=== PATIENT | female | born 1950 | race Caucasian/White ===

== ENCOUNTER 2019-03-01 14:46 | Observation (INO) | payer MEDICARE, SELFPAY ==
[2019-03-01] VITALS (13 sets, daily range): BP systolic 102–142; BP diastolic 45–73; PULSE 90–108; RESP 18–23; TEMP 36.6–36.9; O2SAT 86–96; BMI 23.9; BMI 24.2
--- NOTE | 2019-03-01 15:15 | EKG12_ITS ---
Test Reason : SOB Blood Pressure : / mmHG Vent. Rate : 088 BPM Atrial Rate : 088 BPM P-R Int : 128 ms QRS Dur : 094 ms QT Int : 372 ms P-R-T Axes : -06 075 066 degrees QTc Int : 450 ms Sinus rhythm with Premature supraventricular complexes Otherwise normal ECG Confirmed by LOCO VERONICA, ANGIE ([id number]), video editor ORLANDO REYNAGA ([id number]) on 03/03/2019 10:52:37 AM Referred By: DARRIN Confirmed By:ANGIE ADAN MD
[2019-03-01] MEDS: 0.9% Normal Saline 1,000 ML 150 ML IV (15:28)
[2019-03-01] MEDS: MethylPREDNISolone 125 MG/2 ML Vial IV (15:29)
--- NOTE | 2019-03-01 15:29 | ED.VISSUMM ---
- ER Visit Summary Date of Service: 03/01/19 Chief Complaint: [Shortness of breath] History of Present Illness: The patient is a 69 F [resents the emergency department shortness of breath that started 2 to 3 weeks ago. Patient's been coughing and bringing up mostly clear sputum. She denies any fevers. Patient denies any chest pain. She denies recent travel or surgery. Patient was seen in urgent care today and referred to the emergency department because of a O2 saturation of 86%. Patient is not on home O2. Patient has history of diabetes, hypertension, and she states mild COPD. Patient continues to smoke.] Physical Examination: [HEENT-PERRLA, EOMI. Cranial nerves II through XII grossly intact. TMs clear. Mucous membranes moist. No adenopathy. Cardiovascular-regular rate and rhythm without murmur or ectopy Lungs-diminished bilaterally. Patient has coarse rhonchi and diffuse expiratory wheezes bilaterally. Patient has some mild tachypnea. No accessory muscle use or retractions. Abdomen-normoactive bowel sounds, soft, nontender, no rebound or rigidity, no peritoneal signs. Extremities-intact ?4, normal range of motion, normal pulses, atraumatic] Test Results: [CBC with 0.5, hemoglobin 14, hematocrit 42, placed 194. Chemistries unremarkable. Lactate pending. Chest x-ray obtained showed mild increased markings bilateral the right infrahilar region consistent with scarring.] Emergency Department Course and Treatment: [Patient was given DuoNeb aerosol as well as Solu-Medrol 125 mg IV.] Treatment Plan: [Admit for further management of COPD and hypoxia.] Disposition: [Admit] Impression: [COPD exacerbation Hypoxemia] This note was generated with [employer] dictation software. It may contain incorrect words, spelling, and punctuation that were not noted in review of the chart prior to signing ED Disposition - Plan for ED Patient: Referrals: Krish Cárdenas, KITA-C [Primary Care Provider] -
--- NOTE | 2019-03-01 15:35 | RAD_ITS ---
STUDY: X-RAY CHEST REASON FOR EXAM: Female, 69 years old. Shortness of breath. Cough. TECHNIQUE: PA and lateral views of the chest. COMPARISON: Comparison is made with prior chest radiograph dated January 15, 2017. FINDINGS: EKG electrodes are seen. Hyperinflation. Mild increased markings are seen in the right infrahilar region most likely secondary to scarring following prior pneumonia. Residual blunting of the right costophrenic angle. Normal size heart. Normal mediastinum and hardik. Normal visualized pulmonary arteries. There is atherosclerotic calcification of the aortic arch with tortuosity. There are diffuse degenerative changes of the visualized thoracic spine. Normal visualized ribs, clavicles, and shoulders. There is no demonstrated abnormality of the visualized soft tissue structures of the upper abdomen. RAD/Chest PA and Lateral IMPRESSION: Mild increased markings in the right infrahilar region suggestive of scarring. Blunting of the right costophrenic angle. Electronically Signed: Mitch Garza, at 15:48 EDT , Service support ,
[2019-03-01 15:40] LABS: Absolute Lymphocyte Count 2.38 X10^3/ul (0.83-4.51); Absolute Neutrophil Count 6.7 X10^3/uL (2.0-7.7); Basophil# 0.03 X10^3/uL; Basophil% 0.3 % (0-1); Eosinophil# 0.26 X10^3/uL; Eosinophils% 2.5 % (0-5); Hematocrit 41.8 % (37-47); Hemoglobin 14.1 g/dl (12.0-15.0); Lymphocyte # 2.38 X10^3/ul (4.0); Lymphocyte % 22.8 % (19-41); Mean Corp Hgb Conc 33.7 g/gl (32-36); Mean Corpuscular Hgb 36.2 pg (27.0-32.0); Mean Corpuscular Volume 107.2 fL (81-99); Mean Platelet Vol. 12.1 fl (6.2-12.0); Monocyte# 0.94 X10^3/uL; Neutrophil # 6.73 X10^3/uL (2.7-7.7); Neutrophil % 64.3 % (47-70); POSITIVE COUNT NO; POSITIVE DIFFERENTIAL NO; POSITIVE MORPHOLOGY NO; Platelet Count 194 K/mm3 (150-450); RBC Distribution Width CV 14.1 % (11.6-14.6); RBC Distribution Width SD 55.2 fl (35.1-43.9); White Blood Count 10.5 K/mm3 (4.4-11.0)
[2019-03-01 15:44] LABS: Anion Gap 6 (5-15); BUN 32 mg/dL (7-18); BUN/Creat Ratio 34.9 RATIO (10-20); Chloride 105 mmol/L (98-107); Creatinine, Serum 0.92 mg/dL (0.55-1.02); EST Glomerular Filtration Rate 65 mL/min (>60); Est Glom Filt Rate - Afr Amer 78 mL/min (>60); Estimated Creatinine Clearance 48.41 ml/min; Glucose 103 mg/dL (74-106); Potassium 4.1 mmol/L (3.5-5.1); Sodium Level 141 mmol/L (136-145)
[2019-03-01] MEDS: Ipratropium/Albuterol Sulfate 3 ML AMPUL.NEB INHALATION ×2 (15:52→19:25)
[2019-03-01] MEDS: Albuterol 2.5 MG/3 ML VIAL.NEB. INHALATION (15:55)
[2019-03-01 15:56] LABS: Lactic Acid 0.7 mmol/L (0.4-2.0)
--- NOTE | 2019-03-01 16:02 | NURSING ---
DR RONDON FOR DR CONCEPCION
--- NOTE | 2019-03-01 16:12 | PCM.HP.STD ---
<Destiny Harding - Last Filed: 03/01/19 16:30> Problem List (1) Acute respiratory failure with hypoxemia Status: Acute (2) Tobacco dependence Status: Chronic (3) DM2 (diabetes mellitus, type 2) Status: Chronic (4) Essential (primary) hypertension Status: Chronic (5) Hyperlipemia Status: Chronic History of Present Illness Date of Admission: 03/01/19 Chief Complaint: Shortness of breath. The patient is a 69 year old F who presents emergency room due to increased shortness of breath. She reports she has had increased shortness of breath over the past 2 to 3 weeks, worse with exertion. Reports cough, productive of clear sputum. She does report she has intermittent cough at baseline. Denies fever, chills. Denies chest pain. Denies lower extremity swelling or weight gain. She was evaluated at urgent care today and noted to be hypoxic and was referred to the emergency room for further evaluation. She currently smokes 2 packs/day. She reports she was told she had COPD based on prior imaging and smoking history however she has not had formal testing or work-up. Her past medical history includes type 2 diabetes mellitus, hypertension, hyperlipidemia, tobacco dependence. Past Medical History Past Medical History (Chronic Problems): Chronic Problems Hyperlipemia (Chronic) Tobacco dependence (Chronic) DM2 (diabetes mellitus, type 2) (Chronic) Essential (primary) hypertension (Chronic) Allergies Penicillins Allergy (Verified 01/15/17 16:17) Angioedema Home Medications: Ambulatory Orders Medication Instructions Recorded Amlodipine Besylate 10 mg PO DAILY 01/15/17 Citalopram Hydrobromide 40 mg PO DAILY 01/15/17 [Citalopram HBr] Hydrochlorothiazide 12.5 mg PO DAILY 01/15/17 Lisinopril 40 mg PO DAILY 01/15/17 Loperamide [Imodium] 1 mg PO BID 01/15/17 Lovastatin 20 mg PO QHS 01/15/17 Metformin HCl [Metformin HCl ER] 500 mg PO BID 01/15/17 Pnv No.95/Ferrous Fum/Folic AC 1 each PO DAILY 01/15/17 [ Vitamins Tablet] Albuterol Aerosols [Ventolin 2.5 mg INHALATION Q2H PRN PRN #0 01/18/17 Aerosols] vial.neb. Cyanocobalamin (Vitamin B-12) 2,500 mcg SL DAILY 03/01/19 [Vitamin B-12] Surgical History: - - Right eye retinal detachment repair Psychiatric History: Depression EMPLOYMENT SERVICES DIRECTOR History: No pertinent EMPLOYMENT SERVICES DIRECTOR history Lives: - - with friend Smoking Status: Current every day smoker Tobacco Use: Cigarettes - 2 PPD Alcohol: Heavy Drugs: None - *Family History Maternal History Items: Diabetes Paternal History Items: - - Denies known paternal medical history including cardiac history. Reports he young. Review of Systems Constitutional: Denies: Chills, Fever, Weight Change HEENT: Denies: Head Aches, Sinus Congestion, Sinus Drainage Cardiovascular: Denies: Chest Pain, Edema, Light Headedness, Palpitations, Syncope Respiratory: Reports: Cough, Shortness of Breath, Wheezing Gastrointestinal: Denies: Abdominal Pain, Nausea, Vomiting Genitourinary: Denies: Dysuria Musculoskeletal: Denies: Joint Pain, Joint Tenderness Skin: Denies: Rash, Wounds Neurological: Denies: Numbness, Tingling, Focal weakness Psychiatric: Reports: Depression. Denies: Anxiety, Homicidal Ideations, Suicidal Ideations Hematologic/ Lymphatic: Denies: Easy Bruising, Easy Bleeding VTE Information - Inpt Only VTE Present on Admission: No VTE Mechan Device Prophylaxis: None VTE Pharm Prophylaxis ordered?: Yes - Physical Exam General: Alert, Oriented x3, Cooperative HEENT: Atraumatic, PERRLA, EOMI, Normocephalic Neck: Supple, No JVD, Negative Carotid Bruits Lungs: Diminished, Wheezes Cardiovascular: Regular rate, Regular Rhythm, Normal S1, Normal S2, No murmurs Abdomen: Bowel Sounds Present, Soft, Non Tender, Non-Distended Extremities: No clubbing, No cyanosis, No edema Skin: No rashes, No breakdown Musculoskeletal: No Tenderness to Palpation of Joints or Extremities Neurological: Cranial nerves II-XII grossly intact, Neuro grossly intact Psych/Mental Status: Normal Affect, Appropriate Vital Signs Temp Pulse Resp BP Pulse Ox 97.9 F 90 23 H 102/73 95 03/01/19 14:57 03/01/19 15:53 03/01/19 15:53 03/01/19 15:46 03/01/19 15:46 Oxygen Flow Rate (L/min) 3 Oxygen Delivery Method Nasal Cannula Weight: 135 lb Body Mass Index (BMI) 23.9 Laboratory Tests Past 24 Hrs 03/01/19 03/01/19 03/01/19 15:15 15:15 15:15 WBC 10.5 RBC 3.90 L Hgb 14.1 Hct 41.8 MCV 107.2 H MCH 36.2 H MCHC 33.7 RDW 14.1 RDW Differential 55.2 H Plt Count 194 MPV 12.1 H Immature Gran % (Auto) 1.100 H Neut % (Auto) 64.3 Lymph % (Auto) 22.8 [place] % (Auto) 9.0 Eos % (Auto) 2.5 Baso % (Auto) 0.3 Absolute Neuts (auto) 6.7 Absolute Lymphs (auto) 2.38 Total Counted Not Reportable Sodium 141 Potassium 4.1 Chloride 105 Carbon Dioxide 30.0 Anion Gap 6 BUN 32 H Creatinine 0.92 Estim Creat Clear Calc 48.41 Est GFR (MDRD) Af Amer 78 Est GFR (MDRD) Non-Af 65 BUN/Creatinine Ratio 34.9 H Glucose 103 Lactic Acid 0.7 Calcium 9.0 Assessment/Plan All Active Problems Acute respiratory failure with hypoxemia (Acute) 1. Acute hypoxic respiratory insufficiency secondary to exacerbation of COPD-afebrile, no leukocytosis. Chest x-ray with mild increased markings in the right infrahilar region suggestive of scarring. Check respiratory panel. IV Solu-Medrol. Albuterol and DuoNeb aerosols. Continue supplement oxygen to maintain O2 at or above 90%. Walking pulse ox prior to discharge. Recommend follow-up with pulmonary medicine as outpatient for pulmonary function testing and further management of COPD. 2. Type 2 diabetes mellitus-hold metformin regimen. Accu-Cheks ACHS with sliding scale insulin. 3. Hypertension-stable, continue amlodipine, hydrochlorothiazide, lisinopril regimen. 4. Hyperlipidemia-continue statin. 5. Tobacco dependence-2 pack/day smoker. Encourage cessation. Nicotine replacement patch. 6. Alcohol dependence-patient reports she drinks approximately 6 to 9 ounces of vodka every night. CIWA/Ativan protocol. 7. Depression-continue citalopram regimen. DVT prophylaxis-Lovenox subcu This patient was seen by KASSANDRA Briggs under the supervision of Dr. Kennedy. <Kira Kennedy - Last Filed: 03/01/19 17:07> History of Present Illness The patient is a 69 year old F [] Past Medical History Allergies Penicillins Allergy (Verified 01/15/17 16:17) Angioedema - Physical Exam Vital Signs Temp Pulse Resp BP Pulse Ox 98.0 F 93 18 126/69 H 94 03/01/19 16:11 03/01/19 16:11 03/01/19 16:11 03/01/19 16:11 03/01/19 16:11 Oxygen Flow Rate (L/min) 3 Oxygen Delivery Method Room Air Weight: 61.235 kg Body Mass Index (BMI) 23.9 Laboratory Tests Past 24 Hrs 03/01/19 03/01/19 03/01/19 15:15 15:15 15:15 WBC 10.5 RBC 3.90 L Hgb 14.1 Hct 41.8 MCV 107.2 H MCH 36.2 H MCHC 33.7 RDW 14.1 RDW Differential 55.2 H Plt Count 194 MPV 12.1 H Immature Gran % (Auto) 1.100 H Neut % (Auto) 64.3 Lymph % (Auto) 22.8 [place] % (Auto) 9.0 Eos % (Auto) 2.5 Baso % (Auto) 0.3 Absolute Neuts (auto) 6.7 Absolute Lymphs (auto) 2.38 Total Counted Not Reportable Sodium 141 Potassium 4.1 Chloride 105 Carbon Dioxide 30.0 Anion Gap 6 BUN 32 H Creatinine 0.92 Estim Creat Clear Calc 48.41 Est GFR (MDRD) Af Amer 78 Est GFR (MDRD) Non-Af 65 BUN/Creatinine Ratio 34.9 H Glucose 103 Lactic Acid 0.7 Calcium 9.0 Assessment/Plan This patient was seen in conjunction with Destiny Harding. I have independently interviewed and examined the patient and reviewed pertinent historical, laboratory, and other data. I have reviewed her note and concur with her documentation CC: Shortness of breath, cough - 3 weeks HPI: 69-year-old female with past medical history of COPD, not on oxygen, type II DM, hypertension, hyperlipidemia, chronic smoker who comes in with cough ongoing for 3 weeks. Cough is productive of whitish fever. Denies any fever or chills or chest pain or palpitation. She went to the urgent care today and her SPO2 was 86% on room air.She did admits to feeling better now. PMHX: As above PSHx: S/p right retina detachment FHX: Mother had diabetes SHX: Lives with a friend, smokes 2 packs a day, drinks alcohol heavily, denies any illicit drug use Physical Exam: Vitals: Temperature is 98.0 F, heart rate is 90, blood pressure 116/45, respiratory rate is 20, SPO2 is 96% on 3 L oxygen Gen: Comfortable, on 3L oxygen, not pale, not jaundiced CVS:HS I +II, regular, no murmurs RESP: Diminished all over, wheezes ++ GI: BS present and normal, soft, nontender, no palpable organs EXT:No edema Labs: WBC count 10.5, hemoglobin 14.1, platelet count 194, BMP is unremarkable except for slight elevation in BUN ASSESSMENT: 1. Acute hypoxic respiratory failure secondary to acute COPD exacerbation 2. Acute COPD exacerbation 3. Nicotine dependence 4. Alcohol dependence 5. Hypertension 6. Hyperlipidemia 7. Depression Plan: Admit to MedSurg, continue on breathing treatments, IV steroids Nicotine replacement Will put on alcohol withdrawal protocol Continue home meds, repeat blood work in a.m. Patient may need discharge with oxygen Recommend outpatient pulmonology follow-up on discharge Code Visit Inpatient E&M: [id number] Init Hosp L3
--- NOTE | 2019-03-01 16:17 | NURSING ---
PCU ACUTE COPD EXAC PAINTSIL
--- NOTE | 2019-03-01 16:31 | NURSING ---
MED SURG NOT PCU
[2019-03-01 17:21] LABS: Bedside Glucose 103 mg/dL (70-110)
[2019-03-01] MEDS: Atorvastatin Calcium 10 MG Tablet 5 MG PO (22:29)
[2019-03-01] MEDS: Heparin Injection (Vial) 5,000 UNIT/ML VIAL 5000 UNIT SC (22:30)
[2019-03-01] MEDS: 0.9% NaCl Peripheral Flush Adult/Peds IV (22:30)
[2019-03-01] MEDS: amLODIPine 10 MG Tablet PO (22:30)
[2019-03-01] MEDS: Insulin Lispro 100 UNIT/ML INSULN.PEN SQ (22:34)
[2019-03-01 23:01] LABS: Bedside Glucose 250 mg/dL (70-110)
[2019-03-02] MEDS: Zolpidem Tartrate 5 MG Tablet PO (00:23)
[2019-03-02 04:00] VITALS: BP 142/64; PULSE 78; RESP 18; TEMP 36.6; O2SAT 93
[2019-03-02] MEDS: Heparin Injection (Vial) 5,000 UNIT/ML VIAL 5000 UNIT SC (05:54)
[2019-03-02] MEDS: 0.9% NaCl Peripheral Flush Adult/Peds IV ×2 (05:55→15:26)
[2019-03-02 06:10] LABS: Absolute Lymphocyte Count 0.97 X10^3/ul (0.83-4.51); Absolute Neutrophil Count 9.8 X10^3/uL (2.0-7.7); Basophil# 0.01 X10^3/uL; Basophil% 0.1 % (0-1); Hematocrit 41.9 % (37-47); Hemoglobin 13.9 g/dl (12.0-15.0); Lymphocyte # 0.97 X10^3/ul (4.0); Lymphocyte % 8.8 % (19-41); Mean Corp Hgb Conc 33.2 g/gl (32-36); Mean Corpuscular Hgb 35.5 pg (27.0-32.0); Mean Corpuscular Volume 106.9 fL (81-99); Mean Platelet Vol. 12.1 fl (6.2-12.0); Monocyte# 0.15 X10^3/uL; Monocyte% 1.4 % (0-10); Neutrophil # 9.78 X10^3/uL (2.7-7.7); Neutrophil % 89.2 % (47-70); Platelet Count 185 K/mm3 (150-450); RBC Distribution Width CV 13.6 % (11.6-14.6); RBC Distribution Width SD 53.4 fl (35.1-43.9); Red Blood Count 3.92 M/mm3 (4.2-5.4)
[2019-03-02 06:13] LABS: POSITIVE COUNT NO; POSITIVE DIFFERENTIAL NO; POSITIVE MORPHOLOGY NO
[2019-03-02 06:28] LABS: Anion Gap 8 (5-15); BUN 29 mg/dL (7-18); BUN/Creat Ratio 38.5 RATIO (10-20); Calcium,Total 9.1 mg/dL (8.5-10.1); Chloride 103 mmol/L (98-107); Creatinine, Serum 0.75 mg/dL (0.55-1.02); EST Glomerular Filtration Rate 81 mL/min (>60); Est Glom Filt Rate - Afr Amer 98 mL/min (>60); Estimated Creatinine Clearance 44.54 ml/min; Glucose 160 mg/dL (74-106); Potassium 4.3 mmol/L (3.5-5.1); Sodium Level 141 mmol/L (136-145)
[2019-03-02] MEDS: Insulin Lispro 100 UNIT/ML INSULN.PEN SQ ×2 (06:53→11:38)
[2019-03-02 07:00] LABS: Bedside Glucose 207 mg/dL (70-110)
[2019-03-02 07:25] VITALS: PULSE 74; RESP 20; O2SAT 93
[2019-03-02] MEDS: Ipratropium/Albuterol Sulfate 3 ML AMPUL.NEB INHALATION ×3 (07:25→14:46)
[2019-03-02] MEDS: Lisinopril 40 MG Tablet PO (09:19)
[2019-03-02] MEDS: Citalopram 40 MG TABLET PO (09:20)
[2019-03-02] MEDS: hydroCHLOROthiazide 12.5mg 12.5 MG PO (09:20)
[2019-03-02 09:34] VITALS: O2SAT 82; O2SAT 89; O2SAT 92
[2019-03-02 10:00] VITALS: BP 126/58; PULSE 88; RESP 18; TEMP 36.6; O2SAT 92
[2019-03-02 11:11] VITALS: PULSE 90; RESP 20
--- NOTE | 2019-03-02 11:27 | DCINST_ITS ---
- Discharge Diagnoses Current Active Problems: Current Active and Chronic Problems COPD exacerbation You will use the following diet at home:: Cardiac Discharge Activity: Return to Normal Activity Call your doctor if you observe: Shortness of breath, Dizziness, Fainting spells, Chest pain Allergies/Adverse Reactions: Allergies Penicillins Allergy (Verified 01/15/17 16:17) Angioedema Medications to take at Discharge Amlodipine Besylate 10 mg PO DAILY 01/15/17 Citalopram Hydrobromide [Citalopram HBr] 40 mg PO DAILY 01/15/17 Hydrochlorothiazide 12.5 mg PO DAILY 01/15/17 Lisinopril 40 mg PO DAILY 01/15/17 Loperamide [Imodium] 1 mg PO BID 01/15/17 Lovastatin 20 mg PO QHS 01/15/17 Metformin HCl [Metformin HCl ER] 500 mg PO BID 01/15/17 Pnv No.95/Ferrous Fum/Folic AC [ Vitamins Tablet] 1 each PO DAILY 01/15/17 Cyanocobalamin (Vitamin B-12) [Vitamin B-12] 2,500 mcg SL DAILY 03/01/19 Albuterol Aerosols [Ventolin Aerosols] 2.5 mg INHALATION Q2H PRN PRN #120 vial.neb. 03/02/19 Prednisone See Taper PO DAILY #30 tablet 03/02/19 The following prescriptions were given: Albuterol Aerosols [Ventolin Aerosols] 2.5 mg INHALATION Q2H PRN PRN #120 vial.neb. PRN Reason: Shortness of breath Prednisone See Taper PO DAILY #30 tablet Primary Care Physician: Krish Cárdenas, KITA-C [Primary Care Provider] - Please follow up with your Primary Care Physician in: 1 Week Test Results: Test results from this visit will be discussed in further detail at your follow- up appointment, if applicable. Please Follow Up With: Ge Deras MD - Or Dr. Arguelles When: Recommend establishing with Pulmonary Medicine, call for appt Proposed Discharge Date: 03/02/19
--- NOTE | 2019-03-02 11:27 | PCM.DC.SUM ---
<Destiny Harding - Last Filed: 03/02/19 11:37> Discharge Date and Diagnosis - Problem List Patient Problems: Active and Suspected Problems COPD with exacerbation (Suspected) Date of Admission: 03/01/19 Date of Discharge: 03/02/19 - Primary Discharge Diagnosis 1. Acute hypoxic respiratory insufficiency secondary to exacerbation of COPD 2. Type 2 diabetes mellitus 3. Hypertension 4. Hyperlipidemia 5. Tobacco dependence 6. Alcohol dependence 7. Depression - Secondary Discharge Diagnosis Chronic Problems Hyperlipemia (Chronic) Tobacco dependence (Chronic) DM2 (diabetes mellitus, type 2) (Chronic) Essential (primary) hypertension (Chronic) Hospital Course and Treatment Imaging Results: Diagnostic Data Chest X-Ray 03/01/19 15:35 IMPRESSION: Mild increased markings in the right infrahilar region suggestive of scarring. Blunting of the right costophrenic angle. Electronically Signed: Mitch Greg, at 15:48 EDT , Service support , Operations: None Procedures: None Summary of Care Provided: The patient is a 69 year old F admitted 03/01/2019 due to shortness of breath. 1. Acute hypoxic respiratory insufficiency secondary to exacerbation of COPD-afebrile, no leukocytosis. Chest x-ray with mild increased markings in the right infrahilar region suggestive of scarring. Respiratory panel negative. IV Solu-Medrol during admission. Discharged on prednisone taper. Patient has nebulizer at home and she was given refill prescription for albuterol aerosols. Walking pulse ox completed prior to discharge and patient will require supplemental oxygen with ambulation, 2 L. She is ambulatory in the home. Recommend follow-up with pulmonary medicine as outpatient for pulmonary function testing and further management of COPD. Follow-up with primary care provider in 1 week. Follow-up with pulmonary medicine in 1 to 2 weeks to establish. 2. Type 2 diabetes mellitus-continue home metformin regimen. 3. Hypertension-stable, continue amlodipine, hydrochlorothiazide, lisinopril regimen. 4. Hyperlipidemia-continue statin. 5. Tobacco dependence-2 pack/day smoker. Encourage cessation. 6. Alcohol dependence-patient reports she drinks approximately 6 to 9 ounces of vodka every night. CIWA 4. Encouraged reduction in alcohol intake. 7. Depression-continue citalopram regimen. General: Alert, Oriented x3, Cooperative HEENT: Atraumatic, PERRLA, EOMI, Normocephalic Neck: Supple, No JVD, Negative Carotid Bruits Lungs: Diminished, Wheezes Cardiovascular: Regular rate, Regular Rhythm, Normal S1, Normal S2, No murmurs Abdomen: Bowel Sounds Present, Soft, Non Tender, Non-Distended Extremities: No clubbing, No cyanosis, No edema Skin: No rashes, No breakdown Musculoskeletal: No Tenderness to Palpation of Joints or Extremities Neurological: Cranial nerves II-XII grossly intact, Neuro grossly intact Psych/Mental Status: Normal Affect, Appropriate Patient seen and examined prior to discharge. Physical assessment as noted above. Patient is stable for discharge with follow up recommendations as noted above. This patient was seen by KASSANDRA Briggs under the supervision of Dr. Santa. Patient Problems: Active and Suspected Problems COPD with exacerbation (Suspected) - Physical Exam Vital Signs Temp Pulse Resp BP Pulse Ox 97.8 F 90 20 H 126/58 H 92 03/02/19 10:00 03/02/19 11:11 03/02/19 11:11 03/02/19 10:00 03/02/19 10:00 Oxygen Flow Rate (L/min) [ 2 AMBULATION with Oxygen] Oxygen Flow Rate (L/min) 2 Oxygen Delivery Method Room Air Weight: 137 lb 4 oz Body Mass Index (BMI) 24.2 Intake and Output for Last 24 Hours 02/28/19 03/01/19 03/02/19 23:59 23:59 23:59 Intake Total 240 / 240 Balance 240 / 240 Microbiology Past 72 Hours 03/01/19 16:50 Respiratory Panel (PCR) - Final Mucosa - Nasopharyngeal Laboratory Tests Past 24 Hrs 03/01/19 03/01/19 03/01/19 15:15 15:15 15:15 WBC 10.5 RBC 3.90 L Hgb 14.1 Hct 41.8 MCV 107.2 H MCH 36.2 H MCHC 33.7 RDW 14.1 RDW Differential 55.2 H Plt Count 194 MPV 12.1 H Immature Gran % (Auto) 1.100 H Neut % (Auto) 64.3 Lymph % (Auto) 22.8 Stanly % (Auto) 9.0 Eos % (Auto) 2.5 Baso % (Auto) 0.3 Absolute Neuts (auto) 6.7 Absolute Lymphs (auto) 2.38 Total Counted Not Reportable Sodium 141 Potassium 4.1 Chloride 105 Carbon Dioxide 30.0 Anion Gap 6 BUN 32 H Creatinine 0.92 Estim Creat Clear Calc 48.41 Est GFR (MDRD) Af Amer 78 Est GFR (MDRD) Non-Af 65 BUN/Creatinine Ratio 34.9 H Glucose 103 Lactic Acid 0.7 Calcium 9.0 03/02/19 03/02/19 05:46 05:46 WBC 11.0 RBC 3.92 L Hgb 13.9 Hct 41.9 MCV 106.9 H MCH 35.5 H MCHC 33.2 RDW 13.6 RDW Differential 53.4 H Plt Count 185 MPV 12.1 H Immature Gran % (Auto) 0.500 Neut % (Auto) 89.2 H Lymph % (Auto) 8.8 L Stanly % (Auto) 1.4 Eos % (Auto) 0.0 Baso % (Auto) 0.1 Absolute Neuts (auto) 9.8 H Absolute Lymphs (auto) 0.97 Total Counted Not Reportable Sodium 141 Potassium 4.3 Chloride 103 Carbon Dioxide 30.0 Anion Gap 8 BUN 29 H Creatinine 0.75 Estim Creat Clear Calc 44.54 Est GFR (MDRD) Af Amer 98 Est GFR (MDRD) Non-Af 81 BUN/Creatinine Ratio 38.5 H Glucose 160 H Lactic Acid Calcium 9.1 POC Glucose 03/02/19 03/01/19 03/01/19 06:50 22:28 17:14 POC Glucose 207 H 250 H 103 Discharge Diet: Low fat/ Low Cholesterol Discharge Activity: Return to Normal Activity Call your doctor if you observe: Shortness of breath, Dizziness, Fainting spells, Chest pain Home Medications: Medications to take at Discharge Amlodipine Besylate 10 mg PO DAILY 01/15/17 Citalopram Hydrobromide [Citalopram HBr] 40 mg PO DAILY 01/15/17 Hydrochlorothiazide 12.5 mg PO DAILY 01/15/17 Lisinopril 40 mg PO DAILY 01/15/17 Loperamide [Imodium] 1 mg PO BID 01/15/17 Lovastatin 20 mg PO QHS 01/15/17 Metformin HCl [Metformin HCl ER] 500 mg PO BID 01/15/17 Pnv No.95/Ferrous Fum/Folic AC [ Vitamins Tablet] 1 each PO DAILY 01/15/17 Cyanocobalamin (Vitamin B-12) [Vitamin B-12] 2,500 mcg SL DAILY 03/01/19 Albuterol Aerosols [Ventolin Aerosols] 2.5 mg INHALATION Q2H PRN PRN #120 vial.neb. 03/02/19 Prednisone See Taper PO DAILY #30 tablet 03/02/19 Following Prescrptions Were Given to Patient: Albuterol Aerosols [Ventolin Aerosols] 2.5 mg INHALATION Q2H PRN PRN #120 vial.neb. PRN Reason: Shortness of breath Prednisone See Taper PO DAILY #30 tablet Primary Care Physician: Krish Cárdenas NP-C [Primary Care Provider] - Please follow up with your Primary Care Physician in: 1 Week Please Follow Up With: Ge eDras MD - Or Dr. Arguelles When: Recommend establishing with Pulmonary Medicine, call for appt Disposition: Home Minutes spent on discharge:: 35 Patient Condition:: Stable Medical Necessity - Tobacco Use Smoking Status: Current every day smoker Tobacco Use: Cigarettes Meaningful Use Info Meaningful Use Diagnoses (Choose all that apply): None applicable <Saskia Santa - Last Filed: 03/02/19 14:02> Discharge Date and Diagnosis - Primary Discharge Diagnosis Active and Suspected Problems COPD with exacerbation (Suspected) - Secondary Discharge Diagnosis Chronic Problems Hyperlipemia (Chronic) Tobacco dependence (Chronic) DM2 (diabetes mellitus, type 2) (Chronic) Essential (primary) hypertension (Chronic) Hospital Course and Treatment pulmonology- Dr Deras Summary of Care Provided: Patient seen and examined by Destiny Harding under my supervision The patient is a 69 year old F admitted with a complaint of shortness of breath. She had been having increased shortness of breath for the past 2 through 3 weeks prior to admission associated with a cough productive of clear sputum. She also had intermittent cough at baseline and denied any fever or chills. She had a history of smoking about 2 packs daily. SHe was seen at an Urgent Care prior to admission where she was found to have saturation of 87%. CXR done showed mild increased markings in the right infrahilar region suggestive of scarring. She was admitted and managed for acute hypoxic respiratory insufficiency due to COPD exacerbation. She was started on breathing treatments, and IV solumedrol. Shortness of breath resolved and patient felt much better. She had walking pulse ox which showed saturation of 82%, and she required 2L of oxygen to maintain sats at 92%. Pulmonology was consulted to establish a relationship with the patient, for follow up on outpatient basis . She was discharged home on 03/02/19 with a script for PO prednisone and albuterol. Patient seen and examined prior to discharge. He had no complaints nad felt well. Review of systems was otherwise negative. Labs and vitals reviewed. Home medications reviewed and reconciled. o/e: Vital Signs Height 5 ft 3 in Weight: 137 lb 4 oz Weight in Pounds 137.3 lbs Pulse Ox [AMBULATION with 89 Oxygen] Pulse Ox [AMBULATING on Room 82 Air] Pulse Ox [At REST on Room Air] 92 Pulse Ox 92 Temperature 97.8 F Pulse Rate 90 Respiratory Rate 20 Blood Pressure 126/58 Blood Pressure Position Semi-Fowlers General: Alert, Oriented x3, Cooperative HEENT: Atraumatic, PERRLA, EOMI, Normocephalic Neck: Supple, No JVD, Negative Carotid Bruits Lungs: Diminished bibasally, no wheezing or crackles Cardiovascular: Regular rate, Regular Rhythm, Normal S1, Normal S2, No murmurs Abdomen: Bowel Sounds Present, Soft, Non Tender, Non-Distended Extremities: No clubbing, No cyanosis, No edema Skin: No rashes, No breakdown Musculoskeletal: No Tenderness to Palpation of Joints or Extremities Neurological: Cranial nerves II-XII grossly intact, Neuro grossly intact Psych/Mental Status: Normal Affect, Appropriate Plan as above. Rest of management as per Destiny Harding [employer]-C's note, which I have reviewed and endorsed. - Physical Exam Vital Signs Temp Pulse Resp BP Pulse Ox 97.8 F 90 20 H 126/58 H 92 03/02/19 10:00 03/02/19 11:11 03/02/19 11:11 03/02/19 10:03/02/19 10:00 Oxygen Flow Rate (L/min) [ 2 AMBULATION with Oxygen] Oxygen Flow Rate (L/min) 2 Oxygen Delivery Method Room Air Weight: 137 lb 4 oz Body Mass Index (BMI) 24.2 Intake and Output for Last 24 Hours 02/28/19 03/01/19 03/02/19 23:59 23:59 23:59 Intake Total 240 / 240 Balance 240 / 240 Microbiology Past 72 Hours 03/01/19 16:50 Respiratory Panel (PCR) - Final Mucosa - Nasopharyngeal Laboratory Tests Past 24 Hrs 03/01/19 03/01/19 03/01/19 15:15 15:15 15:15 WBC 10.5 RBC 3.90 L Hgb 14.1 Hct 41.8 MCV 107.2 H MCH 36.2 H MCHC 33.7 RDW 14.1 RDW Differential 55.2 H Plt Count 194 MPV 12.1 H Immature Gran % (Auto) 1.100 H Neut % (Auto) 64.3 Lymph % (Auto) 22.8 Stanly % (Auto) 9.0 Eos % (Auto) 2.5 Baso % (Auto) 0.3 Absolute Neuts (auto) 6.7 Absolute Lymphs (auto) 2.38 Total Counted Not Reportable Sodium 141 Potassium 4.1 Chloride 105 Carbon Dioxide 30.0 Anion Gap 6 BUN 32 H Creatinine 0.92 Estim Creat Clear Calc 48.41 Est GFR (MDRD) Af Amer 78 Est GFR (MDRD) Non-Af 65 BUN/Creatinine Ratio 34.9 H Glucose 103 Lactic Acid 0.7 Calcium 9.0 03/02/19 03/02/19 05:46 05:46 WBC 11.0 RBC 3.92 L Hgb 13.9 Hct 41.9 MCV 106.9 H MCH 35.5 H MCHC 33.2 RDW 13.6 RDW Differential 53.4 H Plt Count 185 MPV 12.1 H Immature Gran % (Auto) 0.500 Neut % (Auto) 89.2 H Lymph % (Auto) 8.8 L Stanly % (Auto) 1.4 Eos % (Auto) 0.0 Baso % (Auto) 0.1 Absolute Neuts (auto) 9.8 H Absolute Lymphs (auto) 0.97 Total Counted Not Reportable Sodium 141 Potassium 4.3 Chloride 103 Carbon Dioxide 30.0 Anion Gap 8 BUN 29 H Creatinine 0.75 Estim Creat Clear Calc 44.54 Est GFR (MDRD) Af Amer 98 Est GFR (MDRD) Non-Af 81 BUN/Creatinine Ratio 38.5 H Glucose 160 H Lactic Acid Calcium 9.1 POC Glucose 03/02/19 03/02/19 03/01/19 11:28 06:50 22:28 POC Glucose 244 H 207 H 250 H 03/01/19 17:14 POC Glucose 103 Code Visit Inpatient E&M: 85765 Disch Hosp
--- NOTE | 2019-03-02 11:35 | DS.PCM_ITS ---
<Destiny Harding - Last Filed: 03/02/19 11:37> Discharge Date and Diagnosis - Problem List Patient Problems: Active and Suspected Problems COPD with exacerbation (Suspected) Date of Admission: 03/01/19 Date of Discharge: 03/02/19 - Primary Discharge Diagnosis 1. Acute hypoxic respiratory insufficiency secondary to exacerbation of COPD 2. Type 2 diabetes mellitus 3. Hypertension 4. Hyperlipidemia 5. Tobacco dependence 6. Alcohol dependence 7. Depression - Secondary Discharge Diagnosis Chronic Problems Hyperlipemia (Chronic) Tobacco dependence (Chronic) DM2 (diabetes mellitus, type 2) (Chronic) Essential (primary) hypertension (Chronic) Hospital Course and Treatment Imaging Results: Diagnostic Data Chest X-Ray 03/01/19 15:35 IMPRESSION: Mild increased markings in the right infrahilar region suggestive of scarring. Blunting of the right costophrenic angle. Electronically Signed: Mitch Garza, at 15:48 EDT , Service support , Operations: None Procedures: None Summary of Care Provided: The patient is a 69 year old F admitted 03/01/2019 due to shortness of breath. 1. Acute hypoxic respiratory insufficiency secondary to exacerbation of COPD- afebrile, no leukocytosis. Chest x-ray with mild increased markings in the right infrahilar region suggestive of scarring. Respiratory panel negative. IV Solu-Medrol during admission. Discharged on prednisone taper. Patient has nebulizer at home and she was given refill prescription for albuterol aerosols. Walking pulse ox completed prior to discharge and patient will require supple mental oxygen with ambulation, 2 L. She is ambulatory in the home. Recommend follow-up with pulmonary medicine as outpatient for pulmonary function testing and further management of COPD. Follow-up with primary care provider in 1 week. Follow-up with pulmonary medicine in 1 to 2 weeks to establish. 2. Type 2 diabetes mellitus-continue home metformin regimen. 3. Hypertension-stable, continue amlodipine, hydrochlorothiazide, lisinopril regimen. 4. Hyperlipidemia-continue statin. 5. Tobacco dependence-2 pack/day smoker. Encourage cessation. 6. Alcohol dependence-patient reports she drinks approximately 6 to 9 ounces of vodka every night. CIWA 4. Encouraged reduction in alcohol intake. 7. Depression-continue citalopram regimen. General: Alert, Oriented x3, Cooperative HEENT: Atraumatic, PERRLA, EOMI, Normocephalic Neck: Supple, No JVD, Negative Carotid Bruits Lungs: Diminished, Wheezes Cardiovascular: Regular rate, Regular Rhythm, Normal S1, Normal S2, No murmurs Abdomen: Bowel Sounds Present, Soft, Non Tender, Non-Distended Extremities: No clubbing, No cyanosis, No edema Skin: No rashes, No breakdown Musculoskeletal: No Tenderness to Palpation of Joints or Extremities Neurological: Cranial nerves II-XII grossly intact, Neuro grossly intact Psych/Mental Status: Normal Affect, Appropriate Patient seen and examined prior to discharge. Physical assessment as noted above. Patient is stable for discharge with follow up recommendations as noted above. This patient was seen by KASSANDRA Briggs under the supervision of Dr. Santa. Patient Problems: Active and Suspected Problems COPD with exacerbation (Suspected) - Physical Exam Vital Signs Temp Pulse Resp BP Pulse Ox 97.8 F 90 20 H 126/58 H 92 03/02/19 10:00 03/02/19 11:11 03/02/19 11:11 03/02/19 10:00 03/02/19 10:00 Oxygen Flow Rate (L/min) [ 2 AMBULATION with Oxygen] Oxygen Flow Rate (L/min) 2 Oxygen Delivery Method Room Air Weight: 137 lb 4 oz Body Mass Index (BMI) 24.2 Intake and Output for Last 24 Hours 02/28/19 03/01/19 03/02/19 23:59 23:59 23:59 Intake Total 240 / 240 Balance 240 / 240 Microbiology Past 72 Hours 03/01/19 16:50 Respiratory Panel (PCR) - Final Mucosa - Nasopharyngeal Laboratory Tests Past 24 Hrs 03/01/19 03/01/19 03/01/19 15:15 15:15 15:15 WBC 10.5 RBC 3.90 L Hgb 14.1 Hct 41.8 MCV 107.2 H MCH 36.2 H MCHC 33.7 RDW 14.1 RDW Differential 55.2 H Plt Count 194 MPV 12.1 H Immature Gran % (Auto) 1.100 H Neut % (Auto) 64.3 Lymph % (Auto) 22.8 Ness % (Auto) 9.0 Eos % (Auto) 2.5 Baso % (Auto) 0.3 Absolute Neuts (auto) 6.7 Absolute Lymphs (auto) 2.38 Total Counted Not Reportable Sodium 141 Potassium 4.1 Chloride 105 Carbon Dioxide 30.0 Anion Gap 6 BUN 32 H Creatinine 0.92 Estim Creat Clear Calc 48.41 Est GFR (MDRD) Af Amer 78 Est GFR (MDRD) Non-Af 65 BUN/Creatinine Ratio 34.9 H Glucose 103 Lactic Acid 0.7 Calcium 9.0 03/02/19 03/02/19 05:46 05:46 WBC 11.0 RBC 3.92 L Hgb 13.9 Hct 41.9 MCV 106.9 H MCH 35.5 H MCHC 33.2 RDW 13.6 RDW Differential 53.4 H Plt Count 185 MPV 12.1 H Immature Gran % (Auto) 0.500 Neut % (Auto) 89.2 H Lymph % (Auto) 8.8 L Ness % (Auto) 1.4 Eos % (Auto) 0.0 Baso % (Auto) 0.1 Absolute Neuts (auto) 9.8 H Absolute Lymphs (auto) 0.97 Total Counted Not Reportable Sodium 141 Potassium 4.3 Chloride 103 Carbon Dioxide 30.0 Anion Gap 8 BUN 29 H Creatinine 0.75 Estim Creat Clear Calc 44.54 Est GFR (MDRD) Af Amer 98 Est GFR (MDRD) Non-Af 81 BUN/Creatinine Ratio 38.5 H Glucose 160 H Lactic Acid Calcium 9.1 POC Glucose 03/02/19 03/01/19 03/01/19 06:50 22:28 17:14 POC Glucose 207 H 250 H 103 Discharge Diet: Low fat/ Low Cholesterol Discharge Activity: Return to Normal Activity Call your doctor if you observe: Shortness of breath, Dizziness, Fainting spells, Chest pain Home Medications: Medications to take at Discharge Amlodipine Besylate 10 mg PO DAILY 01/15/17 Citalopram Hydrobromide [Citalopram HBr] 40 mg PO DAILY 01/15/17 Hydrochlorothiazide 12.5 mg PO DAILY 01/15/17 Lisinopril 40 mg PO DAILY 01/15/17 Loperamide [Imodium] 1 mg PO BID 01/15/17 Lovastatin 20 mg PO QHS 01/15/17 Metformin HCl [Metformin HCl ER] 500 mg PO BID 01/15/17 Pnv No.95/Ferrous Fum/Folic AC [ Vitamins Tablet] 1 each PO DAILY 01/15/17 Cyanocobalamin (Vitamin B-12) [Vitamin B-12] 2,500 mcg SL DAILY 03/01/19 Albuterol Aerosols [Ventolin Aerosols] 2.5 mg INHALATION Q2H PRN PRN #120 vial.neb. 03/02/19 Prednisone See Taper PO DAILY #30 tablet 03/02/19 Following Prescrptions Were Given to Patient: Albuterol Aerosols [Ventolin Aerosols] 2.5 mg INHALATION Q2H PRN PRN #120 vial.neb. PRN Reason: Shortness of breath Prednisone See Taper PO DAILY #30 tablet Primary Care Physician: Krish Cárdenas, KITA-C [Primary Care Provider] - Please follow up with your Primary Care Physician in: 1 Week Please Follow Up With: Ge Deras MD - Or Dr. Arguelles When: Recommend establishing with Pulmonary Medicine, call for appt Disposition: Home Minutes spent on discharge:: 35 Patient Condition:: Stable Medical Necessity - Tobacco Use Smoking Status: Current every day smoker Tobacco Use: Cigarettes Meaningful Use Info Meaningful Use Diagnoses (Choose all that apply): None applicable <Saskia Santa - Last Filed: 03/02/19 14:02> Discharge Date and Diagnosis - Primary Discharge Diagnosis Active and Suspected Problems COPD with exacerbation (Suspected) - Secondary Discharge Diagnosis Chronic Problems Hyperlipemia (Chronic) Tobacco dependence (Chronic) DM2 (diabetes mellitus, type 2) (Chronic) Essential (primary) hypertension (Chronic) Hospital Course and Treatment pulmonology- Dr Deras Summary of Care Provided: Patient seen and examined by Destiny Harding under my supervision The patient is a 69 year old F admitted with a complaint of shortness of breath. She had been having increased shortness of breath for the past 2 through 3 weeks prior to admission associated with a cough productive of clear sputum. She also had intermittent cough at baseline and denied any fever or chills. She had a history of smoking about 2 packs daily. SHe was seen at an Urgent Care prior to admission where she was found to have saturation of 87%. CXR done showed mild increased markings in the right infrahilar region suggestive of scarring. She was admitted and managed for acute hypoxic respiratory insufficiency due to COPD exacerbation. She was started on breathing treatments, and IV solumedrol. Shortness of breath resolved and patient felt much better. She had walking pulse ox which showed saturation of 82%, and she required 2L of oxygen to maintain sats at 92%. Pulmonology was consulted to establish a relationship with the patient, for follow up on outpatient basis . She was discharged home on 03/02/19 with a script for PO prednisone and albuterol. Patient seen and examined prior to discharge. He had no complaints nad felt well. Review of systems was otherwise negative. Labs and vitals reviewed. Home medications reviewed and reconciled. o/e: Vital Signs Height 5 ft 3 in Weight: 137 lb 4 oz Weight in Pounds 137.3 lbs Pulse Ox [AMBULATION with 89 Oxygen] Pulse Ox [AMBULATING on Room 82 Air] Pulse Ox [At REST on Room Air] 92 Pulse Ox 92 Temperature 97.8 F Pulse Rate 90 Respiratory Rate 20 Blood Pressure 126/58 Blood Pressure Position Semi-Fowlers General: Alert, Oriented x3, Cooperative HEENT: Atraumatic, PERRLA, EOMI, Normocephalic Neck: Supple, No JVD, Negative Carotid Bruits Lungs: Diminished bibasally, no wheezing or crackles Cardiovascular: Regular rate, Regular Rhythm, Normal S1, Normal S2, No murmurs Abdomen: Bowel Sounds Present, Soft, Non Tender, Non-Distended Extremities: No clubbing, No cyanosis, No edema Skin: No rashes, No breakdown Musculoskeletal: No Tenderness to Palpation of Joints or Extremities Neurological: Cranial nerves II-XII grossly intact, Neuro grossly intact Psych/Mental Status: Normal Affect, Appropriate Plan as above. Rest of management as per Destiny Harding [employer]-C's note, which I have reviewed and endorsed. - Physical Exam Vital Signs Temp Pulse Resp BP Pulse Ox 97.8 F 90 20 H 126/58 H 92 03/02/19 10:00 03/02/19 11:11 03/02/19 11:11 03/02/19 10:00 03/02/19 10:00 Oxygen Flow Rate (L/min) [ 2 AMBULATION with Oxygen] Oxygen Flow Rate (L/min) 2 Oxygen Delivery Method Room Air Weight: 137 lb 4 oz Body Mass Index (BMI) 24.2 Intake and Output for Last 24 Hours 02/28/19 03/01/19 03/02/19 23:59 23:59 23:59 Intake Total 240 / 240 Balance 240 / 240 Microbiology Past 72 Hours 03/01/19 16:50 Respiratory Panel (PCR) - Final Mucosa - Nasopharyngeal Laboratory Tests Past 24 Hrs 03/01/19 03/01/19 03/01/19 15:15 15:15 15:15 WBC 10.5 RBC 3.90 L Hgb 14.1 Hct 41.8 MCV 107.2 H MCH 36.2 H MCHC 33.7 RDW 14.1 RDW Differential 55.2 H Plt Count 194 MPV 12.1 H Immature Gran % (Auto) 1.100 H Neut % (Auto) 64.3 Lymph % (Auto) 22.8 Ness % (Auto) 9.0 Eos % (Auto) 2.5 Baso % (Auto) 0.3 Absolute Neuts (auto) 6.7 Absolute Lymphs (auto) 2.38 Total Counted Not Reportable Sodium 141 Potassium 4.1 Chloride 105 Carbon Dioxide 30.0 Anion Gap 6 BUN 32 H Creatinine 0.92 Estim Creat Clear Calc 48.41 Est GFR (MDRD) Af Amer 78 Est GFR (MDRD) Non-Af 65 BUN/Creatinine Ratio 34.9 H Glucose 103 Lactic Acid 0.7 Calcium 9.0 03/02/19 03/02/19 05:46 05:46 WBC 11.0 RBC 3.92 L Hgb 13.9 Hct 41.9 MCV 106.9 H MCH 35.5 H MCHC 33.2 RDW 13.6 RDW Differential 53.4 H Plt Count 185 MPV 12.1 H Immature Gran % (Auto) 0.500 Neut % (Auto) 89.2 H Lymph % (Auto) 8.8 L Ness % (Auto) 1.4 Eos % (Auto) 0.0 Baso % (Auto) 0.1 Absolute Neuts (auto) 9.8 H Absolute Lymphs (auto) 0.97 Total Counted Not Reportable Sodium 141 Potassium 4.3 Chloride 103 Carbon Dioxide 30.0 Anion Gap 8 BUN 29 H Creatinine 0.75 Estim Creat Clear Calc 44.54 Est GFR (MDRD) Af Amer 98 Est GFR (MDRD) Non-Af 81 BUN/Creatinine Ratio 38.5 H Glucose 160 H Lactic Acid Calcium 9.1 POC Glucose 03/02/19 03/02/19 03/01/19 11:28 06:50 22:28 POC Glucose 244 H 207 H 250 H 03/01/19 17:14 POC Glucose 103 Code Visit Inpatient E&M: [id number] Disch Hosp
[2019-03-02 11:36] LABS: Bedside Glucose 244 mg/dL (70-110)
--- NOTE | 2019-03-02 11:48 | CON.PCM_ITS ---
Problem List (1) COPD with exacerbation Status: Suspected (2) Hyperlipemia Status: Chronic (3) Tobacco dependence Status: Chronic (4) DM2 (diabetes mellitus, type 2) Status: Chronic Qualifiers: (5) Essential (primary) hypertension Status: Chronic Reason for Consult Date of Consultation: 03/02/19 Reason for Consultation: COPD exacerbation History of Present Illness: The patient is a 69 year old F, with medical history listed below, who presented to [facility] on 03/01/2019 secondary to progressive shortness of breath. Patient reports that she has had shortness of breath for several years and this is been progressively getting worse. Patient states that over the last 2 to 3 weeks she started to have an increased cough that was productive of clear sputum. Patient does have a cough productive of clear sputum at baseline, but thought this was getting worse. Patient denied any lower extremity edema, chest pain, nausea or vomiting. She had gone to the urgent care center was noted to be hypoxic, so was her to the emergency department for evaluation. In the emergency department, patient was noted to have a saturation of 86% on room air. Patient was noted to have rhonchi and diffuse wheezing bilaterally, but no accessory muscle use noted. Patient was placed on Solu-Medrol, bronchodilators and admitted to the hospital. A pulmonary consult was obtained for outpatient follow-up and concern for COPD Patient does report an extensive smoking history. Patient states she is been smoking since age 15 for a pack to 2 packs/day. Patient states that she might have had pulmonary function tests in the past and was told that she had mild COPD. Patient reports that she does have Flovent at home, which subjectively led to significant improvement in shortness of breath. Patient does report subjective improvement to albuterol therapy. Patient did not feel that she needed to be hospitalized, because nebulizers typically work for me. Patient does drink alcohol on a routine basis, but was not very forthcoming with volumes. Patient denies any illicit drug use. Patient denies any environmental exposures. Patient does report she has increased stress at home secondary to her significant other being worked up for unintentional weight loss. Review of systems otherwise negative x10 systems. Past Medical History Past Medical History (Chronic Problems): Chronic Problems Hyperlipemia (Chronic) Tobacco dependence (Chronic) DM2 (diabetes mellitus, type 2) (Chronic) Essential (primary) hypertension (Chronic) Allergies Penicillins Allergy (Verified 01/15/17 16:17) Angioedema Home Medications: Ambulatory Orders Medication Instructions Recorded Amlodipine Besylate 10 mg PO DAILY 01/15/17 Citalopram Hydrobromide 40 mg PO DAILY 01/15/17 [Citalopram HBr] Hydrochlorothiazide 12.5 mg PO DAILY 01/15/17 Lisinopril 40 mg PO DAILY 01/15/17 Loperamide [Imodium] 1 mg PO BID 01/15/17 Lovastatin 20 mg PO QHS 01/15/17 Metformin HCl [Metformin HCl ER] 500 mg PO BID 01/15/17 Pnv No.95/Ferrous Fum/Folic AC 1 each PO DAILY 01/15/17 [ Vitamins Tablet] Cyanocobalamin (Vitamin B-12) 2,500 mcg SL DAILY 03/01/19 [Vitamin B-12] Albuterol Aerosols [Ventolin 2.5 mg INHALATION Q2H PRN PRN #120 03/02/19 Aerosols] vial.neb. 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 Reports he young. Review of Systems Comment: See HPI Patient Problems: Active and Suspected Problems COPD with exacerbation (Suspected) Objective: Chest x-ray was personally reviewed and does show some hyperinflation, but no infiltrates. - Physical Exam General: Alert, Oriented x3, Cooperative, No apparent distress, - - Appears older than stated age. Speaking in full sentences. HEENT: Atraumatic, PERRLA, EOMI, Normocephalic, - - No scleral icterus or injection noted. Oral: Moist Mucosa, No Gingival or Mucosal Lesions/ Ulcerations Neck: Supple, No JVD, No Nodes, Trachea Midline Lungs: No rhonchi, No rales, Diminished, Wheezes - Left greater than right, - - Symmetric expansion. No dullness to percussion. Cardiovascular: Regular rate, Regular Rhythm, Normal S1, Normal S2, No murmurs, No rub noted, No Gallop Abdomen: Bowel Sounds Present, Soft, Non Tender, Non-Distended Extremities: No clubbing, No cyanosis, No edema, Capillary Refill Less than 3 Seconds Skin: No rashes, No breakdown Musculoskeletal: No Tenderness to Palpation of Joints or Extremities Lymphatic: No Cervical, Supraclavicular, or Inguinal Adenopathy Neurological: Cranial nerves II-XII grossly intact, Neuro grossly intact, Motor Exam 5/5 strength throughout Psych/Mental Status: Alert and oriented to time, place, person, mood and affect Vital Signs Temp Pulse Resp BP Pulse Ox 36.6 C 90 20 H 126/58 H 92 03/02/19 10:00 03/02/19 11:11 03/02/19 11:11 03/02/19 10:00 03/02/19 10:00 Oxygen Flow Rate (L/min) [ 2 AMBULATION with Oxygen] Oxygen Flow Rate (L/min) 2 Oxygen Delivery Method Room Air Weight: 62.256 kg Body Mass Index (BMI) 24.2 Intake and Output for Last 24 Hours 02/28/19 03/01/19 03/02/19 23:59 23:59 23:59 Intake Total 240 / 240 Balance 240 / 240 Microbiology Past 72 Hours 03/01/19 16:50 Respiratory Panel (PCR) - Final Mucosa - Nasopharyngeal Laboratory Tests Past 24 Hrs 03/01/19 03/01/19 03/01/19 15:15 15:15 15:15 WBC 10.5 RBC 3.90 L Hgb 14.1 Hct 41.8 MCV 107.2 H MCH 36.2 H MCHC 33.7 RDW 14.1 RDW Differential 55.2 H Plt Count 194 MPV 12.1 H Immature Gran % (Auto) 1.100 H Neut % (Auto) 64.3 Lymph % (Auto) 22.8 Meagher % (Auto) 9.0 Eos % (Auto) 2.5 Baso % (Auto) 0.3 Absolute Neuts (auto) 6.7 Absolute Lymphs (auto) 2.38 Total Counted Not Reportable Sodium 141 Potassium 4.1 Chloride 105 Carbon Dioxide 30.0 Anion Gap 6 BUN 32 H Creatinine 0.92 Estim Creat Clear Calc 48.41 Est GFR (MDRD) Af Amer 78 Est GFR (MDRD) Non-Af 65 BUN/Creatinine Ratio 34.9 H Glucose 103 Lactic Acid 0.7 Calcium 9.0 03/02/19 03/02/19 05:46 05:46 WBC 11.0 RBC 3.92 L Hgb 13.9 Hct 41.9 MCV 106.9 H MCH 35.5 H MCHC 33.2 RDW 13.6 RDW Differential 53.4 H Plt Count 185 MPV 12.1 H Immature Gran % (Auto) 0.500 Neut % (Auto) 89.2 H Lymph % (Auto) 8.8 L Meagher % (Auto) 1.4 Eos % (Auto) 0.0 Baso % (Auto) 0.1 Absolute Neuts (auto) 9.8 H Absolute Lymphs (auto) 0.97 Total Counted Not Reportable Sodium 141 Potassium 4.3 Chloride 103 Carbon Dioxide 30.0 Anion Gap 8 BUN 29 H Creatinine 0.75 Estim Creat Clear Calc 44.54 Est GFR (MDRD) Af Amer 98 Est GFR (MDRD) Non-Af 81 BUN/Creatinine Ratio 38.5 H Glucose 160 H Lactic Acid Calcium 9.1 POC Glucose 03/02/19 03/02/19 03/01/19 11:28 06:50 22:28 POC Glucose 244 H 207 H 250 H 03/01/19 17:14 POC Glucose 103 Clinical Impression(s) from Imaging Studies Chest X-Ray 03/01/19 15:35 IMPRESSION: Mild increased markings in the right infrahilar region suggestive of scarring. Blunting of the right costophrenic angle. Electronically Signed: Mitch Garza, at 15:48 EDT , Service support , Assessment/Plan All Active Problems Acute respiratory failure with hypoxemia (Acute) RECOMMENDATIONS: 1. Transition to prednisone therapy and wean over the next 12 to 14 days 2. Walking oximetry prior to discharge 3. Encourage smoking cessation 4. Outpatient complete PFT IMPRESSIONS: 1. Probable COPD exacerbation Patient's viral studies have come back as negative. Patient does report progression over the last 2 to 3 years. Unclear if patient is developing an element of cor pulmonale. Patient can have an echocardiogram as an outpatient, but a walking oximetry should be obtained prior to discharge. Supplemental oxygen should be provided if indicated. Patient can have follow-up with nurse practitioner in 2 weeks after discharge. Outpatient complete pulmonary function test for quantification and clarification of lung function would be indicated. Long discussion with patient about the importance of smoking cessation and the overall disease plan of care. 2. Hypertension/diabetes mellitus type 2/tobacco abuse/hyperlipidemia Complicates care, management, recovery and prognosis. Patient will likely need to be watching blood sugars closely given concomitant steroid therapy and diabetes mellitus. Code Visit Inpatient E&M: 25958 Init Hosp L2
--- NOTE | 2019-03-02 12:30 | CASEMGMT ---
RN CM Face to Face with patient for initial transition planning/care coordination assessment. RN CM introduced self and role at [facility]. Patient lying in bed, alert and oriented. Patient willing to participate in assessment and is able to answer all questions appropriately. Care providers, pharmacy, and demographics verified. Patient wishes to discharge home, denies need for home health at this time. Patient states she has no further needs or concerns at this time. Patient qualified for home oxgyen and agreeable to [facility] for home oxgyen. Referral sent and arranged for delivery of portable oxygen to [facility] prior to discharge. CM to follow for discharge planning needs that may arise. 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 Transportation: self/sister DME/HHC: Patient has cane and walker. Disposition Plan: Patient to discharge home with home oxygen, family support, and follow-up plans in place. Shakira KAPLAN, RN, CM
[2019-03-02 14:47] VITALS: PULSE 90; RESP 20
--- NOTE | 2019-03-02 14:47 | CPS ---
Two doses of med used first one spilled on floor.
--- NOTE | 2019-03-02 15:32 | CHAPLAIN ---
Type of Pastoral Visit _x__ Initial Visit ___ Follow-up Visit ___ On-call Visit ___ General Patient Visit ___ Spiritual Assessment ___ Family Conference ___ Bereavement ___ Rapid Response ___ Code Blue ___ Other (describe below) Pastoral Care Referral From _x__ Patient ___ Family ___ Nurse ___ Physician ___ Bonding Equipment Operator ___ Formal Waiter/Waitress ___ Other (describe below) Sacrament/Intervention _x__ Active listening ___ Anointing ___ Mormon ___ Bereavement ___ Communion ___ Tricia exploration ___ _x__ Life review _x__ Prayer ___ Reconciliation ___ Sacrament of Sick _x__ Supportive presence ___ Wedding ___ Other (describe below) Pastoral Comments
== END 2019-03-02 15:51 | disposition home or self-care (01) ==
LOC: ED 15:21 → MS3 16:33
PROVIDERS: Admitting Provider Internal Medicine; Emergency Provider Emergency Medicine; Family Provider Nurse Practitioner Family; PCP Nurse Practitioner Family; Visit Provider Student in an Organized Health Care Education/Training Program
DX: J44.1 Chronic obstructive pulmonary disease with (acute) exacerbation (principal); J96.01 Acute respiratory failure with hypoxia; E11.9 Type 2 diabetes mellitus without complications; I10 Essential (primary) hypertension; E78.5 Hyperlipidemia, unspecified; F10.20 Alcohol dependence, uncomplicated; F17.210 Nicotine dependence, cigarettes, uncomplicated; F32.9 Major depressive disorder, single episode, unspecified; Z79.899 Other long term (current) drug therapy; Z79.84 Long term (current) use of oral hypoglycemic drugs
CPT/HCPCS: 36415; 71046; 80048; 82962; 83605; 85025; 87040; 87633; 93005; 94640; 96372; 96374; 96376; 99218; 99251; 99285; 99406; J7030; A4216; G0378; G0463

== ENCOUNTER → 2019-05-07 12:20 | Outpatient (CLI) | payer MEDICARE, SELFPAY ==
[2019-04-09 12:57] VITALS: BMI 24.2
--- NOTE | 2019-05-07 12:24 | ECHOD_ITS ---
Reason For Study: SOB Procedure This was a 2D Doppler, Color Flow transthoracic echocardiogram. Exam performed in department. Left Ventricle Normal size and thickness. The estimated ejection fraction is 70 %. Stage 1 diastolic dysfunction. No regional wall motion abnormalities noted. Right Ventricle Normal size and thickness. Normal systolic function. Atria Normal left atrium. Normal right atrium. Normal atrial septum. Mitral Valve The mitral valve is structurally normal. No prolapse or stenosis seen. Trivial mitral valve insufficiency. Tricuspid Valve Normal tricuspid valve. Mild to moderate (1-2+) tricuspid valve insufficiency. Right ventricular systolic pressure estimated to be 67 mmHg. Severe pulmonary hypertension. Aortic Valve Normal aortic valve. Trisinus/trileaflet aortic valve. Pulmonic Valve Normal pulmonic valve. Great Vessels Normal aortic root. Normal arch. Normal inferior vena cava. Inferior vena cava collapse with sniff. Pericardium/Pleural No pericardial effusion. MMode/2D Measurements & Calculations LVIDd: 4.2 cm IVSd: 0.94 cm Ao root diam: 2.6 cm LVIDs: 2.7 cm LVPWd: 1.0 cm RVDd: 3.1 cm FS: 35.0 % LAV(MOD-bp): 43.2 ml LA A4 area: 16.4 cm2 LA dimension(2D): 3.7 cm LAV(MOD-bp) Indexed: 25.4 ml/m2 LAV(MOD-sp2): 42.1 ml LAV(MOD-sp4): 39.8 ml RA A4 area: 12.6 cm2 Time Measurements MV dec time: 0.23 sec Doppler Measurements & Calculations MV E max harjit: 63.5 cm/sec Lat Peak E' Harjit: 7.5 cm/sec Med Peak E' Harjit: 6.6 cm/sec MV A max harjit: 100.1 cm/sec E/E' lat: 8.5 E/E' med: 9.6 MV E/A: 0.63 Ao V2 max: 188.1 cm/sec LV V1 max: 163.3 cm/sec PA V2 max: 146.4 cm/sec Ao max P.2 mmHg LV V1 max P.7 mmHg Ao V2 mean: 134.4 cm/sec LV V1 mean P.3 mmHg Ao mean P.9 mmHg LV V1 mean: 120.8 cm/sec Ao V2 VTI: 35.0 cm LV V1 VTI: 27.8 cm TR max harjit: 372.1 cm/sec TR max P.9 mmHg Interpretation Summary The estimated ejection fraction is 70 %. Stage 1 diastolic dysfunction. Trivial mitral valve insufficiency. Mild to moderate (1-2+) tricuspid valve insufficiency. Right ventricular systolic pressure estimated to be 67 mmHg. Severe pulmonary hypertension. There is no comparison study available. Ordering Physician: Shruthi Drake Referring Physician: Krish Cárdenas Performed By: Daniela George, RUTH, RVT
[2019-05-07 12:55] VITALS: PULSE 105; PULSE 106; PULSE 111; PULSE 119; PULSE 120; PULSE 124; O2SAT 87; O2SAT 89; O2SAT 90; O2SAT 91; O2SAT 92; O2SAT 96
--- NOTE | 2019-05-07 12:58 | CPS ---
Patient does have oxygen setup at home and is prescribed to wear it while ambulating. She states that she does not use it because she still works and is active outside the home and she only has E tanks for portability and they are too cumbersome for her. Patient started testing on room air and then required 2 lpm O2 by the second minute for the rest of the test.
--- NOTE | 2019-05-08 07:58 | PCM.PSN.6M ---
PSN 6 Minute Walk Test - 6 Minute Walk Test 6 Minute Walk Test: 6 Minute Walk Test PSN:6-Minute Walk Test Start: 05/07/19 12:55 Freq: Status: Active Protocol: [id number].6MINW Document 05/07/19 12:55 RIVAS (Rec: 05/07/19 13:00 RIVAS [id number]) 6 Minute Walk Test Date Performed 05/07/19 Time Performed 12:30 Height 5 ft 3.5 in Weight: 140 lb Weight in Pounds 140.[address]: Ge Deras Assistive device used: None Pre-test Oxygen Delivery Method Room Air Pulse Ox (%) 92 Pulse Rate (60-100 beats/min) 105 H Dyspnea Kvng Scale (0-10) 0 Exertion Kvng Scale (6-20) 6 1st minute Oxygen Delivery Method Room Air Pulse Ox (%) 89 Pulse Rate (60-100 beats/min) 106 H 2nd minute Oxygen Delivery Method Room Air Pulse Ox (%) 87 Pulse Rate (60-100 beats/min) 111 H 3rd minute Oxygen Flow Rate (L/min) (L/min) 2 Oxygen Delivery Method Nasal Cannula Pulse Ox (%) 92 Pulse Rate (60-100 beats/min) 105 H 4th minute Oxygen Flow Rate (L/min) (L/min) 2 Oxygen Delivery Method Nasal Cannula Pulse Ox (%) 91 Pulse Rate (60-100 beats/min) 120 H Number of Rests Taken 1 5th minute Oxygen Flow Rate (L/min) (L/min) 2 Oxygen Delivery Method Nasal Cannula Pulse Ox (%) 90 Pulse Rate (60-100 beats/min) 124 H 6th minute Oxygen Flow Rate (L/min) (L/min) 2 Oxygen Delivery Method Nasal Cannula Pulse Ox (%) 90 Pulse Rate (60-100 beats/min) 119 H Dyspnea Kvng Scale (0-10) 3 Exertion Kvng Scale (6-20) 13 Post-test Oxygen Flow Rate (L/min) (L/min) 2 Oxygen Delivery Method Nasal Cannula Pulse Ox (%) 96 Pulse Rate (60-100 beats/min) 106 H Full Laps Walked 10 Partial Lap, Number of Tiles Walked 30 Total Distance Walked (ft) 620 05/07/19 12:58 Cardiopulmonary Services by Damari Feliciano Patient does have oxygen setup at home and is prescribed to wear it while ambulating. She states that she does not use it because she still works and is active outside the home and she only has E tanks for portability and they are too cumbersome for her. Patient started testing on room air and then required 2 lpm O2 by the second minute for the rest of the test. Initialized on 05/07/19 12:58 - END OF NOTE - Interpretation Interpretation: The patient ambulated 620 feet over the course of 6 minutes beginning on room air without assistive devices or breaks. Pretesting oxygen saturation was noted to be 92% on room air. With ambulation, the claudia oxygen saturation was 87%. 2 L/min of supplemental oxygen was applied and the patient was able to complete the remainder of the test while maintaining appropriate oxygen saturations. - Recommendations Recommendations: 2 L/min of supplemental oxygen should be utilized with exertion.
== END ==
PROVIDERS: Family Provider Nurse Practitioner Family; PCP Nurse Practitioner Family; Referring Provider Nurse Practitioner Acute Care; Visit Provider Nurse Practitioner Acute Care
DX: J44.9 Chronic obstructive pulmonary disease, unspecified (principal); R06.02 Shortness of breath
CPT/HCPCS: 93306; 94618

== ENCOUNTER → 2019-06-17 10:51 | Outpatient (CLI) | payer MEDICARE, SELFPAY ==
[2019-04-09 12:57] VITALS: BMI 24.2
[2019-05-13 13:24] VITALS: BMI 24.2
--- NOTE | 2019-06-18 08:14 | PFT ---
INTRODUCTION: The patient is a 69-year-old female that presents for pulmonary function studies secondary to a diagnosis of COPD. Respiratory therapy reports good patient effort. Bronchodilators were used during testing. INTERPRETATION: Forced expiration spirometry demonstrates the presence of a severe large airways obstructive ventilatory defect. There was no significant response to aerosolized bronchodilators. Spirograms are of good quality and do not plateau indicating slow emptying of the lungs. Body plethysmography was performed and reveals an elevated RV to 181% of predicted, indicative of underlying air trapping. Diffusing capacity by single breath CO is reduced at 47% of predicted. IMPRESSION: Irreversible severe large airways obstructive ventilatory defect with associated air trapping and symmetric reduction in diffusing capacity.
== END ==
PROVIDERS: Family Provider Nurse Practitioner Family; PCP Nurse Practitioner Family; Referring Provider Nurse Practitioner Acute Care; Visit Provider Nurse Practitioner Acute Care
DX: J44.9 Chronic obstructive pulmonary disease, unspecified (principal)
CPT/HCPCS: 94060; 94726; 94729

== ENCOUNTER 2019-12-06 09:31 | Inpatient (IN) | payer MEDICARE, SELFPAY ==
[2019-10-15 11:26] VITALS: BMI 25.8
[2019-12-06] VITALS (37 sets, daily range): BP systolic 71–153; BP diastolic 42–71; PULSE 70–99; RESP 12–36; TEMP 36.2–37.4; O2SAT 88–98; BMI 27.4; BMI 26.1
--- NOTE | 2019-12-06 09:39 | RAD_ITS ---
STUDY: X-RAY CHEST REASON FOR EXAM: Female, 69 years old. COPD, SOB, temp 101, productive cough TECHNIQUE: Single AP portable view of the chest. COMPARISON: Comparison is made with prior examination dated March 01, 2019. FINDINGS: EKG electrode traversing. Hyperinflation. Mild elevation of the right hemidiaphragm. This is unchanged. There is no demonstrated pleural abnormality. Normal size heart. Normal mediastinum and hardik. There is prominence of the pulmonary hilar arteries without peripheral pulmonary vascular congestion, suggesting pulmonary hypertension. There is atherosclerotic calcification of the aortic arch with tortuosity. Normal visualized thoracic spine. There is degenerative osteoarthritis of the bilateral shoulders. Possible calcific tendinitis of the left shoulder. There is no demonstrated abnormality of the visualized soft tissue structures of the upper abdomen. RAD/Chest 1 View (Portable) IMPRESSION: Hyperinflation. No acute infiltrate is seen. Electronically Signed: Mitch Garza, at 10:10 EDT , Service support ,
--- NOTE | 2019-12-06 09:40 | EKG12_ITS ---
Test Reason : SOB Blood Pressure : / mmHG Vent. Rate : 092 BPM Atrial Rate : 092 BPM P-R Int : 130 ms QRS Dur : 102 ms QT Int : 350 ms P-R-T Axes : 071 078 055 degrees QTc Int : 432 ms Normal sinus rhythm Normal ECG Confirmed by JOSH VERONICA, ROCCO ([id number]), social media editor ANNEMARIE LOOMIS ([id number]) on 12/13/2019 1:21:00 PM Referred By: CARLINE Confirmed By:MYKE MORENO MD
--- NOTE | 2019-12-06 09:48 | ED.VIS.GEN ---
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 She is never smoked. Patient presents with temperature of 101.0 ?F, respiratory symptoms with cough of clear sputum. She also reports shortness of breath with difficulty breathing. She is on oxygen continuously at home. She is increased her oxygen because of drop in pulse ox. She states she has not been on prednisone in the last 3 to 6 months. She denies headache, ocular, visual auditory symptoms. She does report mild congestion. Denies sore throat. She denies chest discomfort. She denies GI symptoms. Denies symptoms. She denies myalgias or arthralgias. She denies leg swelling. Prior similar symptoms: Yes - COPD exacerbation Recent Illness/Hospitalization: No - Past Medical History (1) Acute respiratory failure with hypoxemia Status: Acute (2) History of pneumonia Status: Acute (3) COPD (chronic obstructive pulmonary disease) Status: Chronic (4) DM2 (diabetes mellitus, type 2) Status: Chronic (5) Depression Status: Chronic (6) Essential (primary) hypertension Status: Chronic (7) Hyperlipemia Status: Chronic (8) Tobacco dependence Status: Chronic Past Medical History - Allergies and Home Meds Allergies/Adverse Reactions: Allergies Penicillins Allergy (Verified 12/06/19 09:41) Angioedema Primary Care Physician: Krish Cárdenas NP-C [Primary Care Provider] - Surgical History: - - Right eye retinal detachment repair Lives: Alone Smoking Status: Current every day smoker Alcohol: None Drugs: None - Family History Maternal Family History: Family History (Last Reviewed 10/15/19 @ 13:08 by KASSANDRA Mathews) Father Cirrhosis Mother Uterine cancer Grandmother Uterine cancer Family History: Reports: Diabetes Paternal Family History: Family History (Last Reviewed 10/15/19 @ 13:08 by KASSANDRA Mathews) Father Cirrhosis Mother Uterine cancer Grandmother Uterine cancer Family History: Reports: - - Denies known paternal medical history including cardiac history. Reports he young. Review of Systems General: Reports: Chills, Fever, Malaise. Denies: Subjective, Sweats Eyes: Denies: Visual changes - bilaterally, Blurred Vision - bilaterally ENT: Reports: Rhinorrhea. Denies: Bilateral ear pain, Sore throat Cardiovascular: Denies: Chest pain, Palpitations Respiratory: Reports: Dyspnea, Cough, Sputum, Dyspnea on exertion. Denies: Orthopnea, Paroxysmal nocturnal dyspnea Gastrointestinal: Denies: Abdominal pain, Nausea, Vomiting, Diarrhea, Melena, Hematochezia Genitourinary: Denies: Dysuria, Hematuria, Frequency Musculoskeletal: Reports: Myalgias. Denies: Arthralgias, Neck pain, Back pain, Swelling, Extremity Pain, -, - Skin: Denies: Rash, Wounds Neurological: Denies: Headache, Weakness, Numbness Psych: Reports: Depression. Denies: Anxiety Hematologic: Denies: Easy bruising, Easy bleeding Physical Exam Vital Signs/Narrative: Vital Signs Temp Pulse Resp BP Pulse Ox 12/06/19 09:33 98.6 F 99 24 H 133/64 H 91 Inital Vital Signs reviewed: Yes - Patient's O2 saturation on 3 L is 89%. Petros rate greater than 24 General: Well nourished, Well developed, Cachectic, Acute Distress Head: Normocephalic, Atraumatic Eyes: Perrl, EOMI. Negative for: Pale conjunctiva, Scleral icterus ENT: Moist mucous membranes, TM's clear, Nasal congestion. Negative for: No rhinorrhea, Sinus tenderness Neck: Supple, Nontender, No lymphadenopathy, No JVD Cardiovascular: Regular rhythm, No murmurs, Normal S1, Tachycardia Respiratory: Chest nontender, Wheezing - High-pitched wheezing noted end of expiration. Patient is moving minimal amount of air.. Negative for: No distress, CTA bilaterally Abdomen: Soft, Nontender, Nondistended, Normal bowel sounds, No masses Rectal: Deferred Back: Nontender, Normal Inspection. Negative for: CVA tenderness Extremities: Nontender, No edema Skin: Normal color, No rash, No Trauma. Negative for: Cyanosis, Diaphoresis, Jaundice Neurological: Alert, Oriented x3, Cranial nerves II-XII grossly intact, Normal Strength, Normal Sensation Psychological: Normal affect, Normal Mood Diagnostic/Tx/Re-eval Chest X-Ray - ED: 1 View, Read by ED Physician, Normal, Heart, Mediastinum, Bony Structures, No Acute Disease, Chronic Changes, - - There is hyper aeration. There is no effusion or infiltrate noted. There is no evidence of pneumothorax. Impressions Chest X-Ray 12/06/19 09:39 IMPRESSION: Hyperinflation. No acute infiltrate is seen. Electronically Signed: Mitch Garza, at 10:10 EDT , Service support , 12/06/19 09:39 Chest 1 View (Portable) [RAD] Stat 12/06/19 10:20 Mucosa - Nasopharyngeal Influenza Types A,B Direct FA (SAMANTHA) - Final Influenzae A Laboratory Results 12/06/19 12/06/19 12/06/19 10:05 10:12 10:12 WBC 12.5 H RBC 3.79 L Hgb 13.6 Hct 39.9 MCV 105.3 H MCH 35.9 H MCHC 34.1 RDW Std Deviation 50.6 H RDW Coeff of [place] 13.2 Plt Count 167 MPV 11.4 Immature Gran % (Auto) 2.400 H Neut % (Auto) 80.3 H Lymph % (Auto) 8.9 L Irwin % (Auto) 7.9 Eos % (Auto) 0.0 Baso % (Auto) 0.5 Absolute Neuts (auto) 10.1 H Absolute Lymphs (auto) 1.12 Nucleated RBC % 0 Specimen Type ART Sample Site R Radial pH 7.25 L Bicarbonate Actual 27.0 H POC Total CO2 29 Base Excess 0 O2 Saturation 91 L ABG pCO2 61.2 H ABG pO2 72 L Norris Test POS O2 Delivery Device Nasal Can Liter Flow 3.0 Blood Gas Notified Whom ED Blood Gas Notified Time 1005 Sodium 133 L Potassium 4.5 Chloride 100 Carbon Dioxide 27.0 Anion Gap 6 BUN 28 H Creatinine 0.85 Estim Creat Clear Calc 52.40 Est GFR (MDRD) Af Amer 86 Est GFR (MDRD) Non-Af 71 BUN/Creatinine Ratio 33.0 H Glucose 99 Lactic Acid Calcium 9.0 12/06/19 10:12 WBC RBC Hgb Hct MCV MCH MCHC RDW Std Deviation RDW Coeff of [place] Plt Count MPV Immature Gran % (Auto) Neut % (Auto) Lymph % (Auto) Irwin % (Auto) Eos % (Auto) Baso % (Auto) Absolute Neuts (auto) Absolute Lymphs (auto) Nucleated RBC % Specimen Type Sample Site pH Bicarbonate Actual POC Total CO2 Base Excess O2 Saturation ABG pCO2 ABG pO2 Norris Test O2 Delivery Device Liter Flow Blood Gas Notified Whom Blood Gas Notified Time Sodium Potassium Chloride Carbon Dioxide Anion Gap BUN Creatinine Estim Creat Clear Calc Est GFR (MDRD) Af Amer Est GFR (MDRD) Non-Af BUN/Creatinine Ratio Glucose Lactic Acid 1.9 Calcium Patient has source of infection i.e. influenza type A. Since she is on BiPAP which would indicate endorgan failure she has by definition severe sepsis. Hospitalist has been called for admission. Since patient is on BiPAP will recommend admission to ICU. - EKG Initial EKG Interpretation: Sinus Rhythm - Sinus rhythm with a ventricular rate of 92. [place] interval is 130 ms. QRS duration 102 ms. QT duration 350 ms. The axis is normal. There is motion artifact. The EKG is normal. - Medical Decision Making Patient presents with exacerbation COPD. Need to determine whether this is due to viral illness versus pneumonia versus other cause. Chest x-ray was obtained to assess for pneumonia and rule out pneumothorax. Since patient is tachycardic tachypneic and has documented temperature 101.0 ?F CBC, BMP and lactate were obtained to rule stratify patient with regards to sepsis. Patient arterial blood gas reveals respiratory failure with hypoxia and hypercapnia. There is acute on chronic CO2 retention. She was placed on BiPAP. - Critical Care Time Critical care time (excluding procedures): 30-74 minutes, Discussing w/Patient &/or Family/Bank Compliance Officer, Discussing w/Consultants, Arranging Admission or Transfer - Critical care time 32 minutes ED Disposition - Plan for ED Patient: Disposition: Acute Care Hospital [facility] Diagnosis: Respiratory failure with hypercapnia, Hypotension, Influenza A, Acute exacerbation of chronic obstructive pulmonary disease (COPD), Severe sepsis Referrals: Krish Cárdenas, KITA-C [Primary Care Provider] -
[2019-12-06] MEDS: Ipratropium/Albuterol Sulfate 3 ML AMPUL.NEB INHALATION ×3 (09:50→19:09)
[2019-12-06] MEDS: Albuterol 2.5 MG/3 ML VIAL.NEB. INHALATION ×2 (10:04→11:11)
[2019-12-06 10:11] LABS: Allen Test POS; Base Excess 0 mmol/L (-2 to +2); Blood Gas Specimen Type ART; O2 Delivery Device Nasal Can; PO2 72 mmHG (75-100); SITE R Radial; SO2 91 % (95-99); Time Given 1005; Total Carbon Dioxide 29 mmol/L; pCO2 61.2 mmHg (35-45); pH 7.25 (7.35-7.45)
[2019-12-06 10:28] LABS: Absolute Lymphocyte Count 1.12 X10^3/uL (0.83-4.51); Absolute Neutrophil Count 10.1 X10^3/uL (2.0-7.7); Basophil# 0.06 X10^3/uL; Basophil% 0.5 % (0-1); Hematocrit 39.9 % (37-47); Hemoglobin 13.6 g/dL (12.0-15.0); Lymphocyte # 1.12 X10^3/ul (4.0); Lymphocyte % 8.9 % (19-41); Mean Corp Hgb Conc 34.1 g/dL (32-36); Mean Corpuscular Hgb 35.9 pg (27.0-32.0); Mean Corpuscular Volume 105.3 fL (81-99); Mean Platelet Vol. 11.4 fl (6.2-12.0); Monocyte# 0.99 X10^3/uL; Monocyte% 7.9 % (0-10); NRBC Flagged by Analyzer 0 % (0-5); Neutrophil # 10.05 X10^3/uL (2.7-7.7); Neutrophil % 80.3 % (47-70); Platelet Count 167 K/mm3 (150-450); RBC Distribution Width CV 13.2 % (11.6-14.6); RBC Distribution Width SD 50.6 fl (35.1-43.9); Red Blood Count 3.79 M/mm3 (4.2-5.4); White Blood Count 12.5 K/mm3 (4.4-11.0)
[2019-12-06] MEDS: MethylPREDNISolone 125 MG/2 ML Vial 60 MG IV (10:35)
[2019-12-06 10:42] LABS: Anion Gap 6 (5-15); BUN 28 mg/dL (7-18); Chloride 100 mmol/L (98-107); Creatinine, Serum 0.85 mg/dL (0.55-1.02); EST Glomerular Filtration Rate 71 mL/min (>60); Est Glom Filt Rate - Afr Amer 86 mL/min (>60); Glucose 99 mg/dL (74-106); Potassium 4.5 mmol/L (3.5-5.1); Sodium Level 133 mmol/L (136-145)
[2019-12-06 10:52] LABS: Lactic Acid 1.9 mmol/L (0.4-1.9)
[2019-12-06] MEDS: 0.9% Normal Saline 1,000 ML 1000 ML IV ×2 (11:05→12:14)
[2019-12-06] MEDS: Oseltamivir Phosphate 75 MG Capsule PO (11:05)
--- NOTE | 2019-12-06 11:14 | PCM.HP.STD ---
History of Present Illness Date of Admission: 12/06/19 Chief Complaint: Shortness of breath The patient is a 69 year old F with a PMH as below who presents to the hospital with shortness of breath. She states that it started on Friday and has slowly worsened and to the point of being so short of breath she felt she had to come to the ER. She presented to the hospital with wheezing and significant shortness of breath. She did test positive for influenza in the ER and has an elevated white count as well as a fever to 101. An ABG in the ER demonstrated hypercapnia which is acute on chronic for her, and she was little bit hypoxic initially on admission and had to be placed on BiPAP. She states that her partner as well as her [id number] have both been sick with something similar though not to the extent that she has. She does have a history of COPD. She denies any lightheadedness or dizziness or myalgias. Past Medical History Past Medical History (Chronic Problems): Chronic Problems (Last Reviewed 10/15/19 @ 13:08 by Shruthi Drake NP-C) Acute exacerbation of chronic obstructive pulmonary disease (COPD) (Chronic) COPD (chronic obstructive pulmonary disease) (Chronic) Depression (Chronic) Hyperlipemia (Chronic) Tobacco dependence (Chronic) DM2 (diabetes mellitus, type 2) (Chronic) Essential (primary) hypertension (Chronic) Medical History: Medical History (Last Reviewed 10/15/19 @ 13:08 by Shruthi Drake NP-C) History of bronchitis (Acute) Z87.09 COPD (chronic obstructive pulmonary disease) (Chronic) J44.9 History of pneumonia (Acute) Z87.01 Depression (Chronic) F32.9 Retinal detachment (Resolved) H33.20 Bilateral carpal tunnel syndrome (Resolved) G56.03 Hyperlipemia (Chronic) E78.5 COPD with exacerbation (Suspected) J44.1 Acute respiratory failure with hypoxemia (Acute) J96.01 Tobacco dependence (Chronic) F17.200 DM2 (diabetes mellitus, type 2) (Chronic) E11.9 Essential (primary) hypertension (Chronic) I10 Allergies Penicillins Allergy (Verified 12/06/19 09:41) Angioedema Home Medications: Ambulatory Orders Medication Instructions Recorded Amlodipine Besylate 10 mg PO DAILY 01/15/17 Citalopram Hydrobromide 40 mg PO DAILY 01/15/17 [Citalopram HBr] Hydrochlorothiazide 12.5 mg PO DAILY 01/15/17 Lisinopril 40 mg PO DAILY 01/15/17 Loperamide [Imodium] 2 mg PO BID 01/15/17 Lovastatin 20 mg PO QHS 01/15/17 Metformin HCl [Metformin HCl ER] 500 mg PO BID 01/15/17 Albuterol Aerosols [Ventolin 2.5 mg INHALATION Q2H PRN PRN #120 03/02/19 Aerosols] vial.neb. 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 Reports he young. Review of Systems Constitutional: Reports: Chills, Fever, Malaise. Denies: Weight Change HEENT: Denies: Head Aches, Sinus Congestion, Sinus Drainage Cardiovascular: Denies: Chest Pain, Palpitations Respiratory: Reports: Cough, Shortness of Breath, Sputum production. Denies: Shortness of breath at rest Gastrointestinal: Denies: Abdominal Pain, Nausea, Vomiting Genitourinary: Denies: Dysuria Musculoskeletal: Denies: Joint Pain, Joint Tenderness Skin: Denies: Rash, Wounds Neurological: Denies: Numbness, Tingling, Focal weakness Psychiatric: Denies: Anxiety, Depression Hematologic/ Lymphatic: Denies: Easy Bruising, Easy Bleeding VTE Information - Inpt Only VTE Present on Admission: No Patient Problems: Active and Suspected Problems (Last Reviewed 10/15/19 @ 13:08 by Shruthi Drake NP-C) Respiratory failure with hypercapnia (Acute) Hypotension (Acute) Influenza A (Acute) Severe sepsis (Acute) - Physical Exam Vitals/I&O's: Vital Signs Temp Pulse Resp BP Pulse Ox 98.3 F 79 36 H 97/50 L 94 12/06/19 11:09 12/06/19 11:12 12/06/19 11:12 12/06/19 11:09 12/06/19 11:12 Oxygen Flow Rate (L/min) 3.5 Oxygen Delivery Method Bi-pap Weight: 154 lb 15.759 oz Body Mass Index (BMI) 27.4 General: Alert, Oriented x3, Cooperative, - - Wearing BiPAP HEENT: Atraumatic, PERRLA, EOMI, Normocephalic Oral: Dry Mucosa Neck: Supple, No JVD Lungs: No rhonchi, No rales, Diminished, Wheezes Cardiovascular: Regular rate, Regular Rhythm, Normal S1, Normal S2, No murmurs Abdomen: Soft, Non Tender, Non-Distended, No Hepato-splenomegaly Extremities: No edema, Capillary Refill Less than 3 Seconds Skin: No rashes, No breakdown Neurological: Neuro grossly intact, Sensory exam intact to light touch and pain Psych/Mental Status: Normal Affect, Appropriate Microbiology Past 72 Hours 12/06/19 10:20 Mucosa - Nasopharyngeal Influenza Types A,B Direct FA (SAMANTHA) - Final Influenzae A Laboratory Results 12/06/19 10:05: Specimen Type ART, Sample Site R Radial, pH 7.25 L, Bicarbonate Actual 27.0 H, POC Total CO2 29, Base Excess 0, O2 Saturation 91 L, ABG pCO2 61.2 H, ABG pO2 72 L, Norris Test POS, O2 Delivery Device Nasal Can, Liter Flow 3.0, Blood Gas Notified Whom ED , Blood Gas Notified Time 1005 12/06/19 10:12: WBC 12.5 H, RBC 3.79 L, Hgb 13.6, Hct 39.9, MCV 105.3 H, MCH 35.9 H, MCHC 34.1, RDW Std Deviation 50.6 H, RDW Coeff of [place] 13.2, Plt Count 167, MPV 11.4, Immature Gran % (Auto) 2.400 H, Neut % (Auto) 80.3 H, Lymph % (Auto) 8.9 L, Bibb % (Auto) 7.9, Eos % (Auto) 0.0, Baso % (Auto) 0.5, Absolute Neuts (auto) 10.1 H, Absolute Lymphs (auto) 1.12, Nucleated RBC % 0 12/06/19 10:12: Sodium 133 L, Potassium 4.5, Chloride 100, Carbon Dioxide 27.0, Anion Gap 6, BUN 28 H, Creatinine 0.85, Estim Creat Clear Calc 52.40, Est GFR (MDRD) Af Amer 86, Est GFR (MDRD) Non-Af 71, BUN/Creatinine Ratio 33.0 H, Glucose 99, Calcium 9.0 12/06/19 10:12: Lactic Acid 1.9 Current Medications Sodium Chloride () 1,000 mls @ 1,000 mls/hr IV .Q1H ONE Stop: 12/06/19 11:51 Last Admin: 12/06/19 11:05 Dose: 1,000 mls/hr Documented by: Sodium Chloride () 1,000 mls @ 1,000 mls/hr IV .Q1H ONE Stop: 12/06/19 11:56 Assessment/Plan All Active Problems (Last Reviewed 10/15/19 @ 13:08 by Shruthi Drake NP-C) Respiratory failure with hypercapnia (Acute) Hypotension (Acute) Influenza A (Acute) Severe sepsis (Acute) History of bronchitis (Acute) History of pneumonia (Acute) Retinal detachment (Resolved) H/O cataract removal with insertion of prosthetic lens (Resolved) H/O tubal ligation (Resolved) Bilateral carpal tunnel syndrome (Resolved) History of bilateral carpal tunnel release (Resolved) Exertional shortness of breath (Acute) Acute respiratory failure with hypoxemia (Acute) 1. Sepsis secondary to influenza A with acute hypoxic respiratory failure and acute on chronic hypercapnic respiratory failure/COPD exacerbation -We will admit to ICU and continue with BiPAP therapy -Since onset of symptoms were yesterday, will start Tamiflu -We will continue with steroids and breathing treatments -Lactic acid is less than 2 however her blood pressures were soft in the ER at 1 point down to the 70 systolic therefore we will continue with IV fluids and will finish up the fluid boluses from the ER. -We will hold her blood pressure medications -We will continue with her budesonide twice daily 2. DM 2 -We will place her on a sliding scale insulin as well as Lantus 5 units nightly -Accu-Cheks AC at bedtime -We will hold her home medications 3. HTN/HLD -We will continue with her lovastatin -Given her soft blood pressures will hold her hydrochlorothiazide, Norvasc, and lisinopril for today -Can potentially restart in the morning if she is stable 4. Anxiety/depression -Stable -Continue with citalopram DVT: Lovenox Inpatient E&M: 55643 Init Hosp L3
[2019-12-06] MEDS: 0.9% Normal Saline 1,000 ML 126 ML IV ×2 (12:28→19:06)
--- NOTE | 2019-12-06 13:56 | PCM.CON.CC ---
Problem List (1) Respiratory failure with hypercapnia Status: Acute Qualifiers: Chronicity: acute on chronic Qualified Code(s): J96.22 - Acute and chronic respiratory failure with hypercapnia (2) Hypotension Status: Acute (3) Influenza A Status: Acute (4) Acute exacerbation of chronic obstructive pulmonary disease (COPD) Status: Acute (5) Depression Status: Chronic (6) Retinal detachment Status: Resolved (7) H/O cataract removal with insertion of prosthetic lens Status: Resolved (8) H/O tubal ligation Status: Resolved (9) History of bilateral carpal tunnel release Status: Resolved (10) Hyperlipemia Status: Chronic (11) DM2 (diabetes mellitus, type 2) Status: Chronic Qualifiers: (12) Essential (primary) hypertension Status: Chronic Reason for Consult Date of Consultation: 12/06/19 Reason for Consultation: Acute on chronic respiratory failure History of Present Illness: The patient is a 69 year old F, with past medical history listed below and known to me from previous hospitalization, who presented with [facility] on 12/06/2019 secondary to fever, shortness of breath and a cough productive of clear sputum. Patient is normally on 2 L nasal cannula at home and had noticed a drop in her pulse oximetry. Patient denied any arthralgias, myalgias, leg swelling, chest pain, abdominal pain, nausea or vomiting. Patient has had some mild congestion. In the ER, patient had chest x-ray showing hyperinflation with no acute infiltrates. Patient had marginal saturations on baseline 3 L nasal cannula oxygen. EKG showed no ST segment elevation. Patient was noted to be in sinus tachycardia with a fever of 101.0 ?F. ABG showed hypercarbic respiratory failure and patient was placed on BiPAP therapy. CBC did show a leukocytosis of 12.5. Renal function was within normal limits. Lactate was also within normal limits. On evaluation in the intensive care unit, patient was resting comfortably on BiPAP therapy. Patient was unable to provide any additional information, and had significant conversational dyspnea. Patient's blood pressure was low and did receive a fluid bolus. Patient was unable to provide any review of systems at this time. Past Medical History Past Medical History (Chronic Problems): Chronic Problems (Last Reviewed 10/15/19 @ 13:08 by KASSANDRA Mathews) Depression (Chronic) Hyperlipemia (Chronic) Tobacco dependence (Chronic) DM2 (diabetes mellitus, type 2) (Chronic) Essential (primary) hypertension (Chronic) Medical History: Medical History (Last Reviewed 10/15/19 @ 13:08 by Shruthi Drake NP-C) History of bronchitis (Acute) Z87.09 COPD (chronic obstructive pulmonary disease) (Chronic) J44.9 History of pneumonia (Acute) Z87.01 Depression (Chronic) F32.9 Retinal detachment (Resolved) H33.20 Bilateral carpal tunnel syndrome (Resolved) G56.03 Hyperlipemia (Chronic) E78.5 COPD with exacerbation (Suspected) J44.1 Acute respiratory failure with hypoxemia (Acute) J96.01 Tobacco dependence (Chronic) F17.200 DM2 (diabetes mellitus, type 2) (Chronic) E11.9 Essential (primary) hypertension (Chronic) I10 Allergies Penicillins Allergy (Verified 12/06/19 09:41) Angioedema Home Medications: Ambulatory Orders Medication Instructions Recorded Amlodipine Besylate 10 mg PO DAILY 01/15/17 Citalopram Hydrobromide 40 mg PO DAILY 01/15/17 [Citalopram HBr] Hydrochlorothiazide 12.5 mg PO DAILY 01/15/17 Lisinopril 40 mg PO DAILY 01/15/17 Loperamide [Imodium] 2 mg PO BID 01/15/17 Lovastatin 20 mg PO QHS 01/15/17 Metformin HCl [Metformin HCl ER] 500 mg PO BID 01/15/17 Albuterol Aerosols [Ventolin 2.5 mg INHALATION Q2H PRN PRN #120 03/02/19 Aerosols] vial.neb. budesonide 0.5 mg/2 mL suspension 0.5 mg INHALATION BID 05/13/19 for nebulization ipratropium bromide 0.02 % 0.5 mg INHALATION BID ml 05/13/19 solution for inhalation Pnv,Calcium 72/Iron,Carb/Folic 1 ea PO QHS 12/06/19 [ Plus Iron Tablet] Surgical History: Surgical History (Last Reviewed 10/15/19 @ 13:08 by Shruthi Drake NP-C) H/O cataract removal with insertion of prosthetic lens (Resolved) Z98.49, Z96.1 H/O tubal ligation (Resolved) Z98.51 History of bilateral carpal tunnel release (Resolved) Z98.890 Surgical History: - - Right eye retinal detachment repair Psychiatric History: Depression ARCHIVIST History: No pertinent ARCHIVIST history Lives: Alone Smoking Status: Current every day smoker Tobacco Use: Cigarettes Alcohol: None Drugs: None - *Family History Maternal Family History: Family History (Last Reviewed 10/15/19 @ 13:08 by KASSANDRA Mathews) Father Cirrhosis Mother Uterine cancer Grandmother Uterine cancer History Items: Diabetes Paternal Family History: Family History (Last Reviewed 10/15/19 @ 13:08 by KASSANDRA Mathews) Father Cirrhosis Mother Uterine cancer Grandmother Uterine cancer History Items: - - Denies known paternal medical history including cardiac history. Reports he young. Review of Systems Unable to obtain accurate/complete ROS d/t: See HPI Patient Problems: Active and Suspected Problems (Last Reviewed 10/15/19 @ 13:08 by KASSANDRA Mathews) Respiratory failure with hypercapnia (Acute) Hypotension (Acute) Influenza A (Acute) Acute exacerbation of chronic obstructive pulmonary disease (COPD) (Acute) Severe sepsis (Acute) Objective: Chest x-ray was personally reviewed and I agree with formal interpretation. Complete PFT (06/17/2019): Irreversible severe large airways obstructive ventilatory defect resulting in air trapping with a symmetric reduction diffusing capacity (FVC 73%, FEV1 49%, TLC 115%, DLCO 47%) Echocardiogram (05/07/2019): EF 70% with stage I diastolic dysfunction and severe pulmonary hypertension at 67 mmHg. No significant atrial enlargement noted. - Physical Exam Vitals/I&O's: Vital Signs Temp Pulse Resp BP Pulse Ox 36.8 C 85 32 H 102/55 L 95 12/06/19 11:09 12/06/19 12:05 12/06/19 12:05 12/06/19 11:46 12/06/19 11:46 Oxygen Flow Rate (L/min) 3.5 Oxygen Delivery Method Bi-pap Weight: 66.9 kg Body Mass Index (BMI) 26.1 Intake and Output for Last 24 Hours 12/04/19 12/05/19 12/06/19 23:59 23:59 23:59 Intake Total 1000 / 1000 Balance 1000 / 1000 General: Disoriented, Lethargic, Non-Cooperative, - - Appears older than stated age. Significant dyspnea noted. HEENT: Atraumatic, PERRLA, EOMI, Normocephalic, - - Slight scleral injection Oral: No Gingival or Mucosal Lesions/ Ulcerations, Dry Mucosa Neck: Supple, No JVD, No Nodes, Trachea Midline Lungs: No rales, Diminished, Rhonchi - Right base, Wheezes, - - Symmetric expansion. Cardiovascular: Regular rate, Regular Rhythm, Normal S1, Normal S2, No murmurs, No rub noted, No Gallop Abdomen: Bowel Sounds Present, Soft, Non Tender, Non-Distended, Obese Extremities: No clubbing, No cyanosis, Edema - Trace lower extremity Skin: No rashes, No breakdown Musculoskeletal: No Tenderness to Palpation of Joints or Extremities Lymphatic: No Cervical, Supraclavicular, or Inguinal Adenopathy Neurological: Cranial nerves II-XII grossly intact, Neuro grossly intact, Motor Exam 5/5 strength throughout, - - Marginally cooperative with exam. Spontaneously moves all extremities. Psych/Mental Status: Flat Affect Microbiology Past 72 Hours 12/06/19 10:20 Mucosa - Nasopharyngeal Influenza Types A,B Direct FA (SAMANTHA) - Final Influenzae A Laboratory Results 12/06/19 10:05: Specimen Type ART, Sample Site R Radial, pH 7.25 L, Bicarbonate Actual 27.0 H, POC Total CO2 29, Base Excess 0, O2 Saturation 91 L, ABG pCO2 61.2 H, ABG pO2 72 L, Norris Test POS, O2 Delivery Device Nasal Can, Liter Flow 3.0, Blood Gas Notified Whom ED MD, Blood Gas Notified Time 1005 12/06/19 10:12: WBC 12.5 H, RBC 3.79 L, Hgb 13.6, Hct 39.9, MCV 105.3 H, MCH 35.9 H, MCHC 34.1, RDW Std Deviation 50.6 H, RDW Coeff of [place] 13.2, Plt Count 167, MPV 11.4, Immature Gran % (Auto) 2.400 H, Neut % (Auto) 80.3 H, Lymph % (Auto) 8.9 L, [place] % (Auto) 7.9, Eos % (Auto) 0.0, Baso % (Auto) 0.5, Absolute Neuts (auto) 10.1 H, Absolute Lymphs (auto) 1.12, Nucleated RBC % 0 12/06/19 10:12: Sodium 133 L, Potassium 4.5, Chloride 100, Carbon Dioxide 27.0, Anion Gap 6, BUN 28 H, Creatinine 0.85, Estim Creat Clear Calc 52.40, Est GFR (MDRD) Af Amer 86, Est GFR (MDRD) Non-Af 71, BUN/Creatinine Ratio 33.0 H, Glucose 99, Calcium 9.0 12/06/19 10:12: Lactic Acid 1.9 Current Medications Acetaminophen (Tylenol) 650 mg PO Q6H PRN PRN PRN Reason: Pain Score 1-10/Temp > 100.7 F Albuterol/Ipratropium (Duoneb) 3 ml INHALATION Q4HWA.RT ATUL Atorvastatin Calcium (Lipitor) 5 mg PO QHS [facility] Citalopram Hydrobromide (Celexa) 40 mg PO DAILY ATUL Enoxaparin Sodium (Lovenox) 40 mg SC DAILY ATUL Glucagon () 1 mg IM .X1 PRN PRN Reason: Hypoglycemia Sodium Chloride () 1,000 mls @ 126 mls/hr IV .[id number] [facility] Last Admin: 12/06/19 12:28 Dose: 126 mls/hr Documented by: Dextrose (Dextrose 10%-Water) 250 mls @ 999 mls/hr IV .Q16M PRN; Protocol PRN Reason: HYPOGLYCEMIA Sodium Chloride () 250 mls @ 15 mls/hr IV .[id number] PRN PRN Reason: Saline Flush Sodium Chloride () 250 mls @ 15 mls/hr IV .[id number] PRN PRN Reason: Additional IVPB Infusion Lactated Ringer's () 1,000 mls @ 999 mls/hr IV .Q1H1M [facility] Stop: 12/06/19 14:55 Insulin Glargine (Lantus (Bkc)) 5 units SC QHS [facility] Insulin Human Lispro (Humalog Kwikpen (Bk)) 0 unit SC ACHS ATUL; Protocol Melatonin (Melatonin) 3 mg PO QHS PRN PRN PRN Reason: INSOMNIA Methylprednisolone (Solu-Medrol) 40 mg IV Q8 ATUL Ondansetron HCl (Zofran) 4 mg IV Q8H PRN PRN PRN Reason: NAUSEA/VOMITING Oseltamivir Phosphate (Tamiflu) 30 mg PO BID [facility] Stop: 12/10/19 22:01 Sodium Chloride () 10 - 40 ml IV UD PRN PRN Reason: SALINE FLUSH Clinical Impression(s) from Imaging Studies Chest X-Ray 12/06/19 09:39 IMPRESSION: Hyperinflation. No acute infiltrate is seen. Electronically Signed: Mitch Garza, at 10:10 EDT , Service support , Assessment/Plan Active and Suspected Problems (Last Reviewed 10/15/19 @ 13:08 by Shruthi Drake, KITA-C) Respiratory failure with hypercapnia (Acute) Hypotension (Acute) Influenza A (Acute) Acute exacerbation of chronic obstructive pulmonary disease (COPD) (Acute) Severe sepsis (Acute) RECOMMENDATIONS: 1. Bolus as needed for blood pressure. Cannot exclude need for pressors 2. Recheck ABG on BiPAP therapy 3. Wean oxygen as tolerated 4. Agree with Tamiflu, Solu-Medrol and bronchodilators 5. Check every 6 blood sugars with sliding scale insulin coverage IMPRESSIONS: 1. Acute on chronic combined respiratory failure secondary to COPD exacerbation secondary to influenza A Patient with significant respiratory acidosis noted on ABG on presentation. Patient is currently on BiPAP therapy and is not waking up significantly on exam. Will repeat ABG. If patient is not improving, intubation may be necessary. CODE STATUS cannot be confirmed at this time, so we will proceed as a default to full code. Patient is currently on steroids, bronchodilators and Tamiflu. 2. Severe sepsis secondary to influenza A Patient with decreased mental status secondary to probable metabolic encephalopathy from CO2 retention. Blood pressures have been marginal. Patient will receive fluid boluses. Will check blood cultures to evaluate for superinfection. Empiric coverage for 48 hours with Merrem would be appropriate. Will check nasal MRSA. Patient does have a reported anaphylaxis to penicillins, but unable to verify at this time. Patient appears to have received ceftriaxone in the past 3. Insulin-dependent diabetes mellitus type 2 Anticipate increased blood sugars given steroid therapy. Will check every 6 blood sugars and cover with sliding scale insulin. Patient may need to have increasing insulin glargine. Do anticipate decreased p.o. intake given patient's respiratory status. May need higher coverage if tube feeds are initiated. 4. Hypertension/hyperlipidemia/anxiety/depression Complicates care, management, recovery and prognosis. Discontinue baseline antihypertensive medications. If mental status improves, antidepressant can be given along with statin. TIME: 35 minutes critical care time spent addressing patient's acute on chronic respiratory failure, severe sepsis, diabetes, review of all data and collaboration with care team (1 PM to 2:18 PM) [phone]: [id number] Critical care first hour
[2019-12-06] MEDS: Lactated Ringers 1,000 ML 999 ML IV (14:06)
[2019-12-06 14:31] LABS: Allen Test POS; Base Excess -3 mmol/L (-2 to +2); Blood Gas Specimen Type ART; EPAP 7; FI02 35; IPAP 14; PO2 85 mmHG (75-100); SITE R Radial; SO2 95 % (95-99); Time Given 1423; Total Carbon Dioxide 26 mmol/L; pCO2 50.8 mmHg (35-45); pH 7.28 (7.35-7.45)
[2019-12-06 16:01] LABS: Bedside Glucose 130 mg/dL (70-110)
[2019-12-06 18:05] LABS: M R Staph aureus DNA By PCR Negative (Negative); Probe Check PASS; Specimen Processing Control PASS
[2019-12-06] MEDS: Oseltamivir Phosphate 30 MG Capsule PO (21:48)
[2019-12-06] MEDS: Benzonatate 100 MG Capsule PO (21:48)
[2019-12-06] MEDS: Atorvastatin Calcium 10 MG Tablet 5 MG PO (21:48)
[2019-12-06] MEDS: Insulin Lispro 100 UNIT/ML INSULN.PEN SC (21:48)
[2019-12-06 23:10] LABS: Bedside Glucose 273 mg/dL (70-110)
[2019-12-07] VITALS (26 sets, daily range): BP systolic 106–153; BP diastolic 50–77; PULSE 59–110; RESP 12–26; TEMP 36.1–36.9; O2SAT 20–98
[2019-12-07] MEDS: 0.9% Normal Saline 1,000 ML 126 ML IV ×3 (03:00→21:36)
[2019-12-07 05:00] LABS: Absolute Lymphocyte Count 0.61 X10^3/uL (0.83-4.51); Basophil# 0.02 X10^3/uL; Basophil% 0.3 % (0-1); Hematocrit 36.7 % (37-47); Hemoglobin 12.4 g/dL (12.0-15.0); Lymphocyte # 0.61 X10^3/ul (4.0); Lymphocyte % 8.6 % (19-41); Mean Corp Hgb Conc 33.8 g/dL (32-36); Mean Corpuscular Hgb 35.7 pg (27.0-32.0); Mean Corpuscular Volume 105.8 fL (81-99); Mean Platelet Vol. 11.6 fl (6.2-12.0); Monocyte# 0.37 X10^3/uL; Monocyte% 5.2 % (0-10); NRBC Flagged by Analyzer 0 % (0-5); Neutrophil # 5.99 X10^3/uL (2.7-7.7); Neutrophil % 84.6 % (47-70); POSITIVE MORPHOLOGY YES; Platelet Count 153 K/mm3 (150-450); RBC Distribution Width CV 13.1 % (11.6-14.6); RBC Distribution Width SD 50.9 fl (35.1-43.9); Red Blood Count 3.47 M/mm3 (4.2-5.4); White Blood Count 7.1 K/mm3 (4.4-11.0)
[2019-12-07 05:04] LABS: Differential Indicated SCAN CRITERIA MET
[2019-12-07 05:12] LABS: Anion Gap 7 (5-15); BUN 25 mg/dL (7-18); BUN/Creat Ratio 34.6 RATIO (10-20); Calcium,Total 7.9 mg/dL (8.5-10.1); Chloride 105 mmol/L (98-107); Creatinine, Serum 0.72 mg/dL (0.55-1.02); EST Glomerular Filtration Rate 85 mL/min (>60); Est Glom Filt Rate - Afr Amer 103 mL/min (>60); Estimated Creatinine Clearance 42.59 ml/min; Glucose 145 mg/dL (74-106); Potassium 4.5 mmol/L (3.5-5.1); Sodium Level 139 mmol/L (136-145)
[2019-12-07 05:43] LABS: Anisocytosis 1+; Macrocytosis 1+; Platelet Estimate ADEQUATE (ADEQ); Red Cell Morphology N CHROM NORMAL (NORM C&C)
[2019-12-07] MEDS: Ipratropium/Albuterol Sulfate 3 ML AMPUL.NEB INHALATION ×5 (07:26→22:40)
--- NOTE | 2019-12-07 07:43 | PCM.PN.INT ---
Subjective: Patient did okay overnight. Patient was on BiPAP throughout the evening, but was able to be dropped to 4 L this morning. Patient reports subjective improvement in overall condition. Patient continues to have a cough, but reporting variable production. No additional fluid boluses were required overnight. No allergic symptomatology reported from nursing after infusion of meropenem. General: Alert, Oriented x3, Cooperative, - - Mild conversational dyspnea. HEENT: Atraumatic, PERRLA, EOMI, Normocephalic, - - No scleral icterus or injection noted Oral: Moist Mucosa, No Gingival or Mucosal Lesions/ Ulcerations Neck: Supple, No JVD, No Nodes, Trachea Midline Lungs: No rhonchi, No rales, Diminished, Wheezes, - - Symmetric expansion. No dullness to percussion. Cardiovascular: Regular rate, Regular Rhythm, Normal S1, Normal S2, No murmurs, No rub noted, No Gallop Abdomen: Bowel Sounds Present, Soft, Non Tender, Non-Distended Extremities: No clubbing, No cyanosis, No edema, Capillary Refill Less than 3 Seconds Skin: No rashes, No breakdown Musculoskeletal: No Tenderness to Palpation of Joints or Extremities Lymphatic: No Cervical, Supraclavicular, or Inguinal Adenopathy Neurological: Cranial nerves II-XII grossly intact, Neuro grossly intact, Motor Exam 5/5 strength throughout Psych/Mental Status: Alert and oriented to time, place, person, mood and affect Vital Signs Temp Pulse Resp BP Pulse Ox 36.6 C 69 24 H 132/61 H 95 12/07/19 04:00 12/07/19 06:00 12/07/19 06:00 12/07/19 06:00 12/07/19 06:00 Oxygen Flow Rate (L/min) 4 Oxygen Delivery Method Nasal Cannula Weight: 67.9 kg Body Mass Index (BMI) 26.1 Intake and Output for Last 24 Hours 12/05/19 12/06/19 12/07/19 23:59 23:59 23:59 Intake Total 4315.8 / 5173.2 1637.7 / 1637.7 Output Total 1750 / 1750 Balance 4315.8 / 3973.2 -112.3 / -112.3 Labs (Last 48 Hours) 12/06/19 12/06/19 12/06/19 10:05 10:12 10:12 WBC 12.5 H RBC 3.79 L Hgb 13.6 Hct 39.9 MCV 105.3 H MCH 35.9 H MCHC 34.1 RDW Std Deviation 50.6 H RDW Coeff of [place] 13.2 Plt Count 167 MPV 11.4 Immature Gran % (Auto) 2.400 H Neut % (Auto) 80.3 H Lymph % (Auto) 8.9 L [place] % (Auto) 7.9 Eos % (Auto) 0.0 Baso % (Auto) 0.5 Absolute Neuts (auto) 10.1 H Absolute Lymphs (auto) 1.12 Nucleated RBC % 0 Diff Path Review Platelet Estimate RBC Morphology Anisocytosis Macrocytosis Specimen Type ART Sample Site R Radial pH 7.25 L Bicarbonate Actual 27.0 H POC Total CO2 29 Base Excess 0 O2 Saturation 91 L O2 % ABG pCO2 61.2 H ABG pO2 72 L Norris Test POS O2 Delivery Device Nasal Can Liter Flow 3.0 EPAP IPAP Blood Gas Notified Whom ED MD Blood Gas Notified Time 1005 Sodium 133 L Potassium 4.5 Chloride 100 Carbon Dioxide 27.0 Anion Gap 6 BUN 28 H Creatinine 0.85 Estim Creat Clear Calc 52.40 Est GFR (MDRD) Af Amer 86 Est GFR (MDRD) Non-Af 71 BUN/Creatinine Ratio 33.0 H Glucose 99 Lactic Acid Calcium 9.0 MRSA (PCR) POC Glucose 12/06/19 12/06/19 12/06/19 10:12 14:25 15:15 WBC RBC Hgb Hct MCV MCH MCHC RDW Std Deviation RDW Coeff of [place] Plt Count MPV Immature Gran % (Auto) Neut % (Auto) Lymph % (Auto) [place] % (Auto) Eos % (Auto) Baso % (Auto) Absolute Neuts (auto) Absolute Lymphs (auto) Nucleated RBC % Diff Path Review Platelet Estimate RBC Morphology Anisocytosis Macrocytosis Specimen Type ART Sample Site R Radial pH 7.28 L Bicarbonate Actual 24.0 POC Total CO2 26 Base Excess -3 L O2 Saturation 95 O2 % 35 ABG pCO2 50.8 H ABG pO2 85 Norris Test POS O2 Delivery Device Bi / C PAP Liter Flow EPAP 7 IPAP 14 Blood Gas Notified Whom ICU MD Blood Gas Notified Time 1423 Sodium Potassium Chloride Carbon Dioxide Anion Gap BUN Creatinine Estim Creat Clear Calc Est GFR (MDRD) Af Amer Est GFR (MDRD) Non-Af BUN/Creatinine Ratio Glucose Lactic Acid 1.9 Calcium MRSA (PCR) Negative POC Glucose 12/06/19 12/06/19 12/07/19 15:51 21:47 04:45 WBC 7.1 RBC 3.47 L Hgb 12.4 Hct 36.7 L MCV 105.8 H MCH 35.7 H MCHC 33.8 RDW Std Deviation 50.9 H RDW Coeff of [place] 13.1 Plt Count 153 MPV 11.6 Immature Gran % (Auto) 1.300 H Neut % (Auto) 84.6 H Lymph % (Auto) 8.6 L [place] % (Auto) 5.2 Eos % (Auto) 0.0 Baso % (Auto) 0.3 Absolute Neuts (auto) 6.0 Absolute Lymphs (auto) 0.61 L Nucleated RBC % 0 [address] Review May foll Platelet Estimate ADEQUATE RBC Morphology N CHROM Anisocytosis 1+ Macrocytosis 1+ Specimen Type Sample Site pH Bicarbonate Actual POC Total CO2 Base Excess O2 Saturation O2 % ABG pCO2 ABG pO2 Norris Test O2 Delivery Device Liter Flow EPAP IPAP Blood Gas Notified Whom Blood Gas Notified Time Sodium Potassium Chloride Carbon Dioxide Anion Gap BUN Creatinine Estim Creat Clear Calc Est GFR (MDRD) Af Amer Est GFR (MDRD) Non-Af BUN/Creatinine Ratio Glucose Lactic Acid Calcium MRSA (PCR) POC Glucose 130 H 273 H 12/07/19 04:45 WBC RBC Hgb Hct MCV MCH MCHC RDW Std Deviation RDW Coeff of [place] Plt Count MPV Immature Gran % (Auto) Neut % (Auto) Lymph % (Auto) [place] % (Auto) Eos % (Auto) Baso % (Auto) Absolute Neuts (auto) Absolute Lymphs (auto) Nucleated RBC % Diff Path Review Platelet Estimate RBC Morphology Anisocytosis Macrocytosis Specimen Type Sample Site pH Bicarbonate Actual POC Total CO2 Base Excess O2 Saturation O2 % ABG pCO2 ABG pO2 Norris Test O2 Delivery Device Liter Flow EPAP IPAP Blood Gas Notified Whom Blood Gas Notified Time Sodium 139 Potassium 4.5 Chloride 105 Carbon Dioxide 27.0 Anion Gap 7 BUN 25 H Creatinine 0.72 Estim Creat Clear Calc 42.59 Est GFR (MDRD) Af Amer 103 Est GFR (MDRD) Non-Af 85 BUN/Creatinine Ratio 34.6 H Glucose 145 H Lactic Acid Calcium 7.9 L MRSA (PCR) POC Glucose Microbiology 12/06/19 10:20 Mucosa - Nasopharyngeal Influenza Types A,B Direct FA (SAMANTHA) - Final Influenzae A Clinical Impression(s) from Imaging Studies Chest X-Ray 12/06/19 09:39 IMPRESSION: Hyperinflation. No acute infiltrate is seen. Electronically Signed: Mitch Garza, at 10:10 EDT , Service support , Medical Necessity - Tobacco Use Smoking Status: Current every day smoker Tobacco Use: Cigarettes Assessment/Plan All Active Problems (Last Reviewed 10/15/19 @ 13:08 by Shruthi Drake NP-C) Respiratory failure with hypercapnia (Acute) Hypotension (Acute) Influenza A (Acute) Acute exacerbation of chronic obstructive pulmonary disease (COPD) (Acute) Severe sepsis (Acute) History of bronchitis (Acute) COPD (chronic obstructive pulmonary disease) (Acute) History of pneumonia (Acute) Retinal detachment (Resolved) H/O cataract removal with insertion of prosthetic lens (Resolved) H/O tubal ligation (Resolved) Bilateral carpal tunnel syndrome (Resolved) History of bilateral carpal tunnel release (Resolved) Exertional shortness of breath (Acute) Acute respiratory failure with hypoxemia (Acute) RECOMMENDATIONS: 1. Continue empiric antibiotics until cultures negative at 48 hours 2. Okay to transition to BiPAP as needed and with sleep 3. Wean oxygen as tolerated 4. Agree with Tamiflu and bronchodilators. Wean steroid therapy 5. Check every 6 blood sugars with sliding scale insulin coverage 6. Okay to leave the intensive care unit from my perspective IMPRESSIONS: 1. Acute on chronic combined respiratory failure secondary to COPD exacerbation secondary to influenza A Patient with significant respiratory acidosis noted on ABG on presentation. Patient has been taken off of BiPAP this morning and appears to be tolerating well. Patient is currently on bronchodilators and Tamiflu. Would continue meropenem until cultures negative at 48 hours as patient would be at risk for superinfection given repeated hospitalizations. Will wean steroid therapy. Possibly transition to prednisone tomorrow. 2. Severe sepsis secondary to influenza A Patient with decreased mental status secondary to probable metabolic encephalopathy from CO2 retention. Blood pressures were marginal on original presentation, but these appear to be improving. Empiric coverage for 48 hours with Merrem would be appropriate. Nasal MRSA was negative, so vancomycin is likely not indicated. Patient does have a reported anaphylaxis to penicillins, but appears to be tolerating meropenem with no difficulties. 3. Insulin-dependent diabetes mellitus type 2 Anticipate increased blood sugars given steroid therapy. Will check every 6 blood sugars and cover with sliding scale insulin. Patient may need to have increasing insulin glargine. Sugars may increase with initiation of p.o. diet. May need higher coverage if tube feeds are initiated. 4. Hypertension/hyperlipidemia/anxiety/depression Complicates care, management, recovery and prognosis. Discontinue baseline antihypertensive medications. Okay to give baseline medications Inpatient E&M: [id number] [facility]
[2019-12-07] MEDS: Oseltamivir Phosphate 30 MG Capsule PO ×2 (08:23→21:42)
[2019-12-07] MEDS: Enoxaparin 40 MG/0.4 ML Syringe SC (08:23)
[2019-12-07] MEDS: Citalopram 40 MG TABLET PO (08:23)
[2019-12-07 09:41] LABS: Pathologist Review Reviewed
--- NOTE | 2019-12-07 10:08 | PN_ITS ---
Patient Problems: Active and Suspected Problems (Last Reviewed 10/15/19 @ 13:08 by Shruthi Drake NP-C) Respiratory failure with hypercapnia (Acute) Hypotension (Acute) Influenza A (Acute) Acute exacerbation of chronic obstructive pulmonary disease (COPD) (Acute) Severe sepsis (Acute) Subjective: She is feeling much better today, she is off of BiPAP in the room and on nasal cannula at 4 L maintaining a sat of 92 to 94% Vitals/I&O's: Vital Signs Temp Pulse Resp BP Pulse Ox 97.9 F 102 H 18 115/58 L 12/07/19 04:00 12/07/19 09:00 12/07/19 09:00 12/07/19 09:00 12/07/19 09:00 Oxygen Flow Rate (L/min) 2.5 Oxygen Delivery Method Nasal Cannula Weight: 149 lb 11.102 oz Body Mass Index (BMI) 26.1 Intake and Output for Last 24 Hours 12/05/19 12/06/19 12/07/19 23:59 23:59 23:59 Intake Total 4315.8 / 5173.2 1637.7 / 1637.7 Output Total 1750 / 1750 Balance 4315.8 / 3973.2 -112.3 / -112.3 General: Alert, Oriented x3, Cooperative HEENT: Atraumatic, PERRLA, EOMI, Normocephalic Oral: Dry Mucosa Neck: Supple, No JVD Lungs: No rhonchi, No rales, Diminished, Wheezes Cardiovascular: Regular rate, Regular Rhythm, Normal S1, Normal S2, No murmurs Abdomen: Soft, Non Tender, Non-Distended, No Hepato-splenomegaly Extremities: No edema, Capillary Refill Less than 3 Seconds Skin: No rashes, No breakdown Neurological: Neuro grossly intact, Sensory exam intact to light touch and pain Psych/Mental Status: Normal Affect, Appropriate Microbiology Past 72 Hours 12/06/19 10:20 Mucosa - Nasopharyngeal Influenza Types A,B Direct FA (SAMANTHA) - Final Influenzae A Laboratory Results 12/06/19 10:05: Specimen Type ART, Sample Site R Radial, pH 7.25 L, Bicarbonate Actual 27.0 H, POC Total CO2 29, Base Excess 0, O2 Saturation 91 L, ABG pCO2 61.2 H, ABG pO2 72 L, Norris Test POS, O2 Delivery Device Nasal Can, Liter Flow 3.0, Blood Gas Notified Whom ED , Blood Gas Notified Time 1005 12/06/19 10:12: WBC 12.5 H, RBC 3.79 L, Hgb 13.6, Hct 39.9, MCV 105.3 H, MCH 35.9 H, MCHC 34.1, RDW Std Deviation 50.6 H, RDW Coeff of [place] 13.2, Plt Count 167, MPV 11.4, Immature Gran % (Auto) 2.400 H, Neut % (Auto) 80.3 H, Lymph % (Auto) 8.9 L, Haakon % (Auto) 7.9, Eos % (Auto) 0.0, Baso % (Auto) 0.5, Absolute Neuts (auto) 10.1 H, Absolute Lymphs (auto) 1.12, Nucleated RBC % 0 12/06/19 10:12: Sodium 133 L, Potassium 4.5, Chloride 100, Carbon Dioxide 27.0, Anion Gap 6, BUN 28 H, Creatinine 0.85, Estim Creat Clear Calc 52.40, Est GFR (MDRD) Af Amer 86, Est GFR (MDRD) Non-Af 71, BUN/Creatinine Ratio 33.0 H, Glucose 99, Calcium 9.0 12/06/19 10:12: Lactic Acid 1.9 12/06/19 14:25: Specimen Type ART, Sample Site R Radial, pH 7.28 L, Bicarbonate Actual 24.0, POC Total CO2 26, Base Excess -3 L, O2 Saturation 95, O2 % 35, ABG pCO2 50.8 H, ABG pO2 85, Norris Test POS, O2 Delivery Device Bi / C PAP, EPAP 7, IPAP 14, Blood Gas Notified Whom ICU MD, Blood Gas Notified Time 1423 12/06/19 15:15: MRSA (PCR) Negative 12/06/19 15:51: POC Glucose 130 H 12/06/19 21:47: POC Glucose 273 H 12/07/19 04:45: WBC 7.1, RBC 3.47 L, Hgb 12.4, Hct 36.7 L, MCV 105.8 H, MCH 35.7 H, MCHC 33.8, RDW Std Deviation 50.9 H, RDW Coeff of [place] 13.1, Plt Count 153, MPV 11.6, Immature Gran % (Auto) 1.300 H, Neut % (Auto) 84.6 H, Lymph % (Auto) 8.6 L, Haakon % (Auto) 5.2, Eos % (Auto) 0.0, Baso % (Auto) 0.3, Absolute Neuts (auto) 6.0, Absolute Lymphs (auto) 0.61 L, Nucleated RBC % 0, Diff Path Review Reviewed, Platelet Estimate ADEQUATE, RBC Morphology N CHROM, Anisocytosis 1+, Macrocytosis 1+ 12/07/19 04:45: Sodium 139, Potassium 4.5, Chloride 105, Carbon Dioxide 27.0, Anion Gap 7, BUN 25 H, Creatinine 0.72, Estim Creat Clear Calc 42.59, Est GFR (MDRD) Af Amer 103, Est GFR (MDRD) Non-Af 85, BUN/Creatinine Ratio 34.6 H, Glucose 145 H, Calcium 7.9 L Current Medications Acetaminophen (Tylenol) 650 mg PO Q6H PRN PRN PRN Reason: Pain Score 1-10/Temp > 100.7 F Albuterol/Ipratropium (Duoneb) 3 ml INHALATION Q4HWA.RT [facility] Last Admin: 12/07/19 07:26 Dose: 3 ml Documented by: Atorvastatin Calcium (Lipitor) 5 mg PO QHS [facility] Last Admin: 12/06/19 21:48 Dose: 5 mg Documented by: Benzonatate (Tessalon Perle) 100 mg PO Q8H PRN PRN PRN Reason: COUGH Last Admin: 12/06/19 21:48 Dose: 100 mg Documented by: Citalopram Hydrobromide (Celexa) 40 mg PO DAILY [facility] Last Admin: 12/07/19 08:23 Dose: 40 mg Documented by: Enoxaparin Sodium (Lovenox) 40 mg SC DAILY [facility] Last Admin: 12/07/19 08:23 Dose: 40 mg Documented by: Glucagon () 1 mg IM .X1 PRN PRN Reason: Hypoglycemia Sodium Chloride () 1,000 mls @ 126 mls/hr IV .[id number] [facility] Last Infusion: 12/07/19 05:43 Dose: 126 mls/hr Documented by: Dextrose (Dextrose 10%-Water) 250 mls @ 999 mls/hr IV .Q16M PRN; Protocol PRN Reason: HYPOGLYCEMIA Sodium Chloride () 250 mls @ 15 mls/hr IV .[id number] PRN PRN Reason: Saline Flush Sodium Chloride () 250 mls @ 15 mls/hr IV .[id number] PRN PRN Reason: Additional IVPB Infusion Meropenem 500 mg/ Sodium (Chloride) 60 mls @ 100 mls/hr IV Q6 [facility] Last Infusion: 12/07/19 06:27 Dose: Infused Documented by: Insulin Glargine (Lantus (Bk)) 5 units SC QHS [facility] Last Admin: 12/06/19 21:52 Dose: 5 u Documented by: Insulin Human Lispro (Humalog Kwikpen ([facility])) 0 unit SC ACHS [facility]; Protocol Last Admin: 12/07/19 08:20 Dose: Not Given Documented by: Melatonin (Melatonin) 3 mg PO QHS PRN PRN PRN Reason: INSOMNIA Methylprednisolone (Solu-Medrol) 40 mg IV Q12 [facility] Nicotine (Nicoderm Cq ([facility])) 14 mg TRANSDERM. DAILY [facility] Last Admin: 12/07/19 08:36 Dose: 14 mg Documented by: Ondansetron HCl (Zofran) 4 mg IV Q8H PRN PRN PRN Reason: NAUSEA/VOMITING Oseltamivir Phosphate (Tamiflu) 30 mg PO BID [facility] Stop: 12/10/19 22:01 Last Admin: 12/07/19 08:23 Dose: 30 mg Documented by: Sodium Chloride () 10 - 40 ml IV UD PRN PRN Reason: SALINE FLUSH STROKE Vital Signs/Narrative: Vital Signs Pulse Resp BP Pulse Ox 12/07/19 09:00 102 H 18 115/58 L 20 12/07/19 08:00 83 26 H 114/63 91 12/07/19 07:00 78 23 H 133/66 H 93 12/07/19 06:46 81 Medical Necessity - Tobacco Use Smoking Status: Current every day smoker Tobacco Use: Cigarettes Assessment/Plan All Active Problems (Last Reviewed 10/15/19 @ 13:08 by ALEXIS MathewsC) Respiratory failure with hypercapnia (Acute) Hypotension (Acute) Influenza A (Acute) Acute exacerbation of chronic obstructive pulmonary disease (COPD) (Acute) Severe sepsis (Acute) History of bronchitis (Acute) COPD (chronic obstructive pulmonary disease) (Acute) History of pneumonia (Acute) Retinal detachment (Resolved) H/O cataract removal with insertion of prosthetic lens (Resolved) H/O tubal ligation (Resolved) Bilateral carpal tunnel syndrome (Resolved) History of bilateral carpal tunnel release (Resolved) Exertional shortness of breath (Acute) Acute respiratory failure with hypoxemia (Acute) 1. Sepsis secondary to influenza A with acute hypoxic respiratory failure and acute on chronic hypercapnic respiratory failure/COPD exacerbation -Continue with BiPAP as needed, will transfer to PCU -Continue with Tamiflu -We will continue with steroids and breathing treatments will likely transition to prednisone tomorrow -Continue with IV fluids -We will hold her blood pressure medications -We will continue with her budesonide twice daily -We will continue with meropenem until blood cultures are negative there was concern for possible coinfection 2. DM 2 -We will place her on a sliding scale insulin as well as Lantus 5 units nightly -Accu-Cheks AC at bedtime -We will hold her home medications 3. HTN/HLD -We will continue with her lovastatin -Given her soft blood pressures will hold her hydrochlorothiazide, Norvasc, and lisinopril for today -Can potentially restart in the morning if she is stable 4. Anxiety/depression -Stable -Continue with citalopram DVT: Lovenox Inpatient E&M: 82539 Subs Hosp L2
[2019-12-07 10:20] LABS: Bedside Glucose 145 mg/dL (70-110)
--- NOTE | 2019-12-07 12:25 | CASEMGMT ---
RN CM Assessment Note Presentation: COPD, Influenza A Intro role of CM and purpose of RN CM assessment to patient's . 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 Demographics, PCP and Pharmacy verified. Pt states she is independent, no care needs at home. She plans to stay with her sister, Swati Templeton. Address verified with Swati and is in demographics. Pt may need oxygen on discharge. Discussed with pt. She already uses [facility] for Home oxygen and is agreeable to continue. PCP: KASSANDRA Cárdenas Specialists: Dr. Deras Preferred Pharmacy: [facility] Insurance: [employer] [facility] PPO Prescription Benefit: yes LNOK : Sister, Swati Templeton. [address], [place], [place] Living Arrangements: Lives independently in own home. Plans to go to sister's home on discharge. Sister is agreeable to patient coming there. Aware, home oxygen may need to be set up in her home if pt requires on dc. Transportation: Pt drives, sister is able to assist if needed. DME: portable oxygen only per pt through [facility]. HHC: none Patient DC goals: Home with her sister DC PLAN: Home. Home oxygen testing recommended if pt still requires oxygen on dc. RN CM advised to contact cm for any concerns/needs that may arise. Fabian KAPLAN RN ACM
[2019-12-07] MEDS: Insulin Lispro 100 UNIT/ML INSULN.PEN SC ×3 (13:28→21:36)
[2019-12-07] MEDS: 0.9% Saline Lock 10 ML Syringe IV (13:29)
[2019-12-07 15:11] LABS: Bedside Glucose 265 mg/dL (70-110)
[2019-12-07 18:15] LABS: Bedside Glucose 152 mg/dL (70-110)
[2019-12-07 21:26] LABS: Bedside Glucose 154 mg/dL (70-110)
[2019-12-07] MEDS: Benzonatate 100 MG Capsule PO (21:42)
[2019-12-07] MEDS: Atorvastatin Calcium 10 MG Tablet 5 MG PO (21:42)
[2019-12-08] VITALS (8 sets, daily range): BP systolic 123–140; BP diastolic 57–66; PULSE 77–91; RESP 18–20; TEMP 36.6–36.9; O2SAT 87–93
[2019-12-08] MEDS: Ipratropium/Albuterol Sulfate 3 ML AMPUL.NEB INHALATION ×3 (03:00→11:08)
[2019-12-08] MEDS: 0.9% Normal Saline 1,000 ML 126 ML IV (05:20)
[2019-12-08 06:36] LABS: Bedside Glucose 169 mg/dL (70-110)
--- NOTE | 2019-12-08 07:30 | PCM.PN.PUL ---
Patient Problems: Active and Suspected Problems (Last Reviewed 10/15/19 @ 13:08 by Shruthi Drake NP-C) Respiratory failure with hypercapnia (Acute) Hypotension (Acute) Influenza A (Acute) Acute exacerbation of chronic obstructive pulmonary disease (COPD) (Acute) Severe sepsis (Acute) Subjective: Patient did well overnight. Patient did not utilize BiPAP with sleeping, but feels that she is approaching her baseline. Patient able to walk to the bathroom without difficulty and is on her baseline nasal cannula oxygen. Patient reportedly has been able to tolerate p.o. intake. - Physical Exam Vitals/I&O's: Vital Signs Temp Pulse Resp BP Pulse Ox 36.9 C 87 18 140/66 H 93 12/08/19 01:50 12/08/19 06:53 12/08/19 03:00 12/08/19 01:50 12/08/19 01:50 Oxygen Flow Rate (L/min) 3 Oxygen Delivery Method Nasal Cannula Weight: 68.4 kg Body Mass Index (BMI) 26.1 Intake and Output for Last 24 Hours 12/06/19 12/07/19 12/08/19 23:59 23:59 23:59 Intake Total 4315.8 / 5173.2 4614.3 / 4614.3 729.9 / 729.9 Output Total 1750 / 1750 Balance 4315.8 / 3973.2 2864.3 / 2864.3 729.9 / 729.9 General: Alert, Oriented x3, Cooperative, - - Mild conversational dyspnea. Appears older than stated age. HEENT: Atraumatic, PERRLA, EOMI, Normocephalic, - - No scleral icterus or injection noted Oral: Moist Mucosa, No Gingival or Mucosal Lesions/ Ulcerations Neck: Supple, No JVD, No Nodes, Trachea Midline Lungs: No rhonchi, No rales, Diminished, Wheezes - Improved air exchange compared to yesterday Cardiovascular: Regular rate, Regular Rhythm, Normal S1, Normal S2, No murmurs, No rub noted, No Gallop Abdomen: Bowel Sounds Present, Soft, Non Tender, Non-Distended Extremities: No clubbing, No cyanosis, No edema, Capillary Refill Less than 3 Seconds Skin: No rashes, No breakdown Musculoskeletal: No Tenderness to Palpation of Joints or Extremities Lymphatic: No Cervical, Supraclavicular, or Inguinal Adenopathy Neurological: Cranial nerves II-XII grossly intact, Neuro grossly intact, Motor Exam 5/5 strength throughout Psych/Mental Status: Alert and oriented to time, place, person, mood and affect Microbiology Past 72 Hours 12/06/19 10:20 Mucosa - Nasopharyngeal Influenza Types A,B Direct FA (SAMANTHA) - Final Influenzae A Laboratory Results 12/07/19 04:45: Diff Path Review Reviewed 12/07/19 08:18: POC Glucose 145 H 12/07/19 13:09: POC Glucose 265 H 12/07/19 17:09: POC Glucose 152 H 12/07/19 21:20: POC Glucose 154 H 12/08/19 06:30: POC Glucose 169 H Current Medications Acetaminophen (Tylenol) 650 mg PO Q6H PRN PRN PRN Reason: Pain Score 1-10/Temp > 100.7 F Albuterol/Ipratropium (Duoneb) 3 ml INHALATION Q4HWA.RT [facility] Last Admin: 12/08/19 07:10 Dose: 3 ml Documented by: Atorvastatin Calcium (Lipitor) 5 mg PO QHS [facility] Last Admin: 12/07/19 21:42 Dose: 5 mg Documented by: Benzonatate (Tessalon Perle) 100 mg PO Q8H PRN PRN PRN Reason: COUGH Last Admin: 12/07/19 21:42 Dose: 100 mg Documented by: Citalopram Hydrobromide (Celexa) 40 mg PO DAILY [facility] Last Admin: 12/07/19 08:23 Dose: 40 mg Documented by: Enoxaparin Sodium (Lovenox) 40 mg SC DAILY [facility] Last Admin: 12/07/19 08:23 Dose: 40 mg Documented by: Glucagon () 1 mg IM .X1 PRN PRN Reason: Hypoglycemia Sodium Chloride () 1,000 mls @ 126 mls/hr IV .Q7H57M [facility] Last Infusion: 12/08/19 05:20 Dose: 0 mls/hr Documented by: Dextrose (Dextrose 10%-Water) 250 mls @ 999 mls/hr IV .Q16M PRN; Protocol PRN Reason: HYPOGLYCEMIA Sodium Chloride () 250 mls @ 15 mls/hr IV .[id number] PRN PRN Reason: Saline Flush Sodium Chloride () 250 mls @ 15 mls/hr IV .[id number] PRN PRN Reason: Additional IVPB Infusion Meropenem 500 mg/ Sodium (Chloride) 60 mls @ 100 mls/hr IV Q6 [facility] Last Admin: 12/08/19 05:20 Dose: 100 mls/hr Documented by: Insulin Glargine (Lantus (Bk)) 10 units SC QHS [facility] Last Admin: 12/07/19 21:36 Dose: 10 u Documented by: Insulin Human Lispro (Humalog Kwikpen (Bk)) 0 unit SC ACHS [facility]; Protocol Last Admin: 12/07/19 21:36 Dose: 2 u Documented by: Melatonin (Melatonin) 3 mg PO QHS PRN PRN PRN Reason: INSOMNIA Nicotine (Nicoderm Cq ([facility])) 14 mg TRANSDERM. DAILY [facility] Last Admin: 12/07/19 08:36 Dose: 14 mg Documented by: Ondansetron HCl (Zofran) 4 mg IV Q8H PRN PRN PRN Reason: NAUSEA/VOMITING Oseltamivir Phosphate (Tamiflu) 30 mg PO BID [facility] Stop: 12/10/19 22:01 Last Admin: 12/07/19 21:42 Dose: 30 mg Documented by: Prednisone () 40 mg PO DAILY@0800 [facility] Sodium Chloride () 10 - 40 ml IV UD PRN PRN Reason: SALINE FLUSH Last Admin: 12/07/19 13:29 Dose: 10 ml Documented by: Medical Necessity - Tobacco Use Smoking Status: Current every day smoker Tobacco Use: Cigarettes Assessment/Plan All Active Problems (Last Reviewed 10/15/19 @ 13:08 by Shruthi Drake NP-C) Respiratory failure with hypercapnia (Acute) Hypotension (Acute) Influenza A (Acute) Acute exacerbation of chronic obstructive pulmonary disease (COPD) (Acute) Severe sepsis (Acute) History of bronchitis (Acute) COPD (chronic obstructive pulmonary disease) (Acute) History of pneumonia (Acute) Retinal detachment (Resolved) H/O cataract removal with insertion of prosthetic lens (Resolved) H/O tubal ligation (Resolved) Bilateral carpal tunnel syndrome (Resolved) History of bilateral carpal tunnel release (Resolved) Exertional shortness of breath (Acute) Acute respiratory failure with hypoxemia (Acute) RECOMMENDATIONS: 1. Okay to discontinue empiric antibiotics from my perspective 2. Transition to p.o. steroid therapy 3. Wean oxygen as tolerated 4. Agree with Tamiflu for 5 days and bronchodilators. 5. Walking oximetry prior to discharge 6. Follow-up with nurse practitioner 2 weeks after discharge to ensure improvement. IMPRESSIONS: 1. Acute on chronic combined respiratory failure secondary to COPD exacerbation secondary to influenza A Patient with significant respiratory acidosis noted on ABG on presentation. Patient did not use BiPAP therapy overnight, but appears to be tolerating this well. Patient is currently on bronchodilators and Tamiflu. Tamiflu should be continued for a total of 5 days. Will discontinue antibiotics for now. If cultures would come back positive later today, this could be reinitiated. Transition to p.o. steroids and wean over the next 12 to 14 days. 2. Severe sepsis secondary to influenza A Patient with decreased mental status secondary to probable metabolic encephalopathy from CO2 retention. Blood pressures were marginal on original presentation, but these have normalized. Completed empiric coverage for 48 hours with Merrem. Patient does have a reported anaphylaxis to penicillins, but appears to be tolerating meropenem with no difficulties. 3. Insulin-dependent diabetes mellitus type 2 Anticipate increased blood sugars given steroid therapy. Will check blood sugars before meals and at bedtime. Patient may need to have increasing insulin glargine in the interim. 4. Hypertension/hyperlipidemia/anxiety/depression Complicates care, management, recovery and prognosis. Okay to give baseline medications Inpatient E&M: 97754 Subs Hosp L2
--- NOTE | 2019-12-08 08:14 | PCM.DC ---
- Discharge Diagnoses Current Active Problems: Current Active and Chronic Problems (Last Reviewed 10/15/19 @ 13:08 by KASSANDRA Mathews) Respiratory failure with hypercapnia (Acute) Hypotension (Acute) Influenza A (Acute) Acute exacerbation of chronic obstructive pulmonary disease (COPD) (Acute) Severe sepsis (Acute) You will use the following diet at home:: Calorie/Carbohydrate Controlled (specify 1200, 1400, etc) Your food should be the consistency of: Regular Your liquids should be the consistency of: Regular/Thin Discharge Activity: Return to Normal Activity Call your doctor if you observe: Fever of 101 or Higher, Shortness of breath, Dizziness, Fainting spells, Swelling in the ankles, Chest pain, Increased palpitations (irregular heartbeat) Allergies/Adverse Reactions: Allergies Penicillins Allergy (Verified 12/06/19 09:41) Angioedema Medications to take at Discharge Amlodipine Besylate 10 mg PO DAILY 01/15/17 Citalopram Hydrobromide [Citalopram HBr] 40 mg PO DAILY 01/15/17 Hydrochlorothiazide 12.5 mg PO DAILY 01/15/17 Lisinopril 40 mg PO DAILY 01/15/17 Loperamide [Imodium] 2 mg PO BID 01/15/17 Lovastatin 20 mg PO QHS 01/15/17 Metformin HCl [Metformin HCl ER] 500 mg PO BID 01/15/17 Albuterol Aerosols [Ventolin Aerosols] 2.5 mg INHALATION Q2H PRN PRN #120 vial.neb. 03/02/19 budesonide 0.5 mg/2 mL suspension for nebulization 0.5 mg INHALATION BID 05/13/19 ipratropium bromide 0.02 % solution for inhalation 0.5 mg INHALATION BID ml 05/13/19 Pnv,Calcium 72/Iron,Carb/Folic [ Plus Iron Tablet] 1 ea PO QHS 12/06/19 Oseltamivir Phosphate [Tamiflu] 30 mg PO BID #10 cap 12/08/19 predniSONE tablet 40 mg PO DAILY@0800 #14 tab 12/08/19 The following prescriptions were given: predniSONE tablet 40 mg PO DAILY@0800 #14 tab Transmission Status: Pending to [facility] Oseltamivir Phosphate [Tamiflu] 30 mg PO BID #10 cap Transmission Status: Pending to [facility] Primary Care Physician: [place],Krish Alvaro, INSTRUMENT ROOM TECHNICIAN-C [Primary Care Provider] - Please follow up with your Primary Care Physician in: 3-5 days Test Results: Test results from this visit will be discussed in further detail at your follow-up appointment, if applicable. Please Follow Up With: Pulmonology When: 2-4 weeks
[2019-12-08] MEDS: Enoxaparin 40 MG/0.4 ML Syringe SC (08:22)
[2019-12-08] MEDS: predniSONE 20 MG Tablet 40 MG PO (08:22)
[2019-12-08] MEDS: Citalopram 40 MG TABLET PO (08:22)
[2019-12-08] MEDS: Oseltamivir Phosphate 30 MG Capsule PO (08:22)
[2019-12-08] MEDS: Benzonatate 100 MG Capsule PO (08:22)
--- NOTE | 2019-12-08 10:29 | PCM.DC.SUM ---
Discharge Date and Diagnosis - Problem List Patient Problems: Active and Suspected Problems (Last Reviewed 10/15/19 @ 13:08 by KASSANDRA Mathews) Respiratory failure with hypercapnia (Acute) Hypotension (Acute) Influenza A (Acute) Acute exacerbation of chronic obstructive pulmonary disease (COPD) (Acute) Severe sepsis (Acute) Date of Admission: 12/06/19 Date of Discharge: 12/08/19 - Primary Discharge Diagnosis Active and Suspected Problems (Last Reviewed 10/15/19 @ 13:08 by KASSANDRA Mathews) Respiratory failure with hypercapnia (Acute) Hypotension (Acute) Influenza A (Acute) Acute exacerbation of chronic obstructive pulmonary disease (COPD) (Acute) Severe sepsis (Acute) - Secondary Discharge Diagnosis Chronic Problems (Last Reviewed 10/15/19 @ 13:08 by KASSANDRA Mathews) Depression (Chronic) Hyperlipemia (Chronic) Tobacco dependence (Chronic) DM2 (diabetes mellitus, type 2) (Chronic) Essential (primary) hypertension (Chronic) Hospital Course and Treatment Imaging Results: CXR: IMPRESSION: Hyperinflation. No acute infiltrate is seen. Consults: Pulmonology Operations: None Procedures: None Summary of Care Provided: Per HPI: The patient is a 69 year old F with a PMH as below who presents to the hospital with shortness of breath. She states that it started on Friday and has slowly worsened and to the point of being so short of breath she felt she had to come to the ER. She presented to the hospital with wheezing and significant shortness of breath. She did test positive for influenza in the ER and has an elevated white count as well as a fever to 101. An ABG in the ER demonstrated hypercapnia which is acute on chronic for her, and she was little bit hypoxic initially on admission and had to be placed on BiPAP. She states that her partner as well as her [id number] have both been sick with something similar though not to the extent that she has. She does have a history of COPD. She denies any lightheadedness or dizziness or myalgias. Hospital Course: 1. Sepsis secondary to influenza A with acute hypoxic respiratory failure and acute on chronic hypercapnic respiratory failure/COPD [id number] female with a history of COPD presents to the hospital with shortness of breath. She states that difficulty breathing had started on Friday and has slowly worsened. She had come in contact with sick people including her partner and her [id number]. She tested positive for influenza A and was started on Tamiflu and admitted initially to the ICU because the necessity of BiPAP therapy and her hypoxia. Lactic acid was less than 2 on admission and she did have some hypotension with a transient systolic blood pressure in the 70s down in the ER. Fluids were able to be discontinued fairly quickly into her hospitalization and as a precaution she was also started on meropenem in case there is a superinfection however blood cultures are negative and that was discontinued. She was decreased quickly on her steroids as she is a diabetic, and she will be discharged home with 7 days of prednisone as well as 5 days of Tamiflu. She will need to follow-up with her primary care doctor in 3 to 5 days as well as pulmonology as an outpatient. I did discuss with her that she should continue to use her nebulizer at home 3-4 times a day until steroids kick in. Also she is on oxygen at home, normally at 2 to 3 L which she has been maintained that here and she was able to stay off of the BiPAP for over 24 hours at this point. I did discuss the risks and benefits of discharge home and she expressed understanding and would like to go home today. 2. Her other medical diagnoses were evaluated and her home medications were continued where appropriate Patient Problems: Active and Suspected Problems (Last Reviewed 10/15/19 @ 13:08 by Shruthi Drake [employer]ATIVE RE[employer]UITER-C) Respiratory failure with hypercapnia (Acute) Hypotension (Acute) Influenza A (Acute) Acute exacerbation of chronic obstructive pulmonary disease (COPD) (Acute) Severe sepsis (Acute) - Physical Exam Vitals/I&O's: Vital Signs Temp Pulse Resp BP Pulse Ox 97.8 F 79 20 H 123/57 H 87 12/08/19 07:50 12/08/19 07:50 12/08/19 07:50 12/08/19 07:50 12/08/19 09:22 Oxygen Flow Rate (L/min) [ 3 AMBULATION with Oxygen] Oxygen Flow Rate (L/min) [ 2 AMBULATING on Room Air] Oxygen Flow Rate (L/min) 2.5 Oxygen Delivery Method Nasal Cannula Weight: 150 lb 12.739 oz Body Mass Index (BMI) 26.1 Intake and Output for Last 24 Hours 12/06/19 12/07/19 12/08/19 23:59 23:59 23:59 Intake Total 4315.8 / 5173.2 4614.3 / 4614.3 1186.8 / 1186.8 Output Total 1750 / 1750 Balance 4315.8 / 3973.2 2864.3 / 2864.3 1186.8 / 1186.8 General: Alert, Oriented x3, Cooperative HEENT: Atraumatic, PERRLA, EOMI, Normocephalic Oral: Dry Mucosa Neck: Supple, No JVD Lungs: No rhonchi, No rales, Diminished, Wheezes Cardiovascular: Regular rate, Regular Rhythm, Normal S1, Normal S2, No murmurs Abdomen: Soft, Non Tender, Non-Distended, No Hepato-splenomegaly Extremities: No edema, Capillary Refill Less than 3 Seconds Skin: No rashes, No breakdown Neurological: Neuro grossly intact, Sensory exam intact to light touch and pain Psych/Mental Status: Normal Affect, Appropriate Microbiology Past 72 Hours 12/06/19 10:20 Mucosa - Nasopharyngeal Influenza Types A,B Direct FA (SAMANTHA) - Final Influenzae A Laboratory Results 12/07/19 13:09: POC Glucose 265 H 12/07/19 17:09: POC Glucose 152 H 12/07/19 21:20: POC Glucose 154 H 12/08/19 06:30: POC Glucose 169 H Current Medications Acetaminophen (Tylenol) 650 mg PO Q6H PRN PRN PRN Reason: Pain Score 1-10/Temp > 100.7 F Albuterol/Ipratropium (Duoneb) 3 ml INHALATION Q4HWA.RT [facility] Last Admin: 12/08/19 07:10 Dose: 3 ml Documented by: Atorvastatin Calcium (Lipitor) 5 mg PO QHS [facility] Last Admin: 12/07/19 21:42 Dose: 5 mg Documented by: Benzonatate (Tessalon Perle) 100 mg PO Q8H PRN PRN PRN Reason: COUGH Last Admin: 12/08/19 08:22 Dose: 100 mg Documented by: Citalopram Hydrobromide (Celexa) 40 mg PO DAILY [facility] Last Admin: 12/08/19 08:22 Dose: 40 mg Documented by: Enoxaparin Sodium (Lovenox) 40 mg SC DAILY [facility] Last Admin: 12/08/19 08:22 Dose: 40 mg Documented by: Glucagon () 1 mg IM .X1 PRN PRN Reason: Hypoglycemia Sodium Chloride () 1,000 mls @ 126 mls/hr IV .Q7H57M [facility] Last Infusion: 12/08/19 09:29 Dose: Infused Documented by: Dextrose (Dextrose 10%-Water) 250 mls @ 999 mls/hr IV .Q16M PRN; Protocol PRN Reason: HYPOGLYCEMIA Sodium Chloride () 250 mls @ 15 mls/hr IV .[id number] PRN PRN Reason: Saline Flush Sodium Chloride () 250 mls @ 15 mls/hr IV .[id number] PRN PRN Reason: Additional IVPB Infusion Insulin Glargine (Lantus ([facility])) 10 units SC QHS [facility] Last Admin: 12/07/19 21:36 Dose: 10 u Documented by: Insulin Human Lispro (Humalog Kwikpen ([facility])) 0 unit SC ACHS [facility]; Protocol Last Admin: 12/08/19 08:23 Dose: Not Given Documented by: Melatonin (Melatonin) 3 mg PO QHS PRN PRN PRN Reason: INSOMNIA Nicotine (Nicoderm Cq (Pbkc)) 14 mg TRANSDERM. DAILY [facility] Last Admin: 12/08/19 08:23 Dose: Not Given Documented by: Ondansetron HCl (Zofran) 4 mg IV Q8H PRN PRN PRN Reason: NAUSEA/VOMITING Oseltamivir Phosphate (Tamiflu) 30 mg PO BID [facility] Stop: 12/10/19 22:01 Last Admin: 12/08/19 08:22 Dose: 30 mg Documented by: Prednisone () 40 mg PO DAILY@0800 [facility] Last Admin: 12/08/19 08:22 Dose: 40 mg Documented by: Sodium Chloride () 10 - 40 ml IV UD PRN PRN Reason: SALINE FLUSH Last Admin: 12/07/19 13:29 Dose: 10 ml Documented by: Discharge Activity: Return to Normal Activity Call your doctor if you observe: Fever of 101 or Higher, Shortness of breath, Dizziness, Fainting spells, Swelling in the ankles, Chest pain, Increased palpitations (irregular heartbeat) Home Medications: Medications to take at Discharge Amlodipine Besylate 10 mg PO DAILY 01/15/17 Citalopram Hydrobromide [Citalopram HBr] 40 mg PO DAILY 01/15/17 Hydrochlorothiazide 12.5 mg PO DAILY 01/15/17 Lisinopril 40 mg PO DAILY 01/15/17 Loperamide [Imodium] 2 mg PO BID 01/15/17 Lovastatin 20 mg PO QHS 01/15/17 Metformin HCl [Metformin HCl ER] 500 mg PO BID 01/15/17 Albuterol Aerosols [Ventolin Aerosols] 2.5 mg INHALATION Q2H PRN PRN #120 vial.neb. 03/02/19 budesonide 0.5 mg/2 mL suspension for nebulization 0.5 mg INHALATION BID 05/13/19 ipratropium bromide 0.02 % solution for inhalation 0.5 mg INHALATION BID ml 05/13/19 Pnv,Calcium 72/Iron,Carb/Folic [ Plus Iron Tablet] 1 ea PO QHS 12/06/19 Oseltamivir Phosphate [Tamiflu] 30 mg PO BID #10 cap 12/08/19 predniSONE tablet 40 mg PO DAILY@0800 #14 tab 12/08/19 Following Prescrptions Were Given to Patient: predniSONE tablet 40 mg PO DAILY@0800 #14 tab Transmission Status: Received by [facility] Oseltamivir Phosphate [Tamiflu] 30 mg PO BID #10 cap Transmission Status: Received by [facility] Primary Care Physician: Krish Cárdenas NP-C [Primary Care Provider] - Please follow up with your Primary Care Physician in: 3-5 days Please Follow Up With: Pulmonology When: 2-4 weeks Disposition: Home Minutes spent on discharge:: 35 Patient Condition:: Stable Medical Necessity - Tobacco Use Smoking Status: Current every day smoker Tobacco Use: Cigarettes Meaningful Use Info Meaningful Use Diagnoses (Choose all that apply): None applicable Inpatient E&M: 17166 Disch Hosp
--- NOTE | 2019-12-08 10:46 | PHA.DC.MR ---
Pharmacy Service has performed discharge medication reconciliation for this patient. The patient's discharge medication list was reviewed for discrepancies and discrepancies were resolved. Home Medications Amlodipine Besylate 10 mg PO DAILY 01/15/17 Citalopram Hydrobromide [Citalopram HBr] 40 mg PO DAILY 01/15/17 Hydrochlorothiazide 12.5 mg PO DAILY 01/15/17 Lisinopril 40 mg PO DAILY 01/15/17 Loperamide [Imodium] 2 mg PO BID 01/15/17 Lovastatin 20 mg PO QHS 01/15/17 Metformin HCl [Metformin HCl ER] 500 mg PO BID 01/15/17 Albuterol Aerosols [Ventolin Aerosols] 2.5 mg INHALATION Q2H PRN PRN #120 vial.neb. 03/02/19 budesonide 0.5 mg/2 mL suspension for nebulization 0.5 mg INHALATION BID 05/13/19 ipratropium bromide 0.02 % solution for inhalation 0.5 mg INHALATION BID ml 05/13/19 Pnv,Calcium 72/Iron,Carb/Folic [ Plus Iron Tablet] 1 ea PO QHS 12/06/19 Oseltamivir Phosphate [Tamiflu] 30 mg PO BID #10 cap 12/08/19 predniSONE tablet 40 mg PO DAILY@0800 #14 tab 12/08/19
[2019-12-08 13:11] LABS: Bedside Glucose 142 mg/dL (70-110)
--- NOTE | 2019-12-09 14:57 | CASEMGMT ---
FABIÁN KLEIN Discharge Follow-up Phone Call: MUKULIsabel: Srinivas Strata: 3 Call Date: 12/09/19 Discharge Date: 12/08/19 Time of Call: 1455 Duration: 4 min Admitting Diagnosis: Sepsis From Influenza FABIÁN KLEIN completed follow-up phone call after hospitalization. Patient states she is much better. Patient has follow-up appt with back maker scheduled. Patient was able to fill prescriptions without any issues. Patient had no questions regarding discharge instructions. Patient denies further needs or concerns at this time.
== END 2019-12-08 11:47 | disposition home or self-care (01) | DRG 871 ==
LOC: ED 10:57 → ICU 11:49 → PCU 12-07 12:19
PROVIDERS: Internal Medicine Critical Care Medicine; Admitting Provider Family Medicine; Emergency Provider Emergency Medicine; PCP Nurse Practitioner Family; Visit Provider Family Medicine
DX: A41.89 Other specified sepsis (principal); J96.22 Acute and chronic respiratory failure with hypercapnia; J96.01 Acute respiratory failure with hypoxia; G93.41 Metabolic encephalopathy; J44.1 Chronic obstructive pulmonary disease with (acute) exacerbation; R65.20 Severe sepsis without septic shock; J10.1 Influenza due to other identified influenza virus with other respiratory manifestations; F32.9 Major depressive disorder, single episode, unspecified; E78.5 Hyperlipidemia, unspecified; F17.210 Nicotine dependence, cigarettes, uncomplicated; E11.9 Type 2 diabetes mellitus without complications; I10 Essential (primary) hypertension; Z79.84 Long term (current) use of oral hypoglycemic drugs; Z99.81 Dependence on supplemental oxygen; I95.9 Hypotension, unspecified
CPT/HCPCS: 36600; 71045; 80048; 82803; 82962; 83605; 85025; 87040; 87641; 87804; 93005; 94002; 94003; 94640; 97162; 97166; 99251; 99285; 99406; J2185; J7030; J7120; A4216; G0463

== ENCOUNTER → 2021-01-25 10:39 | Outpatient (CLI) | payer MEDICARE, SELFPAY ==
[2021-01-04 10:12] VITALS: BMI 26.4
--- NOTE | 2021-01-26 14:01 | PFTCOMP ---
INTRODUCTION: The patient is a 70-year-old female that presents for pulmonary function studies secondary to a diagnosis of COPD. Respiratory therapy reports good patient effort. Bronchodilators were used during testing. INTERPRETATION: Forced expiration spirometry demonstrates the presence of a moderately severe large airways obstructive ventilatory defect. There was no significant response to aerosolized bronchodilators. Spirograms are of fair quality but do not plateau indicating slow emptying of the lungs. Body plethysmography was performed and revealed an elevated TLC and RV, indicative of underlying hyperinflation and air trapping. Diffusing capacity by single breath CO was reduced at 48% of predicted. IMPRESSION: Irreversible moderately severe large airways obstructive ventilatory defect with associated hyperinflation, air trapping and symmetric reduction in diffusing capacity.
== END ==
PROVIDERS: PCP Nurse Practitioner Family; Referring Provider Nurse Practitioner Acute Care; Visit Provider Nurse Practitioner Acute Care
DX: J44.9 Chronic obstructive pulmonary disease, unspecified (principal)
CPT/HCPCS: 94060; 94726; 94729

== ENCOUNTER → 2023-02-20 | Outpatient (CLI) | payer MEDICARE, SELFPAY ==
--- NOTE | 2023-02-21 10:26 | PFT ---
INTRODUCTION: The patient is a 73-year-old female that presents for pulmonary function studies secondary to a diagnosis of COPD. Respiratory therapy reported good patient effort. Bronchodilators were used during testing. INTERPRETATION: Forced expiration spirometry demonstrates the presence of a severe large airways obstructive ventilatory defect. There was a significant response to aerosolized bronchodilators. Spirograms are of fair quality but do not plateau indicating slow emptying of the lungs. Body plethysmography was performed and revealed evidence of hyperinflation and air trapping. Diffusing capacity by single breath CO was reduced to 57% of predicted. IMPRESSION: Partially reversible severe large airways obstructive ventilatory defect with associated hyperinflation, air trapping and symmetric reduction in diffusing capacity.
== END | disposition home or self-care (01) ==
LOC: PSN 12:36
PROVIDERS: PCP Nurse Practitioner Family; Referring Provider Internal Medicine Critical Care Medicine; Visit Provider Internal Medicine Critical Care Medicine
DX: J44.1 Chronic obstructive pulmonary disease with (acute) exacerbation (principal)
CPT/HCPCS: 94060; 94726; 94729

== ENCOUNTER → 2023-03-12 | Outpatient (CLI) | payer MEDICARE, SELFPAY ==
--- NOTE | 2023-03-12 13:29 | CT_ITS ---
STUDY: LOW DOSE CT LUNG CANCER SCREENING REASON FOR EXAM: Female, 73 years old. 2 pack per day smoker x50 years, hypertension RADIATION DOSAGE (If Supplied By Facility): CTDIvol = ( 2.01 ) mGy, DLP = ( 71.48 ) mGycm TECHNIQUE: No contrast was administered. Low dose technique was utilized (average mAS-38 and kVp 120). 1.25 mm axial source images with a slice interval of 1.25-mm were reconstructed in lung windows. 2.5 mm axial source images with a slice interval of 2.5-mm were reconstructed in lung windows. 5.0 mm axial source images with a slice interval of 5.0-mm were reconstructed in soft tissue windows. COMPARISON: Previous plain films FINDINGS: The lung windows show the lungs to be hyperexpanded with emphysematous blebs noted throughout both lung cooper. There is bronchiectatic change in the right upper lobe with scarring and groundglass opacifications. I suspect this likely represents sequela from a previous inflammatory process. There is no organized infiltrate, effusion, or suspicious noncalcified mass or nodule. Limited soft tissue windows show normal-appearing thyroid gland. No suspicious axillary, mediastinal, or perihilar adenopathy. Peripheral calcifications in the thoracic aorta without aneurysm. There are calcified coronary vessels. Limited cuts through the upper abdomen do not show any suspicious abnormality. Bony structures show degenerative change CT/Low Dose CT Lung Screening IMPRESSION: Lung-RADS category 2 - Continue annual screening with LDCT in 12 months. IMPORTANT NOTES FOR USE: ACR Lung-RADS Version 1.1 Assessment Categories Release Date: 2018 Category: Coded 0-4 bases on nodule(s) with highest degree of suspicion. Negative screen is defined as categories 1 and 2; a positive screen is defined as categories 3 and 4. Category 3 and 4A nodules that are unchanged on interval CT should be coded as category 2, and individuals returned to screening in 12 months. Category 4X: Category 3 or 4 nodules with additional imaging findings that increase the suspicion of lung cancer, such as spiculation, GGN that doubles in size in 1 year, enlarged lymph notes, etc. Category Modifiers: S (significant finding unrelated to lung cancer) Electronically Signed: Genaro Aguilar MD at 9:23 EDT ,
== END | disposition home or self-care (01) ==
LOC: CT 13:28
PROVIDERS: PCP Nurse Practitioner Family; Referring Provider Nurse Practitioner Acute Care; Visit Provider Nurse Practitioner Acute Care
DX: F17.210 Nicotine dependence, cigarettes, uncomplicated (principal)
CPT/HCPCS: 71271

== ENCOUNTER 2023-04-30 15:11 | Inpatient (IN) | payer MEDICARE, SELFPAY ==
[2023-04-30] VITALS (8 sets, daily range): BP systolic 141–170; BP diastolic 59–105; PULSE 77–90; RESP 13–20; TEMP 36.2–37.4; O2SAT 94–99; BMI 22.6; BMI 23.4
--- NOTE | 2023-04-30 15:32 | CT_ITS ---
STUDY: CT BRAIN WITHOUT CONTRAST REASON FOR EXAM: Female, 73 years old. weakness RADIATION DOSAGE (If Supplied By Facility): CTDIvol = ( 44.99 ) mGy, DLP = ( 745.49 ) mGycm TECHNIQUE: Transaxial CT imaging of the brain was performed without administration of intravenous contrast material. Individualized dose optimization techniques were used for this CT. COMPARISON: No relevant priors. FINDINGS: Normal soft tissue structures. Normal calvarium. There is mild cerebral atrophy with widening of the extra-axial spaces and ventricular dilatation. Normal white matter tracts of the cerebral hemispheres. Normal basal ganglia and thalami. Normal brainstem. Normal cerebellum. There is no intracranial hemorrhage. There are no findings of an acute ischemic infarction. Mild mucosal thickening in the maxillary sinuses. CT/Brain/Head without Contrast IMPRESSION: Chronic involutional changes of the brain. Trace chronic sinusitis. Electronically Signed: Stefani Maria MD at 16:36 EDT Reading Location ID and State: [id number] / Tel , Service support ,
--- NOTE | 2023-04-30 15:35 | EX.ED.DYSGE1 ---
HPI History of Present Illness Chief Complaint: Weakness Narrative Narrative: 73-year-old female presenting with generalized weakness. Patient lives with her and and her son. Her son shares a room with her. He states she was last seen well at 2 AM when she ambulated to the bathroom. His aunt called him and told him about noon that she had never got out of bed and able to check on her. There is a couple of beer cans by the bed but son states that she drinks a beer and a glass of vodka every night before bed. She states she did not drink any more than this. She denies any fall or head injury. She states she cannot get up and walk and she is too weak. She did not have fever. She states she has not any pain anywhere. She does not feel numb anywhere. She does not have a headache. She denies any visual changes. [facility] Medical History Acute respiratory failure with hypoxemia Bilateral carpal tunnel syndrome COPD (chronic obstructive pulmonary disease) COPD with exacerbation Depression DM2 (diabetes mellitus, type 2) Essential (primary) hypertension ETOH abuse History of bronchitis History of pneumonia Hyperlipemia Retinal detachment Tobacco dependence Home Medications citalopram 40 mg tablet 40 mg PO DAILY Check with primary doctor 01/15/17 [History Last Taken 03/01/19] hydrochlorothiazide 12.5 mg tablet 12.5 mg PO DAILY Check with primary doctor 01/15/17 [History Last Taken 03/01/19] lisinopril 40 mg tablet 40 mg PO DAILY Check with primary doctor 01/15/17 [History Last Taken 03/01/19] loperamide 2 mg capsule 2 mg PO BID Check with primary doctor 01/15/17 [History Last Taken 03/01/19] lovastatin 20 mg tablet 20 mg PO QHS Check with primary doctor 01/15/17 [History Last Taken 03/01/19] albuterol sulfate 2.5 mg/3 mL (0.083 %) solution for nebulization 2.5 mg (3 mL) inhalation Q2H PRN PRN Shortness of breath ##120 03/02/19 [Rx Last Taken Unknown] ipratropium bromide 0.02 % solution for inhalation 0.5 mg inhalation BID 05/13/19 [History Last Taken Unknown] vitamins with calcium no.72-iron 29 mg-folic acid 1 mg tablet 1 ea PO QHS SUPP 12/06/19 [History Last Taken Unknown] Disability Placard #1 ea 01/08/21 [Rx Last Taken Unknown] albuterol sulfate 90 mcg/actuation aerosol inhaler 2 puff inhalation Q6H PRN shortness of breath or wheezing 05/09/22 [History Last Taken Unknown] cholecalciferol (vitamin D3) 1,250 mcg (50,000 unit) capsule 1,250 mcg PO QWEEK SUPPLEMENT 05/09/22 [History Last Taken Unknown] metoprolol succinate 50 mg tablet,extended release 24 hr 50 mg PO DAILY htn 05/09/22 [History Last Taken Unknown] fluticasone fur. 100 mcg-umeclid 62.5 mcg-vilant 25 mcg inhalat.powder (Trelegy Ellipta) 1 inh inhalation PRN SOB 04/30/23 [History Last Taken Unknown] Allergy/AdvReac Type Severity Reaction Status Date / Time No Known Drug Allergies Allergy Unknown no known Verified 04/30/23 15:14 allergies Family History Father Cirrhosis Mother Uterine cancer Grandmother Uterine cancer Surgical History H/O cataract removal with insertion of prosthetic lens H/O tubal ligation History of bilateral carpal tunnel release Social History Smoking Status: Current every day smoker tobacco type: cigarettes Tobacco: How many years used: 54 second hand exposure: Yes ROS ROS ED ROS Narrative Generalized weakness Constitutional Constitutional ED: Denies chills, fever(s) or sweats Eyes Eyes: Denies blurry vision or change in vision ENT ENT ED: Denies ear pain or sore throat Cardiovascular Cardiovascular: Denies chest pain, palpitations or racing heartbeat Respiratory/Chest Respiratory/Chest: Denies cough, dyspnea or sputum Gastrointestinal Gastrointestinal: Denies abdominal pain, constipation, diarrhea, nausea or vomiting Genitourinary Genitourinary ED: Denies dysuria, hematuria or urinary frequency Musculoskeletal Musculoskeletal: Denies arthralgias, myalgias or neck pain Integumentary Denies abscess, Abrasions or rash Neurologic Neurologic: Denies headache(s), paresthesias or weakness Psychiatric Psychiatric: Denies anxiety, depression, suicidal ideation or suicidal thoughts Endocrine Endocrinology: Denies polydipsia or polyuria EXAM Physical Exam Const Vital Signs: 04/30/23 15:13 04/30/23 15:22 Temperature 98.3 F Temperature Source Oral Pulse Rate 78 Respiratory Rate 16 Respiratory Effort Normal Non-Labored Blood Pressure 148/59 H Blood Pressure Mean 88 Pulse Ox 96 Oxygen Delivery Method Nasal Cannula Oxygen Flow Rate (L/min) 4 Positive well nourished and unkempt General Appearance ED: unkempt; Negative for pallor HEENT Reports dry mucous membranes Mouth ED: Yes dry mucous membranes Mouth: dry mucous membranes Eyes PERRL and EOMs intact bilaterally Chest Wall inspection of chest normal Resp normal respiratory effort Cardio regular rate and regular rhythm GI normal to inspection, nondistended, normoactive bowel sounds Palpation: soft Neuro oriented x3 Motor Exam: general weakness Psych Psych Narrative: Patient moves all 4 extremities. Appearance: unkempt Skin General Skin Exam: Negative for jaundice or pallor MDM MDM MDM Narrative Medical decision making narrative: Patient presenting with generalized weakness. Other than weakness she does not have any specific complaints. Apparently she drinks a beer and has vodka before bed and is she has on her nightstand and there was a few beer cans left on the floor from previous days. Son states that she was walking to the bathroom fine at 2 AM. He states he knows this because they share a room. Patient was able to ambulate back into her bed and after he went to work this morning apparently his aunt who also lives in the same house told him he had been in bed till noon. Patient states that she is too weak to stand or do anything. Apparently she is had a steady decline over 6 months. She only gets up to go to the bathroom for the most part. Patient is oxygen dependent but still smoking. Differential includes acute coronary syndrome, COPD exacerbation, UTI, pneumonia, dehydration, electrolyte abnormalities, CVA, EtOH intoxication, drug ingestion, patient able to move all 4 extremities on exam. She denies any weakness, numbness, tingling other than generalized weakness. There is nothing focal on exam. CBC was obtained to assess white blood cell count, hemoglobin, platelets. CMP to assess liver function, renal function, electrolytes. EKG and high-sensitivity troponin to assess for ischemia or dysrhythmia. BNP to assess for CHF. Urinalysis to assess for UTI. Chest x-ray was obtained to rule out pneumonia. Patient given a liter of normal saline. She declines analgesia or antiemetics. CBC shows a leukocytosis of 13.1. Hemoglobin stable 14.1. Platelets normal at 206. Renal function appears normal. Slight prerenal azotemia. Electrolytes within normal limits. Glucose 98. High-sensitivity troponin is 5. EtOH and drug screen are negative chest x-ray my interpretation suspicious for right upper lobe pneumonia and her urinalysis is suspicious for UTI. Given her inability to get up and move I did talk to the hospitalist for admission. She is given Rocephin azithromycin which will cover both pneumonia and UTI. Urine culture was sent. Vital signs remained stable. Impression: 1. Generalized weakness 2. UTI 3. Pneumonia Lab Data Labs: Laboratory Results - last 24 hr 04/30/23 15:45 WBC 13.1 H RBC 4.12 L Hgb 14.1 Hct 42.7 MCV 103.6 H MCH 34.2 H MCHC 33.0 RDW Std Deviation 50.1 H RDW Coeff of [place] 13.2 Plt Count 206 MPV 12.3 H Immature Gran % (Auto) 2.100 H Neut % (Auto) 74.0 H Lymph % (Auto) 16.3 L [place] % (Auto) 6.1 Eos % (Auto) 0.9 Baso % (Auto) 0.6 Absolute Neuts (auto) 9.7 H Absolute Lymphs (auto) 2.14 Nucleated RBC % 0 Sodium 140 Potassium 4.0 Chloride 106 Carbon Dioxide 21.0 Anion Gap 13 BUN 21 H Creatinine 0.83 Estim Creat Clear Calc 57.36 Est GFR (MDRD) Af Amer 87 Est GFR (MDRD) Non-Af 72 BUN/Creatinine Ratio 25.3 H Glucose 98 Calcium 9.2 Total Bilirubin 0.40 AST 23 ALT 30 Alkaline Phosphatase 82 Troponin I High Sens 5 B-Natriuretic Peptide 98.4 Total Protein 7.7 Albumin 3.5 Globulin 4.2 Albumin/Globulin Ratio 0.8 L Urine Color Yellow Urine Clarity Sl. Cloudy Urine pH 5.0 Ur Specific [place] 1.015 Urine Protein Negative Urine Glucose (UA) Normal Urine Ketones Negative Urine Occult Blood Negative Urine Nitrite Positive H Urine Bilirubin Negative Urine Urobilinogen Normal Ur Leukocyte Esterase 25 H Urine RBC 0 SEEN Urine WBC 0-5 SEEN Ur Squamous Epith Cells 0-5 SEEN Urine Bacteria 3+ Urine Mucus 0 SEEN Urine Opiates Screen NEGATIVE Urine Methadone Screen NEGATIVE Ur Barbiturates Screen NEGATIVE Ur Phencyclidine Scrn NEGATIVE Ur Amphetamines Screen NEGATIVE MDMA (Ecstasy) Screen NEGATIVE U Benzodiazepines Scrn NEGATIVE Urine Cocaine Screen NEGATIVE U Cannabinoids Screen NEGATIVE Ur Drug Screen Comment Ethyl Alcohol 7.0 Radiography Diagnostic Testing: Clinical Impression(s) from Imaging Studies Brain CT 04/30/23 15:32 IMPRESSION: Chronic involutional changes of the brain. Trace chronic sinusitis. Electronically Signed: Stefani Maria MD at 16:36 EDT Reading Location ID and State: Kai Kessler MD Tel , Service support , Chest X-Ray 04/30/23 16:13 IMPRESSION: Hazy opacity in the right upper lobe suspicious for pneumonia. Follow-up to resolution is recommended to exclude underlying malignancy. Electronically Signed: Stefani Maria MD at 16:38 EDT Reading Location ID and State: Kai Kessler MD Tel , Service support , Discharge Plan Disposition Disposition: Acute Care Hospital [facility] Discharge Date/Time: 04/30/23 18:09
[2023-04-30] MEDS: 0.9% Normal Saline 1,000 ML 1000 ML IV (15:43)
[2023-04-30 15:56] LABS: Mucous, Urine 0 SEEN /hpf (<or=2+); Red Blood Cells-Urine 0 SEEN /hpf (0-5)
[2023-04-30 16:04] LABS: Absolute Lymphocyte Count 2.14 X10^3/uL (0.83-4.51); Absolute Neutrophil Count 9.7 X10^3/uL (2.0-7.7); Basophil# 0.08 X10^3/uL; Basophil% 0.6 % (0-1); Eosinophil# 0.12 X10^3/uL; Eosinophils% 0.9 % (0-5); Hematocrit 42.7 % (37-47); Hemoglobin 14.1 g/dL (12.0-15.0); Lymphocyte # 2.14 X10^3/ul (0.83-4.51); Lymphocyte % 16.3 % (19-41); Mean Corpuscular Hgb 34.2 pg (27.0-32.0); Mean Corpuscular Volume 103.6 fL (81-99); Mean Platelet Vol. 12.3 fl (6.2-12.0); Monocyte% 6.1 % (0-10); NRBC Flagged by Analyzer 0 % (0-5); Neutrophil # 9.71 X10^3/uL (2.7-7.7); Platelet Count 206 K/mm3 (150-450); RBC Distribution Width CV 13.2 % (11.6-14.6); RBC Distribution Width SD 50.1 fl (35.1-43.9); Red Blood Count 4.12 M/mm3 (4.2-5.4); White Blood Count 13.1 K/mm3 (4.4-11.0)
[2023-04-30 16:06] LABS: Color, Urine Yellow (Yellow); Glucose, Dipstick Normal (Normal); Ketone-Dipstick Negative (Negative); Leukocyte Esterase-Dipstick 25 /ul (Negative); Nitrite-Dipstick Positive (Negative); Occult Blood-Urine Negative /ul (Negative); Protein-Dipstick Negative (Negative); Specific Gravity, Urine 1.015 (1.002-1.030); Urine Bilirubin Dipstick Negative (Negative); Urine Clarity Sl. Cloudy (Clear); Urine Urobilinogen Normal (Normal)
--- NOTE | 2023-04-30 16:06 | ED.RN ---
RN AT BEDSIDE TO OBTAIN URINE SAMPLE. SKIN BREAKDOWN ON THE RIGHT HIP NOTED.
[2023-04-30 16:12] LABS: Bacteria 3+ /hpf (None Seen)
[2023-04-30 16:13] LABS: Squamous Epithelial Cells - UA 0-5 SEEN /hpf (5-10); White Blood Cells 0-5 SEEN /hpf (0-5)
--- NOTE | 2023-04-30 16:13 | RAD_ITS ---
INDICATION: weakness EXAMINATION/TECHNIQUE: X-RAY - XR Chest 1 View COMPARISON: 12/06/2019. FINDINGS: LINES/DEVICES: None. LUNGS: Mild hazy opacity in the right upper lobe suspicious for pneumonia. MEDIASTINUM AND CARDIOVASCULAR STRUCTURES: Cardiac silhouette not enlarged. Central airways and mediastinal contour are unremarkable. BONES AND SOFT TISSUES: Unremarkable. RAD/Chest 1 View (Portable) IMPRESSION: Hazy opacity in the right upper lobe suspicious for pneumonia. Follow-up to resolution is recommended to exclude underlying malignancy. Electronically Signed: Stefani Maria MD at 16:38 EDT Reading Location ID and State: [id number] / Tel , Service support ,
[2023-04-30 16:22] LABS: ALB/GLOB Ratio 0.8 RATIO (0.9-2.4); AST(SGOT) 23 U/L (15-37); Alanine Aminotransfer ALT/SGPT 30 U/L (13-56); Albumin, Serum 3.5 g/dL (3.2-5.0); Alkaline Phosphatase 82 U/L (45-117); Anion Gap 13 (5-15); BUN 21 mg/dL (7-18); BUN/Creat Ratio 25.3 RATIO (10-20); Calcium,Total 9.2 mg/dL (8.5-10.1); Chloride 106 mmol/L (98-107); Creatinine, Serum 0.83 mg/dL (0.55-1.02); EST Glomerular Filtration Rate 72 mL/min (>60); Est Glom Filt Rate - Afr Amer 87 mL/min (>60); Estimated Creatinine Clearance 57.36 ml/min; Globulin 4.2 g/dL (2.2-4.2); Glucose 98 mg/dL (74-106); Protein, Total 7.7 g/dL (6.4-8.2); Sodium Level 140 mmol/L (136-145); Troponin-I HS 5 pg/mL (3.0-54.0)
[2023-04-30 16:31] LABS: Amphetamine Urine VISTA NEGATIVE (<1000 ng/mL); BNP,B-Type NATRIURETIC PEPTIDE 98.4 pg/mL (0-100); Barbiturate Urine VISTA NEGATIVE (< 200 ng/mL); Benzodiazepine Urine VISTA NEGATIVE (< 200 ng/mL); Cocaine Urine VISTA NEGATIVE (< 300 ng/mL); Ecstacy Urine VISTA NEGATIVE (< 500 ng/mL); Methadone Urine VISTA NEGATIVE (< 300 ng/mL); PCP Urine VISTA NEGATIVE (< 25 ng/mL); THC Urine VISTA NEGATIVE (< 50 ng/mL); Vista UDS pH Range 5
--- NOTE | 2023-04-30 17:14 | NURSING ---
MED SURG TERDAMI PNA, UTI
[2023-04-30] MEDS: Ceftriaxone 1 GM/50 ML BAG IV (17:42)
--- NOTE | 2023-04-30 18:17 | HP.PCM.HOS_ITS ---
[facility] - General General Date of Admission: 04/30/23 Date of Service: 04/30/23 Chief Complaint: Generalized weakness HPI Narrative ARIE TOTH, is a 73 F who presents to the emergency room at [facility] after being brought in by a family member due to generalized weakness. Patient lives with her son and sister, she usually ambulates in her home and does not get out of the home very often, according to the son, for the last 6 months the patient's ADLs have declined. Patient is on home O2 at home at 4 L, she smokes about a pack of cigarettes a day. Patient denies any chest pain, increased shortness of breath, fever, or chills. Workup in the emergency room included a CBC which showed an elevated white count at 13.1, chemistry profile was remarkable for a BUN of 21, urinalysis showed +3 bacteria, positive nitrites, and positive leukocyte esterase. Patient's chest x-ray showed a hazy opacity in the right upper lobe suspicious for pneumonia, on the patient's CAT scan of the chest which had been done in February there was some abnormality in the right upper lobe at that time also. Patient's brain CT showed chronic involutional changes of the brain, there were no findings of an acute stroke or hemorrhage. Patient will be admitted to [facility] for pneumonia and acute cystitis, she was placed on Rocephin and Zithromax. Additional note: At approximately 6:40 PM, I received a call from PCU stating that the patient had some right facial drooping,'s increased slurred speech, and some left arm numbness, the NIH score was elevated and so I called a stroke alert, I went to the CAT scan area, patient had a CAT scan as well as a CTA of the head and neck, she was seen by teleneurology and they did not feel she was a candidate for tPA. They recommended an MRI scan on the patient, I will order this for tomorrow. At the time of this dictation, patient's CTA is pending, her CT of the brain showed chronic involutional changes and no change compared to a study earlier in the day when she was evaluated in the ER. [facility] Medical History (Updated 04/30/23 @ 19:[address] Estuardo Barfield, ) Acute respiratory failure with hypoxemia Bilateral carpal tunnel syndrome COPD (chronic obstructive pulmonary disease) COPD with exacerbation Depression DM2 (diabetes mellitus, type 2) Essential (primary) hypertension ETOH abuse History of bronchitis History of pneumonia Hyperlipemia Retinal detachment Tobacco dependence Home Medications citalopram 40 mg tablet 40 mg PO DAILY Check with primary doctor 01/15/17 [History Last Taken 03/01/19] hydrochlorothiazide 12.5 mg tablet 12.5 mg PO DAILY Check with primary doctor 01/15/17 [History Last Taken 03/01/19] lisinopril 40 mg tablet 40 mg PO DAILY Check with primary doctor 01/15/17 [History Last Taken 03/01/19] loperamide 2 mg capsule 2 mg PO BID Check with primary doctor 01/15/17 [History Last Taken 03/01/19] lovastatin 20 mg tablet 20 mg PO QHS Check with primary doctor 01/15/17 [History Last Taken 03/01/19] albuterol sulfate 2.5 mg/3 mL (0.083 %) solution for nebulization 2.5 mg (3 mL) inhalation Q2H PRN PRN Shortness of breath ##120 03/02/19 [Rx Last Taken Unknown] ipratropium bromide 0.02 % solution for inhalation 0.5 mg inhalation BID 05/13/19 [History Last Taken Unknown] vitamins with calcium no.72-iron 29 mg-folic acid 1 mg tablet 1 ea PO QHS SUPP 12/06/19 [History Last Taken Unknown] Disability Placard #1 ea 01/08/21 [Rx Last Taken Unknown] albuterol sulfate 90 mcg/actuation aerosol inhaler 2 puff inhalation Q6H PRN shortness of breath or wheezing 05/09/22 [History Last Taken Unknown] cholecalciferol (vitamin D3) 1,250 mcg (50,000 unit) capsule 1,250 mcg PO QWEEK SUPPLEMENT 05/09/22 [History Last Taken Unknown] metoprolol succinate 50 mg tablet,extended release 24 hr 50 mg PO DAILY htn 05/09/22 [History Last Taken Unknown] fluticasone fur. 100 mcg-umeclid 62.5 mcg-vilant 25 mcg inhalat.powder (Trelegy Ellipta) 1 inh inhalation PRN SOB 04/30/23 [History Last Taken Unknown] Allergy/AdvReac Type Severity Reaction Status Date / Time No Known Drug Allergies Allergy Unknown no known Verified 04/30/23 15:14 allergies Family History Father Cirrhosis Mother Uterine cancer Grandmother Uterine cancer Surgical History H/O cataract removal with insertion of prosthetic lens H/O tubal ligation History of bilateral carpal tunnel release Social History Smoking Status: Current every day smoker tobacco type: cigarettes Tobacco: How many years used: 54 second hand exposure: Yes ROS Constitutional Constitutional: Reports weakness; Denies anorexia, change in weight, chills, fatigue, fever(s) or night sweats Eyes Eyes: Denies blurry vision, change in vision, discharge from eye(s) or eye pain Cardiovascular Cardiovascular: Denies chest pain, claudication, dyspnea on exertion, edema, lightheadedness or palpitations Respiratory/Chest Respiratory/Chest: Denies cough, excessive phlegm production, hemoptysis, p roductive cough, shortness of breath at rest or shortness of breath with exertion Gastrointestinal Gastrointestinal: Denies abdominal pain, coffee ground emesis, constipation, diarrhea, dyspepsia, hematemesis, hematochezia, melena, nausea or vomiting Genitourinary Genitourinary: Denies difficulty urinating, dysuria, hematuria, nocturia, urinary frequency, urinary hesitancy, urinary incontinence or urinary urgency Musculoskeletal Musculoskeletal: Denies back pain, joint pain, joint stiffness, joint swelling, myalgias or neck pain Neurologic Neurologic: Reports numbness; Denies abnormal gait, abnormal speech, dizziness, focal weakness, headache(s), loss of vision, other visual disturbances, parest hesias, syncope or tingling Psychiatric Psychiatric: Denies anxiety, cognitive impairment, depression, irritability, mood swings or suicidal ideation Endocrine Endocrinology: Denies change in body appearance, cold intolerance, excessive sweating, heat intolerance, polydipsia or polyuria Hematologic/Lymphatic Hematologic/Lymphatic: Denies none, anemia, easy bleeding, easy bruising or lymphadenopathy Allergic/Immunologic Allergic/Immunologic: Denies rhinitis, urticaria, eczemia or asthma Vital Signs Vital Signs Vital Signs: 04/30/23 15:13 04/30/23 15:22 04/30/23 17:32 Temperature 98.3 F 97.2 F L Temperature Source Oral Temporal Pulse Rate 78 77 Respiratory Rate 16 13 Respiratory Effort Normal Non-Labored Blood Pressure 148/59 H 141/64 H Blood Pressure Mean 88 89 Pulse Ox 96 98 Oxygen Delivery Method Nasal Cannula Nasal Cannula Oxygen Flow Rate (L/min) 4 4 04/30/23 17:33 Temperature Temperature Source Pulse Rate 79 Respiratory Rate 19 H Respiratory Effort Blood Pressure 141/64 H Blood Pressure Mean 89 Pulse Ox 97 Oxygen Delivery Method Nasal Cannula Oxygen Flow Rate (L/min) 4 Weight Weight: 62 kg Body Mass Index (BMI) 23.4 Physical Exam Const alert, oriented x3 and no apparent distress Constitutional Narrative: Patient appears older than her stated age General Appearance: cooperative and well developed Orientation / Consciousness: awake, oriented to person, oriented to place and oriented to time HEENT normocephalic, head/scalp atraumatic, hearing grossly normal bilaterally and moist oral mucous membranes Eyes PERRL, EOMs intact bilaterally and conjunctivae normal Neck supple, no JVD, thyroid normal and no carotid bruits General: trachea midline Resp normal respiratory effort, no retractions and no use of accessory muscles Resp Narrative: Patient has inspiratory rales over the right upper lung field on auscultation, breath sounds are diminished bilaterally, no rhonchi or wheezes are noted Auscultation: Negative for rales, rhonchi or wheezes Cardio regular rate, regular rhythm, S1 normal heart sound, S2 normal heart sound, no murmurs, no rub and no gallops GI normal to inspection, nondistended, normoactive bowel sounds, soft to palpation, non-tender and non-distended Extremity no clubbing, cyanosis or edema Skin no rashes or lesions noted General Skin Exam: no breakdown Neuro oriented x3, CN's II-XII intact bilaterally and no focal motor deficits Neuro Narrative: Patient has a slight slurring of her speech, her voice is very low and faint, she has some right-sided facial drooping noted Sensorium / Orientation: awake, alert, oriented to person, oriented to place and oriented to time Coordination / Balance: [id number] test normal Psych affect normal Results Lab / Micro Data 04/30/23 15:45 04/30/23 15:45 Labs: Laboratory Results - last 24 hr 04/30/23 15:45: WBC 13.1 H, RBC 4.12 L, Hgb 14.1, Hct 42.7, MCV 103.6 H, MCH 34.2 H, MCHC 33.0, RDW Std Deviation 50.1 H, RDW Coeff of [place] 13.2, Plt Count 206, MPV 12.3 H, Immature Gran % (Auto) 2.100 H, Neut % (Auto) 74.0 H, Lymph % (Auto) 16.3 L, [place] % (Auto) 6.1, Eos % (Auto) 0.9, Baso % (Auto) 0.6, Absolute Neuts (auto) 9.7 H, Absolute Lymphs (auto) 2.14, Nucleated RBC % 0, Sodium 140, Potassium 4.0, Chloride 106, Carbon Dioxide 21.0, Anion Gap 13, BUN 21 H, Creatinine 0.83, Estim Creat Clear Calc 57.36, Est GFR (MDRD) Af Amer 87, Est GFR (MDRD) Non-Af 72, BUN/Creatinine Ratio 25.3 H, Glucose 98, Calcium 9.2, Total Bilirubin 0.40, AST 23, ALT 30, Alkaline Phosphatase 82, Troponin I High Sens 5, B-Natriuretic Peptide 98.4, Total Protein 7.7, Albumin 3.5, Globulin 4.2, Albumin/Globulin Ratio 0.8 L, Urine Color Yellow, Urine Clarity Sl. Cloudy, Urine pH 5.0, Ur Specific [place] 1.015, Urine Protein Negative, Urine Glucose (UA) Normal, Urine Ketones Negative, Urine Occult Blood Negative, Urine Nitrite Positive H, Urine Bilirubin Negative, Urine Urobilinogen Normal, Ur Leukocyte Esterase 25 H, Urine RBC 0 SEEN, Urine WBC 0-5 SEEN, Ur Squamous Epith Cells 0-5 SEEN, Urine Bacteria 3+, Urine Mucus 0 SEEN, Urine Opiates Screen NEGATIVE, Urine Methadone Screen NEGATIVE, Ur Barbiturates Screen NEGATIVE, Ur Phencyclidine Scrn NEGATIVE, Ur Amphetamines Screen NEGATIVE, MDMA (Ecstasy) Screen NEGATIVE, U Benzodiazepines Scrn NEGATIVE, Urine Cocaine Screen NEGATIVE, U Cannabinoids Screen NEGATIVE, Ur Drug Screen Comment , Ethyl Alcohol 7.0 Micro: Microbiology 04/30/23 15:45 Nasal Secretion SARS-CoV-2 & FLU Antigen (Rapid) - Final Radiology Impression Brain CT 04/30/23 15:32 IMPRESSION: Chronic involutional changes of the brain. Trace chronic sinusitis. Electronically Signed: Stefani Maria MD at 16:36 EDT Reading Location ID and State: Kai Kessler Tel , Service support , Chest X-Ray 04/30/23 16:13 IMPRESSION: Hazy opacity in the right upper lobe suspicious for pneumonia. Follow-up to resolution is recommended to exclude underlying malignancy. Electronically Signed: Stefani Maria MD at 16:38 EDT Reading Location ID and State: Kai Kessler Tel , Service support , Assessment & Plan Assessment/Plan (1) Generalized weakness: PLAN: Plan 1. Generalized debility-etiology unclear at this point, patient has an infiltrate on her chest x-ray, this may be an area of pneumonia, patient will be admitted to PCU, she will receive Rocephin and Zithromax, breathing treatments were ordered, she will be seen by PT and OT #2 speech difficulty with right-sided facial drooping and left arm paresthesia- etiology unclear at this point, stroke alert was called on the patient, at the time of this dictation, CTA of the head and neck is pending, her CT scan of the brain was unchanged from the one that was done earlier today. Patient will have an MRI ordered, NIH scores will be monitored. I will place the patient on aspirin 81 mg daily, patient is already on a statin. #3 right upper lobe pneumonia-patient will be placed on Zithromax and Rocephin, aerosol treatments were ordered #4 urinary tract infection-again patient will receive Rocephin #5 chronic hypoxic respiratory failure-patient is on home O2 at 4 L, she continues to smoke #6 chronic obstructive pulmonary disease-I do not believe the patient has an exacerbation of COPD at this time, she will receive aerosol treatments #7 essential hypertension-patient is on metoprolol and lisinopril #8 hyperlipidemia-patient is on lovastatin Total clinical time spent by myself addressing the patient's medical issues, reviewing all of her data, and collaborating with patient's care team: 75 minutes Charges/Coding Visit Charges Inpatient E&M: 36740 Init Hosp L3
--- NOTE | 2023-04-30 18:29 | CT_ITS ---
We are attempting to reach an attending provider to discuss findings. An addendum with communication details will be sent when the communication is complete. STUDY: CT BRAIN WITHOUT CONTRAST REASON FOR EXAM: Female, 73 years old. stroke alert RADIATION DOSAGE (If Supplied By Facility): CTDIvol = ( ) mGy, DLP = ( ) mGycm TECHNIQUE: Transaxial CT imaging of the brain was performed without administration of intravenous contrast material. Individualized dose optimization techniques were used for this CT. COMPARISON: 4:10 PM. FINDINGS: Normal soft tissue structures. Normal calvarium. Normal size ventricles and extra-axial spaces for the patient''s age. Normal white matter tracts of the cerebral hemispheres. Normal basal ganglia and thalami. Normal brainstem. Normal cerebellum. There is no intracranial hemorrhage. There are no findings of an acute ischemic infarction. Mild mucosal thickening in the maxillary sinuses. CT/STROKE Brain/Head without Cont IMPRESSION: No change compared to earlier study. Chronic involutional changes of the brain. Trace chronic sinusitis. Electronically Signed: Stefani Maria MD at 18:53 EDT Reading Location ID and State: [id number] / Tel , Service support ,
--- NOTE | 2023-04-30 18:36 | CT_ITS ---
We are attempting to reach an attending provider to discuss findings. An addendum with communication details will be sent when the communication is complete. EXAM: CT ANGIOGRAPHY HEAD AND NECK WITH INTRAVENOUS CONTRAST CLINICAL INDICATION: STROKE TECHNIQUE: [place]/head and neck CT angiography protocol performed with intravenous contrast. This CT exam was performed using one or more of the following dose reduction techniques: automated exposure control, adjustment of the mA and/or kV according to patient size, and/or use of iterative reconstruction technique. MIP reconstructed images were created and reviewed. CONTRAST: IV 100mL [id number] COMPARISON: No relevant prior studies available. FINDINGS: HEAD: RIGHT ANTERIOR CEREBRAL ARTERY: Unremarkable. No significant stenosis at the visualized segments. Anterior communicating artery is present. No aneurysm. RIGHT MIDDLE CEREBRAL ARTERY: Unremarkable. No significant stenosis at the visualized segments. No aneurysm. RIGHT POSTERIOR CEREBRAL ARTERY: Unremarkable. No occlusion or significant stenosis. No aneurysm. Normal visualized right posterior communicating artery. RIGHT INTRACRANIAL INTERNAL CAROTID ARTERY: Unremarkable. No significant stenosis. No dissection or occlusion. RIGHT INTRACRANIAL VERTEBRAL ARTERY: Unremarkable. No significant stenosis. No dissection or occlusion. LEFT ANTERIOR CEREBRAL ARTERY: Unremarkable. No significant stenosis at the visualized segments. No aneurysm. LEFT MIDDLE CEREBRAL ARTERY: Unremarkable. No significant stenosis at the visualized segments. No aneurysm. LEFT POSTERIOR CEREBRAL ARTERY: Unremarkable. No occlusion or significant stenosis. No aneurysm. Normal visualized left posterior communicating artery. LEFT INTRACRANIAL INTERNAL CAROTID ARTERY: Narrowed left petrous and carotid ICA, likely due to reduced flow, with moderate atherosclerotic calcification. LEFT INTRACRANIAL VERTEBRAL ARTERY: Unremarkable. No significant stenosis. No dissection or occlusion. BASILAR ARTERY: Unremarkable. No significant stenosis. No aneurysm. NECK: RIGHT COMMON CAROTID ARTERY: Unremarkable. No significant stenosis. No dissection or occlusion. RIGHT EXTRACRANIAL INTERNAL CAROTID ARTERY: Unremarkable. No significant stenosis. No dissection or occlusion. RIGHT EXTERNAL CAROTID ARTERY: Unremarkable. No occlusion. RIGHT EXTRACRANIAL VERTEBRAL ARTERY: Unremarkable. No significant stenosis. No dissection or occlusion. LEFT COMMON CAROTID ARTERY: Complete occlusion of the left common carotid artery at the origin. Reconstitution at the carotid bulb. LEFT EXTRACRANIAL INTERNAL CAROTID ARTERY: Narrowing of the left internal carotid artery compared to the right, likely due to reduced flow, with moderate atherosclerotic calcification. LEFT EXTERNAL CAROTID ARTERY: Unremarkable. No occlusion. LEFT EXTRACRANIAL VERTEBRAL ARTERY: Unremarkable. No significant stenosis. No dissection or occlusion. THYROID: Homogeneous 0.9 cm left thyroid nodule. BRACHIOCEPHALIC AND SUBCLAVIAN ARTERIES: Unremarkable as visualized. No occlusion or significant stenosis. LUNG APICES: Unremarkable as visualized. HEAD and NECK: BONES/JOINTS: Unremarkable. No discrete lytic or blastic abnormalities. SOFT TISSUES: Unremarkable. CAROTID STENOSIS REFERENCE USING NASCET CRITERIA: % ICA stenosis = (1 - narrowest ICA diameter/diameter of distal cervical ICA) x 100. Mild - <50% stenosis. Moderate - 50-69% stenosis. Severe - 70-94% stenosis. Near occlusion - 95-99% stenosis. Occluded - 100% stenosis. CT/STROKE CTA Head AND Neck W/Con IMPRESSION: 1. Occluded left CCA at the margin with reconstitution at the carotid bulb. 2. Narrowed left intra and extracranial ICA suggests reduced flow compared to the right. Electronically Signed: Stefani Maria MD at 19:13 EDT Reading Location ID and State: [id number] / Tel , Service support ,
[2023-04-30 18:46] LABS: Bedside Glucose 100 mg/dL (74-106)
--- NOTE | 2023-04-30 19:42 | PCM.HOSP.N ---
Hospitalist Note Addendum: I talked with teleneurology by phone tonight about the results of the patient's CTA of her head and neck, there is an occlusion of the left common carotid with reconstitution at the carotid bulb, due to the fact that the patient's last well time was 2 AM this morning, teleneurology does not feel the patient needs to be transported for further care at this time or receive tPA. Patient's NIH scores will be monitored and if anything changes she may have to be transferred. I discussed this with Dr. Garcia.
--- NOTE | 2023-04-30 19:51 | ECHOCS_ITS ---
Reason For Study: TIA/CVA Procedure This was a 2D Doppler, Color Flow transthoracic echocardiogram. The study was technically difficult. Contrast injection was performed. Exam performed portable in patient room. Left Ventricle Normal LV size. The estimated ejection fraction is 70 %. Unable to assess diastolic dysfunction. No regional wall motion abnormalities noted. Right Ventricle Normal RV size. Normal systolic function. Atria Normal left atrium. Normal right atrium. No doppler evidence for ASD. Bubble contrast study negative for right to left interatrial shunt. Mitral Valve There is moderate mitral annular calcification. There is no mitral valve stenosis. No mitral valve insufficiency. Tricuspid Valve There is no tricuspid stenosis. Trivial tricuspid valve insufficiency. Pulmonary artery systolic pressure is 55 mmHg. Aortic Valve Trisinus/trileaflet aortic valve. There is no aortic stenosis. No aortic valve insufficiency. Pulmonic Valve There is no pulmonic valvular stenosis. No pulmonic valve insufficiency. Great Vessels Normal aortic root. Pericardium/Pleural No pericardial effusion. Medication Diluted definity 2.5ml given slow IV push to enhance endocardial definition. Performed a rapid injection of agitated mix of 9 cc saline and 1cc air to assess for atrial septal defect. MMode/2D Measurements & Calculations LVIDd: 3.9 cm IVSd: 0.83 cm Ao root diam: 3.1 cm LVIDs: 2.1 cm LVPWd: 0.87 cm LA dimension: 3.4 cm FS: 44.5 % RA A4 area: 14.6 cm2 Time Measurements MV dec time: 0.34 sec Doppler Measurements & Calculations MV E max harjit: 78.1 cm/sec Lat Peak E' Harjit: 6.1 cm/sec Med Peak E' Harjit: 6.8 cm/sec MV A max harjit: 99.9 cm/sec E/E' lat: 12.8 E/E' med: 11.5 MV E/A: 0.78 MV V2 max: 115.9 cm/sec MV P1/2t max harjit: 109.0 cm/sec Ao V2 max: 117.3 cm/sec MV max P.4 mmHg MV P1/2t: 108.1 msec Ao max P.5 mmHg MV V2 mean: 63.9 cm/sec MV dec slope: 295.5 cm/sec2 Ao V2 mean: 81.9 cm/sec MV mean P.0 mmHg Ao mean P.1 mmHg MV V2 VTI: 31.7 cm MVA(P1/2t): 2.0 cm2 Ao V2 VTI: 27.1 cm AV (velocity ratio): 0.95 LV V1 max: 111.1 cm/sec PA V2 max: 157.9 cm/sec TR max harjit: 368.3 cm/sec LV V1 max P.9 mmHg PA V2 mean: 93.4 cm/sec TR max P.3 mmHg LV V1 mean P.6 mmHg LV V1 mean: 75.2 cm/sec LV V1 VTI: 25.8 cm ECHO/Echo Complete W/ Contrast Interpretation Summary The estimated ejection fraction is 70 %. Unable to assess diastolic dysfunction. Ordering Physician: Estuardo Barfield Performed By: Bonilla Pitt RCS
[2023-04-30] MEDS: Heparin Injection (Vial) 5,000 UNIT/ML VIAL 5000 UNIT SC (20:46)
[2023-04-30] MEDS: Atorvastatin Calcium 10 MG Tablet 5 MG PO (20:46)
[2023-04-30] MEDS: Aspirin E.C. 81 MG Tablet PO (20:46)
--- NOTE | 2023-04-30 23:17 | CPS ---
Pt stated she took her inhalers today and declined aerosol tx shabnam
[2023-05-01 01:32] VITALS: BMI 23.4
[2023-05-01 03:00] VITALS: BP 161/65; PULSE 84; RESP 16; TEMP 36.8; O2SAT 93
[2023-05-01 06:00] VITALS: BP 168/72; PULSE 80; RESP 18; TEMP 36.6; O2SAT 96
[2023-05-01 06:35] LABS: Absolute Lymphocyte Count 2.25 X10^3/uL (0.83-4.51); Basophil# 0.05 X10^3/uL; Basophil% 0.4 % (0-1); Eosinophil# 0.14 X10^3/uL; Eosinophils% 1.2 % (0-5); Hematocrit 40.1 % (37-47); Hemoglobin 13.6 g/dL (12.0-15.0); Lymphocyte # 2.25 X10^3/ul (0.83-4.51); Lymphocyte % 19.3 % (19-41); Mean Corp Hgb Conc 33.9 g/dL (32-36); Mean Corpuscular Hgb 35.3 pg (27.0-32.0); Mean Corpuscular Volume 104.2 fL (81-99); Mean Platelet Vol. 11.7 fl (6.2-12.0); Monocyte# 1.12 X10^3/uL; Monocyte% 9.6 % (0-10); NRBC Flagged by Analyzer 0 % (0-5); Neutrophil # 7.98 X10^3/uL (2.7-7.7); Neutrophil % 68.4 % (47-70); Platelet Count 162 K/mm3 (150-450); RBC Distribution Width CV 13.2 % (11.6-14.6); RBC Distribution Width SD 49.8 fl (35.1-43.9); Red Blood Count 3.85 M/mm3 (4.2-5.4); White Blood Count 11.7 K/mm3 (4.4-11.0)
[2023-05-01 07:07] LABS: Anion Gap 6 (5-15); BUN 18 mg/dL (7-18); BUN/Creat Ratio 27.1 RATIO (10-20); Calcium,Total 8.6 mg/dL (8.5-10.1); Chloride 106 mmol/L (98-107); Creatinine, Serum 0.66 mg/dL (0.55-1.02); EST Glomerular Filtration Rate 93 mL/min (>60); Est Glom Filt Rate - Afr Amer 112 mL/min (>60); Estimated Creatinine Clearance 43.91 ml/min; Glucose 82 mg/dL (74-106); Potassium 3.8 mmol/L (3.5-5.1); Sodium Level 140 mmol/L (136-145)
[2023-05-01 07:25] VITALS: PULSE 82; RESP 18; O2SAT 94
[2023-05-01] MEDS: Ipratropium/Albuterol Sulfate 3 ML AMPUL.NEB INHALATION (07:29)
[2023-05-01] MEDS: Budesonide Respules 0.5 MG/2 ML AMPUL.NEB. INHALATION (07:29)
[2023-05-01 08:37] VITALS: BMI 23.4
--- NOTE | 2023-05-01 09:03 | CASEMGMT ---
Tertiary facilities in-network with patient's insurance: [facility], [facility], [facility] [place], [facility], [facility], [facility], [place],
[2023-05-01 09:25] VITALS: BP 151/91; PULSE 82; RESP 18; TEMP 36.8
[2023-05-01 09:28] VITALS: PULSE 76
[2023-05-01] MEDS: Lisinopril 40 MG Tablet PO (09:28)
[2023-05-01] MEDS: hydroCHLOROthiazide 12.5mg 12.5 MG PO (09:28)
[2023-05-01] MEDS: Metoprolol(XL)Succ 50 MG Tablet PO (09:28)
[2023-05-01] MEDS: Citalopram 40 MG TABLET PO (09:28)
[2023-05-01] MEDS: Aspirin E.C. 81 MG Tablet PO (09:28)
[2023-05-01] MEDS: Heparin Injection (Vial) 5,000 UNIT/ML VIAL 5000 UNIT SC (09:29)
--- NOTE | 2023-05-01 09:40 | NURSING ---
Sumanth, Nurse Practitioner from [facility] called and report given at this time
--- NOTE | 2023-05-01 13:39 | DS.PCM_ITS ---
Providers Date of Admission: 04/30/23 Date of Discharge: 05/01/23 Primary Care Physician: Krish Cárdenas, [facility] OFFICER-C Reason For Visit: GENERALIZEDWEAKNESS, RIGHT UPPER LOBE PNEUMONIA, Diagnosis Discharge Diagnosis (1) Generalized weakness: Status: Acute Code(s): R53.1 - Weakness Medications at Discharge Home Medications citalopram 40 mg tablet 40 mg PO DAILY Check with primary doctor 01/15/17 hydrochlorothiazide 12.5 mg tablet 12.5 mg PO DAILY Check with primary doctor 01/15/17 lisinopril 40 mg tablet 40 mg PO DAILY Check with primary doctor 01/15/17 loperamide 2 mg capsule 2 mg PO BID Check with primary doctor 01/15/17 lovastatin 20 mg tablet 20 mg PO QHS Check with primary doctor 01/15/17 albuterol sulfate 2.5 mg/3 mL (0.083 %) solution for nebulization 2.5 mg (3 mL) inhalation Q2H PRN PRN Shortness of breath ##120 03/02/19 ipratropium bromide 0.02 % solution for inhalation 0.5 mg inhalation BID 05/13/19 vitamins with calcium no.72-iron 29 mg-folic acid 1 mg tablet 1 ea PO QHS SUPP 12/06/19 Disability Placard #1 ea 01/08/21 albuterol sulfate 90 mcg/actuation aerosol inhaler 2 puff inhalation Q6H PRN shortness of breath or wheezing 05/09/22 cholecalciferol (vitamin D3) 1,250 mcg (50,000 unit) capsule 1,250 mcg PO QWEEK SUPPLEMENT 05/09/22 metoprolol succinate 50 mg tablet,extended release 24 hr 50 mg PO DAILY htn 05/09/22 fluticasone fur. 100 mcg-umeclid 62.5 mcg-vilant 25 mcg inhalat.powder (Trelegy Ellipta) 1 inh inhalation PRN SOB 04/30/23 Hospital Course Operations None Procedures None Summary of Care Provided Minutes Spent on Discharge: 55 Hospital Course: Patient is a 73 y/o female with a PMH as outlined who was admitted via the ED on 05/01/2023 with a complaint of generalised weakness. She lives with her son and sister, and didnt get out of the house much. SHe had been declining for the at least 6 months prior to admission according to her family and was not able to carry out activities of daily living. She usually will 4 L of oxygen at home and still smokes about a pack a day. She denied any chest pain, shortness of breath, fever or chills or any other symptoms. Her last known well was 4 AM when she was found by her family. On admission, WBC was 13.1 and urinalysis showed 3+ bacteria with positive nitrites and positive leukocyte esterase. Chest x-ray showed a hazy opacity in the right upper lobe suspicious for pneumonia and CT of the brain showed chronic involutional changes but no acute findings of stroke or hemorrhage. She was admitted and managed for pneumonia and UTI and placed on ceftriaxone and azithromycin. However later in the day at around 6:40 PM, hospitalist was informed that patient had right facial droop with slurred speech and some left arm weakness. Stroke alert was called and she had a CT of the brain which did not show any acute intracranial pathology. She did have a CT of the head and neck which showed occlusion of the left common carotid with reconstitution of the carotid bulb. Patient was seen by [facility] telestroke and was noted to be a candidate for tenecteplase. In addition, [facility] initially did not recommend transfer and stated that if her condition worsen they were to be informed. At this hospitalist took over patient's care on the morning of 05/01/2023. Patient was noted to have profound right-sided facial droop and very slurred speech and confusion. NIH stroke scale was 8. Per her nurse and patient's family, patient had deteriorated significantly overnight. [facility] telestroke was called again and informed about worsening findings inpatient. [facility] telestroke at the excepted patient for transfer. She was transferred emergently to [facility], to the ED. Neurologist recommendation as they wanted to get a CT perfusion of the brain which could be done in the ED. She was transported by [facility] on 05/01/2023. Patient was seen and examined prior to discharge. His son was by her bedside. She had no active complaints but did have significantly slurred speech and right facial droop. Review of systems otherwise negative. Labs and vitals reviewed. Physical Exam HEENT normocephalic, head/scalp atraumatic, hearing grossly normal bilaterally and moist oral mucous membranes Mouth: oral and palatal mucosa normal Neck no lymphadenopathy and supple Resp normal respiratory effort, no retractions and no use of accessory muscles Resp Narrative: on 2L of oxygen Cardio regular rate, regular rhythm, S1 normal heart sound, S2 normal heart sound and no murmurs GI normal to inspection, nondistended, normoactive bowel sounds, soft to palpation and non-tender Extremity normal to inspection, full ROM and no clubbing, cyanosis or edema Skin no rashes or lesions noted, no wounds and skin turgor normal Neuro Neuro Narrative: alert, lethargic, righ sided facial droop, slurred speech. Patient confused. Power on right side is 4-/5, only minimally weak. NIHSS is 8 Weight / BMI Weight Weight: 136 lb 10.986 oz Body Mass Index (BMI) 23.4 ABG / Lab / Microbiology Data 05/01/23 06:26 05/01/23 06:26 Laboratory: Laboratory Results - last 24 hr 04/30/23 15:45: WBC 13.1 H, RBC 4.12 L, Hgb 14.1, Hct 42.7, MCV 103.6 H, MCH 34.2 H, MCHC 33.0, RDW Std Deviation 50.1 H, RDW Coeff of [place] 13.2, Plt Count 206, MPV 12.3 H, Immature Gran % (Auto) 2.100 H, Neut % (Auto) 74.0 H, Lymph % (Auto) 16.3 L, [place] % (Auto) 6.1, Eos % (Auto) 0.9, Baso % (Auto) 0.6, Absolute Neuts (auto) 9.7 H, Absolute Lymphs (auto) 2.14, Nucleated RBC % 0, Sodium 140, Potassium 4.0, Chloride 106, Carbon Dioxide 21.0, Anion Gap 13, BUN 21 H, Creatinine 0.83, Estim Creat Clear Calc 57.36, Est GFR (MDRD) Af Amer 87, Est GFR (MDRD) Non-Af 72, BUN/Creatinine Ratio 25.3 H, Glucose 98, Calcium 9.2, Total Bilirubin 0.40, AST 23, ALT 30, Alkaline Phosphatase 82, Troponin I High Sens 5, B-Natriuretic Peptide 98.4, Total Protein 7.7, Albumin 3.5, Globulin 4.2, Albumin/Globulin Ratio 0.8 L, Urine Color Yellow, Urine Clarity Sl. Cloudy, Urine pH 5.0, Ur Specific [place] 1.015, Urine Protein Negative, Urine Glucose (UA) Normal, Urine Ketones Negative, Urine Occult Blood Negative, Urine Nitrite Positive H, Urine Bilirubin Negative, Urine Urobilinogen Normal, Ur Leukocyte Esterase 25 H, Urine RBC 0 SEEN, Urine WBC 0-5 SEEN, Ur Squamous Epith Cells 0-5 SEEN, Urine Bacteria 3+, Urine Mucus 0 SEEN, Urine Opiates Screen NEGATIVE, Urine Methadone Screen NEGATIVE, Ur Barbiturates Screen NEGATIVE, Ur Phencyclidine Scrn NEGATIVE, Ur Amphetamines Screen NEGATIVE, MDMA (Ecstasy) Screen NEGATIVE, U Benzodiazepines Scrn NEGATIVE, Urine Cocaine Screen NEGATIVE, U Cannabinoids Screen NEGATIVE, Ur Drug Screen Comment , Ethyl Alcohol 7.0 04/30/23 18:21: POC Glucose 100 05/01/23 06:26: WBC 11.7 H, RBC 3.85 L, Hgb 13.6, Hct 40.1, MCV 104.2 H, MCH 35.3 H, MCHC 33.9, RDW Std Deviation 49.8 H, RDW Coeff of [place] 13.2, Plt Count 162, MPV 11.7, Immature Gran % (Auto) 1.100 H, Neut % (Auto) 68.4, Lymph % (Auto ) 19.3, [place] % (Auto) 9.6, Eos % (Auto) 1.2, Baso % (Auto) 0.4, Absolute Neuts (auto) 8.0 H, Absolute Lymphs (auto) 2.25, Nucleated RBC % 0, Sodium 140, Potassium 3.8, Chloride 106, Carbon Dioxide 28.0, Anion Gap 6, BUN 18, Creatinine 0.66, Estim Creat Clear Calc 43.91, Est GFR (MDRD) Af Amer 112, Est GFR (MDRD) Non-Af 93, BUN/Creatinine Ratio 27.1 H, Glucose 82, Calcium 8.6 Microbiology: Microbiology 04/30/23 15:45 Urine Catheter - Catheter Urine Culture - Preliminary Presumptive E. coli 05/01/23 04:25 Urine Catheter - Catheter Legionella Antigen - Final 05/01/23 04:25 Urine Catheter - Catheter Streptococcus pneumoniae Antigen (M - Final 04/30/23 15:45 Nasal Secretion SARS-CoV-2 & FLU Antigen (Rapid) - Final Radiography Diagnostic Testing: Radiology Impression Brain CT 04/30/23 15:32 IMPRESSION: Chronic involutional changes of the brain. Trace chronic sinusitis. Electronically Signed: Stefani Maria MD at 16:36 EDT Reading Location ID and State: [place] MD Tel , Service support , Chest X-Ray 04/30/23 16:13 IMPRESSION: Hazy opacity in the right upper lobe suspicious for pneumonia. Follow-up to resolution is recommended to exclude underlying malignancy. Electronically Signed: Stefani Maria MD at 16:38 EDT Reading Location ID and State: [place] Kessler MD Tel , Service support , Brain CT 04/30/23 18:29 IMPRESSION: No change compared to earlier study. Chronic involutional changes of the brain. Trace chronic sinusitis. Electronically Signed: Stefani Maria MD at 18:53 EDT Reading Location ID and State: [place] Kessler MD Tel , Service support , ADDENDUM: 04/30/23 1928 IMPRESSION: No change compared to earlier study. Chronic involutional changes of the brain. Trace chronic sinusitis. N.B. : The above Results were Read Back by Stefani Maria MD to Elisa Higginbotham MD, and understanding confirmed on 04/30/2023 19:21:53 (ET). Electronically Signed: Stefani Maria MD at 18:53 EDT Reading Location ID and State: Kai Kessler MD Tel , Service support , Head/Neck CTA 04/30/23 18:36 IMPRESSION: 1. Occluded left CCA at the margin with reconstitution at the carotid bulb. 2. Narrowed left intra and extracranial ICA suggests reduced flow compared to the right. Electronically Signed: Stefani Maria MD at 19:13 EDT Reading Location ID and State: [place] / Tel , Service support , ADDENDUM: 04/30/238 IMPRESSION: 1. Occluded left CCA at the margin with reconstitution at the carotid bulb. 2. Narrowed left intra and extracranial ICA suggests reduced flow compared to the right. N.B. : The above Results were Read Back by Stefani Maria MD to Elisa Higginbotham MD, and understanding confirmed on 04/30/2023 19:21:47 (ET). Electronically Signed: Stefani Maria MD at 19:13 EDT Reading Location ID and State: [id number] / Tel , Service support , Echocardiogram 04/30/23 19:51 Interpretation Summary The estimated ejection fraction is 70 %. Unable to assess diastolic dysfunction. Ordering Physician: Estuardo Barfield Performed By: Bonilla Pitt RCS Meaningful Use Info Meaningful Use Diagnoses (Choose all that apply): Ischemic CVA CVA Therapy Assessed for PT,OT and/or ST?: Yes Ischemic Stroke Antithrombotic order at d/c?: No Reason antithrombotic not ordered: Treatment not Indicated (patient transferred to [facility]) Dx of Atrial fib/flutter?: No Anticoagulant at discharge?: No Reason anticoagulant not ordered: Treatment not Indicated Statins at discharge?: No Reason Statin not ordered: Treatment not Indicated (transferred to [facility]) Primary Dx Acute Ischemic CVA?: Yes IV thrombolytic ordered during stay?: No Reason IV thrombolytic not ordered: Treatment not Indicated Discharge Plan Admission Admit Date/Time: 04/30/23 19:14 Attending Provider: Saskia Santa Primary Care Provider: Krish Cárdenas [facility] OFFICER Consulting Providers: Estuardo Barfield Discharge Orders/Prescriptions Prescriptions: No Action ipratropium bromide 0.02 % solution 0.5 mg INHALATION BID (DME) Disability Tay See Rx Instructions .Route .MEDSUPPLY Qty: 1 0RF Rx Instructions: Expires 01/08/2026 metoprolol succinate 50 mg tablet extended release 24 hr 50 mg PO DAILY albuterol sulfate 90 mcg/actuation HFA aerosol inhaler 2 puff inhalation Q6H PRN (Reason: shortness of breath or wheezing) cholecalciferol (vitamin D3) 1,250 mcg (50,000 unit) capsule 1,250 mcg PO QWEEK citalopram 40 MG tablet 40 mg PO DAILY Patient Comments: ANXIETY loperamide 2 MG capsule 2 mg PO BID Patient Comments: IRRITABLE BOWEL lovastatin 20 MG tablet 20 mg PO QHS Patient Comments: CHOLESTEROL LOWERING lisinopril 40 MG tablet 40 mg PO DAILY Patient Comments: BLOOD PRESSURE hydrochlorothiazide 12.5 MG tablet 12.5 mg PO DAILY Patient Comments: WATER PILL albuterol sulfate 2.5 MG/3 ML solution for nebulization 2.5 mg INHALATION Q2H PRN PRN (Reason: Shortness of breath) Qty: 120 0RF PNV,calcium 72-iron,carb-folic 1 EACH tablet 1 ea PO QHS Trelegy Ellipta 100-62.5-25 mcg blister with device 1 inh INHALATION PRN Rx Instructions: administer at approximately the same time(s) each day Referrals / Follow Up: Krish Cárdenas [facility] OFFICER, [facility] OFFICER-C [Primary Care Provider] - Disposition Disposition (needs filled in before D/C Order can be placed): Acute Care Hospital Charges/Coding Visit Charges Inpatient E&M: 23413 Disch Hosp >30min
== END 2023-05-01 10:11 | disposition short-term general hospital (02) | DRG 193 ==
LOC: ED 17:15 → PCU 18:15
PROVIDERS: Admitting Provider Internal Medicine; Emergency Provider Student in an Organized Health Care Education/Training Program; PCP Nurse Practitioner Family; Visit Provider Student in an Organized Health Care Education/Training Program
DX: J18.9 Pneumonia, unspecified organism (principal); I63.232 Cerebral infarction due to unspecified occlusion or stenosis of left carotid arteries; J96.11 Chronic respiratory failure with hypoxia; J44.0 Chronic obstructive pulmonary disease with (acute) lower respiratory infection; N39.0 Urinary tract infection, site not specified; E11.9 Type 2 diabetes mellitus without complications; I10 Essential (primary) hypertension; E78.00 Pure hypercholesterolemia, unspecified; F17.210 Nicotine dependence, cigarettes, uncomplicated; Z99.81 Dependence on supplemental oxygen; R29.708 NIHSS score 8; R20.0 Anesthesia of skin; R47.81 Slurred speech; R29.810 Facial weakness; Z79.51 Long term (current) use of inhaled steroids; Z79.899 Other long term (current) drug therapy
CPT/HCPCS: 36415; 70450; 70496; 70498; 71045; 80048; 80053; 80307; 81001; 82077; 82962; 83880; 84484; 85025; 87086; 87088; 87186; 87428; 87449; 93005; 93306; 94640; 99252; 99285; J7030; Q9957; Q9967; A4216; C8929; G0463

== ENCOUNTER 2023-05-10 19:50 | Emergency (ER) | payer MEDICARE, SELFPAY ==
[2023-05-10 19:51] VITALS: BP 96/58; PULSE 94; RESP 18; TEMP 36.6; O2SAT 90; BMI 23.3
[2023-05-10 20:07] VITALS: BP 115/42; PULSE 96; RESP 24; O2SAT 94
--- NOTE | 2023-05-10 20:08 | EKG12_ITS ---
Test Reason : Blood Pressure : / mmHG Vent. Rate : 083 BPM Atrial Rate : 083 BPM P-R Int : 144 ms QRS Dur : 092 ms QT Int : 408 ms P-R-T Axes : 032 067 050 degrees QTc Int : 479 ms Sinus rhythm with Premature supraventricular complexes Otherwise normal ECG Confirmed by CLARISA FABIAN ([id number]), index editor FELIZ PIZANO ([id number]) on 05/13/2023 8:24:20 AM Referred By: Confirmed By:CLARISA FABIAN
--- NOTE | 2023-05-10 20:09 | EX.ED.DYSGE1 ---
HPI History of Present Illness Chief Complaint: Confusion Informant: patient and EMS Narrative Narrative: Patient was sent in by her nursing facility for confusion. We do not have details related to this. Patient states she feels fine. She had a reasonable day. She has been eating and drinking. She states she did have a stroke recently. She was sent here. She was admitted. She was transferred to [facility]. She has now been at [facility]. She has no pain anywhere. No trouble breathing. No nausea vomiting. No urinary symptoms. She does not know why she was sent in. She states she had a stroke recently but never had a stroke prior to this. She states she had weakness on her face and a thick tongue ever since the stroke. She states the speech has been the hardest issue. I do have a report that the nursing facility was concerned about alcohol withdrawal because evidently the patient used to drink. But she has been hospitalized for the last 10 days and I think this is not as likely. [facility] Medical History (Updated 05/10/23 @ 21:[address] Morgan Zuniga MD) Acute respiratory failure with hypoxemia Bilateral carpal tunnel syndrome COPD (chronic obstructive pulmonary disease) COPD with exacerbation Depression DM2 (diabetes mellitus, type 2) Essential (primary) hypertension ETOH abuse Generalized weakness History of bronchitis History of pneumonia Hyperlipemia Retinal detachment Tobacco dependence Home Medications citalopram 40 mg tablet 40 mg PO DAILY Check with primary doctor 01/15/17 [History Last Taken 03/01/19] hydrochlorothiazide 12.5 mg tablet 12.5 mg PO DAILY Check with primary doctor 01/15/17 [History Last Taken 03/01/19] lisinopril 40 mg tablet 40 mg PO DAILY Check with primary doctor 01/15/17 [History Last Taken 03/01/19] loperamide 2 mg capsule 2 mg PO BID Check with primary doctor 01/15/17 [History Last Taken 03/01/19] lovastatin 20 mg tablet 20 mg PO QHS Check with primary doctor 01/15/17 [History Last Taken 03/01/19] albuterol sulfate 2.5 mg/3 mL (0.083 %) solution for nebulization 2.5 mg (3 mL) inhalation Q2H PRN PRN Shortness of breath ##120 03/02/19 [Rx Last Taken Unknown] ipratropium bromide 0.02 % solution for inhalation 0.5 mg inhalation BID 05/13/19 [History Last Taken Unknown] vitamins with calcium no.72-iron 29 mg-folic acid 1 mg tablet 1 ea PO QHS SUPP 12/06/19 [History Last Taken Unknown] Disability Placchiara #1 ea 01/08/21 [Rx Last Taken Unknown] albuterol sulfate 90 mcg/actuation aerosol inhaler 2 puff inhalation Q6H PRN shortness of breath or wheezing 05/09/22 [History Last Taken Unknown] cholecalciferol (vitamin D3) 1,250 mcg (50,000 unit) capsule 1,250 mcg PO QWEEK SUPPLEMENT 05/09/22 [History Last Taken Unknown] metoprolol succinate 50 mg tablet,extended release 24 hr 50 mg PO DAILY htn 05/09/22 [History Last Taken Unknown] fluticasone fur. 100 mcg-umeclid 62.5 mcg-vilant 25 mcg inhalat.powder (Trelegy Ellipta) 1 inh inhalation PRN SOB 04/30/23 [History Last Taken Unknown] aspirin 81 mg tablet,delayed release (Adult Aspirin Regimen) 81 mg PO DAILY 05/10/23 [History Last Taken Unknown] atorvastatin 40 mg tablet 40 mg PO QHS 05/10/23 [History Last Taken Unknown] clopidogrel 75 mg tablet 75 mg PO DAILY 05/10/23 [History Last Taken Unknown] Allergy/AdvReac Type Severity Reaction Status Date / Time No Known Drug Allergies Allergy Unknown no known Verified 04/30/23 15:14 allergies penicillin G Allergy Unknown PT UNSURE Verified 05/10/23 19:59 OF REACTION Family History Father Cirrhosis Mother Uterine cancer Grandmother Uterine cancer Surgical History H/O cataract removal with insertion of prosthetic lens H/O tubal ligation History of bilateral carpal tunnel release Social History Smoking Status: Current every day smoker tobacco type: cigarettes Tobacco: How many years used: 54 second hand exposure: Yes ROS ROS ED Constitutional Constitutional ED: Denies chills, fever(s) or sweats Eyes Eyes: Denies change in vision ENT ENT ED: Denies sore throat Cardiovascular Cardiovascular: Denies chest pain, palpitations or racing heartbeat Respiratory/Chest Respiratory/Chest: Reports other Details: Patient does have chronic COPD but is not having any complaints related to this. ; Denies cough or dyspnea Gastrointestinal Gastrointestinal: Denies abdominal pain, nausea or vomiting Genitourinary Genitourinary ED: Denies dysuria Musculoskeletal Musculoskeletal: Denies myalgias or neck pain Integumentary Denies rash Neurologic Neurologic: Reports other Details: She has some weakness of the face but no new weakness. She also has some speech difficulties but again this is not new as she had her stroke about 10 days ago. ; Denies headache(s) or paresthesias Psychiatric Psychiatric: Denies depression Endocrine Endocrinology: Denies polydipsia or polyuria Hematologic/Lymphatic Hematologic/Lymphatic: Denies lymphadenopathy Allergic/Immunologic Allergic/Immunologic ED: Denies mouth swelling, tongue swelling or urticaria EXAM Physical Exam Narrative Exam Narrative: Patient sitting calmly in bed. She is pleasant. She is wide awake and alert. HEENT shows no sign of trauma. She does have some right facial droop. No sinus tenderness. Oropharynx is otherwise normal. No nasal drainage or bleeding. Eyes show normal range of motion. No gross visual field deficit. Neck is supple. No JVD. No meningismus. Lungs are clear. Saturations about 92% on her oxygen showing no hypoxia at that level. She does not look dyspneic. Heart is regular. She does have frequent PACs. But no symptoms with these. Abdomen is soft and nontender Extremities show no edema. She has a few small bruises on her arms. Neurologic: Patient is awake alert to person place and location. She is knows she is at [facility] emergency department. She had trouble telling me the year. When I asked her the president she states she does not worry about that and has not watch that in years. She was able to tell me her favorite actor. She has a right facial droop. But no weakness of extremities. She also has some dysarthria. NIH of 4 was the total for not getting the month correct, some right facial droop and dysarthria. However, overall she is alert and responsive and able to tell me more details about her history and current situation and the majority of the patient's ICD. Const Vital Signs: 05/10/23 19:51 05/10/23 20:07 05/10/23 21:00 Temperature 97.9 F Temperature Source Temporal Pulse Rate 94 96 84 Respiratory Rate 18 24 H 15 Blood Pressure 96/58 L 115/42 L 129/47 H Blood Pressure Mean 70 66 74 Pulse Ox 90 94 95 Oxygen Delivery Method Room Air Nasal Cannula Room Air Oxygen Flow Rate (L/min) 2 MDM MDM MDM Narrative Medical decision making narrative: Patient CBC shows mild nonspecific elevation of white count. Platelets hemoglobin are normal. Patient's electrolytes show no marked abnormalities. She does have slightly high BUN to creatinine ratio. Patient's liver function test are normal. Urine shows no sign of infection. Plan depend interpretation the CT does show a little bit of increased density in the left frontal parietal area. This is read as possible blood products versus laminar necrosis. There is evolution of her infarct but we are still in the developing stage. Clinically, the bleeding does not fit with her story. She is awake she is alert. I see no sign of significant confusion. She sounds better than she was when she was in the hospital here. She also has no headache. We are trying to get her images sent to [facility] and we have called to discuss case with neurologist after we get those images. If they feel she needs to be seen again down there we can certainly transfer her. If they feel this is normal development of her stroke we should be able to get her back to the nursing facility. We are pending evaluation of images and discussion with them. Patient is on dual platelet therapy with Plavix and aspirin. No other blood thinners are found when I review her detention medication list. We were able to have the images sent to [facility]. I discussed the case with Dr. Rosemarie Leslie who is one of the stroke neurologists. She was able to bring up the images. 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 We checked the patient again. She is still asymptomatic. Evidently the nursing facility just thought she seemed a little bit more confused. I have no report of acute change in mental status that resolved her seizure. I do not see a reason to keep her in the hospital at this time. Lab Data Attestation: I reviewed the patient's lab results. Labs: Laboratory Results - last 24 hr 05/10/23 05/10/23 20:00 20:15 WBC 13.7 H RBC 3.77 L Hgb 13.0 Hct 40.0 MCV 106.1 H MCH 34.5 H MCHC 32.5 RDW Std Deviation 49.0 H RDW Coeff of [place] 12.4 Plt Count 249 MPV 12.5 H Immature Gran % (Auto) 1.500 H Neut % (Auto) 63.8 Lymph % (Auto) 21.2 [place] % (Auto) 11.1 H Eos % (Auto) 1.5 Baso % (Auto) 0.9 Absolute Neuts (auto) 8.8 H Absolute Lymphs (auto) 2.91 Nucleated RBC % 0 Differential Comment SCANNED Diff Path Review January foll Sodium 139 Potassium 3.9 Chloride 104 Carbon Dioxide 31.0 Anion Gap 4 L BUN 33 H Creatinine 0.85 Estim Creat Clear Calc 51.66 Est GFR (MDRD) Af Amer 85 Est GFR (MDRD) Non-Af 70 BUN/Creatinine Ratio 38.9 H Glucose 105 Calcium 10.1 Total Bilirubin 0.50 AST 31 ALT 54 Alkaline Phosphatase 81 Total Protein 7.6 Albumin 3.2 Globulin 4.4 H Albumin/Globulin Ratio 0.7 L Urine Color Yellow Urine Clarity Sl. Cloudy Urine pH 5.0 Ur Specific [place] 1.020 Urine Protein 15 H Urine Glucose (UA) Normal Urine Ketones Negative Urine Occult Blood Negative Urine Nitrite Negative Urine Bilirubin Negative Urine Urobilinogen Normal Ur Leukocyte Esterase 25 H Urine RBC 0 SEEN Urine WBC 0 SEEN Ur Squamous Epith Cells 10-25 SEEN Urine Bacteria 0 SEEN Urine Mucus 0 SEEN Radiography Diagnostic Testing: Clinical Impression(s) from Imaging Studies Brain CT 05/10/23 20:40 IMPRESSION: Evolving left basal ganglia/periventricular infarction. Left frontal lobe/basal ganglia faint parenchymal blood products versus laminar necrosis. Electronically Signed: Giorgi Hester ([place]), at 20:57 EDT , EKG Initial EKG: Comments: My independent interpretation the patient's EKG shows sinus rhythm with occasional PACs. No PVCs. No acute ST elevation or depression. ID interval, QRS duration are normal. QTc is slightly longer at 479 ms. Discharge Plan Triage Chief Complaint: Confusion ED Provider: Morgan Zuniga Dx/Rx/DC Orders Clinical Impression: History of CVA (cerebrovascular accident) Instructions: ED Stroke, Completed Prescriptions: No Action ipratropium bromide 0.02 % solution 0.5 mg INHALATION BID (DME) Disability Placard See Rx Instructions .Route .MEDSUPPLY Qty: 1 0RF Rx Instructions: Expires 01/08/2026 metoprolol succinate 50 mg tablet extended release 24 hr 50 mg PO DAILY albuterol sulfate 90 mcg/actuation HFA aerosol inhaler 2 puff inhalation Q6H PRN (Reason: shortness of breath or wheezing) cholecalciferol (vitamin D3) 1,250 mcg (50,000 unit) capsule 1,250 mcg PO QWEEK citalopram 40 MG tablet 40 mg PO DAILY Patient Comments: ANXIETY loperamide 2 MG capsule 2 mg PO BID Patient Comments: IRRITABLE BOWEL lovastatin 20 MG tablet 20 mg PO QHS Patient Comments: CHOLESTEROL LOWERING lisinopril 40 MG tablet 40 mg PO DAILY Patient Comments: BLOOD PRESSURE hydrochlorothiazide 12.5 MG tablet 12.5 mg PO DAILY Patient Comments: WATER PILL albuterol sulfate 2.5 MG/3 ML solution for nebulization 2.5 mg INHALATION Q2H PRN PRN (Reason: Shortness of breath) Qty: 120 0RF PNV,calcium 72-iron,carb-folic 1 EACH tablet 1 ea PO QHS Trelegy Ellipta 100-62.5-25 mcg blister with device 1 inh INHALATION PRN Rx Instructions: administer at approximately the same time(s) each day Primary Care Provider: Krish Cárdenas NP Referrals: Krish Cárdenas NP, RN OBSERVATION-C [Primary Care Provider] - Disposition Disposition: Senior Living Facility Discharge Location: [facility]
[2023-05-10 20:16] LABS: Absolute Lymphocyte Count 2.91 X10^3/uL (0.83-4.51); Absolute Neutrophil Count 8.8 X10^3/uL (2.0-7.7); Basophil# 0.12 X10^3/uL; Basophil% 0.9 % (0-1); Eosinophils% 1.5 % (0-5); Lymphocyte # 2.91 X10^3/ul (0.83-4.51); Lymphocyte % 21.2 % (19-41); Mean Corp Hgb Conc 32.5 g/dL (32-36); Mean Corpuscular Hgb 34.5 pg (27.0-32.0); Mean Corpuscular Volume 106.1 fL (81-99); Mean Platelet Vol. 12.5 fl (6.2-12.0); Monocyte# 1.52 X10^3/uL; Monocyte% 11.1 % (0-10); NRBC Flagged by Analyzer 0 % (0-5); Neutrophil # 8.79 X10^3/uL (2.7-7.7); Neutrophil % 63.8 % (47-70); POSITIVE DIFFERENTIAL YES; Platelet Count 249 K/mm3 (150-450); RBC Distribution Width CV 12.4 % (11.6-14.6); Red Blood Count 3.77 M/mm3 (4.2-5.4); White Blood Count 13.7 K/mm3 (4.4-11.0)
[2023-05-10 20:26] LABS: Differential Indicated SCAN CRITERIA MET
[2023-05-10 20:27] LABS: Bacteria 0 SEEN /hpf (None Seen); Mucous, Urine 0 SEEN /hpf (<or=2+); Red Blood Cells-Urine 0 SEEN /hpf (0-5); White Blood Cells 0 SEEN /hpf (0-5)
[2023-05-10 20:32] LABS: Color, Urine Yellow (Yellow); Glucose, Dipstick Normal (Normal); Ketone-Dipstick Negative (Negative); Leukocyte Esterase-Dipstick 25 /ul (Negative); Nitrite-Dipstick Negative (Negative); Occult Blood-Urine Negative /ul (Negative); Protein-Dipstick 15 mg/dl (Negative); Urine Bilirubin Dipstick Negative (Negative); Urine Clarity Sl. Cloudy (Clear); Urine Urobilinogen Normal (Normal)
[2023-05-10 20:36] LABS: ALB/GLOB Ratio 0.7 RATIO (0.9-2.4); AST(SGOT) 31 U/L (15-37); Alanine Aminotransfer ALT/SGPT 54 U/L (13-56); Albumin, Serum 3.2 g/dL (3.2-5.0); Alkaline Phosphatase 81 U/L (45-117); Anion Gap 4 (5-15); BUN 33 mg/dL (7-18); BUN/Creat Ratio 38.9 RATIO (10-20); Calcium,Total 10.1 mg/dL (8.5-10.1); Chloride 104 mmol/L (98-107); Creatinine, Serum 0.85 mg/dL (0.55-1.02); EST Glomerular Filtration Rate 70 mL/min (>60); Est Glom Filt Rate - Afr Amer 85 mL/min (>60); Estimated Creatinine Clearance 51.66 ml/min; Globulin 4.4 g/dL (2.2-4.2); Glucose 105 mg/dL (74-106); Potassium 3.9 mmol/L (3.5-5.1); Protein, Total 7.6 g/dL (6.4-8.2); Sodium Level 139 mmol/L (136-145)
--- NOTE | 2023-05-10 20:40 | CT_ITS ---
STUDY: CT BRAIN WITHOUT CONTRAST REASON FOR EXAM: Female, 73 years old. CVA, confusion RADIATION DOSAGE (If Supplied By Facility): CTDIvol = ( 44.99 ) mGy, DLP = ( 796.11 ) mGycm TECHNIQUE: Transaxial CT imaging of the brain was performed without administration of intravenous contrast material. Individualized dose optimization techniques were used for this CT. COMPARISON: 04/30/2023 FINDINGS: Normal soft tissue structures. Normal calvarium. There is mild cerebral atrophy with widening of the extra-axial spaces and ventricular dilatation. There are areas of decreased attenuation within the white matter tracts of the supratentorial brain, consistent with microvascular disease changes. Normal basal ganglia and thalami. Normal brainstem. Normal cerebellum. Low density in the left basal ganglia and periventricular white matter on image 25 of series 2 likely represents evolution of subacute infarction . Linear hyperdensity along the cortex of the left frontal lobe on image 25 of series 2 is also new, likely representing ill-defined blood product or laminar necrosis. Ill-defined hyperdensity of the left basal ganglia is also new. Normal visualized paranasal sinuses. CT/Brain/Head without Contrast IMPRESSION: Evolving left basal ganglia/periventricular infarction. Left frontal lobe/basal ganglia faint parenchymal blood products versus laminar necrosis. Electronically Signed: Giorgi Hester ([place]), at 20:57 EDT Reading Location ID and State: [facility] / [place] , Service support ,
[2023-05-10 20:44] LABS: Squamous Epithelial Cells - UA 10-25 SEEN /hpf (5-10)
[2023-05-10 20:49] LABS: Differential Comment SCANNED
[2023-05-10 21:00] VITALS: BP 129/47; PULSE 84; RESP 15; O2SAT 95
[2023-05-10 22:00] VITALS: BP 130/43; PULSE 84; RESP 24; O2SAT 91
[2023-05-10 22:08] VITALS: BP 130/43; PULSE 85; RESP 25; O2SAT 92
[2023-05-12 13:21] LABS: Pathologist Review Reviewed
== END 2023-05-11 01:26 | disposition skilled nursing facility (03) ==
PROVIDERS: Emergency Provider Emergency Medicine; PCP Nurse Practitioner Family; Visit Provider Emergency Medicine
DX: I69.322 Dysarthria following cerebral infarction (principal); J44.9 Chronic obstructive pulmonary disease, unspecified; E11.9 Type 2 diabetes mellitus without complications; I69.392 Facial weakness following cerebral infarction; E78.5 Hyperlipidemia, unspecified; I10 Essential (primary) hypertension; F17.210 Nicotine dependence, cigarettes, uncomplicated
CPT/HCPCS: 70450; 80053; 81001; 85025; 87086; 93005; 99285; A4216

== ENCOUNTER 2023-09-16 14:16 | Emergency (ER) | payer MEDICARE, SELFPAY ==
[2023-09-16 14:18] VITALS: PULSE 72; RESP 18; TEMP 35.9; O2SAT 88
[2023-09-16 14:21] VITALS: O2SAT 95
--- NOTE | 2023-09-16 15:13 | VDLE_ITS ---
Reason For Study: edema RIGHT LEFT GSV is normal. GSV is normal. CFV is compressible, spontaneous, phasic, CFV is compressible, spontaneous, phasic, competent and demonstrates normal competent, and demonstrates normal augmentation. augmentation. FV is compressible, spontaneous, phasic, FV is compressible, spontaneous, phasic, competent and demonstrates normal competent and demonstrates normal augmentation. augmentation. POP V is compressible, spontaneous, phasic, POP V is compressible, spontaneous, phasic, competent and demonstrates normal competent and demonstrates normal augmentation. augmentation. T/P Trunk is compressible. T/P Trunk is compressible. PTV is compressible. PTV is compressible. RT PerV is compressible. LT PerV is compressible. Procedure Heterogeneous area behind the knee measuring This is a venous duplex using B-mode, color 1.49 x 1.63 cm in short. Area is nonvascular. flow and spectral Doppler. Exam performed portable in ED. The exam was diagnostic. A preliminary report was called and/or faxed to Dr. Tavera. VL/Venous Duplex US - Sarkis Extrem Interpretation Summary Deep veins of the bilateral lower extremities are patent and compressible segme ntally. There is no evidence of bilateral lower extremity deep vein thrombosis. The bilateral great saphenous veins appear patent and compressible segmentally. Heterogeneous, non-vascular structure in the left popliteal fossa measuring 1.4 9 x 1.63 cm in short. Ordering Physician: Tracy Tavera Performed By: Cecil Naidu RVT
--- NOTE | 2023-09-16 15:20 | RAD_ITS ---
STUDY: X-RAY CHEST REASON FOR EXAM: Female, 73 years old. No evidence of breath. TECHNIQUE: Single frontal view of the chest. COMPARISON: April 30, 2023 FINDINGS: Stable hyperinflation with scattered healed parenchymal granulomatous calcifications. There is no demonstrated pleural abnormality. Stable mild cardiomegaly. Normal mediastinum and hardik. Normal visualized pulmonary arteries. Aortic tortuosity with calcification unchanged. Normal visualized thoracic spine. Normal visualized ribs, clavicles, and shoulders. No abnormality of the visualized soft tissue structures of the upper abdomen. RAD/Chest 1 View (Portable) IMPRESSION: Stable chest with no acute superimposed findings. Electronically Signed: Elvis Shaw MD at 15:35 EST ,
--- NOTE | 2023-09-16 15:27 | EDS_ITS ---
HPI History of Present Illness Chief Complaint: Edema Informant: patient Onset/Context/Timing Onset: Days Narrative Narrative: Patient present secondary to lower extremity edema. She reports noting left lower foot swelling a week ago. She states is only painful if she tries to put a shoe on. Today she noted her right foot is also swollen. No swelling or erythema up into her legs. She has a history of COPD and does not feel any more short of breath than baseline. She has home oxygen that she can use as needed. [facility] Medical History (Updated 09/16/23 @ 15:[address] Tracy Tavera MD) Acute respiratory failure with hypoxemia Bilateral carpal tunnel syndrome COPD (chronic obstructive pulmonary disease) Depression DM2 (diabetes mellitus, type 2) Essential (primary) hypertension ETOH abuse Generalized weakness History of bronchitis History of pneumonia Hyperlipemia Retinal detachment Tobacco dependence Home Medications citalopram 40 mg tablet 40 mg PO DAILY Check with primary doctor 01/15/17 [History Last Taken 03/01/19] lisinopril 40 mg tablet 40 mg PO DAILY Check with primary doctor 01/15/17 [History Last Taken 03/01/19] loperamide 2 mg capsule 2 mg PO BID Check with primary doctor 01/15/17 [History Last Taken 03/01/19] lovastatin 20 mg tablet 20 mg PO QHS Check with primary doctor 01/15/17 [History Last Taken 03/01/19] albuterol sulfate 2.5 mg/3 mL (0.083 %) solution for nebulization 2.5 mg (3 mL) inhalation Q2H PRN PRN Shortness of breath ##120 03/02/19 [Rx Last Taken Unknown] ipratropium bromide 0.02 % solution for inhalation 0.5 mg inhalation BID 05/13/19 [History Last Taken Unknown] vitamins with calcium no.72-iron 29 mg-folic acid 1 mg tablet 1 ea PO QHS SUPP 12/06/19 [History Last Taken Unknown] Disability Placard #1 ea 01/08/21 [Rx Last Taken Unknown] cholecalciferol (vitamin D3) 1,250 mcg (50,000 unit) capsule 1,250 mcg PO QWEEK SUPPLEMENT 05/09/22 [History Last Taken Unknown] metoprolol succinate 50 mg tablet,extended release 24 hr 50 mg PO DAILY htn 05/09/22 [History Last Taken Unknown] aspirin 81 mg tablet,delayed release (Adult Aspirin Regimen) 81 mg PO DAILY 05/10/23 [History Last Taken Unknown] atorvastatin 40 mg tablet 40 mg PO QHS 05/10/23 [History Last Taken Unknown] clopidogrel 75 mg tablet 75 mg PO DAILY 05/10/23 [History Last Taken Unknown] albuterol sulfate 90 mcg/actuation aerosol inhaler 2 puff inhalation Q6H PRN shortness of breath or wheezing #8.5 grams 07/07/23 [Rx Last Taken Unknown] fluticasone fur. 100 mcg-umeclid 62.5 mcg-vilant 25 mcg inhalat.powder (Trelegy Ellipta) 1 inh inhalation DAILY SOB #60 ea 07/07/23 [Rx Last Taken Unknown] furosemide 40 mg tablet (Lasix) 40 mg PO DAILY #4 tabs 09/16/23 [Rx Last Taken Unknown] Allergy/AdvReac Type Severity Reaction Status Date / Time No Known Allergies Allergy Verified 09/16/23 14:17 Family History Father Cirrhosis Mother Uterine cancer Grandmother Uterine cancer Surgical History H/O cataract removal with insertion of prosthetic lens H/O tubal ligation History of bilateral carpal tunnel release Social History Smoking Status: Current every day smoker tobacco type: cigarettes Tobacco: How many years used: 54 second hand exposure: Yes ROS ROS ED Constitutional Constitutional ED: Denies chills or fever(s) Eyes Eyes: Denies change in vision or discharge from eye(s) ENT ENT ED: Denies discharge from eye(s), rhinorrhea or sore throat Cardiovascular Cardiovascular: Denies chest pain Respiratory/Chest Respiratory/Chest: Denies cough or dyspnea Gastrointestinal Gastrointestinal: Denies abdominal pain, nausea or vomiting Genitourinary Genitourinary ED: Denies dysuria Musculoskeletal Musculoskeletal: Denies back pain or extremity pain Integumentary Denies Abrasions or rash Neurologic Neurologic: Denies headache(s) or weakness Psychiatric Psychiatric: Denies anxiety or depression Allergic/Immunologic Allergic/Immunologic ED: Denies lip swelling or urticaria EXAM Physical Exam Const Vital Signs: 09/16/23 14:18 09/16/23 14:21 09/16/23 15:17 Temperature 96.7 F L Temperature Source Temporal Pulse Rate 72 Respiratory Rate 18 Respiratory Effort Normal Respiratory Pattern Tachypnea Pulse Ox 88 95 Oxygen Delivery Method Room Air Nasal Cannula Oxygen Flow Rate (L/min) 2 Positive well nourished and well developed General Appearance ED: well developed HEENT Reports moist mucous membranes Eyes EOMs intact bilaterally Chest Wall inspection of chest normal and palpation of chest normal Resp normal respiratory effort Resp Narrative: Diminished breath sounds bilateral bases. Cardio regular rate and regular rhythm GI non-tender Palpation: soft Extremity Extremity Narrative: Patient has edema noted to both feet bilaterally. No significant edema in the lower legs. No erythema or open wounds. Good distal pulses. Good range of motion at all joints. Neuro oriented x3 and no sensory deficits noted Motor Exam: strength 5/5 throughout Psych mental status grossly normal MDM MDM MDM Narrative Medical decision making narrative: Patient's O2 sat was 88% on room air and she was placed on 2 L nasal cannula here. Portable chest x-ray will be obtained to evaluate for infiltrate, fluid overload. Venous ultrasound of the lower extremities obtained. Venous ultrasound of the patient's legs revealed no evidence of DVT. Portable chest x-ray per my interpretation was chronic changes with possible slight fluid overload. Radiology interpretation reviewed and feels that there are no acute superimposed findings. Test results discussed with the patient. Lino wrap's were applied to the feet bilaterally to help with fluid reabsorption. I will treat her with 4 days of Lasix and a dose here. Patient has oxygen at home that she can use. Return instructions provided. Radiography Diagnostic Testing: Clinical Impression(s) from Imaging Studies Chest X-Ray 09/16/23 15:20 IMPRESSION: Stable chest with no acute superimposed findings. Electronically Signed: Elvis Shaw MD at 15:35 EST , Discharge Plan Triage Chief Complaint: Edema ED Provider: Tracy Tavera Dx/Rx/DC Orders Clinical Impression: Edema Instructions: ED Peripheral Edema, Bilateral Prescriptions: New furosemide [Lasix] 40 mg tablet 40 mg PO DAILY Qty: 4 0RF No Action ipratropium bromide 0.02 % solution 0.5 mg INHALATION BID (DME) Disability Placard See Rx Instructions .Route .MEDSUPPLY Qty: 1 0RF Rx Instructions: Expires 01/08/2026 metoprolol succinate 50 mg tablet extended release 24 hr 50 mg PO DAILY cholecalciferol (vitamin D3) 1,250 mcg (50,000 unit) capsule 1,250 mcg PO QWEEK albuterol sulfate 90 mcg/actuation HFA aerosol inhaler 2 puff inhalation Q6H PRN (Reason: shortness of breath or wheezing) Qty: 8.5 3RF Trelegy Ellipta 100-62.5-25 mcg blister with device 1 inh INHALATION DAILY Qty: 60 11RF Rx Instructions: administer at approximately the same time(s) each day citalopram 40 MG tablet 40 mg PO DAILY Patient Comments: ANXIETY loperamide 2 MG capsule 2 mg PO BID Patient Comments: IRRITABLE BOWEL lovastatin 20 MG tablet 20 mg PO QHS Patient Comments: CHOLESTEROL LOWERING lisinopril 40 MG tablet 40 mg PO DAILY Patient Comments: BLOOD PRESSURE albuterol sulfate 2.5 MG/3 ML solution for nebulization 2.5 mg INHALATION Q2H PRN PRN (Reason: Shortness of breath) Qty: 120 0RF PNV,calcium 72-iron,carb-folic 1 EACH tablet 1 ea PO QHS atorvastatin 40 mg tablet 40 mg PO QHS aspirin [Adult Aspirin Regimen] 81 mg tablet,delayed release (DR/EC) 81 mg PO DAILY clopidogrel 75 mg tablet 75 mg PO DAILY Primary Care Provider: Krish Cárdenas NP Referrals: Krish Cárdenas NP, [facility] [Primary Care Provider] - 1 Week if not improving Disposition Disposition: Home, Self Care
[2023-09-16] MEDS: Furosemide 40 MG Tablet PO (15:52)
[2023-09-16 15:57] VITALS: BP 118/101
== END 2023-09-16 16:11 | disposition home or self-care (01) ==
LOC: ED 16:08
PROVIDERS: Emergency Provider Emergency Medicine; PCP Nurse Practitioner Family; Visit Provider Emergency Medicine
DX: R60.0 Localized edema (principal); J44.9 Chronic obstructive pulmonary disease, unspecified; E11.9 Type 2 diabetes mellitus without complications; F17.210 Nicotine dependence, cigarettes, uncomplicated; I10 Essential (primary) hypertension; E78.5 Hyperlipidemia, unspecified; F32.A Depression, unspecified; Z79.899 Other long term (current) drug therapy; Z79.82 Long term (current) use of aspirin; Z79.02 Long term (current) use of antithrombotics/antiplatelets; Z79.51 Long term (current) use of inhaled steroids
CPT/HCPCS: 71045; 93970; 99282

== ENCOUNTER 2023-12-05 06:02 | Inpatient (IN) | payer MEDICARE, SELFPAY ==
[2023-12-05] VITALS (56 sets, daily range): BP systolic 68–122; BP diastolic 37–81; PULSE 88–113; RESP 14–28; TEMP 16.1–36.8; O2SAT 82–100; BMI 22.5; BMI 22.9
--- NOTE | 2023-12-05 06:27 | CT_ITS ---
STUDY: CTA OF THE ABDOMEN AND PELVIS REASON FOR EXAM: Female, 73 years old. GI bleed RADIATION DOSAGE (If Supplied By Facility): CTDIvol = ( 10.30 ) mGy, DLP = ( 644.02 ) mGycm TECHNIQUE: Axial CT angiography multi-detector data acquisition was obtained from the to the following intravenous administration of IV 100mL Isovue-370. Axial images and MIP images were reconstructed from the axial data set. Post-processing of the angiographic images was performed, with multiplanar reformation and 3D reconstruction. Individualized dose optimization techniques were used for this CT. TECHNICAL QUALITY: Good COMPARISON: None. Descriptors of Narrowing: None (0%) Mild (< 50%) Moderate (50-70%) Severe (70-90%) Subtotal/Total Occlusion (90-100%) Non-Evaluable (technically non-diagnostic FINDINGS: Abdominal aorta: Diffuse calcified atherosclerotic plaque throughout the abdominal aorta and its branches. There is mild diffuse narrowing. Celiac artery: No demonstrated narrowing. Superior mesenteric artery: Moderate to severe atherosclerotic plaque at its origin resulting in severe stenosis. The superior mesenteric artery is normal distal to this origin and normally perfused. There is no evidence of arterial extravasation into the stomach or small or large bowel or active arterial hemorrhaging in these regions. If symptoms persist consider nuclear medicine GI bleeding scan. No high density hemorrhage/fluid is seen within the lumen of the bowel loops on the current study. Inferior mesenteric artery: No demonstrated narrowing. Right renal artery(arteries): Moderate atherosclerotic plaque and origin narrowing but normal distal to the origin. Left renal artery(arteries): Moderate atherosclerotic plaque and origin narrowing but normal distal to the origin. Right common iliac artery: There is moderate diffuse narrowing. Right external iliac artery: There is moderate diffuse narrowing. Right internal iliac artery: There is severe diffuse narrowing. Left common iliac artery: There is moderate diffuse narrowing. Left external iliac artery: There is mild diffuse narrowing. Left internal iliac artery: There is moderate diffuse narrowing. NONVASCULAR FINDINGS: The visualized lung bases are unremarkable. Normal liver. Normal gallbladder and extrahepatic biliary system. Normal spleen. Normal pancreas. Normal bilateral adrenal glands. There is mild cortical atrophy of the right kidney, consistent with chronic medical renal disease. There is mild cortical atrophy of the left kidney, consistent with chronic medical renal disease. Normal visualized stomach. Normal small intestine. There are extensive diverticula of the descending and rectosigmoid colon. Normal remaining colonic loops. No free air or free fluid or inflammatory stranding is present. The appendix is visualized and appears normal. There is diffuse atherosclerotic calcification of the abdominal aorta, without a demonstrated aneurysm. Normal inferior vena cava. Normal retroperitoneum. Normal urinary bladder. There is atrophy of the uterus. Normal abdominal wall. There are diffuse degenerative changes of the visualized lumbar spine. CT/CTA Abd/Pelvis W/WO Contrast IMPRESSION: 1. Superior mesenteric artery: Moderate to severe atherosclerotic plaque at its origin resulting in severe stenosis. The superior mesenteric artery is normal distal to this origin and normally perfused. 2. There is no evidence of arterial extravasation into the stomach or small or large bowel or active arterial hemorrhaging in these regions. If symptoms persist consider nuclear medicine GI bleeding scan. No high density hemorrhage/fluid is seen within the lumen of the bowel loops on the current study. 3. Significant descending and rectosigmoid diverticulosis Electronically Signed: Lam Eid MD at 10:10 EDT ,
[2023-12-05 06:41] LABS: Absolute Lymphocyte Count 3.38 X10^3/uL (0.83-4.51); Absolute Neutrophil Count 15.9 X10^3/uL (2.0-7.7); Basophil# 0.06 X10^3/uL; Basophil% 0.3 % (0-1); Eosinophil# 0.03 X10^3/uL; Eosinophils% 0.1 % (0-5); Hemoglobin 7.3 g/dL (12.0-15.0); Lymphocyte # 3.38 X10^3/ul (0.83-4.51); Lymphocyte % 15.7 % (19-41); Mean Corp Hgb Conc 33.2 g/dL (32-36); Mean Corpuscular Hgb 34.3 pg (27.0-32.0); Mean Corpuscular Volume 103.3 fL (81-99); Mean Platelet Vol. 12.9 fl (6.2-12.0); Monocyte# 1.44 X10^3/uL; Monocyte% 6.7 % (0-10); NRBC Flagged by Analyzer 0 % (0-5); Neutrophil # 15.86 X10^3/uL (2.7-7.7); Neutrophil % 73.7 % (47-70); Platelet Count 167 K/mm3 (150-450); RBC Distribution Width CV 14.3 % (11.6-14.6); RBC Distribution Width SD 54.1 fl (35.1-43.9); Red Blood Count 2.13 M/mm3 (4.2-5.4); White Blood Count 21.5 K/mm3 (4.4-11.0)
[2023-12-05 06:51] LABS: Prothrombin Time (Protime)PT. 13.5 SECONDS (11.7-14.9)
[2023-12-05 06:52] LABS: Partial Thromboplast Time 22.3 Seconds (24.1-36.2)
[2023-12-05 07:12] LABS: AST(SGOT) 13 U/L (15-37); Alanine Aminotransfer ALT/SGPT 15 U/L (13-56); Albumin, Serum 3.1 g/dL (3.2-5.0); Alkaline Phosphatase 38 U/L (45-117); Anion Gap 11 (5-15); BUN 139 mg/dL (7-18); Bilirubin, Direct 0.18 mg/dL (0.00-0.30); Calcium,Total 8.8 mg/dL (8.5-10.1); Chloride 107 mmol/L (98-107); Creatinine, Serum 1.76 mg/dL (0.55-1.02); EST Glomerular Filtration Rate 30 mL/min (>60); Est Glom Filt Rate - Afr Amer 36 mL/min (>60); Globulin 2.7 g/dL (2.2-4.2); Glucose 189 mg/dL (74-106); Lipase 23 U/L (13-75); Potassium 4.4 mmol/L (3.5-5.1); Protein, Total 5.8 g/dL (6.4-8.2); Sodium Level 137 mmol/L (136-145)
--- NOTE | 2023-12-05 07:20 | ED.RN ---
[facility] IS INFUSING --TRAUMA BLOOD.
[2023-12-05] MEDS: Pantoprazole Sodium 80 MG in 0.9% Normal Saline (50mL Bag) 15 ML 420 MG IV BOLUS (07:47)
[2023-12-05] MEDS: Octreotide 0.5 MG in Dextrose 5%-Water (250mL Bag) 249 ML 25 MG CONT INF ×2 (07:53→17:21)
[2023-12-05] MEDS: Folic Acid 1 MG in 0.9% Normal Saline (50mL Bag) 50 ML 200 MG IV (07:57)
[2023-12-05] MEDS: 0.9% Normal Saline (1000mL) 1,000 ML 999 ML IV ×3 (08:06→19:32)
[2023-12-05] MEDS: Octreotide 0.1 MG/ML ML 0.05 MG IV (08:08)
[2023-12-05] MEDS: Pantoprazole Sodium 80 MG in 0.9% Normal Saline (100mL Bag) 80 ML 10 MG CONT INF ×2 (08:09→17:21)
[2023-12-05] MEDS: Thiamine Hydrochloride 100 MG in 0.9% Normal Saline (50mL Bag) 50 ML 200 MG IV (08:14)
[2023-12-05] MEDS: Ceftriaxone 2 GM in 0.9% Normal Saline (50mL MB+) 50 ML IV (08:30)
--- NOTE | 2023-12-05 08:58 | ED.RN ---
DR AWARE 3 CONSECUTIVE MAPS LESS THEN 65. 500 CC BOLUS ORDERED
[2023-12-05] MEDS: 0.9% Normal Saline (500mL Bag) 500 ML 999 ML IV ×2 (09:06→10:17)
--- NOTE | 2023-12-05 09:26 | EDS_ITS ---
HPI History of Present Illness Chief Complaint: GI Bleed Informant: patient, family and EMS Narrative Narrative: Patient is a 73-year-old female with past medical history of of COPD type 2 diabetes previous stroke as well as alcohol abuse. Patient was brought in by EMS which were called by family because she has had increased weakness and fatigue and reportedly had a dark bowel movement at home. Patient denies any history of bleeding disorder or blood thinner use. She does state that her last drink was last night. She also reports that she is a full code at this time. However with her worsening fatigue and now discoloration to stool concerning for GI bleed she was sent in for evaluation [facility] Medical History Acute respiratory failure with hypoxemia Bilateral carpal tunnel syndrome COPD (chronic obstructive pulmonary disease) Depression DM2 (diabetes mellitus, type 2) Essential (primary) hypertension ETOH abuse Generalized weakness History of bronchitis History of pneumonia Hyperlipemia Retinal detachment Tobacco dependence Home Medications citalopram 40 mg tablet 40 mg PO DAILY Check with primary doctor 01/15/17 [History Last Taken 03/01/19] lisinopril 40 mg tablet 40 mg PO DAILY Check with primary doctor 01/15/17 [History Last Taken 03/01/19] loperamide 2 mg capsule 2 mg PO BID Check with primary doctor 01/15/17 [History Last Taken 03/01/19] lovastatin 20 mg tablet 20 mg PO QHS Check with primary doctor 01/15/17 [History Last Taken 03/01/19] albuterol sulfate 2.5 mg/3 mL (0.083 %) solution for nebulization 2.5 mg (3 mL) inhalation Q2H PRN PRN Shortness of breath ##120 03/02/19 [Rx Last Taken Unknown] ipratropium bromide 0.02 % solution for inhalation 0.5 mg inhalation BID 05/13/19 [History Last Taken Unknown] vitamins with calcium no.72-iron 29 mg-folic acid 1 mg tablet 1 ea PO QHS SUPP 12/06/19 [History Last Taken Unknown] Disability Placard #1 ea 01/08/21 [Rx Last Taken Unknown] cholecalciferol (vitamin D3) 1,250 mcg (50,000 unit) capsule 1,250 mcg PO QWEEK SUPPLEMENT 08/18/22 [History Last Taken Unknown] metoprolol succinate 50 mg tablet,extended release 24 hr 50 mg PO DAILY htn 05/09/22 [History Last Taken Unknown] aspirin 81 mg tablet,delayed release (Adult Aspirin Regimen) 81 mg PO DAILY 05/10/23 [History Last Taken Unknown] atorvastatin 40 mg tablet 40 mg PO QHS 05/10/23 [History Last Taken Unknown] clopidogrel 75 mg tablet 75 mg PO DAILY 05/10/23 [History Last Taken Unknown] albuterol sulfate 90 mcg/actuation aerosol inhaler 2 puff inhalation Q6H PRN shortness of breath or wheezing #8.5 grams 07/07/23 [Rx Last Taken Unknown] fluticasone fur. 100 mcg-umeclid 62.5 mcg-vilant 25 mcg inhalat.powder (Trelegy Ellipta) 1 inh inhalation DAILY SOB #60 ea 07/07/23 [Rx Last Taken Unknown] furosemide 40 mg tablet (Lasix) 40 mg PO DAILY #4 tabs 09/16/23 [Rx Last Taken Unknown] Allergy/AdvReac Type Severity Reaction Status Date / Time No Known Allergies Allergy Verified 09/16/23 14:17 Family History Father Cirrhosis Mother Uterine cancer Grandmother Uterine cancer Surgical History H/O cataract removal with insertion of prosthetic lens H/O tubal ligation History of bilateral carpal tunnel release Social History Smoking Status: Current every day smoker tobacco type: cigarettes Tobacco: How many years used: 54 second hand exposure: Yes ROS ROS ED Constitutional Constitutional ED: Denies chills or fever(s) Eyes Eyes: Denies change in vision ENT ENT ED: Denies sore throat Cardiovascular Cardiovascular: Denies chest pain Respiratory/Chest Respiratory/Chest: Denies cough or dyspnea Gastrointestinal Gastrointestinal: Reports abdominal pain, diarrhea and melena; Denies nausea or vomiting Genitourinary Genitourinary ED: Denies dysuria or hematuria Musculoskeletal Musculoskeletal: Denies myalgias Integumentary Denies rash Neurologic Neurologic: Reports weakness; Denies headache(s) or paresthesias Hematologic/Lymphatic Hematologic/Lymphatic: Denies easy bleeding or easy bruising EXAM Physical Exam Const Vital Signs: 12/05/23 06:03 12/05/23 06:18 12/05/23 06:48 Temperature 97.9 F 97.6 F L Temperature Source Oral Oral Pulse Rate 100 100 88 Respiratory Rate 18 25 H 14 Blood Pressure 81/46 L 76/40 L 68/43 L Blood Pressure Mean 57 52 51 Blood Pressure Source Monitor Blood Pressure Position Supine Blood Pressure Location Left Arm Pulse Ox 95 93 Oxygen Delivery Method Room Air Room Air Oxygen Flow Rate (L/min) 12/05/23 07:03 12/05/23 07:03 12/05/23 07:03 Temperature 97.5 F L 97.1 F L Temperature Source Temporal Temporal Pulse Rate 92 89 90 Respiratory Rate 18 18 19 H Blood Pressure 73/55 L 73/55 L 73/55 L Blood Pressure Mean 61 61 61 Blood Pressure Source Monitor Blood Pressure Position Supine Blood Pressure Location Right Arm Pulse Ox 97 98 96 Oxygen Delivery Method Nasal Cannula Nasal Cannula Nasal Cannula Oxygen Flow Rate (L/min) 2 2 12/05/23 08:20 12/05/23 08:35 12/05/23 07:15 Temperature 98.1 F 97.8 F Temperature Source Temporal Temporal Pulse Rate 97 105 H Respiratory Rate 21 H 14 Blood Pressure 104/62 114/45 L 85/60 L Blood Pressure Mean 76 68 69 Blood Pressure Source Blood Pressure Position Blood Pressure Location Pulse Ox 97 99 Oxygen Delivery Method Nasal Cannula Nasal Cannula Oxygen Flow Rate (L/min) 2 2 12/05/23 07:16 12/05/23 07:20 12/05/23 07:30 Temperature Temperature Source Pulse Rate 89 89 89 Respiratory Rate 18 18 20 H Blood Pressure 77/51 L Blood Pressure Mean 59 Blood Pressure Source Blood Pressure Position Blood Pressure Location Pulse Ox 98 Oxygen Delivery Method Oxygen Flow Rate (L/min) 12/05/23 08:00 12/05/23 07:40 12/05/23 07:45 Temperature 98 F Temperature Source Temporal Pulse Rate 90 89 89 Respiratory Rate 18 22 H 23 H Blood Pressure 118/50 L 104/53 L Blood Pressure Mean 72 68 Blood Pressure Source Blood Pressure Position Blood Pressure Location Pulse Ox 100 100 Oxygen Delivery Method Nasal Cannula Oxygen Flow Rate (L/min) 2 12/05/23 07:50 12/05/23 08:00 12/05/23 08:50 Temperature 98 F Temperature Source Temporal Pulse Rate 88 93 107 H Respiratory Rate 15 14 20 H Blood Pressure 118/50 L 95/40 L Blood Pressure Mean 72 58 Blood Pressure Source Blood Pressure Position Blood Pressure Location Pulse Ox 100 100 Oxygen Delivery Method Nasal Cannula Oxygen Flow Rate (L/min) 2 12/05/23 09:05 12/05/23 09:00 12/05/23 08:00 Temperature 98 F Temperature Source Temporal Pulse Rate 107 H 107 H 91 Respiratory Rate 20 H 20 H 14 Blood Pressure 109/43 L 109/43 L 118/50 L Blood Pressure Mean 65 65 69 Blood Pressure Source Blood Pressure Position Blood Pressure Location Pulse Ox 100 100 Oxygen Delivery Method Nasal Cannula Nasal Cannula Oxygen Flow Rate (L/min) 2 12/05/23 08:10 12/05/23 08:15 12/05/23 08:20 Temperature Temperature Source Pulse Rate 96 97 97 Respiratory Rate 21 H 19 H 21 H Blood Pressure 104/62 104/62 Blood Pressure Mean 75 76 Blood Pressure Source Blood Pressure Position Blood Pressure Location Pulse Ox 98 Oxygen Delivery Method Nasal Cannula Oxygen Flow Rate (L/min) 2 12/05/23 08:30 12/05/23 08:40 Temperature Temperature Source Pulse Rate 105 H 106 H Respiratory Rate 14 25 H Blood Pressure 114/45 L 110/47 L Blood Pressure Mean 64 68 Blood Pressure Source Blood Pressure Position Blood Pressure Location Pulse Ox 99 100 Oxygen Delivery Method Nasal Cannula Nasal Cannula Oxygen Flow Rate (L/min) 2 2 Positive well nourished, well developed and unkempt General Appearance ED: unkempt, well developed and pallor HEENT Reports dry mucous membranes HEENT Narrative: Mucous membranes are dry and tacky without secondary changes to suggest infection in the posterior pharynx No airway edema or compromise No dried blood or active bleeding noted in the posterior pharynx Mouth ED: Yes dry mucous membranes Mouth: dry mucous membranes Eyes PERRL and EOMs intact bilaterally General Eye ED: Yes pale conjunctiva and scleral icterus Neck supple Neck Narrative: No nuchal rigidity or meningeal signs noted Chest Wall palpation of chest normal Resp Resp Narrative: Breath sounds are diminished throughout with faint expiratory wheeze consistent with history of COPD but no signs of respiratory distress Cardio regular rate and regular rhythm Rate: other Other Details: Radial and carotid pulses are equal and symmetric GI non-tender and non-distended GI Narrative: Abdomen is soft nontender and nondistended with normal active bowel sounds. No voluntary guarding or rigidity or pulsatile mass Auscultation: normoactive bowel sounds Palpation: soft Narrative: Patient has nonbleeding nonthrombosed external hemorrhoid. Rectal tone is normal. Stool is melanotic in color and Hemoccult positive. Extremity normal to inspection Neuro oriented x3 and CN's II-XII intact bilaterally Sensorium / Orientation: alert Psych Psych Narrative: Patient has a flat affect Appearance: unkempt Skin no rashes or lesions noted Skin Narrative: There is slight jaundice and pallor noted and capillary refill is 3 seconds General Skin Exam: jaundice and pallor MDM MDM MDM Narrative Medical decision making narrative: Patient arrived to the ER hypotensive and reported dark stool at home with history of alcohol abuse. Concern is for esophageal varices versus acute upper GI bleed versus acute blood loss anemia versus diverticular bleeding versus potential colitis versus ischemic colitis. Patient blood work was ordered and multiple IVs. Patient was started on 2 L of IV normal saline based on her hypotension and as she had signs of active GI bleed she was started on trauma blood as well. After receiving 1 unit of trauma blood and 2 L of fluid patient's blood pressure improved. Labs showed leukocytosis at 21.5 and with concern for infection 2 g of Rocephin was started. Hemoglobin has dropped from baseline of approximately 13-7.3. With alcohol use she was started on Protonix bolus and drip as well as octreotide bolus and drip and then given folic acid and thiamine. Case was discussed with gastroenterology DrYuly Curtis and he feels that as long as patient's systolic blood pressure is approximately 90 this is sufficient for him to potentially perform an EGD and/or colonoscopy. The patient's BUN is greatly elevated as well consistent with GI bleed. At this time the patient has had improvement to the multiple medications given as well as fluid and blood resuscitation. CTA is still pending and therefore prior to admission the patient will be signed out to the day physician. However at this time based on her acute anemia her acute GI bleed and history of alcoholism she will be placed in the hospital for further care History & Record Review Discussion w/independent historian: EMS personnel and Patient Lab Data Attestation: I reviewed the patient's lab results. Labs: Laboratory Results - last 24 hr 12/05/23 06:10 WBC 21.5 H RBC 2.13 L Hgb 7.3 L Hct 22.0 L MCV 103.3 H MCH 34.3 H MCHC 33.2 RDW Std Deviation 54.1 H RDW Coeff of [place] 14.3 Plt Count 167 MPV 12.9 H Immature Gran % (Auto) 3.500 H Neut % (Auto) 73.7 H Lymph % (Auto) 15.7 L [place] % (Auto) 6.7 Eos % (Auto) 0.1 Baso % (Auto) 0.3 Absolute Neuts (auto) 15.9 H Absolute Lymphs (auto) 3.38 Nucleated RBC % 0 PT 13.5 INR 1.0 APTT 22.3 L Sodium 137 Potassium 4.4 Chloride 107 Carbon Dioxide 19.0 L Anion Gap 11 BUN 139 H* Creatinine 1.76 H Estim Creat Clear Calc 23.90 Est GFR (MDRD) Af Amer 36 L Est GFR (MDRD) Non-Af 30 L BUN/Creatinine Ratio 79.0 H Glucose 189 H Lactic Acid 3.0 H* Calcium 8.8 Total Bilirubin 0.60 Direct Bilirubin 0.18 AST 13 L ALT 15 Alkaline Phosphatase 38 L Total Protein 5.8 L Albumin 3.1 L Globulin 2.7 Lipase 23 Blood Type A POSITIVE Antibody Screen NEGATIVE Crossmatch See Detail Management Discussion w/another healthcare provider: Hospitalist and Licensed Vocational Nurse Critical Care Time Critical Care Time: Yes Critical care time (excluding procedures): Discussing w/Patient &/or Family/Secondary Connector Armature, Discussing w/Consultants and - (Please note critical care time of 37 minutes) Discharge Plan Triage Chief Complaint: GI Bleed ED Provider: Ronald Driver Dx/Rx/DC Orders Clinical Impression: Acute blood loss anemia, COPD (chronic obstructive pulmonary disease), GI (gastrointestinal bleed), Alcohol abuse Prescriptions: No Action ipratropium bromide 0.02 % solution 0.5 mg INHALATION BID (DME) Disability Placard See Rx Instructions .Route .MEDSUPPLY Qty: 1 0RF Rx Instructions: Expires 01/08/2026 metoprolol succinate 50 mg tablet extended release 24 hr 50 mg PO DAILY cholecalciferol (vitamin D3) 1,250 mcg (50,000 unit) capsule 1,250 mcg PO QWEEK albuterol sulfate 90 mcg/actuation HFA aerosol inhaler 2 puff inhalation Q6H PRN (Reason: shortness of breath or wheezing) Qty: 8.5 3RF Trelegy Ellipta 100-62.5-25 mcg blister with device 1 inh INHALATION DAILY Qty: 60 11RF Rx Instructions: administer at approximately the same time(s) each day citalopram 40 MG tablet 40 mg PO DAILY Patient Comments: ANXIETY loperamide 2 MG capsule 2 mg PO BID Patient Comments: IRRITABLE BOWEL lovastatin 20 MG tablet 20 mg PO QHS Patient Comments: CHOLESTEROL LOWERING lisinopril 40 MG tablet 40 mg PO DAILY Patient Comments: BLOOD PRESSURE albuterol sulfate 2.5 MG/3 ML solution for nebulization 2.5 mg INHALATION Q2H PRN PRN (Reason: Shortness of breath) Qty: 120 0RF PNV,calcium 72-iron,carb-folic 1 EACH tablet 1 ea PO QHS furosemide [Lasix] 40 mg tablet 40 mg PO DAILY Qty: 4 0RF atorvastatin 40 mg tablet 40 mg PO QHS aspirin [Adult Aspirin Regimen] 81 mg tablet,delayed release (DR/EC) 81 mg PO DAILY clopidogrel 75 mg tablet 75 mg PO DAILY Primary Care Provider: Krish Cárdenas NP Referrals: Krish Cárdenas NP, [employer] [Primary Care Provider] - Disposition Disposition: Acute Care Hospital [facility]
--- NOTE | 2023-12-05 10:18 | PCM.HP.STD ---
HPI - General General Date of Admission: 12/05/23 Date of Service: 12/05/23 Chief Complaint: GI bleed HPI Narrative ARIE TOTH, is a 73 F with an extensive PMH as outlined who presents via the ED on 12/05/2023 with a complaint of GI bleed. family noted that she was very weak and lethargic at home and had dark bowel movements also. She had a history of alcohol use disorder and had been actively drinking at home. she denied any chest pain, palpitations, dizziness, nausea, vomiting or any other symptoms. Review of systems is otherwise negative. She was not on any blood thinners. Vitals in the ED at time of review were BP of 109/43, VA if 107, RR of 20 and temp of 98F. She was saturating at 100% on 2L of oxygen by nasal canula. CBC showed hb of 7.3, wbc is 21.5 and platelets of 167. She had associated macrocytosis. INR is 1 an Chemistry showed sodium of 137 with potassium of 4.4 and Cr of 1.76. Lactic acid was 3; liver enzymes were WNL. 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 Her BP was low in the ED, in the 90s systolic, and responded to IVF. She has been admitted to be managed for acute anemia due to GI bleed in the setting of alcohol abuse. [facility] Medical History (Updated 12/05/23 @ 12:10 by Darryl Castro RN) Acute respiratory failure with hypoxemia Bilateral carpal tunnel syndrome COPD (chronic obstructive pulmonary disease) Depression DM2 (diabetes mellitus, type 2) Essential (primary) hypertension ETOH abuse Generalized weakness History of bronchitis History of pneumonia Hyperlipemia Retinal detachment Stroke/cerebrovascular accident Tobacco dependence Home Medications citalopram 40 mg tablet 40 mg PO DAILY anxiety 01/15/17 [History Last Taken 12/03/23] lisinopril 40 mg tablet 40 mg PO DAILY blood pressure 01/15/17 [History Last Taken 12/03/23] loperamide 2 mg capsule 2 mg PO BID IRRITABLE BOWEL 01/15/17 [History Last Taken 12/03/23] lovastatin 20 mg tablet 20 mg PO QHS CHOLESTEROL 01/15/17 [History Last Taken 12/03/23] ipratropium bromide 0.02 % solution for inhalation 0.5 mg inhalation BID 05/13/19 [History Last Taken 12/03/23] Disability Placard #1 ea 01/08/21 [Rx Last Taken Unknown] metoprolol succinate 50 mg tablet,extended release 24 hr 50 mg PO DAILY htn 05/09/22 [History Last Taken 12/03/23] aspirin 81 mg tablet,delayed release (Adult Aspirin Regimen) 81 mg PO DAILY 05/10/23 [History Last Taken 12/03/23] atorvastatin 40 mg tablet 40 mg PO QHS 05/10/23 [History Last Taken 12/03/23] clopidogrel 75 mg tablet 75 mg PO DAILY 05/10/23 [History Last Taken 12/03/23] albuterol sulfate 90 mcg/actuation aerosol inhaler 2 puff inhalation Q6H PRN shortness of breath or wheezing #8.5 grams 07/07/23 [Rx Last Taken 12/03/23] fluticasone fur. 100 mcg-umeclid 62.5 mcg-vilant 25 mcg inhalat.powder (Trelegy Ellipta) 1 inh inhalation DAILY SOB #60 ea 07/07/23 [Rx Last Taken 12/03/23] albuterol sulfate 2.5 mg/3 mL (0.083 %) solution for nebulization 2.5 mg inhalation Q2H PRN Shortness of breath 12/05/23 [History Last Taken 12/03/23] carboxymethylcellulose sodium 1 % eye drops (Artificial Tears (carboxymethylcellulose)) 1 drp EACH EYE DAILY PRN dry eye(s) 12/05/23 [History Last Taken 12/03/23] furosemide 20 mg tablet 20 - 40 mg PO DAILY PRN edema 12/05/23 [History Last Taken 12/03/23] Allergy/AdvReac Type Severity Reaction Status Date / Time No Known Allergies Allergy Verified 09/16/23 14:17 Family History Father Cirrhosis Mother Uterine cancer Grandmother Uterine cancer Surgical History H/O cataract removal with insertion of prosthetic lens H/O tubal ligation History of bilateral carpal tunnel release Social History Smoking Status: Current every day smoker tobacco type: cigarettes Tobacco: How many years used: 54 second hand exposure: Yes ROS Constitutional Constitutional: Reports fatigue, malaise and weakness; Denies anorexia, change in weight, chills or fever(s) Eyes Eyes: Denies change in vision ENT HEENT: Denies dysphagia or headache(s) Cardiovascular Cardiovascular: Denies chest pain, edema, orthopnea, palpitations, paroxysmal nocturnal dyspnea or syncope Respiratory/Chest Respiratory/Chest: Denies cough, shortness of breath at rest or shortness of breath with exertion Gastrointestinal Gastrointestinal: Reports melena, nausea and vomiting; Denies abdominal pain, constipation, diarrhea, dyspepsia, hematemesis or hematochezia Genitourinary Genitourinary: Denies dysuria or hematuria Musculoskeletal Musculoskeletal: Denies back pain Neurologic Neurologic: Denies confusion, dizziness, focal weakness or headache(s) Psychiatric Psychiatric: Denies anxiety or depression Endocrine Endocrinology: Denies change in body appearance Hematologic/Lymphatic Hematologic/Lymphatic: Denies anemia Vital Signs Vital Signs Vital Signs: 12/05/23 06:03 12/05/23 06:18 12/05/23 06:48 Temperature 97.9 F 97.6 F L Temperature Source Oral Oral Pulse Rate 100 100 88 Respiratory Rate 18 25 H 14 Blood Pressure 81/46 L 76/40 L 68/43 L Blood Pressure Mean 57 52 51 Blood Pressure Source Monitor Blood Pressure Position Supine Blood Pressure Location Left Arm Pulse Ox 95 93 Oxygen Delivery Method Room Air Room Air Oxygen Flow Rate (L/min) 12/05/23 07:03 12/05/23 07:03 12/05/23 07:03 Temperature 97.5 F L 97.1 F L Temperature Source Temporal Temporal Pulse Rate 92 89 90 Respiratory Rate 18 18 19 H Blood Pressure 73/55 L 73/55 L 73/55 L Blood Pressure Mean 61 61 61 Blood Pressure Source Monitor Blood Pressure Position Supine Blood Pressure Location Right Arm Pulse Ox 97 98 96 Oxygen Delivery Method Nasal Cannula Nasal Cannula Nasal Cannula Oxygen Flow Rate (L/min) 2 2 12/05/23 08:20 12/05/23 08:35 12/05/23 07:15 Temperature 98.1 F 97.8 F Temperature Source Temporal Temporal Pulse Rate 97 105 H Respiratory Rate 21 H 14 Blood Pressure 104/62 114/45 L 85/60 L Blood Pressure Mean 76 68 69 Blood Pressure Source Blood Pressure Position Blood Pressure Location Pulse Ox 97 99 Oxygen Delivery Method Nasal Cannula Nasal Cannula Oxygen Flow Rate (L/min) 2 2 12/05/23 07:16 12/05/23 07:20 12/05/23 07:30 Temperature Temperature Source Pulse Rate 89 89 89 Respiratory Rate 18 18 20 H Blood Pressure 77/51 L Blood Pressure Mean 59 Blood Pressure Source Blood Pressure Position Blood Pressure Location Pulse Ox 98 Oxygen Delivery Method Oxygen Flow Rate (L/min) 12/05/23 08:00 12/05/23 07:40 12/05/23 07:45 Temperature 98 F Temperature Source Temporal Pulse Rate 90 89 89 Respiratory Rate 18 22 H 23 H Blood Pressure 118/50 L 104/53 L Blood Pressure Mean 72 68 Blood Pressure Source Blood Pressure Position Blood Pressure Location Pulse Ox 100 100 Oxygen Delivery Method Nasal Cannula Oxygen Flow Rate (L/min) 2 12/05/23 07:50 12/05/23 08:00 12/05/23 08:50 Temperature 98 F Temperature Source Temporal Pulse Rate 88 93 107 H Respiratory Rate 15 14 20 H Blood Pressure 118/50 L 95/40 L Blood Pressure Mean 72 58 Blood Pressure Source Blood Pressure Position Blood Pressure Location Pulse Ox 100 100 Oxygen Delivery Method Nasal Cannula Oxygen Flow Rate (L/min) 2 12/05/23 09:05 12/05/23 09:00 12/05/23 08:00 Temperature 98 F Temperature Source Temporal Pulse Rate 107 H 107 H 91 Respiratory Rate 20 H 20 H 14 Blood Pressure 109/43 L 109/43 L 118/50 L Blood Pressure Mean 65 65 69 Blood Pressure Source Blood Pressure Position Blood Pressure Location Pulse Ox 100 100 Oxygen Delivery Method Nasal Cannula Nasal Cannula Oxygen Flow Rate (L/min) 2 12/05/23 08:10 12/05/23 08:15 12/05/23 08:20 Temperature Temperature Source Pulse Rate 96 97 97 Respiratory Rate 21 H 19 H 21 H Blood Pressure 104/62 104/62 Blood Pressure Mean 75 76 Blood Pressure Source Blood Pressure Position Blood Pressure Location Pulse Ox 98 Oxygen Delivery Method Nasal Cannula Oxygen Flow Rate (L/min) 2 12/05/23 08:30 12/05/23 08:40 Temperature Temperature Source Pulse Rate 105 H 106 H Respiratory Rate 14 25 H Blood Pressure 114/45 L 110/47 L Blood Pressure Mean 64 68 Blood Pressure Source Blood Pressure Position Blood Pressure Location Pulse Ox 99 100 Oxygen Delivery Method Nasal Cannula Nasal Cannula Oxygen Flow Rate (L/min) 2 2 Weight Weight: 127 lb 3 oz Body Mass Index (BMI) 22.5 Physical Exam Const alert, oriented x3 and no apparent distress Constitutional Narrative: frail General Appearance: cooperative HEENT normocephalic and head/scalp atraumatic Mouth: dry mucous membranes Eyes PERRL and EOMs intact bilaterally Neck no lymphadenopathy and supple Lymph Lymphatic: no lymphadenopathy noted and no lymphedema noted Resp Resp Narrative: diminished breath sounds bibasally, no wheezes or crackles. On 2L of xygen. Cardio regular rate, regular rhythm, S1 normal heart sound, S2 normal heart sound and no murmurs GI normal to inspection, nondistended, normoactive bowel sounds, soft to palpation and non-tender Extremity normal capillary refill, no clubbing, cyanosis or edema and no calf tenderness General Extremity: no tenderness to palpation of joints or extremities Skin General Skin Exam: no breakdown Neuro CN's II-XII intact bilaterally, no focal motor deficits, no sensory deficits noted and deep tendon reflexes 2+ bilaterally Motor Exam: general weakness Psych thought process normal Mood & Affect: anxious Results Lab / Micro Data 12/05/23 06:10 12/05/23 06:10 Labs: Laboratory Results - last 24 hr 12/05/23 06:10: WBC 21.5 H, RBC 2.13 L, Hgb 7.3 L, Hct 22.0 L, MCV 103.3 H, MCH 34.3 H, MCHC 33.2, RDW Std Deviation 54.1 H, RDW Coeff of [place] 14.3, Plt Count 167, MPV 12.9 H, Immature Gran % (Auto) 3.500 H, Neut % (Auto) 73.7 H, Lymph % (Auto) 15.7 L, [place] % (Auto) 6.7, Eos % (Auto) 0.1, Baso % (Auto) 0.3, Absolute Neuts (auto) 15.9 H, Absolute Lymphs (auto) 3.38, Nucleated RBC % 0, PT 13.5, INR 1.0, APTT 22.3 L, Sodium 137, Potassium 4.4, Chloride 107, Carbon Dioxide 19.0 L, Anion Gap 11, BUN 139 H*, Creatinine 1.76 H, Estim Creat Clear Calc 23.90, Est GFR (MDRD) Af Amer 36 L, Est GFR (MDRD) Non-Af 30 L, BUN/Creatinine Ratio 79.0 H, Glucose 189 H, Lactic Acid 3.0 H*, Calcium 8.8, Total Bilirubin 0.60, Direct Bilirubin 0.18, AST 13 L, ALT 15, Alkaline Phosphatase 38 L, Total Protein 5.8 L, Albumin 3.1 L, Globulin 2.7, Lipase 23, Blood Type A POSITIVE, Antibody Screen NEGATIVE, Crossmatch See Detail Micro: Microbiology 12/05/23 07:24 Mucosa - Nose SARS-CoV-2, Influenza & RSV (PCR) - Final Imaging Radiology Impression Abdomen/Pelvis CTA 12/05/23 06:27 IMPRESSION: 1. Superior mesenteric artery: Moderate to severe atherosclerotic plaque at its origin resulting in severe stenosis. The superior mesenteric artery is normal distal to this origin and normally perfused. 2. There is no evidence of arterial extravasation into the stomach or small or large bowel or active arterial hemorrhaging in these regions. If symptoms persist consider nuclear medicine GI bleeding scan. No high density hemorrhage/fluid is seen within the lumen of the bowel loops on the current study. 3. Significant descending and rectosigmoid diverticulosis Electronically Signed: Lam Eid MD at 10:10 EDT , Assessment & Plan Assessment/Plan (1) GI (gastrointestinal bleed): (2) Acute blood loss anemia: PLAN: Plan #Acute anemia due to Acute GI bleed Admitted with a complaint of GI bleed. She has been having dark stools for several days now. She denied any abdominal pain. She does have a history of strong alcohol intake but denies any history of epic ulcer disease. Hemoglobin was 7.3 on admission with a baseline of around 12-13. Stool for occult blood is positive. Patient started on pantoprazole drip. Keep NPO. Gastroenterology consulted. Type and cross. Transfuse if hemoglobin is less than 7. Hold aspirin and any other blood thinners. Also on Plavix which we will hold. GI to take care for EGD today and EGD showed oozing gastric ulcers with pigmented material which were injected and treated with heater probe. She also had nonbleeding duodenal ulcers with no stigmata of bleeding. #NIKO: Creatinine is 1.76 with a baseline of around 0.6. This is likely due to GI bleed probable dehydration. Hydrate gently with IV fluids. Should improve with hydration. #Type 2 diabetes mellitus: Hold Lantus. Insulin sliding scale. Accu-Cheks every 6. #Hyperlipidemia: On statin #History of chronic alcohol abuse: Last drink was the day before admission. Patient counseled to quit. She drinks a glass of vodka daily. At risk of withdrawal. Will place on alcohol withdrawal protocol with phenobarbital. Monitor CIWA score. Adjunctive meds for symptomatic relief. # Chronic respiratory failure due to COPD: Wears 2 to 3 L of oxygen at home. Breathing treatments bronchodilators. Not in exacerbation. #Anxiety and depression: On citalopram. DVT Prophylaxis; SCDs CODE STATUS: Full code Patient counseled extensively about different types of CODE STATUS including full code, DNR CCA and DNR CCA. Patient elects to be full code. Total [id number] time 17 minutes. Charges/Coding Visit Charges Inpatient E&M: 65131 Init Hosp L3 Procedures Hospitalists Procedures: 40637 Advncd Care Plan 30 Min
[2023-12-05 10:34] LABS: Reflex Lactate? Y
[2023-12-05 11:37] LABS: Lactic Acid 0.9 mmol/L (0.4-1.9)
[2023-12-05] MEDS: 0.9% Normal Saline (1000mL) 1,000 ML 150 ML IV ×2 (12:05→17:01)
--- NOTE | 2023-12-05 12:35 | CON.PCM.GI_ITS ---
HPI Consult Data Date of Consult: 12/05/23 HPI Narrative Reason for Consultation: GI bleed HPI Narrative: 73 F with an extensive PMH such as COPD, type 2 diabetes previous stroke as well as alcohol abuse. Patient was brought in by EMS which were called by family because she has had increased weakness and fatigue and reportedly had a dark bowel movement at home. Patient denies any history of bleeding disorder or blood thinner use. She does state that her last drink was last night. She also reports that she is a full code at this time. as outlined who presents via the ED on 12/05/2023 with a complaint of GI bleed. family noted that she was very weak and lethargic at home and had dark bowel movements also. She had a history of alcohol use disorder and had been actively drinking at home. she denied any chest pain, palpitations, dizziness, nausea, vomiting or any other symptoms. Review of systems is otherwise negative. She was not on any blood thinners. Vitals in the ED at time of review were BP of 109/43, [place] if 107, RR of 20 and temp of 98F. She was saturating at 100% on 2L of oxygen by nasal canula. CBC showed hb of 7.3, wbc is 21.5 and platelets of 167. She had associated macrocytosis. INR is 1 an Chemistry showed sodium of 137 with potassium of 4.4 and Cr of 1.76. Lactic acid was 3; liver enzymes were WNL. 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 Her BP was low in the ED, in the 90s systolic, and responded to IVF. She has been admitted to be managed for acute anemia due to GI bleed in the setting of alcohol abuse. [facility] Medical History (Updated 12/05/23 @ 12:10 by Darryl Castro RN) Acute respiratory failure with hypoxemia Bilateral carpal tunnel syndrome COPD (chronic obstructive pulmonary disease) Depression DM2 (diabetes mellitus, type 2) Essential (primary) hypertension ETOH abuse Generalized weakness History of bronchitis History of pneumonia Hyperlipemia Retinal detachment Stroke/cerebrovascular accident Tobacco dependence Home Medications citalopram 40 mg tablet 40 mg PO DAILY anxiety 01/15/17 [History Last Taken 12/03/23] lisinopril 40 mg tablet 40 mg PO DAILY blood pressure 01/15/17 [History Last Taken 12/03/23] loperamide 2 mg capsule 2 mg PO BID IRRITABLE BOWEL 01/15/17 [History Last Taken 12/03/23] lovastatin 20 mg tablet 20 mg PO QHS CHOLESTEROL 01/15/17 [History Last Taken 12/03/23] ipratropium bromide 0.02 % solution for inhalation 0.5 mg inhalation BID 05/13/19 [History Last Taken 12/03/23] Disability Placard #1 ea 01/08/21 [Rx Last Taken Unknown] metoprolol succinate 50 mg tablet,extended release 24 hr 50 mg PO DAILY htn 05/09/22 [History Last Taken 12/03/23] aspirin 81 mg tablet,delayed release (Adult Aspirin Regimen) 81 mg PO DAILY 05/10/23 [History Last Taken 12/03/23] atorvastatin 40 mg tablet 40 mg PO QHS 05/10/23 [History Last Taken 12/03/23] clopidogrel 75 mg tablet 75 mg PO DAILY 05/10/23 [History Last Taken 12/03/23] albuterol sulfate 90 mcg/actuation aerosol inhaler 2 puff inhalation Q6H PRN shortness of breath or wheezing #8.5 grams 07/07/23 [Rx Last Taken 12/03/23] fluticasone fur. 100 mcg-umeclid 62.5 mcg-vilant 25 mcg inhalat.powder (Trelegy Ellipta) 1 inh inhalation DAILY SOB #60 ea 07/07/23 [Rx Last Taken 12/03/23] albuterol sulfate 2.5 mg/3 mL (0.083 %) solution for nebulization 2.5 mg inhalation Q2H PRN Shortness of breath 12/05/23 [History Last Taken 12/03/23] carboxymethylcellulose sodium 1 % eye drops (Artificial Tears (carboxymethylcellulose)) 1 drp EACH EYE DAILY PRN dry eye(s) 12/05/23 [History Last Taken 12/03/23] furosemide 20 mg tablet 20 - 40 mg PO DAILY PRN edema 12/05/23 [History Last Taken 12/03/23] Allergy/AdvReac Type Severity Reaction Status Date / Time No Known Allergies Allergy Verified 09/16/23 14:17 Family History Father Cirrhosis Mother Uterine cancer Grandmother Uterine cancer Surgical History H/O cataract removal with insertion of prosthetic lens H/O tubal ligation History of bilateral carpal tunnel release Social History Smoking Status: Current every day smoker tobacco type: cigarettes Tobacco: How many years used: 54 second hand exposure: Yes ROS Constitutional Constitutional: Reports weakness; Denies anorexia, change in weight, chills, fatigue, fever(s) or night sweats Eyes Eyes: Denies blurry vision, change in vision, discharge from eye(s) or eye pain Cardiovascular Cardiovascular: Denies chest pain, claudication, dyspnea on exertion, edema, lightheadedness or palpitations Respiratory/Chest Respiratory/Chest: Denies cough, excessive phlegm production, hemoptysis, productive cough, shortness of breath at rest or shortness of breath with exertion Gastrointestinal Gastrointestinal: Denies abdominal pain, coffee ground emesis, constipation, diarrhea, dyspepsia, hematemesis, hematochezia, melena, nausea or vomiting Genitourinary Genitourinary: Denies difficulty urinating, dysuria, hematuria, nocturia, urinary frequency, urinary hesitancy, urinary incontinence or urinary urgency Musculoskeletal Musculoskeletal: Denies back pain, joint pain, joint stiffness, joint swelling, myalgias or neck pain Neurologic Neurologic: Reports numbness; Denies abnormal gait, abnormal speech, dizziness, focal weakness, headache(s), loss of vision, other visual disturbances, paresthesias, syncope or tingling Psychiatric Psychiatric: Denies anxiety, cognitive impairment, depression, irritability, mood swings or suicidal ideation Endocrine Endocrinology: Denies change in body appearance, cold intolerance, excessive sweating, heat intolerance, polydipsia or polyuria Hematologic/Lymphatic Hematologic/Lymphatic: Denies none, anemia, easy bleeding, easy bruising or lymphadenopathy Allergic/Immunologic Allergic/Immunologic: Denies rhinitis, urticaria, eczemia or asthma Physical Exam HEENT normocephalic, head/scalp atraumatic, hearing grossly normal bilaterally and moist oral mucous membranes Mouth: oral and palatal mucosa normal Neck no lymphadenopathy and supple Resp normal respiratory effort, no retractions and no use of accessory muscles Resp Narrative: on 2L of oxygen Cardio regular rate, regular rhythm, S1 normal heart sound, S2 normal heart sound and no murmurs GI normal to inspection, nondistended, normoactive bowel sounds, soft to palpation and non-tender Extremity normal to inspection, full ROM and no clubbing, cyanosis or edema Skin no rashes or lesions noted, no wounds and skin turgor normal Neuro Neuro Narrative: alert, lethargic, righ sided facial droop, slurred speech. Patient confused. Power on right side is 4-/5, only minimally weak. NIHSS is 8 Lab / Micro Data 12/05/23 06:10 12/05/23 06:10 Labs: Laboratory Results - last 24 hr 12/05/23 06:10: WBC 21.5 H, RBC 2.13 L, Hgb 7.3 L, Hct 22.0 L, MCV 103.3 H, MCH 34.3 H, MCHC 33.2, RDW Std Deviation 54.1 H, RDW Coeff of [place] 14.3, Plt Count 167, MPV 12.9 H, Immature Gran % (Auto) 3.500 H, Neut % (Auto) 73.7 H, Lymph % (Auto) 15.7 L, [place] % (Auto) 6.7, Eos % (Auto) 0.1, Baso % (Auto) 0.3, Absolute Neuts (auto) 15.9 H, Absolute Lymphs (auto) 3.38, Nucleated RBC % 0, PT 13.5, INR 1.0, APTT 22.3 L, Sodium 137, Potassium 4.4, Chloride 107, Carbon Dioxide 19.0 L, Anion Gap 11, BUN 139 H*, Creatinine 1.76 H, Estim Creat Clear Calc 23.90, Est GFR (MDRD) Af Amer 36 L, Est GFR (MDRD) Non-Af 30 L, BUN/Creatinine Ratio 79.0 H, Glucose 189 H, Lactic Acid 3.0 H*, Calcium 8.8, Total Bilirubin 0.60, Direct Bilirubin 0.18, AST 13 L, ALT 15, Alkaline Phosphatase 38 L, Total Protein 5.8 L, Albumin 3.1 L, Globulin 2.7, Lipase 23, Blood Type A POSITIVE, Antibody Screen NEGATIVE, Crossmatch See Detail 12/05/23 10:47: Lactic Acid 0.9 12/05/23 14:08: POC Glucose 169 H Micro: Microbiology 03/15/24 06:30 Stool Stool Occult Blood (SAMANTHA) - Final Occult Blood Positive 12/05/23 07:24 Mucosa - Nose SARS-CoV-2, Influenza & RSV (PCR) - Final Imaging Radiology Impression Abdomen/Pelvis CTA 12/05/23 06:27 IMPRESSION: 1. Superior mesenteric artery: Moderate to severe atherosclerotic plaque at its origin resulting in severe stenosis. The superior mesenteric artery is normal distal to this origin and normally perfused. 2. There is no evidence of arterial extravasation into the stomach or small or large bowel or active arterial hemorrhaging in these regions. If symptoms persist consider nuclear medicine GI bleeding scan. No high density hemorrhage/fluid is seen within the lumen of the bowel loops on the current study. 3. Significant descending and rectosigmoid diverticulosis Electronically Signed: Lam Eid MD at 10:10 EDT , Assessment & Plan Assessment/Plan (1) Alcohol abuse: (2) GI (gastrointestinal bleed): (3) Acute blood loss anemia: PLAN: Plan 73-year-old with past medical COPD, alcohol abuse disorder, hyperlipidemia, type 2 diabetes, nicotine addiction presents with hypotension nausea melanotic stools and discovered to have severely elevated BUN/creatinine ratio likely secondary to upper GI bleed. She should undergo an upper endoscopy to evaluate upper GI tract. Her and her family were explained alternatives, risk, benefits including outstanding bleeding, infection, sepsis, perforation, need for emergent urgent . She have an ASA of 3.
[2023-12-05] MEDS: 0.9% Normal Saline (1000mL) 1,000 ML 15 ML IV (14:15)
[2023-12-05 14:26] LABS: Bedside Glucose 169 mg/dL (74-106)
[2023-12-05] MEDS: Ipratropium/Albuterol Sulfate 3 ML AMPUL.NEB INHALATION ×2 (14:58→20:14)
--- NOTE | 2023-12-05 14:59 | CPS ---
Given in AC
--- NOTE | 2023-12-05 15:30 | OP.CCLET_ITS ---
12/05/2023 Krish Cárdenas Re : Upper GI endoscopy procedure for Sumi Villanueva Dear Avi This procedure was performed on Tuesday, December 05, 2023. My impressions and recommendations are as follows: Impressions : - Abnormal esophageal motility, suspicious for achalasia. - Oozing gastric ulcers with pigmented material. Injected. Treated with a heater probe. - Non-bleeding duodenal ulcers with no stigmata of bleeding. - No specimens collected. Recommendations : - [facility]. - Clear liquid diet today. - Continue present medications. - No aspirin, ibuprofen, naproxen, or other non-steroidal anti-inflammatory drugs for 12 days. My findings are described in the full procedure note, which is enclosed. If I can be of further assistance, please feel free to contact me at . Sincerely, Jony Curtis, 12/05/2023 3:30:21 PM This report has been signed electronically.
--- NOTE | 2023-12-05 15:30 | OP.EGD_ITS ---
Patient Name: Sumi Villanueva Procedure Date: 12/05/2023 2:50 PM Date of : 1950 Age: 73 Procedure: Upper GI endoscopy Indications: Iron deficiency anemia, Melena Providers: Jony Curtis DO Medicines: Monitored Anesthesia Care Patient Profile: This is a 73 year old female. Refer to note in patient chart for documentation of history and physical. Patient has symptoms of acute epigastric abdominal pain, acute nausea and acute vomiting. Complications: No immediate complications. Procedure: Pre-Anesthesia Assessment: - Prior to the procedure, a History and Physical was performed, and patient medications and allergies were reviewed. The patient is competent. The risks and benefits of the procedure and the sedation options and risks were discussed with the patient. All questions were answered and informed consent was obtained. Patient identification and proposed procedure were verified by the physician in the pre-procedure area. Mental Status Examination: alert and oriented. Airway Examination: normal oropharyngeal airway and neck mobility. Respiratory Examination: clear to auscultation. CV Examination: normal. Prophylactic Antibiotics: The patient does not require prophylactic antibiotics. Prior Anticoagulants: The patient has taken no anticoagulant or antiplatelet agents. ASA Grade Assessment: IV - A patient with severe systemic disease that is a constant threat to life. After reviewing the risks and benefits, the patient was deemed in satisfactory condition to undergo the procedure. The anesthesia plan was to use monitored anesthesia care (MAC). Immediately prior to administration of medications, the patient was re-assessed for adequacy to receive sedatives. The heart rate, respiratory rate, oxygen saturations, blood pressure, adequacy of pulmonary ventilation, and response to care were monitored throughout the procedure. The physical status of the patient was re-assessed after the procedure. After obtaining informed consent, the endoscope was passed under direct vision. Throughout the procedure, the patient's blood pressure, pulse, and oxygen saturations were monitored continuously. The gastroscope was introduced through the mouth, and advanced to the second part of duodenum. The upper GI endoscopy was accomplished without difficulty. The patient tolerated the procedure well. Scope In: 3:19:07 PM Scope Out: 3:25:11 PM Total Procedure Duration Time 0 hours 6 minutes 4 seconds Findings: Abnormal motility was noted in the lower third of the esophagus. The cricopharyngeus was normal. There is spasticity of the esophageal body. The distal esophagus/lower esophageal sphincter is spastic, but gives up passage to the endoscope. Tertiary peristaltic waves are noted. Many oozing linear gastric ulcers with pigmented material were found in the cardia, on the greater curvature of the stomach and on the lesser curvature of the stomach. The largest lesion was 4 mm in largest dimension. Area was successfully injected with 5 mL of a 0.1 mg/mL solution of epinephrine for drug delivery. Coagulation for hemostasis using heater probe was successful. Estimated blood loss was minimal. Many non-bleeding cratered duodenal ulcers with no stigmata of bleeding were found in the duodenal bulb, in the first portion of the duodenum and in the second portion of the duodenum. The largest lesion was 5 mm in largest dimension. Impression: - Abnormal esophageal motility, suspicious for achalasia. - Oozing gastric ulcers with pigmented material. Injected. Treated with a heater probe. - Non-bleeding duodenal ulcers with no stigmata of bleeding. - No specimens collected. Recommendation: - [facility]. - Clear liquid diet today. - Continue present medications. - No aspirin, ibuprofen, naproxen, or other non-steroidal anti-inflammatory drugs for 12 days. Procedure Code(s): --- Professional --- 85103, Esophagogastroduodenoscopy, flexible, transoral; with control of bleeding, any method 55358, 59,51, Esophagogastroduodenoscopy, flexible, transoral; with directed submucosal injection(s), any substance CPT copyright 2021 [employer]. All rights reserved. The codes documented in this report are preliminary and upon medical records coder review may be revised to meet current compliance requirements. Jony Curtis DO 12/05/2023 3:30:21 PM This report has been signed electronically. Number of Addenda: 0 Note Initiated On: 12/05/2023 2:50 PM
[2023-12-05 17:36] LABS: Bedside Glucose 185 mg/dL (74-106)
[2023-12-05] MEDS: Budesonide Respules 0.5 MG/2 ML AMPUL.NEB. INHALATION (20:14)
[2023-12-05] MEDS: Insulin Lispro 100 UNIT/ML INSULN.PEN SC (23:08)
[2023-12-06] VITALS (16 sets, daily range): BP systolic 85–127; BP diastolic 44–94; PULSE 75–96; RESP 15–20; TEMP 36.1–36.8; O2SAT 90–99
[2023-12-06 00:06] LABS: Bedside Glucose 221 mg/dL (74-106)
[2023-12-06] MEDS: Octreotide 0.5 MG in Dextrose 5%-Water (250mL Bag) 249 ML 25 MG CONT INF ×3 (04:18→23:23)
[2023-12-06] MEDS: Pantoprazole Sodium 80 MG in 0.9% Normal Saline (100mL Bag) 80 ML 10 MG CONT INF ×3 (04:18→23:23)
[2023-12-06 06:13] LABS: Absolute Lymphocyte Count 1.91 X10^3/uL (0.83-4.51); Absolute Neutrophil Count 7.1 X10^3/uL (2.0-7.7); Basophil# 0.03 X10^3/uL; Basophil% 0.3 % (0-1); Eosinophil# 0.11 X10^3/uL; Eosinophils% 1.1 % (0-5); Hematocrit 19.5 % (37-47); Hemoglobin 6.6 g/dL (12.0-15.0); Lymphocyte # 1.91 X10^3/ul (0.83-4.51); Lymphocyte % 18.8 % (19-41); Mean Corp Hgb Conc 33.8 g/dL (32-36); Mean Corpuscular Hgb 33.7 pg (27.0-32.0); Mean Corpuscular Volume 99.5 fL (81-99); Mean Platelet Vol. 12.4 fl (6.2-12.0); Monocyte# 0.81 X10^3/uL; NRBC Flagged by Analyzer 0.2 % (0-5); Neutrophil # 7.08 X10^3/uL (2.7-7.7); Neutrophil % 69.5 % (47-70); POSITIVE MORPHOLOGY YES; Platelet Count 115 K/mm3 (150-450); RBC Distribution Width SD 68.2 fl (35.1-43.9); Red Blood Count 1.96 M/mm3 (4.2-5.4); White Blood Count 10.2 K/mm3 (4.4-11.0)
[2023-12-06 06:18] LABS: Differential Indicated SCAN CRITERIA MET
[2023-12-06] MEDS: Insulin Lispro 100 UNIT/ML INSULN.PEN SC ×4 (06:40→21:47)
[2023-12-06 06:51] LABS: Anion Gap 2 (5-15); BUN 54 mg/dL (7-18); BUN/Creat Ratio 65.7 RATIO (10-20); Calcium,Total 7.5 mg/dL (8.5-10.1); Chloride 123 mmol/L (98-107); Creatinine, Serum 0.82 mg/dL (0.55-1.02); EST Glomerular Filtration Rate 73 mL/min (>60); Est Glom Filt Rate - Afr Amer 88 mL/min (>60); Estimated Creatinine Clearance 53.55 ml/min; Glucose 183 mg/dL (74-106); Potassium 4.2 mmol/L (3.5-5.1); Sodium Level 147 mmol/L (136-145)
[2023-12-06 07:18] LABS: Bedside Glucose 167 mg/dL (74-106)
[2023-12-06 07:39] LABS: Differential Comment SCANNED
[2023-12-06 07:40] LABS: Anisocytosis 3+
[2023-12-06] MEDS: Ipratropium/Albuterol Sulfate 3 ML AMPUL.NEB INHALATION ×3 (08:17→20:03)
[2023-12-06] MEDS: Budesonide Respules 0.5 MG/2 ML AMPUL.NEB. INHALATION ×2 (08:17→20:03)
--- NOTE | 2023-12-06 09:56 | PN_ITS ---
Subjective Subjective Patient seen and examined. She had no complaints and said she felt much better today. She did have EGD yesterday which showed abnormal esophageal motility, suspicious for achalasia, as well as oozing gastric ulcers with pigmented material and nonbleeding duodenal ulcers with no stigmata of bleeding. Her hb is 6.6 today. Objective Data Objective Data Vital Signs: Vital Signs Temp Pulse Resp BP Pulse Ox O2 Del Method O2 Flow Rate 97.7 F L 81 16 112/47 L 97 Nasal Cannula 2 12/06/23 06:45 12/06/23 08:17 12/06/23 08:17 12/06/23 06:45 12/06/23 08:17 12/06/23 08:17 12/06/23 09:03 Oxygen Flow Rate (L/min) 2 Oxygen Delivery Method Nasal Cannula Weight: 133 lb 13.129 oz Body Mass Index (BMI) 22.9 Intake & Output: Intake and Output for Last 24 Hours 12/04/23 12/05/23 12/06/23 23:59 23:59 23:59 Intake Total 3808.17 / 3958.17 1500 / 1500 Output Total 250 / 250 800 / 800 Balance 3558.17 / 3708.17 700 / 700 Lab / Micro Data 12/06/23 05:45 12/06/23 05:45 Labs: Laboratory Results - last 24 hr 12/05/23 06:10: Crossmatch See Detail 12/05/23 06:10: Crossmatch See Detail 12/05/23 10:47: Lactic Acid 0.9 12/05/23 14:08: POC Glucose 169 H 12/05/23 17:16: POC Glucose 185 H 12/05/23 23:04: POC Glucose 221 H 12/06/23 05:45: WBC 10.2, RBC 1.96 L, Hgb 6.6 L, Hct 19.5 L, MCV 99.5 H, MCH 33.7 H, MCHC 33.8, RDW Std Deviation 68.2 H, RDW Coeff of [place] 19.0 H, Plt Count 115 L, MPV 12.4 H, Immature Gran % (Auto) 2.300 H, Neut % (Auto) 69.5, Lymph % (Auto) 18.8 L, [place] % (Auto) 8.0, Eos % (Auto) 1.1, Baso % (Auto) 0.3, Absolute Neuts (auto) 7.1, Absolute Lymphs (auto) 1.91, Nucleated RBC % 0.2, Differential Comment SCANNED, Anisocytosis 3+, Sodium 147 H, Potassium 4.2, Chloride 123 H, Carbon Dioxide 22.0, Anion Gap 2 L, BUN 54 H, Creatinine 0.82, Estim Creat Clear Calc 53.55, Est GFR (MDRD) Af Amer 88, Est GFR (MDRD) Non-Af 73, BUN/Creatinine Ratio 65.7 H, Glucose 183 H, Calcium 7.5 L 12/06/23 06:39: POC Glucose 167 H Micro: Microbiology 12/05/23 06:30 Stool Stool Occult Blood (SAMANTHA) - Final Occult Blood Positive 12/05/23 07:24 Mucosa - Nose SARS-CoV-2, Influenza & RSV (PCR) - Final Radiography Diagnostic Testing: Radiology Impression Abdomen/Pelvis CTA 12/05/23 06:27 IMPRESSION: 1. Superior mesenteric artery: Moderate to severe atherosclerotic plaque at its origin resulting in severe stenosis. The superior mesenteric artery is normal distal to this origin and normally perfused. 2. There is no evidence of arterial extravasation into the stomach or small or large bowel or active arterial hemorrhaging in these regions. If symptoms persist consider nuclear medicine GI bleeding scan. No high density hemorrhage/fluid is seen within the lumen of the bowel loops on the current study. 3. Significant descending and rectosigmoid diverticulosis Electronically Signed: Lam Eid MD at 10:10 EDT Reading Location ID and State: [facility] / [place] , Service support , Physical Exam Const alert, oriented x3 and no apparent distress Constitutional Narrative: frail General Appearance: cooperative HEENT normocephalic and head/scalp atraumatic Eyes PERRL and EOMs intact bilaterally Neck no lymphadenopathy and supple Lymph Lymphatic: no lymphadenopathy noted and no lymphedema noted Resp Resp Narrative: diminished breath sounds bibasally, no wheezes or crackles. On 2L of xygen. Cardio regular rate, regular rhythm, S1 normal heart sound, S2 normal heart sound and no murmurs GI normal to inspection, nondistended, normoactive bowel sounds, soft to palpation and non-tender Extremity normal capillary refill, no clubbing, cyanosis or edema and no calf tenderness General Extremity: no tenderness to palpation of joints or extremities Skin General Skin Exam: no breakdown Neuro CN's II-XII intact bilaterally, no focal motor deficits, no sensory deficits noted and deep tendon reflexes 2+ bilaterally Motor Exam: general weakness Psych thought process normal Appearance: appropriate Assessment & Plan Assessment/Plan (1) GI (gastrointestinal bleed): (2) Acute blood loss anemia: PLAN: Plan #Acute anemia due to Acute GI bleed * Admitted with a complaint of GI bleed. She has been having dark stools for several days now. * She denied any abdominal pain. She does have a history of strong alcohol i ntake but denies any history of epic ulcer disease. Hemoglobin was 7.3 on admission with a baseline of around 12-13. * Stool for occult blood is positive. * Keep NPO. Gastroenterology consulted. Type and cross. Transfuse if hemoglobin is less than 7. * Hold aspirin and any other blood thinners. Also on Plavix which we will hold. * Had EGD showed oozing gastric ulcers with pigmented material which were injected and treated with heater probe. She also had nonbleeding duodenal ulcers with no stigmata of bleeding. * she remains on pantoprazole and octreotide drip * transfuse with 2 units of PRBCs * #NIKO: * Creatinine is 1.76 with a baseline of around 0.6. * This is likely due to GI bleed probable dehydration. * Hydrate gently with IV fluids. Should improve with hydration. * CR is down to 0.82. * # Hyponatremia: Sodium is 147. Likely due to IV fluid administration. Will DC IV fluids. #Type 2 diabetes mellitus: Hold Lantus. Insulin sliding scale. Accu-Cheks every 6. #Hyperlipidemia: On statin #History of chronic alcohol abuse: * Last drink was the day before admission. Patient counseled to quit. * She drinks a glass of vodka daily. At risk of withdrawal. * Will place on alcohol withdrawal protocol with phenobarbital. * Monitor CIWA score. * Adjunctive meds for symptomatic relief. # Chronic respiratory failure due to COPD: Wears 2 to 3 L of oxygen at home. Breathing treatments bronchodilators. Not in exacerbation. #Anxiety and depression: On citalopram. DVT Prophylaxis; SCDs CODE STATUS: Full code * Charges/Coding Visit Charges Inpatient E&M: 37929 Subs Hosp L3
--- NOTE | 2023-12-06 10:45 | CASEMGMT ---
FABIÁN KLEIN Face to Face with patient for initial transition planning/care coordination assessment. RN CM introduced self and role at [facility]. Patient lying in bed, alert and oriented. Patient willing to participate in assessment and is able to answer all questions appropriately. Care providers, pharmacy, and demographics verified. PCP: Jasson WEB OPERATIONS ADMINISTRATOR Specialists: Braeden, utility gelatin maker; Preferred Pharmacy: [facility] Insurance: [employer] Prescription Benefit: yes Living Will/HPOA: none LNOK: son, sister Living Arrangements: Patient states she lives with sister and son in a 2 story home with bed and bath on first floor, 1 step to enter the home. Transportation: Family DME/HHC: Patient states she has shower chair, nebulizer, pulse ox, walker, and home oxygen through [employer] at 2.5 lpm with portability. Patient states she has had HHC in the past but could not recall agency. Patient has been to [facility] in the past. Patient wishes to discharge home but willing to go to SNF if needed. Will monitor progress with therapy.. Patient states she has no further needs or concerns at this time. CM to follow for discharge planning needs that may arise. Disposition Plan: TBD, anticpate SNF vs HHC pending course of treatment and progress with therapy. Shakira KAPLAN, RN, CM
[2023-12-06] MEDS: 0.9% Saline Lock 10 ML Syringe IV ×2 (11:29→17:06)
[2023-12-06] MEDS: Folic Acid 1 MG Tablet PO (12:25)
[2023-12-06] MEDS: Thiamine Hydrochloride 100 MG Tablet PO (12:25)
[2023-12-06 12:41] LABS: Bedside Glucose 178 mg/dL (74-106)
[2023-12-06] MEDS: Dextrose 5%-Water (1000mL Bag) 1,000 ML 75 ML IV (17:01)
[2023-12-06 17:26] LABS: Bedside Glucose 175 mg/dL (74-106)
[2023-12-06 22:17] LABS: Bedside Glucose 182 mg/dL (74-106)
[2023-12-07] VITALS (8 sets, daily range): BP systolic 102–146; BP diastolic 52–64; PULSE 73–92; RESP 16–18; TEMP 36.3–37; O2SAT 92–97
[2023-12-07] MEDS: Morphine 2 MG/ML Syringe IV (01:22)
[2023-12-07 05:38] LABS: Bacteria 0 SEEN /hpf (None Seen); Color, Urine Yellow (Yellow); Glucose, Dipstick Normal (Normal); Ketone-Dipstick Negative (Negative); Leukocyte Esterase-Dipstick Negative /ul (Negative); Mucous, Urine 0 SEEN /hpf (<or=2+); Nitrite-Dipstick Negative (Negative); Occult Blood-Urine Negative /ul (Negative); Protein-Dipstick Negative (Negative); Red Blood Cells-Urine 0 SEEN /hpf (0-5); Squamous Epithelial Cells - UA 0 SEEN /hpf (5-10); Urine Bilirubin Dipstick Negative (Negative); Urine Clarity Clear (Clear); Urine Urobilinogen Normal (Normal); Urine pH 6.5 (5.0 - 8.0); White Blood Cells 0 SEEN /hpf (0-5)
[2023-12-07] MEDS: Insulin Lispro 100 UNIT/ML INSULN.PEN SC (06:17)
[2023-12-07 06:52] LABS: Absolute Lymphocyte Count 2.64 X10^3/uL (0.83-4.51); Absolute Neutrophil Count 5.1 X10^3/uL (2.0-7.7); Basophil# 0.05 X10^3/uL; Basophil% 0.6 % (0-1); Eosinophil# 0.32 X10^3/uL; Eosinophils% 3.6 % (0-5); Hemoglobin 8.5 g/dL (12.0-15.0); Lymphocyte # 2.64 X10^3/ul (0.83-4.51); Lymphocyte % 29.5 % (19-41); Mean Corpuscular Hgb 32.7 pg (27.0-32.0); Mean Corpuscular Volume 96.2 fL (81-99); Mean Platelet Vol. 12.4 fl (6.2-12.0); Monocyte% 7.8 % (0-10); NRBC Flagged by Analyzer 0.2 % (0-5); Neutrophil # 5.13 X10^3/uL (2.7-7.7); Neutrophil % 57.2 % (47-70); Platelet Count 106 K/mm3 (150-450); RBC Distribution Width CV 17.4 % (11.6-14.6); RBC Distribution Width SD 59.7 fl (35.1-43.9)
[2023-12-07 06:54] LABS: Bedside Glucose 197 mg/dL (74-106)
[2023-12-07 07:16] LABS: Anion Gap 4 (5-15); BUN 23 mg/dL (7-18); BUN/Creat Ratio 34.9 RATIO (10-20); Calcium,Total 8.2 mg/dL (8.5-10.1); Chloride 115 mmol/L (98-107); Creatinine, Serum 0.66 mg/dL (0.55-1.02); EST Glomerular Filtration Rate 94 mL/min (>60); Est Glom Filt Rate - Afr Amer 113 mL/min (>60); Estimated Creatinine Clearance 54.89 ml/min; Glucose 202 mg/dL (74-106); Potassium 3.9 mmol/L (3.5-5.1); Sodium Level 141 mmol/L (136-145)
[2023-12-07] MEDS: Ipratropium/Albuterol Sulfate 3 ML AMPUL.NEB INHALATION ×3 (07:27→20:26)
[2023-12-07] MEDS: Budesonide Respules 0.5 MG/2 ML AMPUL.NEB. INHALATION ×2 (07:27→20:26)
[2023-12-07] MEDS: Thiamine Hydrochloride 100 MG Tablet PO (08:19)
[2023-12-07] MEDS: Folic Acid 1 MG Tablet PO (08:20)
[2023-12-07] MEDS: Pantoprazole Sodium 40 MG Tablet PO ×2 (11:22→21:11)
[2023-12-07 12:08] LABS: Bedside Glucose 147 mg/dL (74-106)
--- NOTE | 2023-12-07 13:34 | PN_ITS ---
Subjective Subjective Patient seen and examined. She had no active complaints. Review of systems is otherwise negative. Hemoglobin today is 8.5. She was transfused units of packed red blood cells yesterday. Objective Data Objective Data Vital Signs: Vital Signs Temp Pulse Resp BP Pulse Ox O2 Del Method O2 Flow Rate 97.9 F 78 16 102/63 96 Nasal Cannula 2 12/07/23 08:06 12/07/23 08:06 12/07/23 08:06 12/07/23 08:06 12/07/23 10:55 12/07/23 08:06 12/07/23 11:18 Oxygen Flow Rate (L/min) 2 Oxygen Delivery Method Nasal Cannula Weight: 133 lb 13.129 oz Body Mass Index (BMI) 22.9 Intake & Output: Intake and Output for Last 24 Hours 12/05/23 12/06/23 12/07/23 23:59 23:59 23:59 Intake Total 3808.17 / 3958.17 3054.75 / 3054.75 1350 / 1350 Output Total 250 / 250 2300 / 2300 1000 / 1000 Balance 3558.17 / 3708.17 754.75 / 754.75 350 / 350 Lab / Micro Data 12/07/23 05:19 12/07/23 05:19 Labs: Laboratory Results - last 24 hr 12/05/23 06:10: Crossmatch See Detail 12/06/23 17:04: POC Glucose 175 H 12/06/23 20:50: POC Glucose 182 H 12/07/23 05:19: WBC 9.0, RBC 2.60 L, Hgb 8.5 L, Hct 25.0 L, MCV 96.2, MCH 32.7 H , MCHC 34.0, RDW Std Deviation 59.7 H, RDW Coeff of [place] 17.4 H, Plt Count 106 L, MPV 12.4 H, Immature Gran % (Auto) 1.300 H, Neut % (Auto) 57.2, Lymph % (Auto) 29.5, [place] % (Auto) 7.8, Eos % (Auto) 3.6, Baso % (Auto) 0.6, Absolute Neuts (auto) 5.1, Absolute Lymphs (auto) 2.64, Nucleated RBC % 0.2, Sodium 141, Potassium 3.9, Chloride 115 H, Carbon Dioxide 22.0, Anion Gap 4 L, BUN 23 H, Creatinine 0.66, Estim Creat Clear Calc 54.89, Est GFR (MDRD) Af Amer 113, Est GFR (MDRD) Non-Af 94, BUN/Creatinine Ratio 34.9 H, Glucose 202 H, Calcium 8.2 L, Urine Color Yellow, Urine Clarity Clear, Urine pH 6.5, Ur Specific [place] 1.010, Urine Protein Negative, Urine Glucose (UA) Normal, Urine Ketones Negative, Urine Occult Blood Negative, Urine Nitrite Negative, Urine Bilirubin Negative, Urine Urobilinogen Normal, Ur Leukocyte Esterase Negative, Urine RBC 0 SEEN, Urine WBC 0 SEEN, Ur Squamous Epith Cells 0 SEEN, Urine Bacteria 0 SEEN, Urine Mucus 0 SEEN 12/07/23 06:16: POC Glucose 197 H 12/07/23 11:20: POC Glucose 147 H Micro: Microbiology 12/05/23 06:30 Stool Stool Occult Blood (SAMANTHA) - Final Occult Blood Positive 12/05/23 07:24 Mucosa - Nose SARS-CoV-2, Influenza & RSV (PCR) - Final Physical Exam Const alert, oriented x3 and no apparent distress Constitutional Narrative: frail General Appearance: cooperative HEENT normocephalic and head/scalp atraumatic Eyes PERRL and EOMs intact bilaterally Neck no lymphadenopathy and supple Lymph Lymphatic: no lymphadenopathy noted and no lymphedema noted Resp Resp Narrative: diminished breath sounds bibasally, no wheezes or crackles. On 2L of xygen. Cardio regular rate, regular rhythm, S1 normal heart sound, S2 normal heart sound and no murmurs GI normal to inspection, nondistended, normoactive bowel sounds, soft to palpation and non-tender Extremity normal capillary refill, no clubbing, cyanosis or edema and no calf tenderness General Extremity: no tenderness to palpation of joints or extremities Skin General Skin Exam: no breakdown Neuro CN's II-XII intact bilaterally, no focal motor deficits, no sensory deficits noted and deep tendon reflexes 2+ bilaterally Motor Exam: strength 5/5 throughout and general weakness Psych thought process normal, cooperative and affect normal Appearance: appropriate Assessment & Plan Assessment/Plan (1) GI (gastrointestinal bleed): (2) Acute blood loss anemia: PLAN: Plan #Acute anemia due to Acute GI bleed * Admitted with a complaint of GI bleed. She has been having dark stools for several days now. * She denied any abdominal pain. She does have a history of strong alcohol intake but denies any history of epic ulcer disease. Hemoglobin was 7.3 on admission with a baseline of around 12-13. * Stool for occult blood is positive. * Had EGD showed oozing gastric ulcers with pigmented material which were injected and treated with heater probe. She also had nonbleeding duodenal ulcers with no stigmata of bleeding. * pantoprazole and octreotide drip discontinued today. * transfuse with 2 units of PRBCs yesterday. * Will DC pantoprazole and octreotide drip and switch to p.o. pantoprazole. * #NIKO: * resolved * # Hyponatremia: resolved. Na is 141. #Type 2 diabetes mellitus: Resume Lantus. Accu-Cheks every 6 hourly. #Hyperlipidemia: On statin #History of chronic alcohol abuse: * Last drink was the day before admission. Patient counseled to quit. * She drinks a glass of vodka daily. At risk of withdrawal. * Will place on alcohol withdrawal protocol with phenobarbital. * Monitor CIWA score. * Adjunctive meds for symptomatic relief. # Chronic respiratory failure due to COPD: Wears 2 to 3 L of oxygen at home. Breathing treatments bronchodilators. Not in exacerbation. #Anxiety and depression: On citalopram. DVT Prophylaxis; SCDs CODE STATUS: Full code Disposition: Patient is very weak and frail. She is requiring two-person assistance with physical therapy. Will keep her 1 more day for further optimization of therapy. * Charges/Coding Visit Charges Inpatient E&M: 56455 Subs Hosp L2
[2023-12-07 17:04] LABS: Bedside Glucose 122 mg/dL (74-106)
[2023-12-07] MEDS: traZODone 100 MG Tablet PO (21:11)
[2023-12-07] MEDS: 0.9% Saline Lock 10 ML Syringe IV (21:22)
[2023-12-07 21:30] LABS: Bedside Glucose 144 mg/dL (74-106)
[2023-12-08] MEDS: hydrOXYzine PAM 25 MG Capsule 50 MG PO (01:38)
[2023-12-08 04:24] VITALS: BP 134/56; PULSE 62; RESP 16; TEMP 36.6; O2SAT 93
[2023-12-08 06:27] LABS: Absolute Lymphocyte Count 3.04 X10^3/uL (0.83-4.51); Absolute Neutrophil Count 5.5 X10^3/uL (2.0-7.7); Basophil# 0.06 X10^3/uL; Basophil% 0.6 % (0-1); Eosinophil# 0.62 X10^3/uL; Hemoglobin 10.3 g/dL (12.0-15.0); Lymphocyte # 3.04 X10^3/ul (0.83-4.51); Lymphocyte % 29.5 % (19-41); Mean Corp Hgb Conc 33.2 g/dL (32-36); Mean Corpuscular Volume 96.3 fL (81-99); Mean Platelet Vol. 11.9 fl (6.2-12.0); Monocyte# 0.97 X10^3/uL; Monocyte% 9.4 % (0-10); NRBC Flagged by Analyzer 0 % (0-5); Neutrophil # 5.47 X10^3/uL (2.7-7.7); Neutrophil % 53.2 % (47-70); Platelet Count 158 K/mm3 (150-450); RBC Distribution Width CV 16.5 % (11.6-14.6); RBC Distribution Width SD 57.1 fl (35.1-43.9); Red Blood Count 3.22 M/mm3 (4.2-5.4); White Blood Count 10.3 K/mm3 (4.4-11.0)
[2023-12-08 06:58] LABS: Bedside Glucose 149 mg/dL (74-106)
[2023-12-08 07:06] VITALS: PULSE 78; RESP 16; O2SAT 94
[2023-12-08] MEDS: Budesonide Respules 0.5 MG/2 ML AMPUL.NEB. INHALATION (07:06)
[2023-12-08] MEDS: Ipratropium/Albuterol Sulfate 3 ML AMPUL.NEB INHALATION ×2 (07:07→13:27)
[2023-12-08 07:24] LABS: Anion Gap 5 (5-15); BUN 11 mg/dL (7-18); BUN/Creat Ratio 15.9 RATIO (10-20); Chloride 111 mmol/L (98-107); Creatinine, Serum 0.69 mg/dL (0.55-1.02); EST Glomerular Filtration Rate 89 mL/min (>60); Est Glom Filt Rate - Afr Amer 107 mL/min (>60); Estimated Creatinine Clearance 54.89 ml/min; Glucose 138 mg/dL (74-106); Potassium 3.8 mmol/L (3.5-5.1); Sodium Level 143 mmol/L (136-145)
--- NOTE | 2023-12-08 07:26 | EX.PCM.PN.GI ---
Subjective Subjective Patient is doing well not showing any signs of upper or lower GI bleeding at this time. Objective Data Objective Data Vital Signs: Vital Signs Temp Pulse Resp BP Pulse Ox O2 Del Method O2 Flow Rate 97.8 F 78 16 122/66 H 94 Room Air 2 12/08/23 11:58 12/08/23 13:27 12/08/23 13:27 12/08/23 11:58 12/08/23 11:58 12/08/23 11:58 12/07/23 11:18 Oxygen Flow Rate (L/min) 2 Oxygen Delivery Method Room Air Weight: 133 lb 13.129 oz Body Mass Index (BMI) 22.9 Intake & Output: Intake and Output for Last 24 Hours 12/06/23 12/07/23 12/08/23 23:59 23:59 23:59 Intake Total 3054.75 / 3054.75 1590 / 1590 0 / 0 Output Total 2300 / 2300 1650 / 1650 750 / 750 Balance 754.75 / 754.75 -60 / -60 -750 / -750 Lab / Micro Data 12/08/23 05:45 12/08/23 05:45 Labs: Laboratory Results - last 24 hr 12/07/23 21:08: POC Glucose 144 H 12/08/23 05:45: WBC 10.3, RBC 3.22 L, Hgb 10.3 L, Hct 31.0 L, MCV 96.3, MCH 32.0, MCHC 33.2, RDW Std Deviation 57.1 H, RDW Coeff of [place] 16.5 H, Plt Count 158, MPV 11.9, Immature Gran % (Auto) 1.300 H, Neut % (Auto) 53.2, Lymph % (Auto) 29.5, [place] % (Auto) 9.4, Eos % (Auto) 6.0 H, Baso % (Auto) 0.6, Absolute Neuts (auto) 5.5, Absolute Lymphs (auto) 3.04, Nucleated RBC % 0, Sodium 143, Potassium 3.8, Chloride 111 H, Carbon Dioxide 27.0, Anion Gap 5, BUN 11, Creatinine 0.69, Estim Creat Clear Calc 54.89, Est GFR (MDRD) Af Amer 107, Est GFR (MDRD) Non-Af 89, BUN/Creatinine Ratio 15.9, Glucose 138 H, Calcium 9.0 12/08/23 06:40: POC Glucose 149 H 12/08/23 11:42: POC Glucose 121 H Micro: Microbiology 12/05/23 07:30 Blood Culture (Wb) - Anticubital Left Blood Culture - Preliminary No growth in 48 hours. 12/05/23 06:10 Blood Culture (Wb) - Anticubital Left Blood Culture - Preliminary No growth in 48 hours. 12/05/23 06:30 Stool Stool Occult Blood (SAMANTHA) - Final Occult Blood Positive 12/05/23 07:24 Mucosa - Nose SARS-CoV-2, Influenza & RSV (PCR) - Final Physical Exam Const alert, oriented x3 and no apparent distress Constitutional Narrative: frail General Appearance: cooperative, comfortable and well kempt HEENT normocephalic, head/scalp atraumatic, hearing grossly normal bilaterally and moist oral mucous membranes Mouth: oral and palatal mucosa normal Eyes PERRL, EOMs intact bilaterally and conjunctivae normal Neck no lymphadenopathy and supple Lymph Lymphatic: no lymphadenopathy noted and no lymphedema noted Resp Resp Narrative: diminished breath sounds bibasally, no wheezes or crackles. On 2L of xygen. Cardio regular rate, regular rhythm, S1 normal heart sound, S2 normal heart sound and no murmurs GI normal to inspection, nondistended, normoactive bowel sounds, soft to palpation and non-tender Extremity normal to inspection, full ROM, normal capillary refill, no clubbing, cyanosis or edema and no calf tenderness General Extremity: no tenderness to palpation of joints or extremities Skin no rashes or lesions noted and no wounds General Skin Exam: no breakdown Neuro oriented x3, CN's II-XII intact bilaterally, moves all extremities, no focal motor deficits, no sensory deficits noted and deep tendon reflexes 2+ bilaterally Sensorium / Orientation: awake and alert Motor Exam: strength 5/5 throughout and general weakness Psych thought process normal, cooperative and affect normal Appearance: appropriate Assessment & Plan Assessment/Plan (1) GI (gastrointestinal bleed): (2) Acute blood loss anemia: PLAN: Plan #Acute anemia due to Acute GI bleed Admitted with a complaint of GI bleed. She has been having dark stools for several days now. She denied any abdominal pain. She does have a history of strong alcohol intake but denies any history of epic ulcer disease. Hemoglobin was 7.3 on admission with a baseline of around 12-13. Stool for occult blood is positive. Had EGD showed oozing gastric ulcers with pigmented material which were injected and treated with heater probe. She also had nonbleeding duodenal ulcers with no stigmata of bleeding. pantoprazole and octreotide drip discontinued today. transfuse with 2 units of PRBCs yesterday. Will DC pantoprazole and octreotide drip and switch to p.o. pantoprazole. #NIKO: resolved # Hyponatremia: resolved. Na is 141. #Type 2 diabetes mellitus: Resume Lantus. Accu-Cheks every 6 hourly. #Hyperlipidemia: On statin #History of chronic alcohol abuse: Last drink was the day before admission. Patient counseled to quit. She drinks a glass of vodka daily. At risk of withdrawal. Will place on alcohol withdrawal protocol with phenobarbital. Monitor CIWA score. Adjunctive meds for symptomatic relief. # Chronic respiratory failure due to COPD: Wears 2 to 3 L of oxygen at home. Breathing treatments bronchodilators. Not in exacerbation. #Anxiety and depression: On citalopram. DVT Prophylaxis; SCDs CODE STATUS: Full code Disposition: Patient is very weak and frail. She is requiring two-person assistance with physical therapy. Will keep her 1 more day for further optimization of therapy. Charges/Coding Visit Charges Inpatient E&M: 03759 [facility] Hosp L3
[2023-12-08] MEDS: Thiamine Hydrochloride 100 MG Tablet PO (08:18)
[2023-12-08] MEDS: Folic Acid 1 MG Tablet PO (08:18)
[2023-12-08 10:20] VITALS: BP 140/58; PULSE 63; RESP 16; TEMP 36.6; O2SAT 92
[2023-12-08 10:32] VITALS: O2SAT 93
--- NOTE | 2023-12-08 11:37 | CASEMGMT ---
Discharge Planning A list of?HH providers including quality and resource use data and consistent with the patient's preferred geographic region, medical needs, and insurance network was created in [employer] Guide.? This list was provided to the RN ERNIE. Mili Freeman, Discharge Planning Asst.
[2023-12-08] MEDS: Pantoprazole Sodium 40 MG Tablet PO (11:46)
[2023-12-08 11:58] VITALS: BP 122/66; PULSE 99; RESP 18; TEMP 36.6; O2SAT 94
[2023-12-08 12:04] LABS: Bedside Glucose 121 mg/dL (74-106)
--- NOTE | 2023-12-08 12:09 | CASEMGMT ---
FABIÁN KLEIN reviewed progress with therapy, recommending home health at discharge. FABIÁN KLEIN in to discuss HHC with patient, list provided. Patient states she is back to her baseline and denies need for therapy at discharge. FABIÁN KLEIN updated patient that should she reconsider HHC after discharge, patient can follow-up with PCP, patient voiced understanding. Patient states she has oxygen tank at home and family will provide at discharge. Patient denied further questions or concerns.
--- NOTE | 2023-12-08 13:09 | PHA.DC_ITS ---
Pharmacy [facility] Pharmacy Service has performed discharge medication reconciliation and counseling for this patient. The patient's discharge medication list was reviewed for discrepancies and discrepancies were resolved. The patient was counseled on the following discharge medications and changes in medications for homegoing were reviewed. The Reason for Use, instructions for use, and potential side effects were reviewed for all new medications. The patient's questions regarding all of their medications were answered. 1. Pantoprazole 40 mg PO BID The patient was able to verbally demonstrate an understanding of their discharge medications. Medications at Discharge Home Medications citalopram 40 mg tablet 40 mg PO DAILY anxiety 01/15/17 lisinopril 40 mg tablet 40 mg PO DAILY blood pressure 01/15/17 loperamide 2 mg capsule 2 mg PO BID IRRITABLE BOWEL 01/15/17 lovastatin 20 mg tablet 20 mg PO QHS CHOLESTEROL 01/15/17 ipratropium bromide 0.02 % solution for inhalation 0.5 mg inhalation BID breathing 05/13/19 Disability Placard #1 ea 01/08/21 metoprolol succinate 50 mg tablet,extended release 24 hr 50 mg PO DAILY htn 05/09/22 aspirin 81 mg tablet,delayed release (Adult Aspirin Regimen) 81 mg PO DAILY heart health 05/10/23 atorvastatin 40 mg tablet 40 mg PO QHS cholesterol 05/10/23 clopidogrel 75 mg tablet 75 mg PO DAILY anti platelet 05/10/23 albuterol sulfate 90 mcg/actuation aerosol inhaler 2 puff inhalation Q6H PRN shortness of breath or wheezing #8.5 grams 07/07/23 fluticasone fur. 100 mcg-umeclid 62.5 mcg-vilant 25 mcg inhalat.powder (Trelegy Ellipta) 1 inh inhalation DAILY SOB #60 ea 07/07/23 albuterol sulfate 2.5 mg/3 mL (0.083 %) solution for nebulization 2.5 mg inhalation Q2H PRN Shortness of breath 12/05/23 carboxymethylcellulose sodium 1 % eye drops (Artificial Tears (carboxymethylcellulose)) 1 drp EACH EYE DAILY PRN dry eye(s) 12/05/23 furosemide 20 mg tablet 20 - 40 mg PO DAILY PRN edema 12/05/23 pantoprazole 40 mg tablet,delayed release 40 mg PO BID #60 tabs 12/08/23
[2023-12-08 13:27] VITALS: PULSE 78; RESP 16
--- NOTE | 2023-12-08 14:49 | DS.PCM_ITS ---
Providers Date of Admission: 12/05/23 Date of Discharge: 12/08/23 Primary Care Physician: Krish Cárdenas, WARP TESTER-C Consultations 12/05/23 11:50 Consult: Gastroenterology Routine Consulting Provider: [facility] Reason for Consult: acute GI bleed EMERGENT Consult: No MD Notified: Yes Date Notified: 12/05/23 Time Notified: 10:40 Method of Notification: Text Reason For Visit: ACUTE GI BLEED Diagnosis Discharge Diagnosis (1) GI (gastrointestinal bleed): Status: Acute Code(s): K92.2 - Gastrointestinal hemorrhage, unspecified (2) Acute blood loss anemia: Status: Acute Code(s): D62 - Acute posthemorrhagic anemia Plan #Acute anemia due to Acute GI bleed * Admitted with a complaint of GI bleed. She has been having dark stools for several days now. * She denied any abdominal pain. She does have a history of strong alcohol intake but denies any history of epic ulcer disease. Hemoglobin was 7.3 on admission with a baseline of around 12-13. * Stool for occult blood is positive. * Had EGD showed oozing gastric ulcers with pigmented material which were injected and treated with heater probe. She also had nonbleeding duodenal ulcers with no stigmata of bleeding. * pantoprazole and octreotide drip discontinued today. * transfuse with 2 units of PRBCs yesterday. * Will DC pantoprazole and octreotide drip and switch to p.o. pantoprazole. * #NIKO: * resolved * # Hyponatremia: resolved. Na is 141. #Type 2 diabetes mellitus: Resume Lantus. Accu-Cheks every 6 hourly. #Hyperlipidemia: On statin #History of chronic alcohol abuse: * Last drink was the day before admission. Patient counseled to quit. * She drinks a glass of vodka daily. At risk of withdrawal. * Will place on alcohol withdrawal protocol with phenobarbital. * Monitor CIWA score. * Adjunctive meds for symptomatic relief. # Chronic respiratory failure due to COPD: Wears 2 to 3 L of oxygen at home. Breathing treatments bronchodilators. Not in exacerbation. #Anxiety and depression: On citalopram. DVT Prophylaxis; SCDs CODE STATUS: Full code Disposition: Patient is very weak and frail. She is requiring two-person assistance with physical therapy. Will keep her 1 more day for further optimization of therapy. * Medications at Discharge Home Medications citalopram 40 mg tablet 40 mg PO DAILY anxiety 01/15/17 lisinopril 40 mg tablet 40 mg PO DAILY blood pressure 01/15/17 loperamide 2 mg capsule 2 mg PO BID IRRITABLE BOWEL 01/15/17 lovastatin 20 mg tablet 20 mg PO QHS CHOLESTEROL 01/15/17 ipratropium bromide 0.02 % solution for inhalation 0.5 mg inhalation BID breathing 05/13/19 Disability Placard #1 ea 01/08/21 metoprolol succinate 50 mg tablet,extended release 24 hr 50 mg PO DAILY htn 05/09/22 aspirin 81 mg tablet,delayed release (Adult Aspirin Regimen) 81 mg PO DAILY heart health 05/10/23 atorvastatin 40 mg tablet 40 mg PO QHS cholesterol 05/10/23 clopidogrel 75 mg tablet 75 mg PO DAILY anti platelet 05/10/23 albuterol sulfate 90 mcg/actuation aerosol inhaler 2 puff inhalation Q6H PRN shortness of breath or wheezing #8.5 grams 07/07/23 fluticasone fur. 100 mcg-umeclid 62.5 mcg-vilant 25 mcg inhalat.powder (Trelegy Ellipta) 1 inh inhalation DAILY SOB #60 ea 07/07/23 albuterol sulfate 2.5 mg/3 mL (0.083 %) solution for nebulization 2.5 mg inhalation Q2H PRN Shortness of breath 12/05/23 carboxymethylcellulose sodium 1 % eye drops (Artificial Tears (carboxymethylc ellulose)) 1 drp EACH EYE DAILY PRN dry eye(s) 12/05/23 furosemide 20 mg tablet 20 - 40 mg PO DAILY PRN edema 12/05/23 pantoprazole 40 mg tablet,delayed release 40 mg PO BID #60 tabs 12/08/23 Hospital Course Operations None Procedures EGD Summary of Care Provided Minutes Spent on Discharge: 55 Hospital Course: ARIE TOTH, is a 73 F with an extensive PMH as outlined who presents via the ED on 12/05/2023 with a complaint of GI bleed. family noted that she was very weak and lethargic at home and had dark bowel movements also. She had a history of alcohol use disorder and had been actively drinking at home. she denied any chest pain, palpitations, dizziness, nausea, vomiting or any other symptoms. Review of systems is otherwise negative. She was not on any blood thinners. Vitals in the ED at time of review were BP of 109/43, MS if 107, RR of 20 and temp of 98F. She was saturating at 100% on 2L of oxygen by nasal canula. CBC showed hb of 7.3, wbc is 21.5 and platelets of 167. She had associated macrocytosis. INR is 1 an Chemistry showed sodium of 137 with potassium of 4.4 and Cr of 1.76. Lactic acid was 3; liver enzymes were WNL. 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 Her BP was low in the ED, in the 90s systolic, and responded to IVF. She has been admitted to be managed for acute anemia due to GI bleed in the setting of alcohol abuse. She was admitted and started on IV pantoprazole drip and octreotide drip. Gastroenterology was consulted. She was hydrated with IV fluids. Hemoglobin dropped to 6.6 and she was transfused with 2 units of packed red blood cells. She also had NIKO and hyponatremia which resolved with administration of IV fluids. Patient did have a history of alcohol use disorder so she was started on alcohol withdrawal protocol as a precaution. Patient required a two-person assist and was deemed as needing skilled therapy. However patient adamantly refused to go to a [place] health care facility. She was discharged home on 12/08/2023. She was switched to p.o. pantoprazole 40 mg twice daily. She is follow-up with her primary care doctor and gastroenterology within 1 to 2 weeks. Her aspirin and Plavix were held for 2 weeks and she is to resume taking them after 2 weeks. Patient seen and examined prior to discharge. She [place] dno active complaints. REview of systems was otherwise negative. Labs and vitals reviewed. Home meds reviewed and reconciled. Physical Exam Const alert, oriented x3 and no apparent distress Constitutional Narrative: frail General Appearance: cooperative, comfortable and well kempt HEENT normocephalic, head/scalp atraumatic, hearing grossly normal bilaterally and moist oral mucous membranes Mouth: oral and palatal mucosa normal Eyes PERRL, EOMs intact bilaterally and conjunctivae normal Neck no lymphadenopathy and supple Lymph Lymphatic: no lymphadenopathy noted and no lymphedema noted Resp Resp Narrative: diminished breath sounds bibasally, no wheezes or crackles. On 2L of xygen. Cardio regular rate, regular rhythm, S1 normal heart sound, S2 normal heart sound and no murmurs GI normal to inspection, nondistended, normoactive bowel sounds, soft to palpation and non-tender Extremity normal to inspection, full ROM, normal capillary refill, no clubbing, cyanosis or edema and no calf tenderness General Extremity: no tenderness to palpation of joints or extremities Skin no rashes or lesions noted and no wounds General Skin Exam: no breakdown Neuro oriented x3, CN's II-XII intact bilaterally, moves all extremities, no focal motor deficits, no sensory deficits noted and deep tendon reflexes 2+ bilaterally Sensorium / Orientation: awake and alert Motor Exam: strength 5/5 throughout and general weakness Psych thought process normal, cooperative and affect normal Appearance: appropriate Weight / BMI Weight Weight: 133 lb 13.129 oz Body Mass Index (BMI) 22.9 ABG / Lab / Microbiology Data 12/08/23 05:45 12/08/23 05:45 Laboratory: Laboratory Results - last 24 hr 12/07/23 16:18: POC Glucose 122 H 12/07/23 21:08: POC Glucose 144 H 12/08/23 05:45: WBC 10.3, RBC 3.22 L, Hgb 10.3 L, Hct 31.0 L, MCV 96.3, MCH 32.0, MCHC 33.2, RDW Std Deviation 57.1 H, RDW Coeff of [place] 16.5 H, Plt Count 158, MPV 11.9, Immature Gran % (Auto) 1.300 H, Neut % (Auto) 53.2, Lymph % (Auto) 29.5, [place] % (Auto) 9.4, Eos % (Auto) 6.0 H, Baso % (Auto) 0.6, Absolute Neuts (auto) 5.5, Absolute Lymphs (auto) 3.04, Nucleated RBC % 0, Sodium 143, Potassium 3.8, Chloride 111 H, Carbon Dioxide 27.0, Anion Gap 5, BUN 11, Creatinine 0.69, Estim Creat Clear Calc 54.89, Est GFR (MDRD) Af Amer 107, Est GFR (MDRD) Non-Af 89, BUN/Creatinine Ratio 15.9, Glucose 138 H, Calcium 9.0 12/08/23 06:40: POC Glucose 149 H 12/08/23 11:42: POC Glucose 121 H Microbiology: Microbiology 12/05/23 07:30 Blood Culture (Wb) - Anticubital Left Blood Culture - Preliminary No growth in 48 hours. 12/05/23 06:10 Blood Culture (Wb) - Anticubital Left Blood Culture - Preliminary No growth in 48 hours. 12/05/23 06:30 Stool Stool Occult Blood (SAMANTHA) - Final Occult Blood Positive 12/05/23 07:24 Mucosa - Nose SARS-CoV-2, Influenza & RSV (PCR) - Final D/C Instructions Discharge Diet: Low fat / Low cholesterol Discharge Activity: Return to Normal Activity Weight Bearing Status: Weight bearing as tolerated Call your doctor if you observe: Fever of 101 or Higher, Shortness of breath, Dizziness, Swelling in the ankles, Chest pain and - (dark stools) Meaningful Use Info Meaningful Use Diagnoses (Choose all that apply): None applicable Discharge Plan Admission Admit Date/Time: 12/05/23 10:36 Primary Reason for Your Visit: GI bleed Attending Provider: Saskia Santa Primary Care Provider: Krish Cárdenas WARP TESTER Instructions Patient Instructions: Bleeding Peptic Ulcer: Treatment Discharge Orders/Prescriptions Prescriptions: New pantoprazole 40 mg Tablet,Delayed Release (Dr/Ec) 40 mg PO BID Qty: 60 2RF Continued ipratropium bromide 0.02 % solution 0.5 mg INHALATION BID (DME) Disability Placard See Rx Instructions .Route .MEDSUPPLY Qty: 1 0RF Rx Instructions: Expires 01/08/2026 metoprolol succinate 50 mg tablet extended release 24 hr 50 mg PO DAILY albuterol sulfate 90 mcg/actuation HFA aerosol inhaler 2 puff inhalation Q6H PRN (Reason: shortness of breath or wheezing) Qty: 8.5 3RF Trelegy Ellipta 100-62.5-25 mcg blister with device 1 inh INHALATION DAILY Qty: 60 11RF Rx Instructions: administer at approximately the same time(s) each day citalopram 40 MG tablet 40 mg PO DAILY loperamide 2 MG capsule 2 mg PO BID lovastatin 20 MG tablet 20 mg PO QHS lisinopril 40 MG tablet 40 mg PO DAILY atorvastatin 40 mg tablet 40 mg PO QHS furosemide 20 mg tablet 20 - 40 mg PO DAILY PRN (Reason: edema) Patient Comments: pt states she always takes 1 tablet, if feet are swollen, she takes 2 tablets Artificial Tears (cmc) 1 % drops 1 drp EACH EYE DAILY PRN (Reason: dry eye(s)) albuterol sulfate 2.5 MG/3 ML solution for nebulization 2.5 mg INHALATION Q2H PRN (Reason: Shortness of breath) Held aspirin [Adult Aspirin Regimen] 81 mg tablet,delayed release (DR/EC) 81 mg PO DAILY Hold Instructions: Resume on 12/22/23. clopidogrel 75 mg tablet 75 mg PO DAILY Hold Instructions: Resume on 12/22/23. Referrals / Follow Up: Jony Curtis DO [Med Staff - Active Staff] - Within 2 Weeks Krish Cárdenas WARP TESTER, WARP TESTER-C [Primary Care Provider] - Within 1 Week Disposition Disposition (needs filled in before D/C Order can be placed): Home, Self Care Charges/Coding Visit Charges Inpatient E&M: 29278 Disch Hosp >30min
== END 2023-12-08 18:06 | disposition home or self-care (01) | DRG 378 ==
LOC: ED 10:57 → PCU 11:13
PROVIDERS: Internal Medicine Gastroenterology; Admitting Provider Student in an Organized Health Care Education/Training Program; Emergency Provider Emergency Medicine; PCP Nurse Practitioner Family; Visit Provider Student in an Organized Health Care Education/Training Program
PROC: 0DJ08ZZ Inspection of Upper Intestinal Tract, Via Natural or Artificial Opening Endoscopic (ICD-10-PCS; CPT 43235; principal; 2023-12-05 11:55)
DX: K25.0 Acute gastric ulcer with hemorrhage (principal); N17.9 Acute kidney failure, unspecified; J96.10 Chronic respiratory failure, unspecified whether with hypoxia or hypercapnia; E87.0 Hyperosmolality and hypernatremia; D62 Acute posthemorrhagic anemia; K22.0 Achalasia of cardia; Z99.81 Dependence on supplemental oxygen; J44.9 Chronic obstructive pulmonary disease, unspecified; E11.9 Type 2 diabetes mellitus without complications; Z79.4 Long term (current) use of insulin; I10 Essential (primary) hypertension; F10.10 Alcohol abuse, uncomplicated; F32.A Depression, unspecified; E78.5 Hyperlipidemia, unspecified; F17.210 Nicotine dependence, cigarettes, uncomplicated; F41.9 Anxiety disorder, unspecified; E86.0 Dehydration; K26.9 Duodenal ulcer, unspecified as acute or chronic, without hemorrhage or perforation; Y90.9 Presence of alcohol in blood, level not specified; Z79.02 Long term (current) use of antithrombotics/antiplatelets; Z79.51 Long term (current) use of inhaled steroids; Z79.82 Long term (current) use of aspirin; Z79.899 Other long term (current) drug therapy; Z86.73 Personal history of transient ischemic attack (TIA), and cerebral infarction without residual deficits
CPT/HCPCS: 36415; 74174; 80048; 80076; 81001; 82274; 82962; 83605; 83690; 85025; 85610; 85730; 86850; 86900; 86901; 86920; 86922; 87040; 87631; 94640; 97162; 97166; 97530; 97535; 99285; J7030; J7040; P9016; Q9967; A4216; J2354; J3490

== ENCOUNTER → 2024-03-15 | Outpatient (CLI) | payer MEDICARE, SELFPAY ==
--- NOTE | 2024-03-15 13:05 | CT_ITS ---
STUDY: LOW DOSE CT LUNG CANCER SCREENING REASON FOR EXAM: Female, 74 years old. Smoker RADIATION DOSAGE (If Supplied By Facility): CTDIvol = ( 2.01 ) mGy, DLP = ( 68.46 ) mGycm TECHNIQUE: No contrast was administered. Low dose technique was utilized (average mAS-38 and kVp 120). 1.25 mm axial source images with a slice interval of 1.25-mm were reconstructed in lung windows. 2.5 mm axial source images with a slice interval of 2.5-mm were reconstructed in lung windows. 5.0 mm axial source images with a slice interval of 5.0-mm were reconstructed in soft tissue windows. COMPARISON: Comparison is made with prior study dated March 12, 2023. NODULES: No suspicious nodules are seen. Once again, there is evidence a focal area of bronchiectasis and scarring in the lateral aspect of the right upper lobe. Emphysema: Hyperinflation and emphysematous changes. Endobronchial lesion: None Aorta: Atherosclerotic plaque formation. CORONARY ARTERIES: Coronary artery calcification is seen. Heart: Unremarkable Pulmonary artery: Unremarkable Mediastinal nodes: Other chest and abdominal findings: CT/Low Dose CT Lung Screening IMPRESSION: Lung-RADS category 2 - Continue annual screening with LDCT in 12 months. IMPORTANT NOTES FOR USE: ACR Lung-RADS Version 1.1 Assessment Categories Release Date: 2018 Category: Coded 0-4 bases on nodule(s) with highest degree of suspicion. Negative screen is defined as categories 1 and 2; a positive screen is defined as categories 3 and 4. Category 3 and 4A nodules that are unchanged on interval CT should be coded as category 2, and individuals returned to screening in 12 months. Category 4X: Category 3 or 4 nodules with additional imaging findings that increase the suspicion of lung cancer, such as spiculation, GGN that doubles in size in 1 year, enlarged lymph notes, etc. Category Modifiers: S (significant finding unrelated to lung cancer) Electronically Signed: Mitch Garza MD at 15:35 EDT ,
== END | disposition home or self-care (01) ==
PROVIDERS: PCP Nurse Practitioner Family; Referring Provider Nurse Practitioner Acute Care; Visit Provider Nurse Practitioner Acute Care
DX: F17.210 Nicotine dependence, cigarettes, uncomplicated (principal)
CPT/HCPCS: 71271

== ENCOUNTER → 2024-03-16 | Outpatient (CLI) | payer MEDICARE, SELFPAY ==
[2024-03-16 15:53] LABS: Absolute Neutrophil Count 6.2 X10^3/uL (2.0-7.7); Basophil# 0.06 X10^3/uL; Basophil% 0.5 % (0-1); Eosinophil# 0.65 X10^3/uL; Eosinophils% 5.9 % (0-5); Hematocrit 37.4 % (37-47); Lymphocyte % 29.1 % (19-41); Mean Corp Hgb Conc 32.1 g/dL (32-36); Mean Corpuscular Hgb 32.3 pg (27.0-32.0); Mean Corpuscular Volume 100.8 fL (81-99); Mean Platelet Vol. 12.3 fl (6.2-12.0); Monocyte# 0.83 X10^3/uL; Monocyte% 7.6 % (0-10); NRBC Flagged by Analyzer 0 % (0-5); Neutrophil # 6.16 X10^3/uL (2.7-7.7); Neutrophil % 56.1 % (47-70); Platelet Count 250 K/mm3 (150-450); RBC Distribution Width CV 13.3 % (11.6-14.6); RBC Distribution Width SD 49.9 fl (35.1-43.9); Red Blood Count 3.71 M/mm3 (4.2-5.4)
[2024-03-16 16:23] LABS: Hemoglobin A1c 5.9 % (3.8-5.6)
[2024-03-16 16:29] LABS: AST(SGOT) 19 U/L (15-37); Alanine Aminotransfer ALT/SGPT 26 U/L (13-56); Albumin, Serum 3.6 g/dL (3.2-5.0); Alkaline Phosphatase 80 U/L (45-117); Anion Gap 8 (5-15); BUN 37 mg/dL (7-18); BUN/Creat Ratio 33.6 RATIO (10-20); Calcium,Total 9.4 mg/dL (8.5-10.1); Chloride 105 mmol/L (98-107); Cholesterol 119 mg/dL (200); EST Glomerular Filtration Rate 52 mL/min (>60); Est Glom Filt Rate - Afr Amer 63 mL/min (>60); Globulin 3.6 g/dL (2.2-4.2); Glucose 88 mg/dL (74-106); High Density Lipoprotein 39 mg/dL; Potassium 4.4 mmol/L (3.5-5.1); Protein, Total 7.2 g/dL (6.4-8.2); Sodium Level 138 mmol/L (136-145); Triglycerides 192 mg/dL; Very Low Density Lipoprotein 38 mg/dL (5-40)
[2024-03-16 17:39] LABS: Hepatitis C Antibody Non-Reactive (Nonreactive); Syphilis Antibodies Non-reactive; Vitamin B12 257 pg/mL (211-911); Vitamin D,25 Hydroxy 42.9 ng/mL
[2024-03-17 09:02] LABS: Thyroid Stim Hormone (TSH) 1.01 uIU/mL (0.358-3.74)
[2024-03-18 08:12] LABS: HOMOCYSTEINE 24.8 umol/L (0.0-19.2)
== END | disposition home or self-care (01) ==
LOC: LAB 14:29
PROVIDERS: PCP Nurse Practitioner Family; Referring Provider Family Medicine Geriatric Medicine; Visit Provider Family Medicine Geriatric Medicine
DX: E78.5 Hyperlipidemia, unspecified (principal); E11.65 Type 2 diabetes mellitus with hyperglycemia; Z13.89 Encounter for screening for other disorder; E55.9 Vitamin D deficiency, unspecified
CPT/HCPCS: 36415; 80053; 80061; 82306; 82607; 82746; 83036; 83090; 84443; 85025; 86780; 86803

== ENCOUNTER → 2024-06-17 | Outpatient (CLI) | payer MEDICARE, SELFPAY ==
[2024-06-17 12:01] LABS: Absolute Lymphocyte Count 2.43 X10^3/uL (0.83-4.51); Absolute Neutrophil Count 6.6 X10^3/uL (2.0-7.7); Basophil# 0.07 X10^3/uL; Basophil% 0.7 % (0-1); Eosinophil# 0.53 X10^3/uL; Eosinophils% 5.1 % (0-5); Hematocrit 32.8 % (37-47); Hemoglobin 10.5 g/dL (12.0-15.0); Lymphocyte # 2.43 X10^3/ul (0.83-4.51); Lymphocyte % 23.5 % (19-41); Mean Corpuscular Hgb 32.5 pg (27.0-32.0); Mean Corpuscular Volume 101.5 fL (81-99); Mean Platelet Vol. 11.5 fl (6.2-12.0); Monocyte# 0.69 X10^3/uL; Monocyte% 6.7 % (0-10); NRBC Flagged by Analyzer 0 % (0-5); Neutrophil # 6.57 X10^3/uL (2.7-7.7); Neutrophil % 63.4 % (47-70); Platelet Count 256 K/mm3 (150-450); RBC Distribution Width CV 14.8 % (11.6-14.6); RBC Distribution Width SD 54.6 fl (35.1-43.9); Red Blood Count 3.23 M/mm3 (4.2-5.4); White Blood Count 10.4 K/mm3 (4.4-11.0)
[2024-06-17 13:03] LABS: Vitamin B12 > 2000 pg/mL (211-911); Vitamin D,25 Hydroxy 48.9 ng/mL
[2024-06-17 13:06] LABS: AST(SGOT) 11 U/L (15-37); Alanine Aminotransfer ALT/SGPT 20 U/L (13-56); Albumin, Serum 3.7 g/dL (3.2-5.0); Alkaline Phosphatase 80 U/L (45-117); Anion Gap 4 (5-15); BUN 43 mg/dL (7-18); BUN/Creat Ratio 29.5 RATIO (10-20); Calcium,Total 9.6 mg/dL (8.5-10.1); Chloride 114 mmol/L (98-107); Cholesterol 77 mg/dL (200); Creatinine, Serum 1.46 mg/dL (0.55-1.02); EST Glomerular Filtration Rate 37 mL/min (>60); Est Glom Filt Rate - Afr Amer 45 mL/min (>60); Globulin 3.8 g/dL (2.2-4.2); Glucose 100 mg/dL (74-106); High Density Lipoprotein 32 mg/dL; Potassium 4.8 mmol/L (3.5-5.1); Protein, Total 7.5 g/dL (6.4-8.2); Sodium Level 140 mmol/L (136-145); Triglycerides 149 mg/dL; Very Low Density Lipoprotein 30 mg/dL (5-40)
== END | disposition home or self-care (01) ==
LOC: POLAB3 11:47
PROVIDERS: PCP Family Medicine Geriatric Medicine; Visit Provider Family Medicine Geriatric Medicine
DX: E11.65 Type 2 diabetes mellitus with hyperglycemia (principal); E53.8 Deficiency of other specified B group vitamins; R53.83 Other fatigue; E55.9 Vitamin D deficiency, unspecified; E78.5 Hyperlipidemia, unspecified
CPT/HCPCS: 36415; 80053; 80061; 82306; 82607; 84443; 85025

== ENCOUNTER → 2024-06-21 | Outpatient (CLI) | payer MEDICARE, SELFPAY ==
[2024-06-21 16:38] LABS: Absolute Lymphocyte Count 2.85 X10^3/uL (0.83-4.51); Absolute Neutrophil Count 5.2 X10^3/uL (2.0-7.7); Basophil# 0.08 X10^3/uL; Basophil% 0.9 % (0-1); Eosinophil# 0.39 X10^3/uL; Eosinophils% 4.3 % (0-5); Hematocrit 35.2 % (37-47); Hemoglobin 11.2 g/dL (12.0-15.0); Lymphocyte # 2.85 X10^3/ul (0.83-4.51); Lymphocyte % 31.4 % (19-41); Mean Corp Hgb Conc 31.8 g/dL (32-36); Mean Corpuscular Hgb 32.2 pg (27.0-32.0); Mean Corpuscular Volume 101.1 fL (81-99); Mean Platelet Vol. 11.8 fl (6.2-12.0); Monocyte% 5.5 % (0-10); NRBC Flagged by Analyzer 0 % (0-5); Neutrophil # 5.22 X10^3/uL (2.7-7.7); Neutrophil % 57.6 % (47-70); Platelet Count 278 K/mm3 (150-450); RBC Distribution Width CV 14.7 % (11.6-14.6); RBC Distribution Width SD 54.7 fl (35.1-43.9); RET-HE 37.9 pg (30-35); Red Blood Count 3.48 M/mm3 (4.2-5.4); Reticulocyte Count 2.44 % (0.5-1.5); White Blood Count 9.1 K/mm3 (4.4-11.0)
[2024-06-21 17:12] LABS: Anion Gap 6 (5-15); BUN 44 mg/dL (7-18); BUN/Creat Ratio 37.9 RATIO (10-20); Calcium,Total 10.1 mg/dL (8.5-10.1); Chloride 109 mmol/L (98-107); Creatinine, Serum 1.16 mg/dL (0.55-1.02); EST Glomerular Filtration Rate 49 mL/min (>60); Est Glom Filt Rate - Afr Amer 59 mL/min (>60); Ferritin 342 ng/mL (8-252); Glucose 86 mg/dL (74-106); Iron 63 ug/dL (50-170); Iron Binding Capacity,Total 370 ug/dL (250-450); Potassium 5.2 mmol/L (3.5-5.1); Sodium Level 137 mmol/L (136-145)
[2024-06-21 17:30] LABS: Vitamin B12 1693 pg/mL (211-911)
== END | disposition home or self-care (01) ==
LOC: POLAB3 16:12
PROVIDERS: PCP Family Medicine Geriatric Medicine; Visit Provider Family Medicine Geriatric Medicine
DX: D50.9 Iron deficiency anemia, unspecified (principal); R53.83 Other fatigue
CPT/HCPCS: 80048; 82607; 82728; 82746; 83540; 83550; 85025; 85045

== ENCOUNTER → 2024-06-24 | Outpatient (CLI) | payer MEDICARE, SELFPAY ==
[2024-06-24 15:05] LABS: Anion Gap 4 (5-15); BUN 20 mg/dL (7-18); BUN/Creat Ratio 19.4 RATIO (10-20); Calcium,Total 9.6 mg/dL (8.5-10.1); Chloride 108 mmol/L (98-107); Creatinine, Serum 1.03 mg/dL (0.55-1.02); EST Glomerular Filtration Rate 56 mL/min (>60); Est Glom Filt Rate - Afr Amer 68 mL/min (>60); Glucose 89 mg/dL (74-106); Potassium 3.9 mmol/L (3.5-5.1); Sodium Level 138 mmol/L (136-145)
== END | disposition home or self-care (01) ==
LOC: POLAB3 13:33
PROVIDERS: PCP Family Medicine Geriatric Medicine; Visit Provider Family Medicine Geriatric Medicine
DX: E87.5 Hyperkalemia (principal)
CPT/HCPCS: 36415; 80048; 82274

== ENCOUNTER → 2024-09-10 | Outpatient (CLI) | payer MEDICARE, SELFPAY ==
[2024-09-10 10:58] LABS: Absolute Lymphocyte Count 2.74 X10^3/uL (0.83-4.51); Basophil# 0.07 X10^3/uL; Basophil% 0.7 % (0-1); Eosinophil# 0.56 X10^3/uL; Eosinophils% 5.5 % (0-5); Hematocrit 39.6 % (37-47); Hemoglobin 12.3 g/dL (12.0-15.0); Lymphocyte # 2.74 X10^3/ul (0.83-4.51); Lymphocyte % 26.7 % (19-41); Mean Corp Hgb Conc 31.1 g/dL (32-36); Mean Corpuscular Hgb 31.2 pg (27.0-32.0); Mean Corpuscular Volume 100.5 fL (81-99); Mean Platelet Vol. 11.9 fl (6.2-12.0); Monocyte# 0.81 X10^3/uL; Monocyte% 7.9 % (0-10); NRBC Flagged by Analyzer 0 % (0-5); Neutrophil # 6.04 X10^3/uL (2.7-7.7); Neutrophil % 58.9 % (47-70); Platelet Count 206 K/mm3 (150-450); RBC Distribution Width CV 13.3 % (11.6-14.6); RBC Distribution Width SD 49.9 fl (35.1-43.9); Red Blood Count 3.94 M/mm3 (4.2-5.4); White Blood Count 10.3 K/mm3 (4.4-11.0)
[2024-09-10 11:36] LABS: Vitamin D,25 Hydroxy 58.3 ng/mL
[2024-09-10 11:37] LABS: Hemoglobin A1c 5.8 % (3.8-5.6)
[2024-09-10 11:40] LABS: ALB/GLOB Ratio 0.9 RATIO (0.9-2.4); AST(SGOT) 18 U/L (15-37); Alanine Aminotransfer ALT/SGPT 18 U/L (13-56); Albumin, Serum 3.6 g/dL (3.2-5.0); Alkaline Phosphatase 71 U/L (45-117); Anion Gap 5 (5-15); BUN 18 mg/dL (7-18); Calcium,Total 9.5 mg/dL (8.5-10.1); Chloride 105 mmol/L (98-107); Cholesterol 79 mg/dL (200); EST Glomerular Filtration Rate 47 mL/min (>60); Est Glom Filt Rate - Afr Amer 57 mL/min (>60); Globulin 3.8 g/dL (2.2-4.2); Glucose 69 mg/dL (74-106); High Density Lipoprotein 56 mg/dL; Potassium 4.3 mmol/L (3.5-5.1); Protein, Total 7.4 g/dL (6.4-8.2); Sodium Level 135 mmol/L (136-145); Triglycerides 69 mg/dL; Very Low Density Lipoprotein 14 mg/dL (5-40)
== END | disposition home or self-care (01) ==
LOC: LAB 10:22
PROVIDERS: PCP Family Medicine Geriatric Medicine; Referring Provider Family Medicine Geriatric Medicine; Visit Provider Family Medicine Geriatric Medicine
DX: E11.65 Type 2 diabetes mellitus with hyperglycemia (principal); E78.5 Hyperlipidemia, unspecified; R53.83 Other fatigue; E55.9 Vitamin D deficiency, unspecified
CPT/HCPCS: 36415; 80053; 80061; 82306; 83036; 84443; 85025

== ENCOUNTER 2024-10-15 16:15 | Emergency (ER) | payer MEDICARE, SELFPAY ==
[2024-10-15] VITALS (8 sets, daily range): BP systolic 99–107; BP diastolic 65–81; PULSE 71–79; RESP 17–29; TEMP 36.5–37.2; O2SAT 94–98; BMI 23.8
--- NOTE | 2024-10-15 17:05 | EKG12_ITS ---
Test Reason : Blood Pressure : */* mmHG Vent. Rate : 70 BPM Atrial Rate : 70 BPM P-R Int : 160 ms QRS Dur : 88 ms QT Int : 418 ms P-R-T Axes : 82 87 85 degrees QTcB Int : 451 ms Normal sinus rhythm Normal ECG Confirmed by JOSH VERONICA, ROCCO ([id number]), loan expeditor FELIZ PIZANO ([id number]) on 10/19/2024 6:06:23 AM Referred By: Confirmed By: ROCCO MORENO MD
--- NOTE | 2024-10-15 17:07 | EDS_ITS ---
HPI <AKSSANDRA [place] - Last Filed: 10/15/24 18:52> History of Present Illness Chief Complaint: Shortness of Breath Narrative Narrative: Patient 74-year-old female with history of COPD, 1 pack/day smoker, depression who presents to the [facility] for shortness of breath. Patient states that she was smoking today, then became out of breath. Per the daughter, she could not catch her breath and called the ambulance. Patient does have 3 L of nasal oxygen that she is supposed to wear as needed. Patient states some days she does not need it. Patient denies any recent cough, congestion, denies any recent fever or chills. [facility] <KASSANDRA [place] - Last Filed: 10/15/24 18:52> [facility] Medical History (Updated 10/15/24 @ 18:50 by KASSANDRA Dover) Stroke/cerebrovascular accident Alcohol abuse Generalized weakness ETOH abuse COPD (chronic obstructive pulmonary disease) Bilateral carpal tunnel syndrome Retinal detachment Depression History of pneumonia COPD (chronic obstructive pulmonary disease) History of bronchitis Hyperlipemia Acute respiratory failure with hypoxemia Tobacco dependence DM2 (diabetes mellitus, type 2) Essential (primary) hypertension Home Medications ?Medication ?Instructions ?Recorded ?Last Taken ?Type citalopram 40 mg tablet 40 mg PO DAILY anxiety 01/15/17 12/03/23 History loperamide 2 mg capsule 2 mg PO BID IRRITABLE BOWEL 01/15/17 12/03/23 History Disability Placard #1 ea 01/08/21 Unknown Rx metoprolol succinate 50 mg 50 mg PO DAILY htn 05/09/22 12/03/23 History tablet,extended release 24 hr aspirin 81 mg tablet,delayed 81 mg PO DAILY heart health 05/10/23 12/03/23 History release (Adult Aspirin Regimen) clopidogrel 75 mg tablet 75 mg PO DAILY anti platelet 05/10/23 12/03/23 History albuterol sulfate 2.5 mg/3 mL 2.5 mg inhalation Q2H PRN 12/05/23 12/03/23 History (0.083 %) solution for nebulization Shortness of breath carboxymethylcellulose sodium 1 % 1 drp EACH EYE DAILY PRN dry eye(s) 12/05/23 12/03/23 History eye drops (Artificial Tears (carboxymethylcellulose)) pantoprazole 40 mg tablet,delayed 40 mg PO BID #60 tabs 12/08/23 Unknown Rx release albuterol sulfate 90 mcg/actuation 2 puff inhalation Q6H PRN 07/16/24 Unknown Rx aerosol inhaler shortness of breath or wheezing #8.5 grams fluticasone fur. 100 mcg-umeclid 1 inh inhalation DAILY SOB #60 ea 07/16/24 Unknown Rx 62.5 mcg-vilant 25 mcg inhalat.powder (Trelegy Ellipta) latanoprost 0.005 % eye drops drp ophthalmic (eye) 07/16/24 Unknown History rosuvastatin 40 mg tablet 40 mg PO QDAY 07/16/24 Unknown History zolpidem 10 mg tablet 10 mg PO QHS PRN 07/16/24 Unknown History doxycycline hyclate 100 mg tablet 100 mg PO BID #14 tabs 10/15/24 Unknown Rx prednisone 50 mg tablet 50 mg PO DAILY #5 tabs 10/15/24 Unknown Rx Allergy/AdvReac Type Severity Reaction Status Date / Time No Known Allergies Allergy Verified 10/15/24 16:21 Family History Father Cirrhosis Mother Uterine cancer Grandmother Uterine cancer Surgical History History of bilateral carpal tunnel release H/O tubal ligation H/O cataract removal with insertion of prosthetic lens Social History (Updated 10/15/24 @ 16:22 by Mona Sandoval) household members: family housing: house Smoking Status: Current every day smoker tobacco type: cigarettes Tobacco: How many years used: 54 second hand exposure: Yes alcohol intake: current alcohol intake frequency: a few times a week Alcohol type: hard liquor ROS <KASSANDRA [place] - Last Filed: 10/15/24 18:52> ROS ED ROS Narrative Constitutional: Negative for fever, chills, weight loss, weakness Eyes: Negative for vision loss, vision change, double vision ENT: Negative for any sore throat, ear pain, congestion Cardiovascular: Negative for any chest pain, tightness, palpitations Respiratory: Negative for any sputum production, hemoptysis, dyspnea on exertion, orthopnea. Positive cough, dyspnea Gastrointestinal: Negative for any abdominal pain, nausea, vomiting, diarrhea, constipation, blood in stool, blood in vomit : Negative for any urinary frequency, dysuria, retention, blood in urine Muscle skeletal: Negative for any neck pain, back pain Neurological: Negative for any headache, syncope, dizziness Skin: Negative for any rashes, itching, abrasions, lacerations Psychiatric: Negative for any depression, anxiety, stress, suicidal ideation, homicidal ideation Hematologic: Negative for any excessive bruising, easy bleeding EXAM <Kofi VicenteKITA-C - Last Filed: 10/15/24 18:52> Physical Exam Narrative Exam Narrative: Vital signs reviewed. HEET: Head normocephalic atraumatic, TMs clear bilaterally. Posterior pharynx is clear, moist mucous membranes. Nares clear bilaterally. Neck: Supple with no lymphadenopathy or tenderness. No signs of meningismus. Cardiac: Regular rate and rhythm no murmurs gallops or rubs, equal peripheral pulses bilaterally. Respiratory: Diminished airflow, slight expiratory wheeze bilaterally. No chest tenderness. Abdomen: Soft, nontender, nondistended. No abdominal bruit or pulsatile masses. No hepatosplenomegaly Extremities: No peripheral edema, no signs of gross trauma or deformity. Active full range of motion of all extremities. Neuro: Cranial nerves II through XII intact, no focal neurological deficits. Skin: Clean dry and intact with no rash, purpura, petechiae, vesicles or pustules. Backs/flank: No CVA tenderness, no midline spinal tenderness, no deformity. Psych: Normal mood and affect. No SI, HI or acute psychosis. Const Vital Signs: 10/15/24 16:16 10/15/24 16:21 10/15/24 16:21 Temperature 98.9 F 98.9 F Temperature Source Oral Oral Pulse Rate 71 79 Respiratory Rate 19 H 29 H Respiratory Effort Short of Breath Respiratory Depth Shallow Respiratory Pattern Normal Blood Pressure 105/73 105/73 Blood Pressure Mean 83 83 Pulse Ox 94 95 Oxygen Delivery Method Nasal Cannula Nasal Cannula Nasal Cannula Oxygen Flow Rate (L/min) 4 3 95 10/15/24 17:18 10/15/24 17:20 10/15/24 17:24 Temperature 98.3 F Temperature Source Oral Pulse Rate 79 72 Respiratory Rate 20 H 17 Respiratory Effort Respiratory Depth Respiratory Pattern Normal Blood Pressure 107/81 H Blood Pressure Mean 89 Pulse Ox 96 96 Oxygen Delivery Method Nasal Cannula Nasal Cannula Oxygen Flow Rate (L/min) 3 3 10/15/24 17:24 10/15/24 18:12 Temperature 97.7 F L Temperature Source Oral Pulse Rate 79 Respiratory Rate 29 H Respiratory Effort Respiratory Depth Respiratory Pattern Blood Pressure 99/65 Blood Pressure Mean 76 Pulse Ox 97 94 Oxygen Delivery Method Nasal Cannula Nasal Cannula Oxygen Flow Rate (L/min) 3 3 Positive unkempt General Appearance ED: unkempt Psych Appearance: unkempt <Dr. Samantha Waters DO - Last Filed: 10/17/24 05:11> Physical Exam Const Vital Signs: 10/15/24 16:16 10/15/24 16:21 10/15/24 16:21 Temperature 98.9 F 98.9 F Temperature Source Oral Oral Pulse Rate 71 79 Respiratory Rate 19 H 29 H Respiratory Effort Short of Breath Respiratory Depth Shallow Respiratory Pattern Normal Blood Pressure 105/73 105/73 Blood Pressure Mean 83 83 Pulse Ox 94 95 Oxygen Delivery Method Nasal Cannula Nasal Cannula Nasal Cannula Oxygen Flow Rate (L/min) 4 3 95 10/15/24 17:18 10/15/24 17:20 10/15/24 17:24 Temperature 98.3 F Temperature Source Oral Pulse Rate 79 72 Respiratory Rate 20 H 17 Respiratory Effort Respiratory Depth Respiratory Pattern Normal Blood Pressure 107/81 H Blood Pressure Mean 89 Pulse Ox 96 96 Oxygen Delivery Method Nasal Cannula Nasal Cannula Oxygen Flow Rate (L/min) 3 3 10/15/24 17:24 10/15/24 18:12 Temperature 97.7 F L Temperature Source Oral Pulse Rate 79 Respiratory Rate 29 H Respiratory Effort Respiratory Depth Respiratory Pattern Blood Pressure 99/65 Blood Pressure Mean 76 Pulse Ox 97 94 Oxygen Delivery Method Nasal Cannula Nasal Cannula Oxygen Flow Rate (L/min) 3 3 MDM <KASSANDRA [place] - Last Filed: 10/15/24 18:52> MDM Lab Data Labs: Laboratory Results - last 24 hr 10/15/24 16:20 WBC 12.7 H RBC 4.53 Hgb 14.2 Hct 45.4 MCV 100.2 H MCH 31.3 MCHC 31.3 L RDW Std Deviation 50.8 H RDW Coeff of [place] 13.8 Plt Count 258 MPV 12.3 H Immature Gran % (Auto) 0.500 Neut % (Auto) 63.1 Lymph % (Auto) 24.6 [place] % (Auto) 8.7 Eos % (Auto) 2.5 Baso % (Auto) 0.6 Absolute Neuts (auto) 8.0 H Absolute Lymphs (auto) 3.12 Nucleated RBC % 0 Sodium 140 Potassium 4.1 Chloride 106 Carbon Dioxide 29.0 Anion Gap 4 L BUN 18 Creatinine 0.94 Estim Creat Clear Calc 44.09 Est GFR (MDRD) Af Amer 75 Est GFR (MDRD) Non-Af 62 BUN/Creatinine Ratio 19.1 Glucose 156 H Calcium 9.7 Troponin I High Sens 6 Radiography Diagnostic Testing: Clinical Impression(s) from Imaging Studies Chest X-Ray 10/15/24 18:00 IMPRESSION: No acute radiographic abnormalities. Electronically Signed: Danis Hubbard MD at 18:27 EST , EKG Normal sinus rhythm: Attestation: I personally reviewed and interpreted this EKG as follows: Interpretation: Sinus Rhythm Comments: Normal sinus rhythm, rate 70 bpm, NM 160 ms, QRS duration 88 ms, no acute ST elevation, no acute infarct Treatment and Re-Evaluation :: Differential diagnosis includes however is not limited to: COPD exacerbation, community-acquired pneumonia, COVID-19, influenza, RSV, pleural effusions, fluid overload Patient appears to be in no obvious distress on 3 L nasal cannula. Patient's vital signs are stable. Presenting to the [facility] for concern for shortness of breath that happen while the patient was smoking a cigarette. Patient will receive some breathing treatments, IV steroids, two-view chest x- ray, viral swab as well as basic labs. All radiologic examinations were read, reviewed by the emergency department attending. From these reads, a plan of care will be put in place. Patient's laboratory values showed a slight leukocytosis with a blood count of 12.7, negative for any anemia. Patient's chemistries were unremarkable, troponin was negative. Patient's COVID-19 influenza RSV was negative. Chest x- ray interpreted by ER physician shows no acute radiographic abnormalities. Patient responded well to breathing treatments as well as IV steroids. Patient was ambulated around the room on her 3 L, patient maintained her ox saturation above 94%. Patient states she does feel well enough for discharge. At this time, there is no evidence of any community-acquired pneumonia, ACS or KS. Patient replaced on a 5-day course of prednisone as well as doxycycline for 1 week. Instructed return for any worsening symptoms. All questions answered, stable for discharge. <Dr. Samantha Waters, DO - Last Filed: 10/17/24 05:11> [facility] Lab Data Attestation: I reviewed the patient's lab results. Labs: Laboratory Results - last 24 hr 10/15/24 16:20 WBC 12.7 H RBC 4.53 Hgb 14.2 Hct 45.4 MCV 100.2 H MCH 31.3 MCHC 31.3 L RDW Std Deviation 50.8 H RDW Coeff of [place] 13.8 Plt Count 258 MPV 12.3 H Immature Gran % (Auto) 0.500 Neut % (Auto) 63.1 Lymph % (Auto) 24.6 [place] % (Auto) 8.7 Eos % (Auto) 2.5 Baso % (Auto) 0.6 Absolute Neuts (auto) 8.0 H Absolute Lymphs (auto) 3.12 Nucleated RBC % 0 Sodium 140 Potassium 4.1 Chloride 106 Carbon Dioxide 29.0 Anion Gap 4 L BUN 18 Creatinine 0.94 Estim Creat Clear Calc 44.09 Est GFR (MDRD) Af Amer 75 Est GFR (MDRD) Non-Af 62 BUN/Creatinine Ratio 19.1 Glucose 156 H Calcium 9.7 Troponin I High Sens 6 Radiography Diagnostic Testing: Clinical Impression(s) from Imaging Studies Chest X-Ray 10/15/24 18:00 IMPRESSION: No acute radiographic abnormalities. Electronically Signed: Danis Hubbard MD at 18:27 EST , Treatment and Re-Evaluation :: Differential diagnosis includes however is not limited to: COPD exacerbation, community-acquired pneumonia, COVID-19, influenza, RSV, pleural effusions, fluid overload Patient appears to be in no obvious distress on 3 L nasal cannula. Patient's vital signs are stable. Presenting to the [facility] apartment for concern for shortness of breath that happen while the patient was smoking a cigarette. Patient will receive some breathing treatments, IV steroids, two-view chest x- ray, viral swab as well as basic labs. All radiologic examinations were read, reviewed by the emergency department attending. From these reads, a plan of care will be put in place. Patient's laboratory values showed a slight leukocytosis with a blood count of 12.7, negative for any anemia. Patient's chemistries were unremarkable, troponin was negative. Patient's COVID-19 influenza RSV was negative. Chest x- ray interpreted by ER physician shows no acute radiographic abnormalities. Patient responded well to breathing treatments as well as IV steroids. Patient was ambulated around the room on her 3 L, patient maintained her ox saturation above 94%. Patient states she does feel well enough for discharge. At this time, there is no evidence of any community-acquired pneumonia, ACS or [place]. Patient replaced on a 5-day course of prednisone as well as doxycycline for 1 week. Instructed return for any worsening symptoms. All questions answered, stable for discharge. I have personally performed a face to face assessment of the patient and have reviewed the JUAN DAVID Note. I performed a substantive portion of the visit including all aspects of the following. My navas findings include: History is patient is a 74-year-old female with history of COPD who is post for 3 L of oxygen at baseline but continues to smoke and only intermittently wears her oxygen. She has had worsening shortness of breath for the past few days and has been wearing her oxygen more frequently. She came in with family member for further evaluation. On exam patient has coarse breath sounds with expiratory wheezing present. Patient denies using chest pain. Otherwise well-appearing and in no acute distress. Patient is 95% on 3 L in the emergency room. Differential includes viral syndrome, pneumonia, COPD exacerbation a less likely acute cardiac process or pleural effusion. Workup including CBC, BMP and troponin is obtained as well as flu swab and chest x-ray. Patient is have a mild leukocytosis of 12.7 which is rather nonspecific. CMP largely normal. High sensitive troponin normal at 6. Low suspicion for ACS as a cause of her shortness of breath. Chest x-ray viewed by myself as well as radiology does not show any acute process. Viral panel is negative. Patient is ambulated in the emergency room and does well. She does not desaturate. Patient feels better after receiving aerosols in the emergency room. Would like to go home. Given that she does not have increased O2 demand and is able to ambulate I feel that this is quite reasonable. Will be started on burst of prednisone and given doxycycline for presumed COPD exacerbation. Patient and family agreeable plan of care. Patient given return precautions. Discharged home in stable condition. Other additions or changes: [None] Discharge Plan Triage Chief Complaint: Shortness of Breath ED Midlevel Provider: Kofi Vicente ED Provider: Samantha Waters Dx/Rx/DC Orders Clinical Impression: Acute exacerbation of chronic obstructive pulmonary disease Instructions: Asthma and COPD Prescriptions: New prednisone 50 mg tablet 50 mg PO DAILY Qty: 5 0RF doxycycline hyclate 100 mg tablet 100 mg PO BID Qty: 14 0RF No Action (DME) Disability Placard See Rx Instructions .Route .MEDSUPPLY Qty: 1 0RF Rx Instructions: Expires 01/08/2026 metoprolol succinate 50 mg tablet extended release 24 hr 50 mg PO DAILY rosuvastatin 40 mg tablet 40 mg PO QDAY latanoprost 0.005 % drops ophthalmic (eye) zolpidem 10 mg tablet 10 mg PO QHS PRN Trelegy Ellipta 100-62.5-25 mcg blister with device 1 inh INHALATION DAILY Qty: 60 11RF Rx Instructions: administer at approximately the same time(s) each day albuterol sulfate 90 mcg/actuation HFA aerosol inhaler 2 puff inhalation Q6H PRN (Reason: shortness of breath or wheezing) Qty: 8.5 3RF citalopram 40 MG tablet 40 mg PO DAILY loperamide 2 MG capsule 2 mg PO BID aspirin [Adult Aspirin Regimen] 81 mg tablet,delayed release (DR/EC) 81 mg PO DAILY clopidogrel 75 mg tablet 75 mg PO DAILY Artificial Tears (cmc) 1 % drops 1 drp EACH EYE DAILY PRN (Reason: dry eye(s)) albuterol sulfate 2.5 MG/3 ML solution for nebulization 2.5 mg INHALATION Q2H PRN (Reason: Shortness of breath) pantoprazole 40 mg Tablet,Delayed Release (Dr/Ec) 40 mg PO BID Qty: 60 2RF Primary Care Provider: Israel Ferreira Chi Referrals: Israel Ferreira Chi, MD [Primary Care Provider] - Activity Restrictions/Additional Instructions: Take antibiotics, steroids until finished. Print Language: Turkmen Disposition Disposition: Home, Self Care Discharge Date/Time: 10/15/24 19:03
[2024-10-15] MEDS: MethylPREDNISolone 125 MG/2 ML Vial IV (17:15)
[2024-10-15 17:18] LABS: Absolute Lymphocyte Count 3.12 X10^3/uL (0.83-4.51); Basophil# 0.07 X10^3/uL; Basophil% 0.6 % (0-1); Eosinophil# 0.32 X10^3/uL; Eosinophils% 2.5 % (0-5); Hematocrit 45.4 % (37-47); Hemoglobin 14.2 g/dL (12.0-15.0); Lymphocyte # 3.12 X10^3/ul (0.83-4.51); Lymphocyte % 24.6 % (19-41); Mean Corp Hgb Conc 31.3 g/dL (32-36); Mean Corpuscular Hgb 31.3 pg (27.0-32.0); Mean Corpuscular Volume 100.2 fL (81-99); Mean Platelet Vol. 12.3 fl (6.2-12.0); Monocyte# 1.11 X10^3/uL; Monocyte% 8.7 % (0-10); NRBC Flagged by Analyzer 0 % (0-5); Neutrophil # 8.02 X10^3/uL (2.7-7.7); Neutrophil % 63.1 % (47-70); Platelet Count 258 K/mm3 (150-450); RBC Distribution Width CV 13.8 % (11.6-14.6); RBC Distribution Width SD 50.8 fl (35.1-43.9); Red Blood Count 4.53 M/mm3 (4.2-5.4); White Blood Count 12.7 K/mm3 (4.4-11.0)
[2024-10-15] MEDS: Albuterol 2.5 MG/3 ML VIAL.NEB. 5 MG INHALATION (17:22)
[2024-10-15] MEDS: Ipratropium/Albuterol Sulfate 3 ML AMPUL.NEB INHALATION (17:23)
[2024-10-15 17:38] LABS: Anion Gap 4 (5-15); BUN 18 mg/dL (7-18); BUN/Creat Ratio 19.1 RATIO (10-20); Calcium,Total 9.7 mg/dL (8.5-10.1); Chloride 106 mmol/L (98-107); Creatinine, Serum 0.94 mg/dL (0.55-1.02); EST Glomerular Filtration Rate 62 mL/min (>60); Est Glom Filt Rate - Afr Amer 75 mL/min (>60); Estimated Creatinine Clearance 44.09 ml/min; Glucose 156 mg/dL (74-106); Potassium 4.1 mmol/L (3.5-5.1); Sodium Level 140 mmol/L (136-145); Troponin-I HS 6 pg/mL (3.0-54.0)
--- NOTE | 2024-10-15 18:00 | RAD_ITS ---
INDICATION: cough EXAMINATION/TECHNIQUE: X-RAY - XR Chest 2 Views COMPARISON: 09/16/2023 FINDINGS: The lungs are clear. Tortuous and calcified thoracic aorta. The heart is borderline enlarged. No pleural effusion or pneumothorax. Degenerative changes of the thoracic spine. RAD/Chest PA and Lateral IMPRESSION: No acute radiographic abnormalities. Electronically Signed: Danis Hubbard MD at 18:27 [facility] ,
[2024-10-15] MEDS: Doxycycline 100 MG CAPSULE PO (18:58)
[2024-10-15 19:06] LABS: BNP,B-Type NATRIURETIC PEPTIDE 74.9 pg/mL (0-100)
== END 2024-10-15 19:03 | disposition home or self-care (01) ==
PROVIDERS: Nurse Practitioner; Emergency Provider Emergency Medicine; PCP Family Medicine Geriatric Medicine; Visit Provider Emergency Medicine
DX: J44.1 Chronic obstructive pulmonary disease with (acute) exacerbation (principal); E11.9 Type 2 diabetes mellitus without complications; Z11.52 Encounter for screening for COVID-19; I10 Essential (primary) hypertension; E78.5 Hyperlipidemia, unspecified; F32.A Depression, unspecified; F17.210 Nicotine dependence, cigarettes, uncomplicated; Z79.51 Long term (current) use of inhaled steroids; Z79.82 Long term (current) use of aspirin; Z79.02 Long term (current) use of antithrombotics/antiplatelets; Z79.899 Other long term (current) drug therapy; Z86.73 Personal history of transient ischemic attack (TIA), and cerebral infarction without residual deficits
CPT/HCPCS: 71046; 80048; 83880; 84484; 85025; 87631; 93005; 94640; 96374; 99285; A4216

== ENCOUNTER → 2024-12-09 | Outpatient (CLI) | payer MEDICARE, SELFPAY ==
[2024-12-09 11:08] LABS: Absolute Lymphocyte Count 2.86 X10^3/uL (0.83-4.51); Absolute Neutrophil Count 6.6 X10^3/uL (2.0-7.7); Basophil# 0.07 X10^3/uL; Basophil% 0.6 % (0-1); Eosinophils% 6.3 % (0-5); Hematocrit 39.4 % (37-47); Hemoglobin 12.8 g/dL (12.0-15.0); Lymphocyte # 2.86 X10^3/ul (0.83-4.51); Lymphocyte % 25.9 % (19-41); Mean Corp Hgb Conc 32.5 g/dL (32-36); Mean Corpuscular Hgb 32.1 pg (27.0-32.0); Mean Corpuscular Volume 98.7 fL (81-99); Mean Platelet Vol. 12.3 fl (6.2-12.0); Monocyte% 7.2 % (0-10); NRBC Flagged by Analyzer 0 % (0-5); Neutrophil # 6.58 X10^3/uL (2.7-7.7); Neutrophil % 59.5 % (47-70); Platelet Count 211 K/mm3 (150-450); RBC Distribution Width CV 14.8 % (11.6-14.6); RBC Distribution Width SD 54.3 fl (35.1-43.9); Red Blood Count 3.99 M/mm3 (4.2-5.4); White Blood Count 11.1 K/mm3 (4.4-11.0)
[2024-12-09 11:44] LABS: Hemoglobin A1c 6.6 % (<=5.6)
[2024-12-09 12:09] LABS: ALB/GLOB Ratio 1.5 RATIO (0.9-2.4); AST(SGOT) 23 U/L (<=31); Alanine Aminotransfer ALT/SGPT 17 U/L (<=34); Albumin, Serum 4.1 g/dL (3.4-4.8); Alkaline Phosphatase 75 U/L (35-104); Anion Gap 11 (5-15); BUN 21 mg/dL (4-19); BUN/Creat Ratio 20.9 RATIO (10-20); Calcium,Total 9.4 mg/dL (7.6-11.0); Carbon Dioxide 24.4 mmol/L (21.0-32.0); Chloride 104 mmol/L (98-108); Cholesterol 85 mg/dL (<=200); EST Glomerular Filtration Rate 59 (>60); Globulin 2.8 g/dL (2.2-4.2); Glucose 90 mg/dL (70-99); High Density Lipoprotein 47 mg/dL; Low Density Lipoprotein Calc. 19 mg/dL; Potassium 4.2 mmol/L (3.3-5.1); Protein, Total 6.9 g/dL (5.9-8.4); Sodium Level 139 mmol/L (133-145); Total Bilirubin 0.38 mg/dL (0.00-1.30); Triglycerides 97 mg/dL; Very Low Density Lipoprotein 19 mg/dL (5-40); Vitamin D,25 Hydroxy 44.8 ng/mL (30-100); cholesterol:hdl ratio screen 1.81
== END | disposition home or self-care (01) ==
LOC: LAB 10:19
PROVIDERS: PCP Family Medicine Geriatric Medicine; Referring Provider Family Medicine Geriatric Medicine; Visit Provider Family Medicine Geriatric Medicine
DX: E11.65 Type 2 diabetes mellitus with hyperglycemia (principal); E78.5 Hyperlipidemia, unspecified; R53.83 Other fatigue; E55.9 Vitamin D deficiency, unspecified
CPT/HCPCS: 36415; 80053; 80061; 82306; 83036; 84443; 85025

== ENCOUNTER → 2025-03-17 | Outpatient (CLI) | payer MEDICARE, SELFPAY ==
[2025-03-17 11:55] LABS: Absolute Lymphocyte Count 3.15 X10^3/uL (0.83-4.51); Absolute Neutrophil Count 4.6 X10^3/uL (2.0-7.7); Basophil# 0.09 X10^3/uL; Eosinophil# 0.51 X10^3/uL; Eosinophils% 5.6 % (0-5); Hematocrit 41.4 % (37-47); Hemoglobin 13.1 g/dL (12.0-15.0); Lymphocyte # 3.15 X10^3/ul (0.83-4.51); Lymphocyte % 34.5 % (19-41); Mean Corp Hgb Conc 31.6 g/dL (32-36); Mean Corpuscular Hgb 31.8 pg (27.0-32.0); Mean Corpuscular Volume 100.5 fL (81-99); Mean Platelet Vol. 12.1 fl (6.2-12.0); Monocyte# 0.74 X10^3/uL; Monocyte% 8.1 % (0-10); NRBC Flagged by Analyzer 0 % (0-5); Neutrophil % 50.4 % (47-70); Platelet Count 242 K/mm3 (150-450); RBC Distribution Width CV 13.6 % (11.6-14.6); RBC Distribution Width SD 50.4 fl (35.1-43.9); Red Blood Count 4.12 M/mm3 (4.2-5.4); White Blood Count 9.1 K/mm3 (4.4-11.0)
[2025-03-17 12:39] LABS: Microalbumin,Random Urine < 12.0 mg/L (NO RANGE EST.); Microalbumin:Creatinine Ratio UNABLE TO CALCULATE mg/g CRE
[2025-03-17 13:08] LABS: Hemoglobin A1c 6.2 % (<=5.6)
[2025-03-17 13:19] LABS: ALB/GLOB Ratio 1.4 RATIO (0.9-2.4); AST(SGOT) 23 U/L (<=31); Alanine Aminotransfer ALT/SGPT 20 U/L (<=34); Albumin, Serum 4.1 g/dL (3.4-4.8); Alkaline Phosphatase 81 U/L (35-104); Anion Gap 12 (5-15); BUN 24 mg/dL (4-19); BUN/Creat Ratio 24.5 RATIO (10-20); Calcium,Total 9.4 mg/dL (7.6-11.0); Carbon Dioxide 24.8 mmol/L (21.0-32.0); Chloride 109 mmol/L (98-108); Cholesterol 76 mg/dL (<=200); Creatinine, Serum 0.97 mg/dL (0.70-1.20); EST Glomerular Filtration Rate 61 (>60); Glucose 89 mg/dL (70-99); High Density Lipoprotein 38 mg/dL; Low Density Lipoprotein Calc. 26 mg/dL; Potassium 4.8 mmol/L (3.3-5.1); Protein, Total 7.1 g/dL (5.9-8.4); Sodium Level 145 mmol/L (133-145); Total Bilirubin 0.24 mg/dL (0.00-1.30); Triglycerides 58 mg/dL; Very Low Density Lipoprotein 12 mg/dL (5-40); Vitamin D,25 Hydroxy 58.4 ng/mL (30-100)
== END | disposition home or self-care (01) ==
LOC: LAB 10:19
PROVIDERS: PCP Family Medicine Geriatric Medicine; Referring Provider Family Medicine Geriatric Medicine; Visit Provider Family Medicine Geriatric Medicine
DX: E11.65 Type 2 diabetes mellitus with hyperglycemia (principal); E78.5 Hyperlipidemia, unspecified; R53.83 Other fatigue; E55.9 Vitamin D deficiency, unspecified
CPT/HCPCS: 36415; 80053; 80061; 82043; 82306; 82570; 83036; 84443; 85025

== ENCOUNTER → 2025-04-18 | Outpatient (CLI) | payer MEDICARE, SELFPAY ==
--- NOTE | 2025-04-18 16:35 | CT_ITS ---
PROCEDURE: CTA ABD/PELVIS W/WO CONTRAST 04/18/2025 REASON FOR EXAM: ISCHEMIC COLITIS AND LOWER GI BLEED TECHNIQUE: CTA ABD/PELVIS W/WO CONTRAST Multiplanar Sagittal and Coronal images were obtained. CONTRAST: Isovue 300 VOLUME: 80 mL One or more dose reduction techniques were used (e.g., Automated exposure control, adjustment of the mA and/or kV according to patient size, use of iterative reconstruction technique). RADIATION DOSE SUMMARY: CTDlvol: 23 mGy DLP: 520.82 mGycm COMPARISON: Prior study dated December 05, 2023. FINDINGS: Aorta: Moderate mixed calcified and soft plaque. No abdominal aortic aneurysm. Iliac Arteries: Scattered atherosclerotic plaque. No aneurysm or significant stenosis. Celiac: Mild atherosclerotic plaque formation at the origin of the celiac artery. SMA: Marked degree of atherosclerotic plaque formation at the origin of the superior mesenteric artery. CAMELIA : Not visualized. Right Renal: Atherosclerotic plaque formation at the origin of the right renal artery. Left Renal: Atherosclerotic plaque formation of the left renal artery. Extravascular Findings: There is a 7.5 mm calcified granuloma in the posterior medial segment of the right lower lobe. Bilateral mild cortical renal atrophy of the kidneys. Diffuse sigmoid diverticulosis without radiographic evidence of diverticulitis. CT/CTA Abd/Pelvis W/WO Contrast IMPRESSION: Moderate to severe atherosclerotic plaque formation at the origin of the superi or mesenteric artery. Atherosclerotic changes of the abdominal aorta and iliac arteries as well as th e renal arteries. Diffuse sigmoid diverticulosis. Reading Location: [place]
== END | disposition home or self-care (01) ==
LOC: CT 16:33
PROVIDERS: PCP Family Medicine Geriatric Medicine; Referring Provider Internal Medicine Gastroenterology; Visit Provider Internal Medicine Gastroenterology
DX: K92.2 Gastrointestinal hemorrhage, unspecified (principal); K55.9 Vascular disorder of intestine, unspecified
CPT/HCPCS: 74174; Q9967

== ENCOUNTER → 2025-04-26 | Outpatient (CLI) | payer MEDICARE, SELFPAY ==
--- NOTE | 2025-04-26 10:41 | CT_ITS ---
PROCEDURE: LOW DOSE CT LUNG SCREENING 04/26/2025 REASON FOR EXAM: SMOKER Current smoker. Patient has smoked 1 pack per day for 63 years. COPD. TECHNIQUE: LOW DOSE CT LUNG SCREENING Coronal and Sagittal reconstruction series were provided. One or more dose reduction techniques were used (e.g., Automated exposure control, adjustment of the mA and/or kV according to patient size, use of iterative reconstruction technique). REFERENCE LINK: [employer] Lung-RADS RADIATION DOSE SUMMARY: CTDlvol: 2.01 mGy DLP: 69.72 mGycm COMPARISON: Prior study dated March 15, 2024. FINDINGS: PULMONARY NODULES: (Only nodules >3mm are reported) Nodules described below are on series 1 unless otherwise specified. Pulmonary Nodules: No suspicious pulmonary nodules are seen. Hardware:None Lymph Nodes:No significant lymph nodes are present. Heart and Vasculature:The heart is nonenlarged.Atherosclerotic calcifications of the thoracic aorta. Thoracic aorta and pulmonary arteries have normal contours; noncontrast technique limits evaluation. Coronary Artery Calcifications: Present Lungs and Airways: Mild emphysematous changes are present. Once again, there is evidence of a focal area of bronchiectasis and scarring in the lateral aspect of the right upper lobe. Pleura:No pleural effusion. Upper Abdomen:Unremarkable Bones:Degenerative changes of the thoracic spine. CT/Low Dose CT Lung Screening IMPRESSION: Stable examination. Coronary artery calcification (CAC) is is present Lung-RADS Category: 2 BENIGN (BASED ON IMAGING FEATURES OR INDOLENT BEHAVIOR). RECOMMEND 12-MONTH SCREENING LDCT. Other Significant Findings: Reading Location: [place]
== END | disposition home or self-care (01) ==
LOC: CT 10:40
PROVIDERS: PCP Family Medicine Geriatric Medicine; Referring Provider Nurse Practitioner Acute Care; Visit Provider Nurse Practitioner Acute Care
DX: F17.210 Nicotine dependence, cigarettes, uncomplicated (principal)
CPT/HCPCS: 71271

== ENCOUNTER → 2025-09-08 | Outpatient (CLI) | payer MEDICARE, SELFPAY ==
[2025-09-08 13:15] LABS: Hematocrit 46.9 % (37-47); Hemoglobin 14.8 g/dL (12.0-15.0); Immature Granulocytes Count 0.080 X10^3/uL (0.0-0.0); Mean Corp Hgb Conc 31.6 g/dL (32-36); Mean Corpuscular Volume 105.2 fL (81-99); Mean Platelet Vol. 11.7 fl (6.2-12.0); NRBC Flagged by Analyzer 0 % (0-5); Platelet Count 278 K/mm3 (150-450); RBC Distribution Width CV 13.7 % (11.6-14.6); RBC Distribution Width SD 53.7 fl (35.1-43.9); Red Blood Count 4.46 M/mm3 (4.2-5.4); White Blood Count 12.3 K/mm3 (4.4-11.0)
[2025-09-08 14:12] LABS: AST(SGOT) 20 U/L (<=31); Alanine Aminotransfer ALT/SGPT 15 U/L (<=34); Albumin, Serum 4.5 g/dL (3.4-4.8); Alkaline Phosphatase 73 U/L (35-104); Anion Gap 14 (5-15); BUN 19 mg/dL (4-19); BUN/Creat Ratio 18.3 RATIO (10-20); Calcium,Total 9.9 mg/dL (7.6-11.0); Carbon Dioxide 26.1 mmol/L (21.0-32.0); Chloride 103 mmol/L (98-108); Cholesterol 91 mg/dL (<=200); Globulin 3.1 g/dL (2.2-4.2); Glucose 81 mg/dL (70-99); Low Density Lipoprotein Calc. 27 mg/dL; Potassium 4.4 mmol/L (3.3-5.1); Triglycerides 106 mg/dL; Very Low Density Lipoprotein 21 mg/dL (5-40); Vitamin D,25 Hydroxy 102.0 ng/mL (30-100); cholesterol:hdl ratio screen 2.05
[2025-09-08 20:59] LABS: Xtra Tube Kwok EXTRA TUBE
== END | disposition home or self-care (01) ==
LOC: POLAB3 12:58
PROVIDERS: PCP Family Medicine Geriatric Medicine; Visit Provider Family Medicine Geriatric Medicine
DX: E11.65 Type 2 diabetes mellitus with hyperglycemia (principal); E55.9 Vitamin D deficiency, unspecified; E78.5 Hyperlipidemia, unspecified; I10 Essential (primary) hypertension
CPT/HCPCS: 36415; 80053; 80061; 82306; 83036; 84443; 85025